=== PATIENT | female | born 1970 | race Caucasian/White ===

== ENCOUNTER 2016-03-01 13:55 | Inpatient (IN) | payer OTHER ==
--- NOTE | 2015-03-29 05:13 | NUR ---
CATALOGUE MAKER AT BEDSIDE FOR MORNING LABS Addendum: 03/29/16 at 0514 by Geno Roy RN WRONG YEAR
[~2016-03-01] VITALS: Ht 160 cm; Wt 59.4 kg
[~2016-03-01 13:55] MED LIST: ACID REDUCER10 M1 PO; ADALAT CC30 MG PO; ADALAT CC60 MG PO; ADALAT PO; AFEDITAB PO; APRESOLINE10 MG PO; ASPI-COR81 M1 PO; AUGMENTIN 875 M1 TAB PO; BENADRYL50 MG PO; BENAZEPRIL40 M1 PO; CEFDINIR300 MG PO; CIPRO500 MG PO; COLACE100 M1 PO; DILAUDID2 M1 PO; EFFEXOR-XR37.5 MG PO; EFFEXOR37.5 MG PO; FOLATE1 MG PO; INSULIN 70/30; LASIX40 MG PO; LEVAQUIN250 MG PO; LEVAQUIN500 MG PO; LEVOFLOXACIN IV; LIPITOR80 MG PO; LONITEN10 MG PO; LONITEN2.5 MG PO; LOPID600 MG PO; LOTENSIN40 M1 PO; LOVASTATIN40 M1 PO; METFORMIN500 MG PO; MEVACOR40 MG PO; NEURONTIN300 MG PO; NOVOLIN 70/301.5 ML SC; NOVOLIN 70100 UNITS/ SUBQ; NOVOLOG MIX 70/10 ML SUBQ; PREVACID15 MG PO; PRILOSEC40 MG PO; PROCARDIA XL60 MG PO; PROTONIX40 MG PO; REGLAN10 MG PO; RENA-VITE RX1 TAB PO; RENVELA800 MG PO; ROCALTROL0.5 MCG PO; ROCEPHIN1 G1 IV; SERTRALINE HCL100 M1 PO; TENORMIN25 MG PO; VICODIN 5/500 M1 TAB PO; VITAMIN D NATU400 IU PO; WELLBUTRIN150 MG PO; ZESTRIL20 MG PO; ZOFRAN ODT4 MG PO; ZOFRAN4 M1 PO; ZOFRAN8 MG PO; [UNRECOGNIZED DRUG - OTHER]
--- NOTE | 2016-03-01 13:56 | NUR ---
O2 SATS IN ER LOBBY 96% ON ROOM AIR.
[2016-03-01 14:21] VITALS: BP 96/49
--- NOTE | 2016-03-01 14:48 | NUR ---
Pt wheelchair assisted to bed 3 at this time,
--- NOTE | 2016-03-01 15:08 | NUR ---
X-Ray at bedside. Pt tolerated well
[2016-03-01] MEDS ORDERED: ASPIRIN 81 MG TAB.CHEW PO ONE (15:15)
[2016-03-01] MEDS ORDERED: NITROGLYCERIN 0.4 MG TAB SL ONE (15:15)
[2016-03-01 15:16] VITALS: BP 139/57
--- NOTE | 2016-03-01 15:16 | NUR ---
PT BROUGHT IN EMS PLACED ON BIPAP 12\6 RR [address] LAY FOR RESP DISTRESS PT IN HF ALERT PROTECTA-GEL UNDER MASK SIZE LG BS DIMINISHED ALARMS ARE ON AND FUNCTIONAL BIPAP PLUGGED INTO RED OUTLET ABG TO FOLLOW
--- NOTE | 2016-03-01 15:25 | NUR ---
Respiratory Therapist at bedside for respiratory intervention. PT TOLERATING WELL.
--- NOTE | 2016-03-01 15:45 | NUR ---
Blood for labwork drawn. Patient tolerated.
--- NOTE | 2016-03-01 16:00 | NUR ---
ABG RESULTS REPORTED TO DR LAY INCREASE FIO2 TO 100
--- NOTE | 2016-03-01 16:00 | NUR ---
sitting upright in guerney --bipap in place, pt admits breathing easier vs to arrival. awake alert c/o generalized back pain. will inform MD. will continue to monitor and observe pt for changes in vitals or respiration. x2 sr up guerney low and locked position.
[2016-03-01] MEDS ORDERED: SODIUM BICARBONATE 8.4% PFS 50 MEQ/50 ML SYR IVP ONE (17:10)
[2016-03-01] MEDS ORDERED: INSULIN HUMAN REGULAR 100 UNITS/ML 10 ML VIAL IVP ONE (17:10)
[2016-03-01] MEDS ORDERED: LEVOFLOXACIN 500 MG/D5W PREMIX 100 ML IV ONE (17:10)
[2016-03-01] MEDS ORDERED: DEXTROSE 50% 50 ML SYR IVP ONE (17:10)
[2016-03-01 17:13] VITALS: BP 119/73
--- NOTE | 2016-03-01 17:13 | NUR ---
BIPAP CHECK BS DIMINIAHED SCATTERED CRACKLES
[2016-03-01] MEDS ORDERED: DEXTROSE 50% 50 ML SYR IVP PRN (17:30)
[2016-03-01] MEDS ORDERED: ONDANSETRON 4 MG/2 ML VIAL IVP ONE (17:55)
[2016-03-01] MEDS ORDERED: MORPHINE SULFATE 2 MG/ML SYR IVP ONE (17:55)
--- NOTE | 2016-03-01 18:00 | NUR ---
PT ATTEMPTED TO EAT DINNER--REMOVED BIPAP PT SPO2 DROPPED TO 85% AND PT GREW SOB----AFTER 15-20MINS WE PUT HER BACK ON BIPAP---RESP IMPROVED SISTER AT BEDSIDE
--- NOTE | 2016-03-01 19:14 | NUR ---
PT WAS TO GO TO ICU BUT THEN DECIDED SHE WILL GO TO TELE----PT REFUSED KATHERINE, STATED SHE WANTED US TO WAIT TILL SHE WAS ABLE TO PEE.
--- NOTE | 2016-03-01 19:15 | NUR ---
Pt transferred to [facility] via [place] [id number]
--- NOTE | 2016-03-01 19:30 | NUR ---
ADMITTED 45 Y/O FEMALE FROM ICU AT 1925 PM TO TELE VIA [employer] WITH DX: SOB. INITIAL ASSESSMENT, BODY CHECK AND ADMISSION INTERVENTION DONE. PATIENT AAO X 4, HAS BLINDNESS ON BOTH EYES, BUT ABLE TO FOLLOW COMMAND AND MAKE NEEDS KNOWN AND AMBULATE WITH CANDLE MOLDER. PATIENT CURRENTLY ON BIPAP AT 50 % FIO2 WITH O2 SATURATION OF 99 %. SKIN WARM/DRY TO TOUCH WITH NORMAL COLOR AND INTACT. AV SHUNT ON LT UPPER ARM HAS GOOD BRUIT/THRILL. INSTRUCTED PATIENT/FAMILY TO UNIT. ALSO, DISCUSSED PLAN OF CARE, PAIN MANAGEMENT AND MEDICATION REGIMEN WITH PATIENT/FAMILY AND ALL VERBALIZED UNDERSTANDING. PLACED PATIENT ON SAFETY/FALL PRECAUTIONS AND WILL CONTINUE TO MONITOR. CALL LIGHT LEFT WITHIN REACH.
--- NOTE | 2016-03-01 19:42 | NUR ---
PT COME FROM ER ON 100% NRB , AND PLACED PT ON BIPAP, STARING WINING FROM 1005 to 50% , sat 100%. pt looks comfortable, sister at bed side., no resp. distress noted at this time
[2016-03-01] MEDS: ALBUTEROL SULFATE/IPRATROPIU 3 ML SOL IH SCH ×2 (19:44→23:31)
[2016-03-01 19:45] VITALS: BP 119/41
[2016-03-01 20:00] VITALS: BP 119/41
[2016-03-01] MEDS: FUROSEMIDE 40 MG TAB PO SCH (20:51)
[2016-03-01] MEDS: GABAPENTIN 300 MG CAP PO SCH (20:51)
[2016-03-01] MEDS: MINOXIDIL 2.5 MG TAB PO SCH (20:51)
[2016-03-01] MEDS: SIMVASTATIN 20 MG TAB PO SCH (20:52)
[2016-03-01] MEDS: BLOOD GLUCOSE MONITORING 1 DEV DEV FS SCH (20:54)
[2016-03-01] MEDS ORDERED: LOVASTATIN 40 MG PO SCH (21:00)
[2016-03-01] MEDS ORDERED: MINOXIDIL 10 MG TAB PO SCH (21:00)
--- NOTE | 2016-03-01 21:15 | NUR ---
DIALYSIS NURSE AT THE BEDSIDE AND PREPARING FOR HD. OBTAINED HD CONSENT FROM THE PATIENT. THEN, ADMINISTERED DUE MEDICATIONS MD'S ORDERED WITH EDUCATION GIVEN. HELD ALL MEDICATIONS THAT WILL EFFECT TO BLOOD PRESSURE LEVEL. PATIENT TOLERATED WELL. WILL CONTINUE TO MONITOR.
--- NOTE | 2016-03-01 22:30 | NUR ---
HD IS STILL ON GOING AND PATIENT TOLERATED WELL. KEPT PATIENT IN COMFORTABLE POSITION/WARM AND WILL CONTINUE TO MONITOR.
[2016-03-01] MEDS: MORPHINE SULFATE 2 MG/ML SYR IVP PRN (23:25)
[2016-03-02] VITALS (7 sets, daily range): BP systolic 94–155; BP diastolic 58–86
--- NOTE | 2016-03-02 00:25 | NUR ---
FINISHED HD AND 3 L OUTPUT. PATIENT TOLERATED WELL AND V/S REMAINED WNL. NO S/S OF DISTRESS NOTED. WILL CONTINUE TO MONITOR.
--- NOTE | 2016-03-02 00:30 | NUR ---
IV ON RIGHT HAND ACCIDENTALLY CAME OUT. INSERTED THE NEW IV LINE ON RT UPPER CHEST G # 22 BY ICU CHARGE NURSE AND PATIENT TOLERATED WELL.
[2016-03-02] MEDS: ALBUTEROL SULFATE/IPRATROPIU 3 ML SOL IH SCH ×6 (03:15→23:17)
--- NOTE | 2016-03-02 04:08 | NUR ---
PATIENT RESTED COMFORTABLY IN BED AND TOLERATED BIPAP WELL. V/S REMAINED WNL AND NO S/S OF DISTRESS NOTED. WILL CONTINUE TO MONITOR.
[2016-03-02] MEDS: MORPHINE SULFATE 2 MG/ML SYR IVP PRN ×2 (04:53→17:44)
--- NOTE | 2016-03-02 05:00 | NUR ---
PATIENT WAS CALLED AND C/O BACK PAIN. MEDICATED MORPHINE PRN AND REPOSITION FOR PRESSURE RELIEF. WILL CONTINUE TO MONITOR FOR EFFECTIVENESS.
[2016-03-02] MEDS: BLOOD GLUCOSE MONITORING 1 DEV DEV FS SCH ×4 (05:25→21:17)
--- NOTE | 2016-03-02 07:05 | NUR ---
RECEIVED PATIENT REPORT. PATIENT AWAKE, ALERT AND ORIENTED. NO S/S OF DISTRESS NOTED. PATIENT IS BLIND. PATIENT CURRENTLY ON BIPAP. NO SOB. PATIENT ON CONTINUOS O2 MONITORING. IV LINE NOTED TO THE RIGHT UPPER CHEST SALINE LOCKED. AV SHUNT NOTED TO THE LEFT UPPER ARM. PATIENT ON TELE MONITORING. BED LOWERED WITH CALL LIGHT WITHIN REACH
--- NOTE | 2016-03-02 07:25 | NUR ---
RECEIVED PT STABLE ON BIPAP SUPPORT FIO2 50%, PLACED ON CONT PULSE OX, PT AWAKE ALERT, NO RESP DISTRESS OR SOB NOTED, BREATH SOUNDS CLEAR BILATERALLY, WILL CONTINUE TO MONITOR.
--- NOTE | 2016-03-02 07:25 | NUR ---
ENDORSED PLAN OF CARE TO CHLOE HAN, AT BEDSIDE. PATIENT REMAINED IN STABLE CONDITION WITHOUT S/S OF DISTRESS NOTED.
--- NOTE | 2016-03-02 08:53 | NUR ---
PT TAKEN OFF BIPAP AND PLACED ON 12LPM OXIMIZER TO EAT BREAKFAST, EMELY CORONA AWARE, WILL CONTINUE TO MONITOR.
[2016-03-02] MEDS ORDERED: FAMOTIDINE 20 MG PO SCH (09:00)
[2016-03-02] MEDS ORDERED: SEVELAMER CARBONATE 1600 MG PO SCH (09:00)
[2016-03-02] MEDS: MINOXIDIL 2.5 MG TAB PO SCH ×2 (09:00→21:00)
[2016-03-02] MEDS: VIT-B COMP/VIT-C/FOLIC ACID 1 TAB PO SCH (09:21)
[2016-03-02] MEDS: FAMOTIDINE 20 MG TAB PO SCH (09:21)
[2016-03-02] MEDS: FUROSEMIDE 40 MG TAB PO SCH ×2 (09:21→21:00)
[2016-03-02] MEDS: FOLIC ACID 1 MG TAB PO SCH (09:21)
[2016-03-02] MEDS: SEVELAMER 800 MG TAB PO SCH ×3 (09:21→16:43)
[2016-03-02] MEDS: METOCLOPRAMIDE 10 MG TAB PO SCH ×3 (09:21→16:43)
--- NOTE | 2016-03-02 10:03 | NUR ---
PATIENT HAS BEEN SCREENED AND CATEGORIZED MODERATE NUTRITION RISK. PATIENT WILL BE SEEN WITHIN 3-5 DAYS OF ADMISSION. 03/04/16-03/06/[address]
--- NOTE | 2016-03-02 10:20 | NUR ---
PATIENT RECEIVING 12L O2 VIA OXYMIZER WITH O2 SAT OF 95% BUT C/O OF DIFFICULTY BREATHING AND STATES THAT SHE "CAN'T FEEL THE OXYGEN". PATIENT PUT BACK ON BIPAP. WILL CONTINUE TO MONITOR
--- NOTE | 2016-03-02 11:03 | NUR ---
RECEIVED A CALL FROM NUCLEAR MED. PATIENT WILL HAVE VQ SCAN DONE AT BEDSIDE AROUND 1600 TODAY
--- NOTE | 2016-03-02 11:58 | NUR ---
CM NOTE INITIAL REVIEW FAXED TO [facility] / FAX# [phone], ATTN: July [phone]
[2016-03-02] MEDS: INSULIN ASPART SLIDING SCALE 100 UNITS/ML VIAL SUBQ PRN ×2 (12:28→17:37)
--- NOTE | 2016-03-02 12:30 | NUR ---
INSULIN SLIDING SCALE COVERAGE NOT ADMINISTERED. PATIENT UNABLE TO EAT LUNCH AT THE MOMENT
--- NOTE | 2016-03-02 12:30 | NUR ---
PATIENT TAKEN OFF OF BIPAP TO HELP EAT LUNCH BUT PATIENT O2 SATURATION QUICKLY DROPPED FROM 95% TO 75%. PATIENT PLACED BACK TO BIPAP IMMEDIATELY. SCHEDULED PO MEDS NOT ADMINISTERED
--- NOTE | 2016-03-02 16:31 | NUR ---
SPOKE WITH [place] FROM DIALYSIS AND INFORMED HER ABOUT THE HEMODIALYSIS [place] ORDERED FOR THE PATIENT TOMORROW
--- NOTE | 2016-03-02 16:45 | NUR ---
SPOKE WITH DR QUINTERO. MADE HER AWARE THAT PATIENT HAS BEEN MOSTLY ON THE BIPAP TODAY AND THAT NO PRESIDENT IN ON THE PATIENT'S CASE. ALSO INFORMED THAT PATIENT DOES NOT HAVE O2 AT HOME. DR QUINTERO TO SEE THE PATIENT
--- NOTE | 2016-03-02 18:21 | NUR ---
PMI AT BEDSIDE PERFORMING VQ SCAN
--- NOTE | 2016-03-02 19:22 | NUR ---
ENDORSED CONTINUITY OF CARE TO THE NIGHT NURSE. PATIENT IN STABLE CONDITION
--- NOTE | 2016-03-02 19:35 | NUR ---
RECEIVED PT IN STABLE CONDITION FROM AM NURSE. AWAKE, ALERT AND ORIENTED X4. ON TELE MONITOR. NO ACUTE DISTRESS AT THIS TIME ON BIPAP . BEDREST. INSTRUCTED PT TO CALL IF NEED ASSISTANCE. FAMILY AT BEDSIDE. HAS HL ON THE RT UPPER CHEST. ON HD WITH LT UPPER ARM AV SHUNT ,HAS GOOD BRUIT AND THRILLS. PLAN OF CARE DISCUSSED AND VERBALIZED UNDERSTANDING. CALL LIGHT PLACED WITHIN EASY REACH. WILL CONTINUE TO MONITOR.
--- NOTE | 2016-03-02 19:45 | NUR ---
RT [employer] CAME AND ASSESSED PT. PT STILL ON BIPAP.
--- NOTE | 2016-03-02 19:50 | NUR ---
VQ SCAN WAS DONE AT BEDSIDE FEW MINUTES AGO. WILL FOLLOW UP RESULT.
[2016-03-02] MEDS: LISINOPRIL 20 MG TAB PO SCH (21:00)
--- NOTE | 2016-03-02 21:00 | NUR ---
BP MEDS AND LASIX NOT GIVEN FOR BP IS LOW 94/64. WILL CONTINUE TO MONITOR.
--- NOTE | 2016-03-02 21:17 | NUR ---
BLOOD SUGAR WAS CHECKED RESULT 142. PT HAD SOME MILK. WILL CONTINUE TO MONITOR.
[2016-03-02] MEDS: SIMVASTATIN 20 MG TAB PO SCH (21:25)
[2016-03-02] MEDS: GABAPENTIN 300 MG CAP PO SCH (21:25)
--- NOTE | 2016-03-02 21:30 | NUR ---
NO RESULT OF THE VQ SCAN . WILL CONTINUE TO FOLLOW UP.
--- NOTE | 2016-03-02 22:50 | NUR ---
PT GIVEN FOR SOME APPLE JUICE REQUESTED. TOLERATED WELL.
[2016-03-03] VITALS (11 sets, daily range): BP systolic 86–123; BP diastolic 47–96
--- NOTE | 2016-03-03 01:00 | NUR ---
SLEEPING AT THIS TIME. NO S/S OF ANY ACUTE RESPIRATORY DISTRESS NOTED. O2 SAT 96%.
[2016-03-03] MEDS: ALBUTEROL SULFATE/IPRATROPIU 3 ML SOL IH SCH ×6 (03:09→22:20)
--- NOTE | 2016-03-03 03:29 | NUR ---
TRIED TO GIVE PATIENT A BREAK OFF THE BIPAP BUT PT S SATS DROPPED TO 75%. HAD TO PLACE PT BACK ON BIPAP
--- NOTE | 2016-03-03 04:00 | NUR ---
REPOSITIONED FOR COMFORT. NO SOB NOTED. STILL ON BI-PAP .
[2016-03-03] MEDS: BLOOD GLUCOSE MONITORING 1 DEV DEV FS SCH ×4 (06:16→21:13)
--- NOTE | 2016-03-03 06:17 | NUR ---
BLOOD SUGAR CHECKED THIS AM RESULT 103. NO INSULIN NEEDED.
--- NOTE | 2016-03-03 07:05 | NUR ---
RECEIVED PATIENT REPORT. PATIENT AWAKE, ALERT AND ORIENTED. NO S/S OF DISTRESS NOTED. PATIENT ON BIPAP WITH 60% FIO2. PATIENT ABOUT TO HAVE HEMODIALYSIS. PATIENT ON TELE MONITORING. BED LOWERED WITH CALL LIGHT WITHIN REACH. WILL CONTINUE TO MONITOR
--- NOTE | 2016-03-03 07:15 | NUR ---
HD NURSE HERE FOR DIALYSIS SCHEDULE TODAY.
--- NOTE | 2016-03-03 07:21 | NUR ---
ENDORSED PT IN STABLE CONDITION TO AM NURSE.
[2016-03-03] MEDS: SEVELAMER 800 MG TAB PO SCH ×3 (08:00→17:14)
--- NOTE | 2016-03-03 08:30 | NUR ---
PATIENT PUT ON OXYMIZER AT 12L. O2 SAT 92%. PATIENT EATING BREAKFAST. NO S/S OF DISTRESS NOTED
--- NOTE | 2016-03-03 08:50 | NUR ---
HEMODIALYSIS TREATMENT STARTED
[2016-03-03] MEDS: METOCLOPRAMIDE 10 MG TAB PO SCH ×3 (09:00→17:14)
[2016-03-03] MEDS: VIT-B COMP/VIT-C/FOLIC ACID 1 TAB PO SCH (09:00)
[2016-03-03] MEDS: FAMOTIDINE 20 MG TAB PO SCH (09:00)
[2016-03-03] MEDS: FUROSEMIDE 40 MG TAB PO SCH ×2 (09:00→21:00)
[2016-03-03] MEDS: LISINOPRIL 20 MG TAB PO SCH ×2 (09:00→21:00)
[2016-03-03] MEDS: FOLIC ACID 1 MG TAB PO SCH (09:00)
[2016-03-03] MEDS: MINOXIDIL 2.5 MG TAB PO SCH ×2 (09:00→21:00)
--- NOTE | 2016-03-03 10:13 | NUR ---
PATIENT REPORTS OF DIFFICULTY BREATHING. PATIENT PUT BACK ON BIPAP. HEMODIALYSIS STILL IN PROGRESS. WILL CONTINUE TO MONITOR
--- NOTE | 2016-03-03 11:28 | NUR ---
CM NOTE INITIAL REVIEW FAXED TO [facility] / FAX# [phone], ATTN: July [phone]
--- NOTE | 2016-03-03 12:20 | NUR ---
HEMODIALYSIS DONE. 3L OUT. NO S/S OF DISTRESS NOTED
[2016-03-03] MEDS: INSULIN ASPART SLIDING SCALE 100 UNITS/ML VIAL SUBQ PRN ×2 (12:51→22:40)
--- NOTE | 2016-03-03 13:54 | NUR ---
PATIENT SEEN BY PHYSICAL THERAPIST. PATIENT WAS ABLE TO GET UP AND TAKE A FEW STEPS USING A WALKER WHILE ON 10L O2 VIA OXYMIZER. 02 SATURATION 91%
[2016-03-03] MEDS: MORPHINE SULFATE 2 MG/ML SYR IVP PRN (14:28)
--- NOTE | 2016-03-03 15:25 | NUR ---
PT PLACED BACK ON 10L OXYMIZER. NO SOB OR RESP DISTRESS NOTED. WILL CONTINUE TO MONITOR.
[2016-03-03] MEDS: LEVOFLOXACIN 500 MG TAB PO SCH (17:14)
--- NOTE | 2016-03-03 18:15 | NUR ---
CONSENT OBTAINED FOR CT CHEST AND ANGIO FROM PATIENT. CONSENT FILED IN THE CHART
--- NOTE | 2016-03-03 18:30 | NUR ---
SPOKE WITH DR CABELLO AND INFORMED HIM ABOUT THE PATIENT'S CREATININE LEVEL AND THAT THE PATIENT IS ORDERED TO HAVE A CT ANGIO WITH CONTRAST. SAYS IT'S OK FOR THE PATIENT TO HAVE THE PROCEDURE AND THERE IS NO NEED FOR DIALYSIS TOMORROW
--- NOTE | 2016-03-03 18:30 | NUR ---
MADE DR ASHER AWARE OF PATIENT'S TROP LEVEL OF 1.683. ORDERS TROPONIN Q6H X2
--- NOTE | 2016-03-03 18:39 | NUR ---
PATIENT PLACED NPO FOR CT CHEST AND ANGIO
--- NOTE | 2016-03-03 19:04 | NUR ---
PATIENT AWAKE AND ALERT, STATES THAT SHE IS FINE ON OXYMIZER AND DOES NOT WANT TO GO ON THE BIPAP MASK AT THIS TIME. NO DISTRESS NOTED AT THIS TIME. TREATMENT GIVEN. SPO2 93% ON 9L OXYMIZER
--- NOTE | 2016-03-03 19:32 | NUR ---
ENDORSED CONTINUITY OF CARE TO THE NIGHT NURSE.
--- NOTE | 2016-03-03 19:50 | NUR ---
RECEIVED PT FROM EMELY Quispe RN FOR CONTINUITY OF CARE. SHIFT ASSESSMENT DONE AT THIS TIME. PT IS RESPONSIVE, A/O X2, COOPERATIVE, NOTED STABLE, PT IS BLIND. VITAL SIGNS TAKEN ARE STABLE, PT ON 10L OXYMIZER SATURATION NOTED AT 91%. PT DENIES CHEST PAIN, SOB OR DISCOMFORT AT THIS TIME. IV ACCESS NOTED TO RT AC #20G, SALINE LOCKED, PATENT AND INTACT. RT WRIST #24G, OCCLUDED, WILL DISCONTINUE. RT CHEST IV ACCESS #24G, PATENT AND INTACT. NOTED SKIN INTACT. LT AV SHUNT INTACT, POSITIVE BRUIT AND THRILL. NO BP/VENIPUNCTURE TO LT ARM, SIGN POSTED. SAFETY PRECAUTIONS IMPLEMENTED. CALL LIGHT WITHIN EASY REACH. WILL CONTINUE TO MONITOR. DISCUSSED PLAN OF CARE W/ PT, VERBALIZED UNDERSTANDING.
--- NOTE | 2016-03-03 20:08 | NUR ---
PER TELE MONITOR, PT CHRISTEL. CHECKED ON PT AT THIS TIME, FOUND UNRESPONSIVE, NO PULSE. CODE BLUE INITIATED.
--- NOTE | 2016-03-03 20:20 | NUR ---
CODE BLUE SUCCESSFUL, PT IS INTUBATED, SEE CODE BLUE RECORD. WILL MAKE MD AWARE.
--- NOTE | 2016-03-03 20:25 | NUR ---
SPOKE TO COVERING DOCTOR, DR. ASHER MADE AWARE OF PT CONDITION. RECEIVED ORDER TO TRANSFER PT TO ICU.
--- NOTE | 2016-03-03 20:35 | NUR ---
PATIENT INTUBATED WITH 7.5 ETT @ 22CM, ETT SECURE WITH ANCHOR FAST. BS NOTED BILAT, DIMINISHED ETCO2 AND BS CONFIRMED BY MD NAJERA. ABG TO FOLLOW. PATIENT ON AC 12 VT 500 PEEP 5 FIO2 100% VENT PLUGGED INTO RED OUTLET. AMBU BAG AT BEDSIDE, ALARMS ON AND FUNCTIONING. Addendum: 03/03/16 at 2057 by Rosalie BOX ETT @ 23 CM
--- NOTE | 2016-03-03 20:40 | NUR ---
FAMILY MADE AWARE OF PT TRANSFER TO ICU, DAUGHTERS NOTIFIED.
--- NOTE | 2016-03-03 20:45 | NUR ---
PATIENT TRANSFERRED TO UNIT VIA BED FROM [facility] AFTER HAVING CODE BLUE. RECEIVED REPORT FROM [facility] NURSE CHLOE STRONG HERE AT BEDSIDE. PT IS LEGALLY BLIND, UNRESPONSIVE AT THIS TIME. ETT TO VENT WITH CURRENT PULSE OX SHOWING 99% AT THIS TIME. TOOLS PROGRAMMER CURRENTLY SHOWS SINUS TACH WITH HR AT 109, BP 103/64, RR14, TEMP 99.5. PT HAS RIGHT AC #20 RUNNING NS TKO 10ML AT THIS TIME. WELL AN IV IN CHEST AND RIGHT WRIST SALINE LOCKED. HAS LEFT UPPER ARM AV SHUNT FOR DIALYSIS. ABDOMEN SOFT, NON-TENDER. SKIN INTACT. BED IN LOW POSITION. HOB UP. WILL CONTINUE TO CLOSELY MONITOR.
--- NOTE | 2016-03-03 20:47 | NUR ---
TRANSFERRED TO ICU AT THIS TIME, RESPIRATORY THERAPIST AT BEDSIDE. REPORT GIVEN TO ANNETTERN FOR CONTINUITY OF CARE.
--- NOTE | 2016-03-03 20:54 | NUR ---
SPOKE TO DR. HINTON ABOUT PT CONDITION, AWARE OF PT STATUS. PT IS NOW IN ICU.
--- NOTE | 2016-03-03 20:58 | NUR ---
ETT POSITION IS 7.5 @ 23CM WITH ANCHOR FAST. VENT SETTINGS CHANGED TO AC 16 VT 500 PEEP 5 FIO2 100% PER MD MARY JANE MD TO FOLLOW IN ONE HOUR
--- NOTE | 2016-03-03 21:13 | NUR ---
PATIENT'S DAUGHTER AND FRIEND HERE AT BEDSIDE.
--- NOTE | 2016-03-03 21:24 | NUR ---
PATIENT HAVING CXR DONE AT BEDSIDE AT THIS TIME.
--- NOTE | 2016-03-03 21:35 | NUR ---
DR HINTON HERE ON THE UNIT TO SEE THE PATIENT AT BEDSIDE.
--- NOTE | 2016-03-03 21:51 | NUR ---
PATIENT'S SISTER CAIO HERE AT BEDSIDE
[2016-03-03] MEDS ORDERED: hePARIN / DEXT 5% PREMIX 250 ML IV PRN (21:55)
[2016-03-03] MEDS ORDERED: HEPARIN PER PHARMACY MC PRN (21:55)
--- NOTE | 2016-03-03 21:55 | NUR ---
PER DR HINTON HOLD ALL BP MEDS TONIGHT. OTHER ORDERS RECEIVED
[2016-03-03] MEDS ORDERED: NOREPINEPHRINE 4 MG in DEXTROSE 5% 250 ML IV PRN (22:10)
--- NOTE | 2016-03-03 22:20 | NUR ---
MURPHY CATHETER AND NG TUBE INSERTED IN PATIENT.
[2016-03-03] MEDS: SIMVASTATIN 20 MG TAB PO SCH (22:32)
[2016-03-03] MEDS: GABAPENTIN 300 MG CAP PO SCH (22:32)
--- NOTE | 2016-03-03 23:20 | NUR ---
STARTED PATIENT ON HEPARIN DRIP PER PROTOCOL.
[2016-03-04] VITALS (24 sets, daily range): BP systolic 85–178; BP diastolic 41–115
--- NOTE | 2016-03-04 00:56 | NUR ---
PATIENT'S SISTER CAIO MOISE BACK ON THE UNIT SITTING AT PATIENT'S BEDSIDE.
--- NOTE | 2016-03-04 01:47 | NUR ---
PT IN BED. NO S/S OF ACUTE RESPIRATORY DISTRESS AT THIS TIME. NO S/S OF DISCOMFORT AT THIS TIME. BED IN LOW POSITION. HOB UP. SISTER CAIO AT BEDSIDE. WILL CONTINUE TO CLOSELY MONITOR PATIENT.
[2016-03-04] MEDS: ALBUTEROL SULFATE/IPRATROPIU 3 ML SOL IH SCH ×6 (02:36→23:46)
--- NOTE | 2016-03-04 02:50 | NUR ---
FIO2 TO INCREASED TO 70% SPO2 87 ON 50%, RN TITO AWARE. SPO2 95%
[2016-03-04] MEDS: MORPHINE SULFATE 2 MG/ML SYR IVP PRN (02:54)
--- NOTE | 2016-03-04 02:55 | NUR ---
PT HR, RR INCREASING. PATIENT STARTING TO MOVE IN BED. FLACC OF 4 AT THIS TIME. MEDICATED WITH MORPHINE ORDERED PRN. NO SOB NOTED AT THIS TIME. WILL CONTINUE TO MONITOR.
--- NOTE | 2016-03-04 04:03 | NUR ---
PT TURNED, REPOSITIONED, VAP ORAL KIT DONE. NO SOB NOTED AT THIS TIME. WILL CONTINUE TO CLOSELY MONITOR.
--- NOTE | 2016-03-04 06:08 | NUR ---
MORNING CARE RENDERED. PT CLEANED, LINEN CHANGED, PATIENT TURNED, REPOSITIONED. NO S/S OF RESPIRATORY DISTRESS AT THIS TIME. NO S/S OF DISCOMFORT. SAFETY PRECAUTIONS MAINTAINED. WILL CONTINUE TO CLOSELY MONITOR.
--- NOTE | 2016-03-04 06:48 | NUR ---
RECEIVED PT ON VENT WITH SXN PT WITH MIN AMT OFF WHITE SECS VENT PLUGGED INTO RED OUTLET AMBU BAG AT BEDSIDE SETTINGS CHARTED BREATH SOUNDS PRESENT BILAT COARSE PT NOT AWAKE NOT RESPONDING TO VERBAL QUESTIONS
[2016-03-04] MEDS: BLOOD GLUCOSE MONITORING 1 DEV DEV FS SCH ×4 (07:05→21:07)
--- NOTE | 2016-03-04 07:15 | NUR ---
ENDORSED PLAN OF CARE TO DAY NURSE CHLOE JARAMILLO AT PATIENT BEDSIDE FOR CONTINUITY OF CARE.
--- NOTE | 2016-03-04 07:20 | NUR ---
RECEIVED REPORT FROM CHLOE FRANCIS. NO SIGNS OF ACUTE DISTRESS NOTED AT THIS TIME. FLACC 0. PT IS LEGALLY BLIND. PT IS ON ETT TO VENT. FIO2: 70%, TV: 500, AC: 16, PEEP: 5. NGT TO LEFT NARE IN PLACE. MURPHY CATHETER IN PLACE DRAINING TO GRAVITY DRAINAGE BAG. IV TO RIGHT CHEST #24 AND IV TO RIGHT AC #20 PATENT AND INTACT, INFUSING HEPARIN DRIP AT 1110 UNITS/HR. SKIN IS INTACT. LEFT UPPER ARM AV SHUNT NOTED WITH BRUIT AND THRILL PRESENT. SAFETY PRECAUTIONS IN PLACE WITH BED IN LOWEST POSITION AND SIDE RAILS UP X2. CALL LIGHT WITHIN REACH. PT IS CURRENTLY SINUR RHYTHM ON THE MONITOR. WILL CONTINUE TO MONITOR.
[2016-03-04] MEDS: SEVELAMER 800 MG TAB PO SCH ×2 (08:00→08:23)
--- NOTE | 2016-03-04 08:01 | NUR ---
PT'S DAUGHTER, RAKEL, PRESENT AT BEDSIDE.
[2016-03-04] MEDS: METOCLOPRAMIDE 10 MG TAB PO SCH ×3 (08:23→17:23)
[2016-03-04] MEDS: FOLIC ACID 1 MG TAB PO SCH (08:23)
[2016-03-04] MEDS: VIT-B COMP/VIT-C/FOLIC ACID 1 TAB PO SCH (08:23)
[2016-03-04] MEDS: MINOXIDIL 2.5 MG TAB PO SCH ×2 (08:24→21:15)
[2016-03-04] MEDS: LISINOPRIL 20 MG TAB PO SCH ×2 (08:24→21:14)
[2016-03-04] MEDS: FAMOTIDINE 20 MG TAB PO SCH (08:24)
[2016-03-04] MEDS: FUROSEMIDE 40 MG TAB PO SCH ×2 (08:24→21:14)
--- NOTE | 2016-03-04 08:25 | NUR ---
CHECKED BP: 103/69. POTASSIUM: 4.1. ADMINISTERED LASIX ORDERED. HELD OTHER BP MEDS. PT TOLERATED WELL.
--- NOTE | 2016-03-04 08:35 | NUR ---
UNABLE TO CRUSH RENAGEL TO ADMINISTER THROUGH NGT. PT IS UNABLE TO SWALLOW. NOTIFIED PHARMACY TO SEE IF ALTERNATIVE FORM OF MED IS AVAILABLE.
--- NOTE | 2016-03-04 08:51 | NUR ---
RECEIVED CALLBACK FROM LOY FROM PHARMACY, INFORMED THAT FOS RENAL IS A COMPARABLE MEDICATION TO RENEGEL THAT CAN BE CRUSHED AND ADMINISTERED THROUGH THE NGT. WILL CALL
--- NOTE | 2016-03-04 08:54 | NUR ---
PAGED DR. QUINTERO REGARDING MEDICATION ORDER, INFORMED DR. KAMINSKI WILL CALLBACK.
--- NOTE | 2016-03-04 09:00 | NUR ---
RECEIVED CALLBACK FROM DR. KAMINSKI. NEW ORDERS RECEIVED.
--- NOTE | 2016-03-04 09:11 | NUR ---
DR. AVALOS IN TO SEE PT. WILL FOLLOW UP ON ORDERS.
--- NOTE | 2016-03-04 09:23 | NUR ---
PT'S SISTER, CAIO, PRESENT AT BEDSIDE. CONSENT FOR ULTRASOUND GUIDED THORACENTESIS SIGNED AND PLACED IN PT'S CHART.
--- NOTE | 2016-03-04 09:36 | NUR ---
ACCOUNTING SOFTWARE SPECIALISTYI, PRESENT AT PT BEDSIDE FOR ECHOCARDIOGRAM.
--- NOTE | 2016-03-04 10:46 | NUR ---
PAGED DR. GROSSMAN'S OFFICE REGARDING HEMODIALYSIS ORDERS FOR PT IN REGARDS TO CT WITH CONTRAST USE. NO ANSWER, LEFT MESSAGE WITH CALLBACK #.
--- NOTE | 2016-03-04 11:05 | NUR ---
pt transported to ct via ambu bag returned to icu 1145 an placed back on vent with settings as charted no ill effects noted
--- NOTE | 2016-03-04 11:15 | NUR ---
PT TO CT. ACCOMPANIED BY MYSELF, RT AND ULTRASOUND SPECIALIST.
--- NOTE | 2016-03-04 11:40 | NUR ---
PT BACK FROM CT WITH NO ISSUES AND PLACED ON THE MONITOR.
[2016-03-04] MEDS ORDERED: LANTHANUM CARBONATE 500 MG TAB PO SCH (12:00)
--- NOTE | 2016-03-04 12:09 | NUR ---
PT TOLERATED MEDS WELL.
--- NOTE | 2016-03-04 12:09 | NUR ---
03/04/16 RD INITIAL ASSESSMENT COMPLETED PLEASE REFER TO NUTRITION ASSESSMENT UNDER CARE ACTIVITY FOR ESTIMATED NUTRITIONAL NEEDS. RD RECOMMENDATIONS: 1. CONTINUE NPO MEDICALLY APPROPRIATE PER MD 2. WHEN MEDICALLY APPROPRIATE CONSIDER INITIATING NUTRITION SUPPORT NOVASOURCE RENAL AT 10ML/HR AND ADVANCE TOLERATED 10 ML Q12H TO GOAL OF 35 ML/HR. --AT GOAL OF 35 ML/HR, THIS WILL PROVIDE 840 ML TOTAL VOLUME, 1680 KCAL, 76 GM PROTEIN, 602 ML FREE WATER. THIS WILL MEET 100% OF PT ESTIMATED KCAL AND PROTEIN NEEDS 3. IF PT SUCCESSFULLY WEANED FROM VENTILATOR CONSIDER ADVANCE DIET TOLERATED TO CCHO 60 GM, RENAL 4. RD WILL F/U 2-3 DAYS; HIGH RISK. [address]
--- NOTE | 2016-03-04 12:40 | NUR ---
IV TO RIGHT AC #20 INFILTRATED. DC'ED WITH CANNULA INTACT. APPLIED WARM COMPRESS. WILL ATTEMPT NEW IV INSERTION.
--- NOTE | 2016-03-04 12:44 | NUR ---
IV INSERTED TO RIGHT UPPER CHEST #22 PATENT AND INTACT.
--- NOTE | 2016-03-04 13:05 | NUR ---
DR KAMINSKI DECREASED FIO2 TO .40 RN AWARE
--- NOTE | 2016-03-04 13:05 | NUR ---
DR. KAMINSKI IN TO SEE PT. WILL FOLLOW UP ON ORDERS.
--- NOTE | 2016-03-04 14:02 | NUR ---
INCREASED FIO2 TO .60 RN AWARE Addendum: 03/04/16 at 1404 by Kyaw Goldberg RT SPO2 DROPPING BELOW .90
--- NOTE | 2016-03-04 14:11 | NUR ---
FAXED CONCURRENT REVIEW TO [facility] [phone] PHONE LAKESHA [phone]
--- NOTE | 2016-03-04 14:20 | NUR ---
DR. MIMS PRESENT AT BEDSIDE FOR THORACENTESIS. PER PT'S DAUGHTER, RAKEL, WAIT UNTIL STUDIES FROM EEG AND HEAD CT IN REGARDS TO BRAIN ACTIVITY BEFORE THORACENTESIS IS PERFORMED.
--- NOTE | 2016-03-04 14:43 | NUR ---
EEG BEING PERFORMED
--- NOTE | 2016-03-04 15:01 | NUR ---
PT'S DAUGHTER, RAKEL, SIGNED CODE STATUS FORM. PT IS NOW DNR. PLACED IN PT'S CHART.
--- NOTE | 2016-03-04 16:03 | NUR ---
RECEIVED REQUEST TO SEND INFORMATION TO ALLIED PHYSICIAN. I CALLED ALLIED PHYSICIAN AND SPOKE WITH MONTY, . SHE SAID TO FAX THE FACE SHEET AND H&P TO HIM AT [phone], WHICH I DID.
--- NOTE | 2016-03-04 16:05 | NUR ---
CODE STATUS FORM SIGNED BY CAIO PT'S SISTER. PLACED IN PT'S CHART. NEWEST COPY OF ADVANCED DIRECTIVES BROUGHT IN AND PLACED IN PT'S CHART.
--- NOTE | 2016-03-04 16:20 | NUR ---
DR. QUINTERO IN TO SEE PT. WILL FOLLOW UP ON ORDERS.
--- NOTE | 2016-03-04 16:30 | NUR ---
PT TO CT FOR HEAT CT WITHOUT CONTRAST. ACCOMPANIED BY MYSELF, HAT CHECKER, AND RT ARMIN.
--- NOTE | 2016-03-04 17:00 | NUR ---
PT BACK FROM CT WITH NO ISSUES. PLACED BACK ON THE MONITOR.
--- NOTE | 2016-03-04 17:02 | NUR ---
DR. GROSSMAN IN TO SEE PT. WILL FOLLOW UP ON ORDERS.
--- NOTE | 2016-03-04 17:23 | NUR ---
PT TOLERATED MEDS WELL.
--- NOTE | 2016-03-04 17:38 | NUR ---
CONTINUED TO MONITOR PT ON VENT WITH SETTINGS CHARTED SXN PT WITH MIN TO MODERATE SECS OFF WHITE BREATH SOUNDS PRESENT BILAT COARSE VENT PLUGGED INTO RED OUTLET AMBU BAG AT BEDSIDE
--- NOTE | 2016-03-04 17:44 | NUR ---
DR. LANG IN TO SEE PT. WILL FOLLOW UP ON ORDERS.
[2016-03-04] MEDS: levETIRAcetam 500 MG in NACL 0.9% 100 ML IV SCH (18:19)
--- NOTE | 2016-03-04 18:24 | NUR ---
PT TOLERATED MEDS WELL. FAMILY PRESENT AT BEDSIDE.
--- NOTE | 2016-03-04 19:18 | NUR ---
ENDORSED CARE TO CHLOE PARDO. PT IN STABLE CONDITION.
--- NOTE | 2016-03-04 19:20 | NUR ---
RECEIVED REPORT FROM CHLOE JARAMILLO. 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 ON ETT TO VENT. FIO2: 50%, TV: 500, AC: 16, PEEP: 5. NO SIGNS OF ACUTE DISTRESS NOTED AT THIS TIME. CLEAR LUNG SOUNDS. SR ON STAFF REPORTER. NGT TO LEFT NARE IN PLACE. CURRENTLY ON NPO EXCEPT MEDICATIONS, RESIDUAL 60ML. FLACC 0. ACTIVE BOWEL SOUNDS, MURPHY CATHETER IN PLACE DRAINING TO GRAVITY DRAINAGE BAG. IV TO RIGHT CHEST #24 AND IV TO RIGHT CHEST #22. PATENT AND INTACT, INFUSING HEPARIN DRIP AT 1110 UNITS/HR. AFEBRILE, SKIN IS INTACT, WARM AND DRY TO TOUCH. LEFT UPPER ARM AV SHUNT NOTED WITH BRUIT AND THRILL PRESENT. SAFETY PRECAUTIONS IN PLACE WITH BED IN LOWEST POSITION, CALL LIGHT WITHIN REACH, WILL CONTINUE TO MONITOR. V/S: BP 122/59, HR 69, RR 16, TEMP 97.7F, O2 SAT 100%
--- NOTE | 2016-03-04 20:00 | NUR ---
ORAL CARE PROVIDED, POSITION CHANGED FOR OFF LOAD PRESSURE, NO CHANGE OF CONDITION AT THIS TIME.
--- NOTE | 2016-03-04 20:30 | NUR ---
PT HAD BLOOD URINE ,ON HEPARIN DRIP 1110 UNITS/H, LAST [id number] AT 1255 PT IS DNR , FAMILY REQUEST NO MORE HEMODIALYSIS , DR RIOJAS. SEE ORDER. STOP HEPARIN DRIP AND D/C HD .
--- NOTE | 2016-03-04 21:07 | NUR ---
DR JAY NOTIFIED FAMILY DAUGHTER RAKEL MCRAE REQUEST NO MORE HEMODIALYSIS ORDER STOP HEMODIALYSIS.
--- NOTE | 2016-03-04 21:10 | NUR ---
PETEEDDYStefanie ALBERTSS DAUGHTER OF PT , CALLED SHE WANT TO CONTINUE HEMODIALYSIS FOR HER MOTHER , HEMODIALYSIS WILL DO IN AM ORDER.
[2016-03-04] MEDS: GABAPENTIN 300 MG CAP PO SCH (21:14)
[2016-03-04] MEDS: SIMVASTATIN 20 MG TAB PO SCH (21:15)
--- NOTE | 2016-03-04 21:15 | NUR ---
MEDICATION GIVEN VIA NGT, PATIENT TOLERATED WELL.
--- NOTE | 2016-03-04 22:00 | NUR ---
NO CHANGE OF CONDITION AT THIS TIME, POSITION CHANGED FOR OFF LOAD PRESSURE, WILL CONTINUE TO MONITOR.
[2016-03-05] VITALS (23 sets, daily range): BP systolic 85–117; BP diastolic 40–73
--- NOTE | 2016-03-05 | NUR ---
POSITION CHANGED FOR OFF LOAD PRESSURE, ORAL CARE PROVIDED, NO CHANGE OF CONDITION AT THIS TIME.
--- NOTE | 2016-03-05 02:00 | NUR ---
POSITION CHANGED FOR OFF LOAD PRESSURE, NO CHANGE OF CONDITION AT THIS TIME.
[2016-03-05] MEDS: ALBUTEROL SULFATE/IPRATROPIU 3 ML SOL IH SCH ×6 (03:39→23:29)
--- NOTE | 2016-03-05 04:00 | NUR ---
AM CARE PROVIDED, ORAL CARE PROVIDED, POSITION CHANGED FOR OFF LOAD PRESSURE, WILL CONTINUE TO MONITOR.
[2016-03-05] MEDS ORDERED: levETIRAcetam 100 MG/ML VIAL IV ONE (06:08)
[2016-03-05] MEDS: levETIRAcetam 500 MG in NACL 0.9% 100 ML IV SCH ×2 (06:08→17:14)
--- NOTE | 2016-03-05 06:52 | NUR ---
RECEIVED PT ON VENT WITH SETTINGS CHARTED BREATH SOUNDS PRESENT BILAT COARSE SXN PT WITH MIN AMT OFF WHITE SECS AMBU BAG AT BEDSIDE VWEN PLUGGED INTO RED OUTLET WILL CONTINUE TO MONITOR PT ON VENT
[2016-03-05] MEDS: BLOOD GLUCOSE MONITORING 1 DEV DEV FS SCH ×4 (06:54→21:00)
--- NOTE | 2016-03-05 07:10 | NUR ---
REPORT GIVEN TO CHLOE QUINONEZ AT BEDSIDE FOR CONTINUE OF CARE.
--- NOTE | 2016-03-05 07:15 | NUR ---
REPORT RECEIVED FROM CHLOE PARDO. PT SEEN AT BEDSIDE, DOES NOT FOLLOW COMMANDS AND ONLY RESPONDS TO DEEP PAIN. PATIENT IS LEGALLY BLIND IN BOTH EYES, PUPILS ARE OPAQUE, WHITE. PT IS ON ETT TO VENT WITH SETTINGS FIO2 50, AC 16, TV 500, AND PEEP 5. PT IS ON PROFESSOR OF LANGUAGES RUNNING SINUS RHYTHM, HR CURRENTLY 77. PT IS NPO EXCEPT MEDS AT THIS TIME. NG TUBE IS LOCATED ON LEFT NARE. RESIDUAL IS 5. ABLE TO AUSCULTATE, PATENT AND INTACT. BOWEL SOUNDS ARE HYPOACTIVE IN X4 QUADRANTS. PT HAS MURPHY CATHETER DRAINING BLOODY URINE. IV 24G LOCATED ON RIGHT CHEST. IVF RUNNING AT TKO AT THIS TIME. LEFT UPPER ARM AV SHUNT NOTED. BRUIT AND THRILL NOTED. NO EDEMA NOTED. RIGHT ARM WOUND NOTED COVERED WITH TEGADERM. ORAL CARE GIVEN, SAFETY MEASURES CHECKED, CALL LIGHT LEFT AT BEDSIDE. WILL CONTINUE TO MONITOR.
[2016-03-05] MEDS: FOLIC ACID 1 MG TAB PO SCH (08:28)
[2016-03-05] MEDS: FAMOTIDINE 20 MG TAB PO SCH (08:29)
[2016-03-05] MEDS: METOCLOPRAMIDE 10 MG TAB PO SCH ×3 (08:29→17:13)
[2016-03-05] MEDS: FUROSEMIDE 40 MG TAB PO SCH ×2 (08:29→21:33)
[2016-03-05] MEDS: VIT-B COMP/VIT-C/FOLIC ACID 1 TAB PO SCH (08:29)
[2016-03-05] MEDS: LISINOPRIL 20 MG TAB PO SCH (09:00)
[2016-03-05] MEDS: MINOXIDIL 2.5 MG TAB PO SCH (09:00)
--- NOTE | 2016-03-05 09:00 | NUR ---
PELT GRADER AT BEDSIDE PREPPING PT FOR HD.
--- NOTE | 2016-03-05 09:30 | NUR ---
DR. JAY PAGED REGARDING PT'S HD. PER DR. JAY, HE HAD BEEN NOTIFIED THAT FAMILY DOES NOT WANT TO CONTINUE HD ANYMORE. WILL CALL FAMILY REGARDING IF THEY WANT TO CONTINUE HD FOR PATIENT.
--- NOTE | 2016-03-05 10:00 | NUR ---
CALLED CAIO, PT'S SISTER TO CONFIRM IF THEY WANT TO CONTINUE TO HAVE HD FOR PATIENT. CAIO STATED THAT SHE WAS VERY ANGRY AT THE STAFF BECAUSE CERTAIN NEEDS WERE NOT TAKEN CARE OF AND NO ONE HAD CALLED FAMILY AFTER PATIENT HAD CODED. CAIO LET ME KNOW TO CALL HER DAUGHTER, RAKEL, FOR DECISIONS INVOLVING PATIENT'S TREATMENT. RAKEL CALLED TO CONFIRM PATIENT'S CODE STATUS AND TREATMENT. DAUGHTER WANTS PATIENT TO BE DNR WITH COMFORT CARE, BUT WANTS HD AND THORACENTESIS DONE AT THIS TIME. Addendum: 03/06/16 at 1017 by Lissette Lopez RN CAIO ALSO STATED THAT WHATEVER DECISION RAKEL MAKES, SHE WILL SUPPORT HER.
--- NOTE | 2016-03-05 10:15 | NUR ---
DR. PIERRE GUTIERREZ.
[2016-03-05] MEDS ORDERED: ALBUMIN HUMAN 25% 200 ML IV SCH (10:17)
--- NOTE | 2016-03-05 10:20 | NUR ---
INFORMED DR. JAY THAT FAMILY WANTS HD DONE AT THIS TIME WITH DNR CODE STATUS. ORDERS RECEIVED. WILL FOLLOW UP.
--- NOTE | 2016-03-05 11:00 | NUR ---
ROSE ELLINGTON'S DAUGHTER AT BEDSIDE. UPDATED HER ON PATIENT CONDITION.
--- NOTE | 2016-03-05 11:30 | NUR ---
PATIENT'S DAUGHTER, RAKEL, ASKING ABOUT EEG RESULTS. EEG RESULT NOT UP IN COMPUTER YET. NOTIFIED DAUGHTER, RAKEL, THAT I WOULD LET HER KNOW THE RESULTS WHEN DICTATION IS UP IN THE EMR. DAUGHTER AWARE.
--- NOTE | 2016-03-05 11:58 | NUR ---
ORAL CARE GIVEN.
--- NOTE | 2016-03-05 12:00 | NUR ---
PT'S DAUGHTER, RAKEL, UPSET BECAUSE ACCORDING TO HER, "THE NEUROLOGIST ALREADY TALKED TO MY AUNT, CAIO AND SHE ALREADY GOT THE BRAIN SCAN RESULTS FROM HIM; I DON'T KNOW WHY YOU GUYS ARE HIDING STUFF FROM ME. I WANT TO TALK TO THE NEUROLOGIST". INFORMED RAKEL THAT I WAS NOT ABLE TO SEE THE DICTATION THAT DR. LANG WROTE, SO I WAS NOT ABLE TO TELL HER THE EEG RESULTS. TOLD DAUGHTER THAT I WILL CALL DR. LANG AND TRY TO FIND OUT THE EEG RESULTS. PAGED DR. LANG.
--- NOTE | 2016-03-05 12:46 | NUR ---
DR. RIOJAS AT BEDSIDE ASSESSING PT. NOTIFIED MD THAT FAMILY WANTS HD AND THORACENTESIS DONE. FAMILY STILL WAITING ON EEG RESULTS TO PROCEED WITH PATIENT'S MANAGEMENT OF CARE. DR. RIOJAS WANTS DR. AVALOS'S INPUT ON CONTINUATION OF THE HEPARIN DRIP, AND EEG RESULTS BEFORE TALKING WITH FAMILY.
--- NOTE | 2016-03-05 13:00 | NUR ---
RECEIVED CALL FROM DR. LANG. UPDATED MD ON PATIENT CONDITION AND THAT FAMILY STILL WANTS TO PROCEED WITH HD AND THORACENTESIS. STATED THAT HE SPOKE WITH CAIO CURTIS, ABOUT PATIENT'S EEG RESULTS AND PROGNOSIS.
--- NOTE | 2016-03-05 13:23 | NUR ---
INCREASED FIO2 TO 60 RN AWARE
--- NOTE | 2016-03-05 13:30 | NUR ---
NOTIFIED PATIENT'S DAUGHTER, RAKEL, ABOUT EEG RESULTS DICTATED BY DR. ALNG. DAUGHTER AWARE OF PATIENT'S EEG AND BRAIN CONDITION. WANTS TO PROCEED WITH HD AND THORACENTESIS AT THIS TIME.
--- NOTE | 2016-03-05 14:35 | NUR ---
PT'S RING (YELLOW BAND) GIVEN TO DAUGHTER, RAKEL.
--- NOTE | 2016-03-05 16:00 | NUR ---
PT TURNED AND REPOSITIONED FOR COMFORT. ORAL CARE GIVEN. WILL CONTINUE TO MONITOR.
[2016-03-05] MEDS: ACETAMINOPHEN 325 MG TAB PO PRN (17:10)
[2016-03-05] MEDS: LEVOFLOXACIN 500 MG TAB PO SCH (17:13)
--- NOTE | 2016-03-05 17:25 | NUR ---
CONTINUED TO MOITOR PT ON VENT WITH SETTINGS CHARTED BREATH SOUNDS PRESENT BILAT COARSE SXN PT WITH SMALL AMT OFF WHITE SECS VENT PLUGGED INTO RED OUTLET
--- NOTE | 2016-03-05 18:45 | NUR ---
RECEIVED CALL FROM DR. AVALOS. UPDATED ON PATIENT CONDITION. NOTIFIED MD THAT PT NO LONGER ON HEPARIN DRIP, RECEIVED HD TODAY, AND FAMILY STILL WANTS THORACENTESIS DONE. MD AWARE. NO NEW ORDERS RECEIVED. WILL CONTINUE TO MONITOR.
--- NOTE | 2016-03-05 19:10 | NUR ---
PT INTUBATED, VENT CK DONE, FAMILY AT BED SIDE, PT ASLEEP, MED NEB IN LINE WITH THE VENT, SX SMALL YELLOW THICK SECRETION, VITALS STABLE, NO DISTRESS AT THIS TIME
--- NOTE | 2016-03-05 19:25 | NUR ---
REPORT GIVEN TO VIDA RN.
--- NOTE | 2016-03-05 20:00 | NUR ---
DR JAY WAS HERE ,NOTIFIED PT IS BP LOWER , BUT IT IS NOT BE STAY LOW, WILL UP /DOWN, SEE V/S RECORD, ALSO PT IS DM, NPO , IV KVO W/ NS 10 ML/H, SEE ORDER.RECEIVED PT IS NOT RESPONDING TO VERBAL OR DEEP PAIN, BUT HAD GAG REFLEXION W/ SUCTION, MONITOR SR W/BBB HR 68, OET TO VENT FIO2 60 % SAT 99 %RR 17, LT NGT IN PLACE, NO RESIDUAL PRESENT NPO EXCEPT MEDS ONLY, BS PRESENT, NO BM, F/C GRAVITY,NO URINE OUT PUT, PT IS HD. SKIN INTACT EXCEPT RT AC SPOT REDNESS.
[2016-03-05] MEDS: SIMVASTATIN 20 MG TAB PO SCH (21:33)
--- NOTE | 2016-03-05 22:00 | NUR ---
BP 87/51 WILL MONITOR BP , WILL START MEDS ORDER IF STILL LOWER, GEN, CONDITION NO CHANGE.
[2016-03-06] VITALS (25 sets, daily range): BP systolic 92–147; BP diastolic 36–75
--- NOTE | 2016-03-06 | NUR ---
NO S/S DISTRESS, CONDITION STABLE
--- NOTE | 2016-03-06 02:15 | NUR ---
CONDITION NO CHANGE, REPOSITION ,NO BM, CONTINUE SCD ORDER
[2016-03-06] MEDS: ALBUTEROL SULFATE/IPRATROPIU 3 ML SOL IH SCH ×6 (03:45→23:16)
--- NOTE | 2016-03-06 05:04 | NUR ---
VENT CK DONE, PT HAVE ALL TX HHN, SX SMALL YELLOW THICK SECRETION, CHANGED HME, VITALS STABLE , NO RESP DISTRESS NOTED
--- NOTE | 2016-03-06 05:27 | NUR ---
COMPLETE BATH TOTAL CARE GIVEN, STILL NO BM, SAT 100 % FIO2 60 %, NO RESP. DISTRESS , MONITOR SR W/ BBB, WILL START FEEDING ORDER.
[2016-03-06] MEDS: levETIRAcetam 500 MG in NACL 0.9% 100 ML IV SCH ×2 (05:29→17:29)
--- NOTE | 2016-03-06 06:00 | NUR ---
TUBE FEEDING OF NOVASOURCE RENAL STARTED VIA NGT OF NOVASOURCE RENAL AT 20ML/HR, WATER FLUSH OF 50ML Q6H ORDERED. NGT INTACT, NO RESIDUAL. PATIENT TOLERATED. WILL CONTINUE TO MONITOR. GLUCOSE 83MG/DL BEFORE FEEDING. Addendum: 03/06/16 at 0623 by Diila Katz RN INTAKE AND OUTPUT OF THE FEEDING TO START BY THE DAY SHIFT.
--- NOTE | 2016-03-06 07:11 | NUR ---
PATIENT REPORT WAS GIVEN TO DAY SHIFT RN CRISTIANO. VITALLY STABLE. FEEDING TOLERATED, ON SCD. NO SIGNS OF DISCOMFORT OR DISTRESS AT THIS TIME. RIGHT ARM AC SKIN TEAR DOCUMENTED AND INITIAL PHOTO DOCUMENTATION IN CHART.
--- NOTE | 2016-03-06 07:25 | NUR ---
RECEIVED REPORT FROM CHLOE NUNEZ. PT SEEN AT BEDSIDE. PT IS UNRESPONSIVE TO DEEP PAIN. PT IS LEGALLY BLIND IN BOTH EYES AND PUPILS ARE WHITE/OPAQUE. PT HAS AN ETT WITH SETTINGS FIO2 60, AC 16, TV 500 AND PEEP 5. PT ON BARREL REPAIRER RUNNING SR WITH BBB AT THIS TIME. RIGHT CHEST 24G IV RUNNING AT TKO. IV IS PATENT AND INTACT AT THIS TIME. EDEMA +1 NOTED ON LEFT HAND. PT HAS A NG TUBE WITH NOVASOURCE RENAL TUBE FEEDING RUNNING AT 20ML/HR. RESIDUAL IS 25CC. PT HAS A MURPHY CATHETER IN PLACE WITH BLOOD URINE DRAINING. SCDS IN PLACE. PT TURNED AND REPOSITIONED FOR COMFORT. VAP KIT USED FOR ORAL CARE. SAFETY MEASURES CHECKED, CALL LIGHT LEFT AT BEDSIDE. WILL CONTINUE TO MONITOR.
[2016-03-06] MEDS: BLOOD GLUCOSE MONITORING 1 DEV DEV FS SCH ×4 (08:16→20:51)
[2016-03-06] MEDS: METOCLOPRAMIDE 10 MG TAB PO SCH ×3 (08:19→17:29)
[2016-03-06] MEDS: FOLIC ACID 1 MG TAB PO SCH (08:19)
[2016-03-06] MEDS: VIT-B COMP/VIT-C/FOLIC ACID 1 TAB PO SCH (08:19)
[2016-03-06] MEDS: FUROSEMIDE 40 MG TAB PO SCH ×2 (08:19→17:29)
[2016-03-06] MEDS: FAMOTIDINE 20 MG TAB PO SCH (08:19)
--- NOTE | 2016-03-06 08:19 | NUR ---
ROUTINE MEDICATIONS GIVEN WITH EDUCTION. PT UNABLE TO VERBALIZE UNDERSTANDING AT THIS TIME. PT TOLERATED WELL. WILL CONTINUE TO MONITOR.
--- NOTE | 2016-03-06 08:40 | NUR ---
CALLED DAUGHTER, RAKEL. TOLD HER THAT THE THORACENTESIS IS SCHEDULE FOR TODAY AT 10AM. RAKEL VERBALIZED UNDERSTANDING AND TOLD ME THAT SHE WOULD BE AT THE HOSPITAL SOON.
--- NOTE | 2016-03-06 09:30 | NUR ---
RAKEL AT BEDSIDE. INFORMED ME THAT ETT WAS LEAKING. RT CALLED.
--- NOTE | 2016-03-06 09:45 | NUR ---
RT AT BEDSIDE.
--- NOTE | 2016-03-06 10:25 | NUR ---
DR. MIMS AT BEDSIDE PREPPING FOR US GUIDED THORACENTESIS. TIME OUT DONE. PROCEDURE STARTING.
--- NOTE | 2016-03-06 10:45 | NUR ---
THORACENTESIS DONE. PT TOLERATED WELL. OUTPUT 1150ML. WILL CONTINUE TO MONITOR.
--- NOTE | 2016-03-06 11:16 | NUR ---
PATIENT'S DAUGHTER, RAKEL AT BEDSIDE ALONG WITH OTHER FAMILY MEMBERS. NOTIFIED HER ABOUT PATIENT'S THORACENTESIS PROCEDURE. RAKEL VERBALIZED UNDERSTANDING. WILL CONTINUE TO MONITOR.
--- NOTE | 2016-03-06 11:50 | NUR ---
RECEIVED CALLBACK FROM DR. RIOJAS. NOTIFIED MD THAT PATIENT HAD THORACENTESIS DONE AND OUTPUT 1150ML. MD WILL PUT IN ORDERS FOR MICROBIOLOGY OF THORACENTESIS FLUID. STATES THAT PT DOES NOT NEED HEPARIN DRIP AT THIS TIME. WILL FOLLOW UP WITH ORDERS.
--- NOTE | 2016-03-06 12:00 | NUR ---
PT TURNED AND REPOSITIONED FOR COMFORT. WILL CONTINUE TO MONITOR.
--- NOTE | 2016-03-06 12:15 | NUR ---
NGT RESIDUAL 30ML AT THIS TIME.
--- NOTE | 2016-03-06 14:15 | NUR ---
BED BATH GIVEN. HAIR WASHED, LINEN AND GOWN CHANGED. PT TURNED AND REPOSITIONED FOR COMFORT. WILL CONTINUE TO MONITOR.
--- NOTE | 2016-03-06 14:59 | NUR ---
DR. JAY AT BEDSIDE ASSESSING PATIENT. UPDATED MD ON PATIENT CURRENT STATUS. WILL FOLLOW UP ON ANY NEW ORDERS.
--- NOTE | 2016-03-06 15:15 | NUR ---
PER DR. JAY, PT WILL HAVE HD TOMORROW.
--- NOTE | 2016-03-06 15:15 | NUR ---
FIO2 DECREASED TO 50%. NURSE CRISTIANO AWARE OF CHANGE. WILL CONTINUE TO MONITOR.
[2016-03-06] MEDS: ACETAMINOPHEN 325 MG TAB PO PRN (15:17)
--- NOTE | 2016-03-06 15:17 | NUR ---
PT TEMP 100.3. TYLENOL ADMINISTERED.
--- NOTE | 2016-03-06 15:30 | NUR ---
SPOKE TO [facility], TO SCHEDULE PT'S HD FOR TOMORROW. HD CONFIRMED.
--- NOTE | 2016-03-06 15:45 | NUR ---
INFORMED DAUGHTER, RAKEL, THAT PATIENT WILL BE HAVING HD TOMORROW. RAKEL VERBALIZED UNDERSTANDING.
--- NOTE | 2016-03-06 15:50 | NUR ---
RECEIVED CALL FROM DR. AVALOS. UPDATED MD ON PATIENT CONDITION. NO NEW ORDERS RECEIVED.
--- NOTE | 2016-03-06 15:51 | NUR ---
DR QUINTERO AT NURSING STATION. UPDATED MD ON PATIENT CONDITION AND THORACENTESIS RESULTS. WILL FOLLOW UP ON ANY NEW ORDERS.
--- NOTE | 2016-03-06 16:00 | NUR ---
PT TURNED AND REPOSITIONED FOR COMFORT. NGT RESIDUAL 50ML AT THIS TIME.
--- NOTE | 2016-03-06 16:00 | NUR ---
PT TEMP 100.1F VIA AXILLARY. ICE PACKS PLACED ON PATIENT.
--- NOTE | 2016-03-06 16:36 | NUR ---
XR TECH AT BEDSIDE.
--- NOTE | 2016-03-06 17:18 | NUR ---
FIO2 DECREASED TO 40%. WILL NOTIFY NURSE OF CHANGE. ETT SECURE. PT NOT SOB AND NOT IN RESPIRATORY DISTRESS. VENT ALARMS REMAIN ON AND FUNCTIONING. VENT PLUGGED INTO RED OUTLET, AMBU BAG IS BEDSIDE.
--- NOTE | 2016-03-06 18:00 | NUR ---
PT TURNED AND REPOSITIONED FOR COMFORT. INFORMED RAYLINA ABOUT PATIENT'S CXR RESULTS AND SHOWED HER THE PUNCTURE SITE. ALL QUESTIONS ANSWERED AT THIS TIME.
--- NOTE | 2016-03-06 19:05 | NUR ---
REPORT GIVEN TO CHLOE NUNEZ.
--- NOTE | 2016-03-06 19:05 | NUR ---
RECEIVED PATIENT REPORT FROM DAY SHIFT CHLOE QUINONEZ. NOT IN RESPIRATORY DISTRESS OR DISCOMFORT AT THIS TIME. VITALLY STABLE VIA NARCOTICS AND VICE DETECTIVE. ETT TO VENT WITH FIO2 40%, TV 500, RATE OF 16, PEEP OF 5. NGT ON RIGHT NARE CONNECTED TO FEEDING PUMP RUNNING NOVASOURCE RENAL AT 20ML/HR, WATER FLUSH 50ML Q6H. WITH PERIPHERAL IV G24 ON RIGHT CHEST INTACT RUNNING NS TKO VIA IV PUMP. WITH OPEN SKIN WOUND ON RIGHT ARM AC COVERED WITH GAUZE. WITH MURPHY CATHETER TO DRAINAGE BAG, NO URINE OUTPUT BUT WITH BLOODY STREAK ON THE TUBING, PREVIOUSLY ON HEPARIN DRIP. WITH GAG REFLEX. SCD ON BOTH LEGS. Addendum: 03/06/16 at 1946 by Dilia Katz RN (CORRECTION) NGT IN PLACE TO LEFT NARE.
--- NOTE | 2016-03-06 19:30 | NUR ---
PT ON AC , 40% AT THIS TIME, PT ASLEEP, STABLE, MED NEB IN LINE, SX SMALL CLOUDY THICK SECRETION, VENT PLUG IN RED OUTLET, CONT. TO MONITOR PT.
--- NOTE | 2016-03-06 20:00 | NUR ---
REPOSITION PATIENT. ORAL CARE GIVEN. Addendum: 03/06/16 at 2318 by Dilia Katz RN BEVERLY-CARE GIVEN TOLERATED. LOTION APPLIED OVER BACK AREA.
[2016-03-06] MEDS: SIMVASTATIN 20 MG TAB PO SCH (20:52)
[2016-03-06] MEDS: DOCUSATE SODIUM 100 MG GELCAP PO PRN (20:52)
--- NOTE | 2016-03-06 21:30 | NUR ---
URINE SPECIMEN COLLECTED VIA MURPHY CATHETER FOR URINALYSIS AND CULTURE ORDERED AND SENT TO LAB.
--- NOTE | 2016-03-06 22:00 | NUR ---
REPOSITION PATIENT. NO BM SINCE 03/02/16, COLACE WAS PREVIOUSLY GIVEN, STILL NO BM. CONTINUE TO MONITOR. VITALLY STABLE. NO SIGNS OF RESPIRATORY DISTRESS OR DISCOMFORT AT THIS TIME.
[2016-03-07] VITALS (24 sets, daily range): BP systolic 103–133; BP diastolic 46–67
--- NOTE | 2016-03-07 | NUR ---
VAP ORAL CARE GIVEN, ASSISTED WITH SUCTIONING. REPOSITION PATIENT AND OFFLOAD PRESSURE AREAS. FEEDING TOLERATED. NO SIGNS OF RESPIRATORY DISTRESS OR DISCOMFORT AT THIS TIME.
--- NOTE | 2016-03-07 02:15 | NUR ---
REPOSITION PATIENT. VITALLY STABLE. NO SIGNS OF DISCOMFORT OR RESPIRATORY DISTRESS AT THIS TIME.
[2016-03-07] MEDS: ALBUTEROL SULFATE/IPRATROPIU 3 ML SOL IH SCH ×6 (03:19→23:41)
--- NOTE | 2016-03-07 04:28 | NUR ---
SPONGE BATH GIVEN. TURNED SIDE TO SIDE. ALL LINENS AND GOWN GIVEN. ORAL CARE GIVEN. REPOSITIONED PATIENT. LOTION APPLIED ALL OVER THE BODY. STILL NO BM. BEVERLY AND CATHETER CARE GIVEN. SUCTION OF SECRETIONS DONE VIA ETT AND ORAL. RIGHT ARM AC DRY AND OPENED TO AIR. VITALLY STABLE. MORNING CARE TOLERATED.
[2016-03-07] MEDS: levETIRAcetam 500 MG in NACL 0.9% 100 ML IV SCH ×2 (05:31→17:42)
--- NOTE | 2016-03-07 06:13 | NUR ---
NGT FEEDING CHANGED, IVF NS BAG CHANGED, DUE MEDS GIVEN. NOT ON RESPIRATORY DISTRESS OR DISCOMFORT AT THIS TIME. STABLE AT THE MOMENT.
[2016-03-07] MEDS: BLOOD GLUCOSE MONITORING 1 DEV DEV FS SCH ×4 (06:40→20:27)
--- NOTE | 2016-03-07 07:05 | NUR ---
PATIENT REPORT GIVEN TO DAY SHIFT RN LOVELY. NO SIGNS OF RESPIRATORY DISTRESS AT THIS TIME. VITALLY STABLE.
--- NOTE | 2016-03-07 07:07 | NUR ---
RECEIVED INTUBATED PT ON VENT WITH SIZE 7.5 ETT SECURED @23 LIP. VENT SETTINGS AC 16, VT 500, PEEP 5 AND FIO2 40%. PT IS NOT SOB AND NOT IN RESPIRATORY DISTRESS AT THIS TIME. PT SUCTIONED OBTAINED SMALL AMOUNT OF THICK YELLOW SECRETIONS. AIRWAY IS PATENT. NO BITING OR KINKING OF ETT. VENT ALARMS ARE ON AND FUNCTIONING. VENT PLUGGED INTO RED OUTLET WITH AMBU BAG PRESENT AT BEDSIDE. WILL CONTINUE TO MONITOR.
--- NOTE | 2016-03-07 07:10 | NUR ---
RECEIVE REPORT FROM ENRIQUE CORONA PT; ORAL INTUBATED TO VENT AC 16 VT 500 FIO 40% O2 SAT 98%, SKIN DRY WARM TO TOUCH NG TUBE FEEDING WITH NUTREND PULMO AT, 20ML/HR WATER FLUSH 30ML/8HR. DIALYSIS CATH ON LT UPPER ARN ABD/ SOFT B/S HYPO ACTIVE F/C TO GRAVITY DRAINAGE HAS SCAN AMOUNT OF CLEAR DEBBIE URINE.HAS SCD ON BOTH LEGS.
--- NOTE | 2016-03-07 09:35 | NUR ---
HEMODIALYSIS STARTED , HER VITAL SIGN STABLE,
--- NOTE | 2016-03-07 11:16 | NUR ---
PT SUCTIONED OBTAINED MODERATE AMOUNT OF THICK YELLOW SECRETIONS, AIRWAY IS PATENT. NO SOB AND NO SIGNS OF DISTRESS AT THIS TIME. WILL CONTINUE TO MONITOR.
--- NOTE | 2016-03-07 12:00 | NUR ---
HEMODIALYSIS IN PROGRESS PT. REMAIN UN RESPONSEV/S WITH IN NORMAL LIIT./
[2016-03-07] MEDS: METOCLOPRAMIDE 10 MG TAB PO SCH ×3 (13:00→17:42)
--- NOTE | 2016-03-07 13:35 | NUR ---
NOTE: DR. KAMINSKI, RN LOVELY AND I MET WITH PT'S FAMILY INCLUDING PT'S MOTHER, PT'S SISTER - CAIO AND PT'S DTR - RAKEL REGARDING PT'S PROGNOSIS. DR. KAMINSKI EXPLAINED TO PT'S FAMILY ABOUT PT'S CURRENT CONDITION, STATUS, PROGNOSIS AND CARE OPTIONS. HE ALSO PROVIDED PTS FAMILY AN OPPORTUNITY TO ASK QUESTIONS. CAIO VOICED HER CONCERNS REGARDING PT'S CARE WHEN PT WAS ON [facility], I INFORMED HER THAT WE WILL INFORM ADMINISTRATION REGARDING HER CONCERNS. CAIO ALSO INDICATED THAT THEY DID WANT PT INTUBATED. I INFORMED HER THAT BASED ON THE 2013 COPY OF PTS ADVANCE DIRECTIVE ON FILE, PTS CODE STATUS WAS NOT ADDRESSED. DR KAMINSKI ALSO INFORMED THEM THAT HE SPOKE WITH DR. QUINTERO AND DR. QUINTERO REPORTED THAT SHE SPOKE WITH PT REGARDING PTS CODE STATUS AT THE TIME OF ADMISSION AND PT WANTED EVERYTHING DONE. DIRECTOR OF [facility], GARRET MADE AWARE. Addendum: 03/07/16 at 1643 by Mamta Morales CORRECTION: CAIO ALSO INDICATED THAT THEY DID NOT WANT PT INTUBATED.
--- NOTE | 2016-03-07 13:40 | NUR ---
HEMODIALYSIS COMPLETED TOTAL FLUID REMOVED 2500ML. V/S WNL.
--- NOTE | 2016-03-07 13:44 | NUR ---
CM NOTE INITIAL REVIEW FAXED TO [facility] / FAX# [phone], ATTN: July [phone]
--- NOTE | 2016-03-07 13:57 | NUR ---
03/07/16 RD FOLLOW UP COMPLETED PLEASE REFER TO NUTRITION PROGRESS NOTE UNDER CARE ACTIVITY FOR ESTIMATED NUTRITION NEEDS. RD RECOMMENDATIONS: 1. CONTINUE NUTRITION SUPPORT NOVASOURCE RENAL AT 20 ML/HR TOLERATED PER MD 2. IF PT HAS BETTER TOLERANCE TO NUTRITION SUPPORT CONSIDER ADVANCE SLOWLY TO 35 ML/HR --AT GOAL OF 35 ML/HR, THIS WILL PROVIDE 840 ML TOTAL VOLUME, 1680 KCAL, 76 GM PROTEIN, 602 ML FREE WATER. THIS WILL MEET 100% OF PT ESTIMATED KCAL AND PROTEIN NEEDS 3. RD WILL F/U 2-3 DAYS; HIGH RISK. REYES D[address] RD
--- NOTE | 2016-03-07 15:04 | NUR ---
VENT CHECK COMPLETED. PT SUCTIONED OBTAINED SMALL AMOUNT OF THICK YELLOW SECRETIONS, AIRWAY IS PATENT. WILL CONTINUE TO MONITOR.
[2016-03-07] MEDS: MEROPENEM 500 MG in NACL 0.9% 50 ML IV SCH (15:47)
[2016-03-07] MEDS: FAMOTIDINE 20 MG TAB PO SCH (15:49)
[2016-03-07] MEDS: VIT-B COMP/VIT-C/FOLIC ACID 1 TAB PO SCH (15:49)
[2016-03-07] MEDS: FUROSEMIDE 40 MG TAB PO SCH ×2 (15:50→17:42)
[2016-03-07] MEDS: FOLIC ACID 1 MG TAB PO SCH (15:51)
--- NOTE | 2016-03-07 17:00 | NUR ---
BLOOD GLUCOSE 170 REG, INSULIN COVER ODDERED/
--- NOTE | 2016-03-07 18:00 | NUR ---
RESIDUOL CHECK HAS 70 ML RETURN , FEEDING ON HOLD.
[2016-03-07] MEDS: ONDANSETRON 4 MG/2 ML VIAL IVP PRN (18:06)
--- NOTE | 2016-03-07 18:06 | NUR ---
PT. REGURGITATE THE FEEDING CONTENT , ZOFAN GIVEN ORDERED.
[2016-03-07] MEDS: INSULIN ASPART SLIDING SCALE 100 UNITS/ML VIAL SUBQ PRN (18:15)
--- NOTE | 2016-03-07 19:27 | NUR ---
PT REC''D FROM DAYSHIFT ON NOTED VENT SETTINGS. PT NOT AWAKE, HAS A #7.5 ETT SECURED AT 23 LIP LINE WITH AN ANCHOR FAST. BS DIMINISHED BILATERALLY, INLINE HHN TX GIVEN ORDERED. PT LAVAGED AND SUCTIONED SM AMT THICK PALE YELLOW SECRETIONS. NO ADVERSE EFFECTS NOTED. VENT ALARMS ON AND AUDIBLE. VENT PLUGGED INTO RED ELECTRICAL OUTLET. AMBU BAG AT [facility].
--- NOTE | 2016-03-07 20:00 | NUR ---
IN BED BR UP NGT IN, FEEDING HELD FOR RESIDUAL AND VOMIT, ZOFRAN GIVEN BY DAY SHIFT, WILL REASSESS ETT TO VENT, FIO2 40, RATE 14, PEEP 5 IV OK SCD ON HR 60'S, SR WITH BBB HAD HD TODAY
[2016-03-07] MEDS: SIMVASTATIN 20 MG TAB PO SCH (20:25)
--- NOTE | 2016-03-07 21:31 | NUR ---
VENT CHECKED. PT LAVAGED AND SUCTIONED SMALL AMT THICK PALE YELLOW SECRETIONS. NO ADVERSE EFFECTS NOTED.
--- NOTE | 2016-03-07 23:57 | NUR ---
VENT CHECKED. HHN TX GIVEN VIA INLINE. BREATH SOUNDS DIMINISHED. PT LAVAGED AND SUCTIONED SCANT AMT THICK PALE YELLOW SECRETIONS. NO ADVERSE EFFECTS NOTED.
[2016-03-08] VITALS (24 sets, daily range): BP systolic 94–164; BP diastolic 36–72
--- NOTE | 2016-03-08 01:26 | NUR ---
VENT CHECKED. NO DISTRESS NOTED. NO CHANGES MADE.
[2016-03-08] MEDS: ALBUTEROL SULFATE/IPRATROPIU 3 ML SOL IH SCH ×6 (03:35→23:36)
--- NOTE | 2016-03-08 03:36 | NUR ---
NO DISTRESS 30 CC RESIDUAL IN NGT
[2016-03-08] MEDS: levETIRAcetam 500 MG in NACL 0.9% 100 ML IV SCH ×2 (05:13→17:46)
--- NOTE | 2016-03-08 05:20 | NUR ---
VENT CHECKED. HME CHANGED, PT LAVAGED AND SUCTIONED FOR SCANT AMT PALE YELLOW SECRETIONS. NO ADVERSE EFFECTS NOTED.
--- NOTE | 2016-03-08 06:35 | NUR ---
REC'D PT ON [place] VENT SETTINGS AC16 VT 500 PEEP 5 FIO2 40% ALARMS ON AND FUNCTIONING PROPERLY, AMBU BAG AT SIDE OF VENTILATOR AND VENTILATOR IS PLUGGED INTO RED OUTLET, I\L TX GIVEN WITH DUONEB 3ML WITH NO ADVERSE REACTION POST TX, B\S ARE COARSE BILATERALLY, SXN PT SMALL AMT OF THICK YELLOW SECRETIONS, PT IS ORALLY INTUBATED WITH 7.5 ET TUBE SECURED WITH ANCHOR FAST AT 23 CM AT MIDLINE OF MOUTH AND SKIN INTEGRITY IS INTACT, PT IS RESTING WITH NO SIGNS OF DISTRESS NOTED AT THIS TIME
[2016-03-08] MEDS: BLOOD GLUCOSE MONITORING 1 DEV DEV FS SCH ×4 (06:37→20:42)
--- NOTE | 2016-03-08 07:45 | NUR ---
RECEIVED PT FROM PSYCHOTHERAPIST COUNSELOR RN . PT IS UNRESPONSIVE TO NAME OR PAIN STIMULI. PT IS LEGALLY BLIND IN BOTH EYES. MACHINE TAPER SHOWS SB AT THIS TIME. PT HAS ETT VENT SETTING FIO2 40%, VT 500, AC 16, PEEP 5. LUNGS SOUND RHONCHI AT THIS TIME, SUCTIONED PT WITH SMALL AMOUNT OF WHITE SECRETION. NG TUBE IN PLACE RUNNING NOVASOURCE AT 20ML/HR. RESIDUAL 50 ML AND RETURNED IT BACK. ABDOMEN SOFT, WITH HYPOACTIVE BOWEL SOUND. MURPHY CATH IN PLACE WITH 10 ML URINE. NON-BLANCHABLE REDNESS TO SACRAL AREA. REPOSITIONED PT. IV TO RIGHT CHEST 24G RUNNING AT TKO. SITE PATENT AND INTACT. EDEMA +1 TO LEFT HAND NOTED. SKIN INTACT, SCDS IN PLACE. ORAL CARE GIVEN, SAFETY MEASURE IN PLACE, WILL CONTINUE TO MONITOR.
[2016-03-08] MEDS: ONDANSETRON 4 MG/2 ML VIAL IVP PRN (07:57)
--- NOTE | 2016-03-08 08:35 | NUR ---
DR.KHORRAMI HODGE WAS NOTIFIED OF THE SPUTUM CULTURE REPORT (COLLECTED ON 03/06/16) WITH E.COLI ESBL AND MODERATE MDRO WHICH IT IS SENSITIVE TO ANTIBIOTIC MEROPENEM THAT PATIENT ALREADY ON. NO NEW ORDER AT THIS TIME.
--- NOTE | 2016-03-08 08:40 | NUR ---
PLACED THE PATIENT ON CONTACT ISOLATION PRECAUTION PER PROTOCOL. PATIENT 'S SISTER PRESENT AT BEDSIDE ,MADE HER AWARE OF PATIENT HAS E.COLI ESBL AND MDRO IN THE SPUTUM AND PATIENT NEEDS TO BE ON CONTACT ISOLATION PRECAUTION. EDUCATED PATIENT'S SISTER ,FAMILY REGARDING CONTACT PRECAUTION ISOLATION PRACTICES. GIVEN A COPY OF ISOLATION PRACTICES TO PT'S SISTER NAME CAIO COATESAN
[2016-03-08] MEDS: VIT-B COMP/VIT-C/FOLIC ACID 1 TAB PO SCH (08:51)
[2016-03-08] MEDS: METOCLOPRAMIDE 10 MG TAB PO SCH ×3 (08:51→16:49)
[2016-03-08] MEDS: FUROSEMIDE 40 MG TAB PO SCH ×2 (08:51→16:50)
[2016-03-08] MEDS: FAMOTIDINE 20 MG TAB PO SCH (08:51)
[2016-03-08] MEDS: FOLIC ACID 1 MG TAB PO SCH (08:51)
--- NOTE | 2016-03-08 08:56 | NUR ---
VENT CHECK, SXN PT SMALL AMT OF THICK YELLOW SECRETIONS, B\S ARE COARSE BILATERALLY, REPOSITIONED ET AT LEFT CORNER OF MOUTH AND SKIN INTEGRITY IS INTACT PT IS RESTING WITH NO SIGNS OF DISTRESS NOTED AT THIS TIME
--- NOTE | 2016-03-08 10:00 | NUR ---
REPOSITIONED PT AND CLEANED PT. HOB ELEVATED 30 DEGREES. PT'S FAMILY IN TO SEE PT, ANSWERED QUESTIONS. WILL CONTINUE TO MONITOR.
--- NOTE | 2016-03-08 10:05 | NUR ---
DR. CABELLO NEPHROLOGY IN TO SEE PT. SPOKE TO PT'S DAUGHTER, ANSWERED ALL THE QUESTIONS.
--- NOTE | 2016-03-08 11:05 | NUR ---
VENT CHECK, I\E TX GIVEN WITH DUONEB 3ML WITH NO ADVERSE REACTION POST TX, B\S ARE COARSE AND SXN PT SMALL AMT OF YELLOW SECRETIONS, REPOSITIONED ET TUBE TO MIDLINE AND SKIN INTEGRITY IS INTACT, FAMILY MEMBER AT BEDSIDE
--- NOTE | 2016-03-08 12:05 | NUR ---
REPOSITIONED PT, ORAL CARE GIVEN. PT IS STILL UNRESPONSIVE TO NAME OR TACTILE STIMULI. NO S/S OF RESPIRATORY DISTRESS NOTED. WILL CONTINUE TO MONITOR.
--- NOTE | 2016-03-08 12:15 | NUR ---
MURPHY DRAINAGE OUT PUT 20 ML CLOUDY URINE. REMOVE CATH PER ORDER. CATHETER INTACT.
--- NOTE | 2016-03-08 12:39 | NUR ---
FAXED CONCURRENT REVIEW TO [facility] [phone] PHONE LAKESHA [phone]
--- NOTE | 2016-03-08 13:28 | NUR ---
VENT CHECK, NO SXN REQUIRED AT THIS TIME, B\S ARE COARSE AND PT IS RESTING WITH NO SIGNS OF DISTRESS NOTED AT THIS TIME, FAMILY AT BEDSIDE
--- NOTE | 2016-03-08 13:50 | NUR ---
SUCTIONED PT. CLEANED PT.
--- NOTE | 2016-03-08 15:00 | NUR ---
TRANSFERRED PT FROM ICU BED 5 TO ICU BED 1 CLOSE ROOM FOR CONTACT ISOLATION
--- NOTE | 2016-03-08 15:00 | NUR ---
RECEIVED AN ORDER TO TRANSFER PATIENT TO HIGHER LEVEL OF CARE, [facility], PER FAMILY REQUEST. I CALLED [facility] AND SPOKE WITH LAKESHA. SHE ASKED ME TO FAX HER THE ORDER AND DR. LANG'S CONSULT AND SHE WILL CONSULT WITH HER COMPLETIONS MANAGER.
--- NOTE | 2016-03-08 15:31 | NUR ---
VENT CHECK, I\L TX GIVEN WITH DUONEB 3ML WITH NO ADVERSE REACTION POST TX B\S ARE COARSE AND SXN PT SMALL AMT OF YELLOW SECRETIONS, REPOSITIONED ET TUBE AT MIDLINE AND SKIN INTEGRITY IS INTACT.
--- NOTE | 2016-03-08 15:38 | NUR ---
I RECEIVED A CALL FROM LAKESHA FROM [facility]. SHE SAID PER HER CUTTER HAND, FAX ORDER TO [facility]. I FAXED INFORMATION TO [facility] [phone] PHONE [phone].
--- NOTE | 2016-03-08 16:00 | NUR ---
REPOSITIONED PT, ORAL CARE GIVEN . SUCTIONED PT WITH SMALL AMOUNT OF WHITE SECRETION. NO S/S OF RESPIRATORY DISTRESS NOTED. WILL CONTINUE TO MONITOR.
[2016-03-08] MEDS: MEROPENEM 500 MG in NACL 0.9% 50 ML IV SCH (16:33)
--- NOTE | 2016-03-08 17:11 | NUR ---
VENT CHECK, NO SXN REQUIRED AT THIS TIME, B\S ARE COARSE AND PT IS RESTING
--- NOTE | 2016-03-08 18:05 | NUR ---
REPOSITIONED PT, STILL UNRESPONSIVE TO NAME OR TACTILE STIMULI. SKIN WARM AND DRY. NO S/S OF RESPIRATORY DISTRESS NOTED. HOB ELEVATED AT 30 DEGREES.
--- NOTE | 2016-03-08 19:10 | NUR ---
RECEIVED PATIENT REPORT FROM DAY SHIFT CHLOE PANDYA. ON DNR STATUS. PATIENT SINUS BRADYCARDIA ON OPTICAL ENGINEERING TECHNICIAN, OTHERWISE STABLE. NO SIGNS OF RESPIRATORY DISTRESS OR DISCOMFORT AT THIS TIME. RESPONDS TO DEEP PAIN AND WITH GAG REFLEX. BOTH EYES BLIND. WITH ETT 7.5 TO VENT ON SETTINGS: FIO2 40%, RATE OF 16, TV 500, PEEP OF 5. WITH NGT TO FEEDING PUMP RUNNING NOVASOURCE RENAL AT 20ML/HR, WITH WATER FLUSH 50ML Q6H. WITH PERIPHERAL IV G24 ON RIGHT CHEST RUNNING NS AT 10ML/HR. WITH DIALYSIS ACCENT LEFT AV SHUNT. WITH SCD ON BOTH LEGS. WITH RIGHT ARM SKIN TEAR DRY AND OPEN TO AIR. WITH PURPLISH SKIN DISCOLORATION AT SACRAL AREA, PICTURES TAKEN. BILATERAL COARSE LUNG SOUNDS. WITH ACTIVE BOWEL SOUNDS. FLACC = 0. REPOSITIONED PATIENT. Addendum: 03/09/16 at 0658 by Dilia Katz RN FOAM DRESSING ON THE SACRAL AREA APPLIED WITH WITNESS TILE HELPER EDNA AND CHLOE JARAMILLO.
--- NOTE | 2016-03-08 19:10 | NUR ---
REPORT GIVEN TO ELLA CORONA AND ENRIQUE CORONA. NO S/S OF RESPIRATORY DISTRESS NOTED. SAFETY MAINTAINED.
--- NOTE | 2016-03-08 20:00 | NUR ---
REPOSITIONED PATIENT, ORAL CARE GIVEN WITH VAP ORAL KIT. SUCTIONED SECRETIONS VIA ET AND ORALLY DONE. NO RESPIRATORY DISTRESS OR DISCOMFORT.
[2016-03-08] MEDS: SIMVASTATIN 20 MG TAB PO SCH (20:44)
--- NOTE | 2016-03-08 22:00 | NUR ---
OFFLOAD PRESSURES AND REPOSITION PATIENT. PERINEAL CARE GIVEN. SINUS CHRISTEL ON MONITOR OTHERWISE STABLE. NO SIGNS OF RESPIRATORY DISTRESS AT THIS TIME.
[2016-03-09] VITALS (24 sets, daily range): BP systolic 114–170; BP diastolic 55–79
--- NOTE | 2016-03-09 00:01 | NUR ---
ORAL CARE GIVEN WITH VAP ORAL KIT. POSITION CHANGED. NO RESPIRATORY DISTRESS AT THIS TIME. FLACC = 0.
--- NOTE | 2016-03-09 02:00 | NUR ---
NOT ON RESPIRATORY DISTRESS AT THIS TIME. REPOSITIONED PATIENT. CONTINUE MONITOR. SUCTION OF SECRETIONS DONE.
[2016-03-09] MEDS: ALBUTEROL SULFATE/IPRATROPIU 3 ML SOL IH SCH ×6 (03:53→23:27)
--- NOTE | 2016-03-09 04:00 | NUR ---
ORAL CARE OF VAP ORAL KIT GIVEN ASSISTED WITH SUCTIONING. OFFLOAD PRESSURE AND REPOSITIONING DONE. VITALLY STABLE. NO SIGNS OF DISCOMFORT AT THIS TIME.
[2016-03-09] MEDS: levETIRAcetam 500 MG in NACL 0.9% 100 ML IV SCH ×2 (05:17→18:49)
--- NOTE | 2016-03-09 06:00 | NUR ---
REPOSITIONED PATIENT, AM CARE GIVEN. VISITED BY THE SISTER AT THE BEDSIDE. UPDATED ON PATIENT'S CONDITION, ANSWERED QUESTIONS. BLOOD SUGAR = 139 TAKEN, NO COVERAGE. WEIGHT TAKEN. SUCTIONING OF SECRETIONS DONE. NO BM = COLACE GIVEN.
[2016-03-09] MEDS: DOCUSATE SODIUM 100 MG GELCAP PO PRN (06:28)
[2016-03-09] MEDS: BLOOD GLUCOSE MONITORING 1 DEV DEV FS SCH ×4 (06:28→21:07)
--- NOTE | 2016-03-09 06:39 | NUR ---
RECEIVED PT ON CARESCAPE A/C 16 VT500 PEEP5 FIO2 40 ALARMS ARE ON AND FUNCTIONAL BMV HOB PTS ET TUBE SIZE 7.5 IS SECURE 23 [address] ANCHOR FAST IN PLACE BS RHONCI I\L LAVAGE AND SX LG YELLOW PT IN HF QUIET HHN GIVEN I\L WITH 3 MG DUONEB VENT PLUGGED INTO RED OUTLET
--- NOTE | 2016-03-09 07:30 | NUR ---
RECEIVED PT FROM HARVEST FIELD TICKETER, PT NON VERBAL, RESPONSIVE TO DEEP PAIN, UNABLE TO FOLLOW COMMANDS, SR ON THE MONITOR, ETT TO VENT, TV 500, FI02 40, RATE 16 AND PEEP OF 5. DIMINISHED LUNG SOUNDS TO ALL BL LOBES. BOWEL SOUNDS PRESENT, NOVASOURCE RUNNING AT 20ML/HR. NO RESIDUAL. ALL PULSES ARE PRESENT. IV SITE TO RIGHT UPPER CHEST 24 G, RUNNING NS AT 10ML/HR. WILL CONTINUE PT CLOSELY.
--- NOTE | 2016-03-09 07:35 | NUR ---
PATIENT REPORT GIVEN TO DAY SHIFT CHLOE ROJAS. VITALLY STABLE, NOT ON RESPIRATORY DISTRESS AT THIS TIME. NO SIGNS OF DISCOMFORT AT THIS TIME. FOR HD IN AM AND STOOL OB, BOB RN INFORMED.
[2016-03-09] MEDS: FUROSEMIDE 40 MG TAB PO SCH ×2 (08:10→16:45)
[2016-03-09] MEDS: METOCLOPRAMIDE 10 MG TAB PO SCH ×3 (08:10→16:46)
[2016-03-09] MEDS: FAMOTIDINE 20 MG TAB PO SCH (08:10)
[2016-03-09] MEDS: FOLIC ACID 1 MG TAB PO SCH (08:11)
[2016-03-09] MEDS: VIT-B COMP/VIT-C/FOLIC ACID 1 TAB PO SCH (08:11)
--- NOTE | 2016-03-09 08:14 | NUR ---
SPOKE WITH MONTY FROM [facility]. HE SAID THAT DR. KAMINSKI SPOKE WITH DR. MONTAGUE, NEUROLOGY CRITICAL CARE PHYSICIAN AND HE FELT THAT THEY WOULD HAVE TO SPEAK WITH THE MICU PHYSICIAN. AWAITING CALL BACK. I CALLED LAKESHA FROM [facility] AND INFORMED HER.
--- NOTE | 2016-03-09 08:16 | NUR ---
REPOSITIONED, ORAL CARE PROVIDE TO PT, MEDS ADMINISTERED.
--- NOTE | 2016-03-09 08:58 | NUR ---
VENT CHECK BS CLEAR
--- NOTE | 2016-03-09 09:00 | NUR ---
HD ONGOING, VSS.
--- NOTE | 2016-03-09 09:24 | NUR ---
FAXED CONCURRENT REVIEW TO [facility] [phone] PHONE LAKESHA [phone]
--- NOTE | 2016-03-09 11:11 | NUR ---
VENT CHECK DIALYSIS IN PLACE
--- NOTE | 2016-03-09 12:29 | NUR ---
DAUGHTER AT BEDSIDE, HD ONGOING, WILL CONTINUE TO MONITOR PT CLOSELY
--- NOTE | 2016-03-09 12:47 | NUR ---
VENT CHECK BS RHONCI I\L LAVAGE AND SX LG YELLOW DIALYSIS IN PLACE
--- NOTE | 2016-03-09 13:12 | NUR ---
CALLED MONTY AT [facility]. HE SAID THAT THE MICU DOCTOR SAID IT SHOULD GO TO THE NEUROLOGY CRITICAL CARE PHYSICIAN. HE WILL CALL ME BACK.
--- NOTE | 2016-03-09 13:28 | NUR ---
DR. KAMINSKI AT BEDSIDE, WILL F/U WITH ORDER
--- NOTE | 2016-03-09 13:42 | NUR ---
DIALYSIS COMPLETED, 0ML OUTPUT. WILL CONTINUE TO MONITOR PT CLOSELY
--- NOTE | 2016-03-09 14:00 | NUR ---
PT TURNED, ORAL CARE PROVIDED TO PT. PT STABLE. WILL CONTINUE TO MONITOR CLOSELY
--- NOTE | 2016-03-09 16:00 | NUR ---
NO S/S OF ANY DISTRESS, PT REPOSITIONED, ORAL CARE PROVIDED, PT COMFORTABLE
[2016-03-09] MEDS: INSULIN ASPART SLIDING SCALE 100 UNITS/ML VIAL SUBQ PRN ×2 (16:41→21:08)
[2016-03-09] MEDS: MEROPENEM 500 MG in NACL 0.9% 50 ML IV SCH (16:45)
[2016-03-09] MEDS ORDERED: BISACODYL 10 MG SUPP RC SCH (17:51)
--- NOTE | 2016-03-09 19:33 | NUR ---
REPORT GIVEN TO CHLOE PARDO. WILL CONTINUE TO MONITOR PT.
--- NOTE | 2016-03-09 19:35 | NUR ---
RECEIVED REPORT FROM CHLOE ROJAS. AT BEDSIDE, PATIENT IS LETHARGIC, WITHDRAWS TO DEEP PAIN ONLY, LEGALLY BLIND ON BOTH EYES. ON ETT TO VENT. FIO2: 40%, TV: 500, AC: 16, PEEP: 5. NO SIGNS OF ACUTE DISTRESS NOTED AT THIS TIME. CLEAR LUNG SOUNDS. SR ON CLINICAL PSYCHOLOGIST. NGT TO LEFT NARE IN PLACE. ON TUBE FEEDING WITH NOVASOURCE RENAL AT 20ML/HR, RESIDUE 60ML, FAIR TOLERATED. FLACC 0. ACTIVE BOWEL SOUNDS. IV TO RIGHT CHEST #24, WITH KVO. AFEBRILE, SKIN IS WARM AND DRY TO TOUCH. LEFT UPPER ARM AV SHUNT NOTED WITH BRUIT AND THRILL PRESENT. RIGHT AC SKIN TEAR NOTED. SCD'S ON BLE FOR DVT PREVENTION, ON CONTACT ISOLATION, SAFETY PRECAUTIONS IN PLACE WITH BED IN LOWEST POSITION, CALL LIGHT WITHIN REACH, WILL CONTINUE TO MONITOR. V/S: BP 163/79, HR 73, RR 16, TEMP 99.7F, O2 SAT 100%.
--- NOTE | 2016-03-09 20:00 | NUR ---
POSITION CHANGED FOR OFF LOAD PRESSURE, ORAL CARE PROVIDED, NO CHANGE OF CONDITION AT THIS TIME.
[2016-03-09] MEDS: SIMVASTATIN 20 MG TAB PO SCH (20:57)
--- NOTE | 2016-03-09 21:00 | NUR ---
ACCU CHECK WITH 153MG/DL, INSULIN GIVEN ORDERED. SCHEDULED MEDICATION GIVEN VIA NGT, PATIENT TOLERATED WELL.
--- NOTE | 2016-03-09 22:00 | NUR ---
NO CHANGE OF CONDITION AT THIS TIME, POSITION CHANGED FOR OFF LOAD PRESSURE.
[2016-03-10] VITALS (24 sets, daily range): BP systolic 90–183; BP diastolic 45–85
--- NOTE | 2016-03-10 | NUR ---
NO CHANGE OF CONDITION AT THIS TIME. POSITION CHANGED FOR OFF LOAD PRESSURE, ORAL CARE PROVIDED.
--- NOTE | 2016-03-10 02:00 | NUR ---
POSITION CHANGED FOR OFF LOAD PRESSURE, NO CHANGE OF CONDITION AT THIS TIME.
--- NOTE | 2016-03-10 02:06 | NUR ---
RECEIVED TELEPHONE ORDER FROM DR. CABELLO, HEMODIALYSIS FOR PATIENT IN AM. SHAKEEL IVAN OF [facility] CALLED LAST NIGHT AT [address] CABELLO PLANNED FOR PATIENT TO HAVE HEMODIALYSIS TODAY.
[2016-03-10] MEDS: ALBUTEROL SULFATE/IPRATROPIU 3 ML SOL IH SCH ×6 (03:40→23:14)
--- NOTE | 2016-03-10 04:00 | NUR ---
AM CARE PROVIDED, ORAL CARE PROVIDED, NO CHANGE OF CONDITION, POSITION CHANGED FOR OFF LOAD PRESSURE.
--- NOTE | 2016-03-10 06:00 | NUR ---
POSITION CHANGED FOR OFF LOAD PRESSURE, NO CHANGE OF CONDITION AT THIS TIME, PATIENT'S SISTER AT BEDSIDE.
[2016-03-10] MEDS: levETIRAcetam 500 MG in NACL 0.9% 100 ML IV SCH ×2 (06:22→17:50)
[2016-03-10] MEDS: BLOOD GLUCOSE MONITORING 1 DEV DEV FS SCH ×4 (07:02→20:16)
--- NOTE | 2016-03-10 07:10 | NUR ---
RECEIVED CALL FROM CRISTIANO FROM [facility] TRANSFER UNIT REGARDING PATIENT'S TRANSFER, CRISTIANO STATED "THERE'S NOTHING TO OFFER" . PATIENT NOT ELIGIBLE FOR HIGHER LEVEL OF CARE DUE TO ANOXIC ENCEPALOPATHY ANS S/P CARDIAC ARREST. REPORT GIVEN TO CRISTIANO STEVENSON, MATCH UP WORKER TO NOTIFY CASE MANAGEMENT.
--- NOTE | 2016-03-10 07:22 | NUR ---
REPORT GIVEN TO CHLOE QUINONEZ FOR CONTINUE OF CARE.
--- NOTE | 2016-03-10 07:25 | NUR ---
RECEIVED REPORT FROM CHLOE PARDO. PT SEEN AT BEDSIDE. PT ABLE TO RESPOND TO DEEP PAIN AND GAG REFLEXES INTACT. PT ON ETT TO VENT WITH SETTINGS FIO40, TV 500, AC 16, PEEP 5. PT HAS MODERATE AMOUNT OF THICK, YELLOW SPUTUM. PT HAS A RIGHT CHEST 24G IV RUNNING IVF AT TKO AT THIS TIME. DIALYSIS ACCESS ON LEFT UPPER ARM AV SHUNT NOTED. BRUIT AND THRILLS NOTED. PT ON DIRECTOR OF PSYCHIATRY RUNNING SINUS CHRISTEL AT THIS TIME, HR 56. PT RUNNING NG TUBE TO LEFT NARE WITH TUBE FEED RUNNING AT THIS TIME. RESIDUAL 0. ACTIVE BOWEL SOUNDS HEARD ON X4 QUADRANTS. PT HAS A NONBLANCHABLE DARK PURPLE DISCOLORATION NOTED ON THE SACRAL-COCCYX. SCAB ON RIGHT ARM NOTED. ORAL CARE GIVEN WITH VAP KIT, PT TURNED AND REPOSITIONED FOR COMFORT. SAFETY MEASURES CHECKED, CALL LIGHT LEFT AT BEDSIDE. WILL CONTINUE TO MONITOR.
--- NOTE | 2016-03-10 07:28 | NUR ---
RECIVED PT ON VENT WITH SETTINGS CHARTED BREATH SOUNDS PRESENT BILAT COARSE SXN PT WITH THICK OFF WHITE SECS VENT PLUGGED INTO RED OUTLET AMBU BAG AT BEDSIDE
[2016-03-10] MEDS: VIT-B COMP/VIT-C/FOLIC ACID 1 TAB PO SCH (08:23)
[2016-03-10] MEDS: FOLIC ACID 1 MG TAB PO SCH (08:23)
[2016-03-10] MEDS: FUROSEMIDE 40 MG TAB PO SCH ×2 (08:24→17:27)
[2016-03-10] MEDS: FAMOTIDINE 20 MG TAB PO SCH (08:24)
[2016-03-10] MEDS: METOCLOPRAMIDE 10 MG TAB PO SCH ×3 (08:24→17:27)
--- NOTE | 2016-03-10 08:24 | NUR ---
ROUTINE MEDICATIONS GIVEN WITH EDUCATION. PT UNABLE TO VERBALIZE UNDERSTANDING. PT TOLERATED WELL. WILL CONTINUE TO MONITOR.
--- NOTE | 2016-03-10 08:30 | NUR ---
PER LOVELY RN, NOTIFIED THOMAS, CASE MGMT THAT CRISTIANO, SUBCONTRACT MANAGER FROM [place], SAID THAT THERE IS NOTHING TO OFFER TO PATIENT AND THE TRANSFER WOULD NOT BE FOR HIGHER LEVEL OF CARE. THOMAS AWARE.
--- NOTE | 2016-03-10 08:50 | NUR ---
DRAMATIC CRITIC AT NURSING STATION. DR DESTINEY GUTIERREZ.
--- NOTE | 2016-03-10 09:08 | NUR ---
RECEIVED CALLBACK FROM DR CABELLO. ALLERGY SPECIALIST ORDERS RECEIVED.
--- NOTE | 2016-03-10 09:15 | NUR ---
BREAKFAST TRAY ARRIVED. ASSISTED PATIENT WITH BREAKFAST TRAY. Addendum: 03/10/16 at 1006 by Lissette Lopez RN WRONG PATIENT
[2016-03-10] MEDS ORDERED: PROBIOTIC SCREEN 1 EA MISC MC PRN (09:30)
--- NOTE | 2016-03-10 09:30 | NUR ---
ROUTINE MEDS GIVEN WITH EDUCATION. PT VERBALIZED UNDERSTANDING. PT TOLERATED WELL. WELL CONTINUE TO MONITOR. Addendum: 03/10/16 at 1006 by Lissette Lopez RN WRONG PATIENT
--- NOTE | 2016-03-10 10:03 | NUR ---
RECEIVED CRITICAL CARLITA FROM LAB, PT ESBL URINE E. COLI MDRO.
--- NOTE | 2016-03-10 10:05 | NUR ---
DR. INGRID GUTIERREZ.
--- NOTE | 2016-03-10 10:08 | NUR ---
RECEIVED CALL BACK FROM DR KEY. NOTIFIED OF CRITICAL CARLITA ESBL URINE MDRO. NO CHANGES IN ORDERS BECAUSE PT IS ON CULTURE SENSITIVE ABX AT THIS TIME.
--- NOTE | 2016-03-10 11:29 | NUR ---
03/10/16 RD FOLLOW UP COMPLETED PLEASE REFER TO NUTRITION PROGRESS NOTE UNDER CARE ACTIVITY FOR ESTIMATED NUTRITION NEEDS. RD RECOMMENDATIONS: 1. CONTINUE NUTRITION SUPPORT NOVASOURCE RENAL AT 20 ML/HR TOLERATED PER MD --THIS IS MEETING 66% OF PT ESTIMATED KCAL AND 62% OF PT ESTIMATED PROTEIN NEEDS. 2. IF PT HAS BETTER TOLERANCE TO NUTRITION SUPPORT CONSIDER ADVANCE SLOWLY TO 35 ML/HR --AT GOAL OF 35 ML/HR, THIS WILL PROVIDE 840 ML TOTAL VOLUME, 1680 KCAL, 76 GM PROTEIN, 602 ML FREE WATER. THIS WILL MEET 100% OF PT ESTIMATED KCAL AND PROTEIN NEEDS 3. RD WILL F/U 2-3 DAYS; HIGH RISK. REYES DÍAZ, ROBERT
[2016-03-10] MEDS: INSULIN ASPART SLIDING SCALE 100 UNITS/ML VIAL SUBQ PRN ×2 (11:31→17:25)
--- NOTE | 2016-03-10 12:24 | NUR ---
PT FINISHED WITH HD. HR 88 BP, 129/80. WILL CONTINUE TO MONITOR.
--- NOTE | 2016-03-10 12:30 | NUR ---
BED BATH GIVEN. LINEN AND GOWN CHANGED, HAIR WASHED, ORAL CARE GIVEN WITH VAP KIT. PT TURNED AND REPOSITIONED FOR COMFORT. WILL CONTINUE TO MONITOR.
--- NOTE | 2016-03-10 12:33 | NUR ---
CM NOTE INITIAL REVIEW FAXED TO [facility] / FAX# [phone], ATTN: July [phone]
--- NOTE | 2016-03-10 13:01 | NUR ---
FAMILY AT BEDSIDE VISITING PATIENT.
[2016-03-10] MEDS ORDERED: MAG SULF 2000 MG/WATER PREMIX 50 ML IV SCH (13:30)
--- NOTE | 2016-03-10 14:00 | NUR ---
PT SUCTIONED, TURNED AND REPOSITIONED FOR COMFORT. WILL CONTINUE TO MONITOR.
--- NOTE | 2016-03-10 14:31 | NUR ---
DR FIGUEROA AT BEDSIDE ASSESSING PATIENT. UPDATED MD ON PATIENT CONDITION. NUMBER FOR CASE MGMT THOMAS GIVEN TO . ON PHONE WITH THOMAS AT THIS TIME DISCUSSING PATIENT'S PLAN OF CARE. Addendum: 03/10/16 at 1504 by Lissette Lopez RN DR FIGUEROA DID NOT SPEAK WITH THOMAS, BUT SPOKE WITH SOMEONE FROM CASE MGMT.
[2016-03-10] MEDS ORDERED: EPOETIN ALFA 4,000 UNITS/ML VIAL SUBQ SCH (15:09)
[2016-03-10] MEDS: MEROPENEM 500 MG in NACL 0.9% 50 ML IV SCH (15:18)
--- NOTE | 2016-03-10 17:00 | NUR ---
PT'S SISTER, CAIO, STATED THAT, "THE KIDNEY DOCTOR CALLED ME YESTERDAY AT 8PM AND TOLD ME THAT THERE WAS A BED IN [place]". LET CAIO KNOW THAT KAYLYNN QUINONEZ FROM [place], HAD CALLED EARLIER TODAY AND STATED THAT "THEY HAVE NOTHING TO OFFER TO PATIENT AND WOULD NOT BE A TRANSFER TO HIGHER LEVEL OF CARE". CAIO WAS VERY FRUSTRATED BECAUSE SHE FELT LIKE WE WERE KEEPING INFORMATION FROM HER. CALLED GABRIELLE CALDERON, AND LET HER KNOW WHAT CAIO SAID. CAIO AND KVNG AGREED TO HAVE A MEETING TOMORROW AT 9AM. Addendum: 03/11/16 at 1324 by Lissette Lopez RN CHLOE MURRY CALLED GABRIELLE SMITH PER FAMILY REQUEST. GABRIELLE CALDERON, DID NOT SAY SHE WOULD AGREE TO HAVE A MEETING WITH FAMILY AT 9AM. GABRIELLE CALDERON AGREED THAT SHE WOULD AGREE TO MEET WITH THE FAMILY WITH NO SPECIFIC TIME, PER LOVELY CORONA. CAIO, PATIENT'S SISTER, STATED SHE DID NOT WANT TO HAVE A MEETING BECAUSE, "I ALREADY HEARD WHAT I SHOULD'VE HEARD RIGHT NOW". PER CHLOE MURRY, SHE SUGGESTED THAT THEY HAVE A FAMILY MEETING TOMORROW, 03/11/16T 9AM. GABRIELLE SMITH WAS NOT AWARE.
--- NOTE | 2016-03-10 17:54 | NUR ---
CONTINUED TO MONITOR PT ON VENT WITH SETTINGS CHARTED BREATH SOUNDS PRESENT BILAT DIMINISHED SXN PT WITH MIN TO MOD AMT OFF WHITE SECS VENT PLUGGED INTO RED OUTLET AMBU BAG AT BEDSIDE
--- NOTE | 2016-03-10 18:00 | NUR ---
ROUTINE MEDS GIVEN WITH EDUCATION. PT UNABLE TO VERBALIZE UNDERSTANDING. WILL CONTINUE TO MONITOR.
--- NOTE | 2016-03-10 19:10 | NUR ---
REPORT GIVEN TO CHLOE SULLIVAN FOR CONTINUITY OF CARE.
--- NOTE | 2016-03-10 20:00 | NUR ---
PATIENT RESPONDS TO PAIN, SR ON THE MONITOR, ETT TO VENT, NO SOB, ON NGT FEEDING OF NOVASOURCE AT 20 ML/HR, NGT TO LEFT NARE PATENT AND INTACT, IV ON RIGHT CHEST AREA PUFFY AND TENDER, REMOVED, CLARENCE AV SHUNT PATENT AND INTACT, TURNED AND REPOSITIONED, FLACC 0.
[2016-03-10] MEDS: SIMVASTATIN 20 MG TAB PO SCH (20:17)
[2016-03-10] MEDS: SACCHAROMYCES 250 MG CAP PO SCH (20:17)
--- NOTE | 2016-03-10 22:00 | NUR ---
SUCTIONED ORALLY, TURNED AND REPOSITIONED, FLACC 0.
[2016-03-11] VITALS (24 sets, daily range): BP systolic 110–188; BP diastolic 34–93
--- NOTE | 2016-03-11 | NUR ---
ORAL CARE WITH VAP KIT, SUCTIONED WITH SMALL AMOUNT OF WHITE SECRETIONS, TURNED AND REPOSITIONED, NO SOB, FLACC 0.
--- NOTE | 2016-03-11 03:16 | NUR ---
SLEEPING COMFORTABLY, NO DISTRESS.
[2016-03-11] MEDS: ALBUTEROL SULFATE/IPRATROPIU 3 ML SOL IH SCH ×6 (03:26→22:54)
--- NOTE | 2016-03-11 04:16 | NUR ---
ORAL CARE PROVIDED AFTER SUCTIONING ORALLY AND PER ETT, FLACC 0, NO RESPIRATORY DISTRESS, FLACC 0.
[2016-03-11] MEDS: levETIRAcetam 500 MG in NACL 0.9% 100 ML IV SCH ×2 (05:15→18:04)
--- NOTE | 2016-03-11 06:32 | NUR ---
AM CARE PROVIDED, NO RESPIRATORY DISTRESS, NGT FEEDING TOLERATED WELL, TURNED AND REPOSITIONED, HOB ELEVATED, FLACC 0.
[2016-03-11] MEDS: BLOOD GLUCOSE MONITORING 1 DEV DEV FS SCH ×4 (06:36→20:20)
[2016-03-11] MEDS: INSULIN ASPART SLIDING SCALE 100 UNITS/ML VIAL SUBQ PRN ×3 (06:38→20:38)
--- NOTE | 2016-03-11 07:30 | NUR ---
RECEIVED THE PATENT FROM THE MEMBERSHIP SALES MANAGER WITH STABLE CONDITION. PATIENT IS ORALLY INTUBATED, ON VENT FIO2=35%,TV 500 ML,AC 16, PEEP 5 CM. NO SIGN OF DISTRESS. O2 SAT 100%. ELECTRONIC MAINTENANCE SUPERVISOR SHOWS SINUS BRADYCARDIA-OTTONIEL RHYTHM WITH BBB. NO ECTOPY. PATIENT IS IN CONTACT ISOLATION PRECAUTIONS FOR ESBL AND MDRO IN SPUTUM/URINE.
--- NOTE | 2016-03-11 07:37 | NUR ---
RECIVED PT ON VENT WITH SETTINGS CHARTED BREATH SOUNDS PRESENT BILAT COARSE SXN PT ITH MIN AMT OFF WHITE SECS VENT PLUGGED INTO RED OUTLET AMBU BAG AT BEDSIDE\
--- NOTE | 2016-03-11 08:00 | NUR ---
SHIFT ASSESSMENT IS DONE. PATIENT IS RESPONSIVE TO PAINFUL STIMULI ONLY. DOES NOT FOLLOW SIMPLE COMMAND. BOTH EYES CLOSED AND BLIND. ETT TO VENT WITH SAME SETTING. O2 SAT 100%. SUCTIONED WITH SMALL THICK CREAMY MUCUS. COUGH REFLEX NOTED. ORAL CARE GIVEN WITH VAP KIT. MONITOR SHOWS SINUS BRADYCARDIA WITH BBB. ABDOMEN IS SOFT,NGT IN PLACE WITH 20 ML RESIDUAL. CONTINUE TUBE FEEDING @ 20 ML/HR ,WATER FLUSH 50 ML Q6H. HAS SMALL SOFT BROWN STOOL. BEVERLY CARE GIVEN. PATIENT HAS NONBLANCHABLE REDNESS TO SACROCOCCYGEAL AREA. WOUND CARE NURSE PRESENT AT BEDSIDE,EVALUATED PATIENT. WOUND CARE WAS DONE BY WOUND CARE NURSE. PLEASE SEE WOUND CARE NOTE. PATIENT HAS NOT VOIDED. DIALYSIS PATIENT. LT UPPER ARM AV SHUNT DIALYSIS ACCESS' DRESSING IS DRY WITH BRUIT PRESENT. LT ARM IS 2+ NONPITTING EDEMA. ELEVATED LT ARM ON THE PILLOW. SKIN IS WARM/DRY. ALL EXTREMITIES FLACCID. BILATERAL SCD ON. RT FOREARM IV WITH NS @ 10 ML/HR. PATIENT IS DNR STATUS. REPOSITIONED PATIENT AND OFF LOAD PRESSURE AREA.
--- NOTE | 2016-03-11 08:05 | NUR ---
WOUND CARE EVALUATION NOTES: REASON FOR EVALUATION: REDNESS SACRALCOCCYGEAL AREA COMPLETE SKIN ASSESSMENT DONE ON THIS 45 Y/O FEMALE PATIENT FROM HOME TO [facility], WITH INITIAL DIAGNOSIS OF SHORTNESS OF BREATH. PAST MEDICAL HISTORY INCLUDE HYPERTENSION, DIABETES, ESRD AND CVA. ALL ABOVE INFORMATION WAS OBTAINED FROM THE ADMISSION H&P. LABS ARE WBC 17.2, H/H 10.3/30.9, GLUCOSE 168, ALBUMIN 2.5, PT/INR 14.3/1.5 AND PTT 35.5. CURRENT MEDS INCLUDE PROCRIT, MEROPENEM, MULTIVITAMINS/MINERALS, FOLIC ACID AND INSULIN. PATIENT IS APHASIC AT THIS TIME, ON ETT TO VENT. URINE AND BOWEL INCONTINENT, NOTED TO HAVE SOFT BROWN STOOLS IN SMALL AMOUNT. SKIN WARM TO TOUCH WNL, TOENAILS WNL, +1 EDEMA, FINE HAIR GROWTH AND +1 BILATERAL PEDAL PULSES. LEFT NARES NGT NOTED TO NOVASOURCE AT 2O CC/H. LEFT UPPER ARM AV SHUNT NOTED. NEEDS MAX ASSISTANCE IN TURNING. INITIAL PLAN OF CARE AND PRESSURE PREVENTIVE MEASURES DISCUSSED. UNABLE TO VERBALIZE UNDERSTANDING DUE TO COGNITIVE STATUS. WILL FOLLOW UP WITH FAMILY. INTEGUMENTARY: SACRALCOCCYX - NON BLANCHABLE REDNESS RECOMMENDATIONS: SACRALCOCCYX: CLEANSE WITH MILD SOAP AND WATER, PAT DRY, PAINT WITH SKIN PREP WIPES AND COVER WITH FOAM DRESSING Q OTHER DAY AND PRN WITH SOILING/DISPLACEMENT -TURN AND REPOSITION PATIENT Q2H TO LEFT AND RIGHT SIDE ONLY TO OFFLOAD SACRALCOCCYX -ASSESS AND MONITOR SKIN CONDITION DURING POSITION CHANGE, PLEASE PAY PARTICULAR ATTENTION TO SACRALCOCCYX, ELBOWS AND HEELS -OFFLOAD BILATERAL HEELS BY PLACING PILLOWS UNDER CALVES (ONE PILLOW EACH LEG) AT ALL TIMES, UNLESS OTHERWISE CONTRAINDICATED -KEEP SKIN CLEAN AND DRY AT ALL TIMES. RECOMMENDATIONS DISCUSSED WITH PRIMARY RN WILL FOLLOW UP PATIENT Q 3 DAYS AND PRN. PLEASE CONTACT [facility] FOR ANY CONCERNS, QUESTIONS AND CHANGES IN SKIN CONDITION.
[2016-03-11] MEDS: METOCLOPRAMIDE 10 MG TAB PO SCH ×3 (09:00→17:09)
[2016-03-11] MEDS: FAMOTIDINE 20 MG TAB PO SCH (09:00)
[2016-03-11] MEDS: SACCHAROMYCES 250 MG CAP PO SCH ×2 (09:00→20:21)
[2016-03-11] MEDS: VIT-B COMP/VIT-C/FOLIC ACID 1 TAB PO SCH (09:00)
[2016-03-11] MEDS: FOLIC ACID 1 MG TAB PO SCH (09:00)
[2016-03-11] MEDS: FUROSEMIDE 40 MG TAB PO SCH ×2 (09:00→18:07)
--- NOTE | 2016-03-11 10:00 | NUR ---
NO CHANGE IN CONDITION. SUCTIONED AND REPOSITIONED. OFF LOAD PRESSURE AREA. KEEP LT ARM ELEVATION ON PILLOW.
--- NOTE | 2016-03-11 11:30 | NUR ---
PATIENT'S DAUGHTER AND SISTER PRESENT AT BEDSIDE. UPDATED IN PATIENT'S CONDITION AND MADE THEM AWARE OF PATIENT HAS REDNESS TO SACRAL AREA AND WOUND CARE NURSE ALREADY SEEN THE PATIENT.
--- NOTE | 2016-03-11 11:35 | NUR ---
WOUND CARE NOTES: INITIAL PLAN OF CARE AND PRESSURE PREVENTIVE MEASURES DISCUSSED WITH PATIENT'S SISTER CAIO AND DAUGHTER. BOTH ABLE TO VERBALIZE UNDERSTANDING.
--- NOTE | 2016-03-11 12:00 | NUR ---
NO CHANGE IN CARDIO OR RESPIRATORY STATUS. O2 SAT 100%. NGT IN PLACE WITH 10 ML RESIDUAL. CONTINUE SAME TUBE FEEDING. REPOSITIONED PATIENT,OFF LOAD PRESSURE AREA. SUCTIONED VIA ETT WITH SMALL THICK CREAMY MUCUS. COUGH REFLEX STILL NOTED. ORAL CARE GIVEN. REPORT GIVEN TO NURSE MURRY RN FOR CONTINUITY OF CARE.
--- NOTE | 2016-03-11 12:05 | NUR ---
RECEIVED REPORT FROM YENI CORONA. ORAL INTUBATED ON VENT SETTING AC 16 VT500 FIO2 35% PEEP 5. O2 SAT 98% . SKIN DRY WARM TO TOUCH COLOR NORMAL. NG TUBE FEEDING WITH NOVASOURCE RENAL AT 20ML/MIN RESIDUAL CHECK HAS 20 ML RETURN FEEDING CONTINUE ,PT HAS LEFT UPPER ARN AV SHUNT FOR HEMODIALYSIS. ABD. SOFT B/S ACTIVE .
--- NOTE | 2016-03-11 14:10 | NUR ---
1330 CALLED AND SPOKE WITH PT'S SISTER CAIO. CAIO STATED THAT SHE DID NOT HAVE ANY QUESTIONS AT THIS TIME NURSING HAD ANSWERED HER QUESTIONS. SHE DID STATE THAT THE GAS WELDING EQUIPMENT MECHANIC WAS THE ONE WHO TOLD HER THAT [facility] HAD ACCEPTED PT BUT IS CLEAR NOW THAT THE PHYSICIAN AT HAD AGREED TO REVIEW THE CASE AND IS AWARE THAT PT NOT ACCEPTED. CAIO STATED THAT SHE IS JUST WAITING FOR "A MIRACLE". STATED THAT PT DID SQUEEZE HER HAND TODAY AND THAT SHE WANTS TO CONTINUE WITH TREATMENT EVEN IF IT MEANS SHE NEEDS A TRACH AND FEEDING TUBE. SHE STATED THAT SHE DOES NOT WANT TO HEAR "ANY NEGATIVES" WHAT IS DONE IS DONE". I INFORMED CAIO THAT IF SHE HAS ANY FURTHER QUESTIONS SHE CAN CALL [facility] AND SHE THANKED ME FOR THE CALL.
--- NOTE | 2016-03-11 14:20 | NUR ---
DR CABELLO AT BEDSIDE TALK TO PT DAUGHTER SHE ASK TO CALL TALK TO HER AUNT CAIO. WHEN CONNECT THE PHONE TO CAIO SHE SAID SHE DOES NOT NEED TO TALK ANY MORE AND HANG UP.
--- NOTE | 2016-03-11 14:34 | NUR ---
DR. CABELLO ORDER KCL RIDER 20 MEQ IVP TO BE GIVEN.
[2016-03-11] MEDS ORDERED: KCL 20 MEQ/WATER INJ PREMIX 100 ML IV SCH (15:00)
--- NOTE | 2016-03-11 15:45 | NUR ---
DR. KAMINSKI AT BED SIDE , NO ORDER CHANGED.
[2016-03-11] MEDS: MEROPENEM 500 MG in NACL 0.9% 50 ML IV SCH (15:50)
--- NOTE | 2016-03-11 16:15 | NUR ---
REPOSITION ORAL CARE WITH VAP KIT.. SKIN CARE AND BACK CARE GIVEN.
--- NOTE | 2016-03-11 17:35 | NUR ---
continued to monitor pt on vent with settings as charted breath sounds present bilat scatterd rales sxn pt with in to mod amt secs vent plugged into red outlet ambu bag at bedside
--- NOTE | 2016-03-11 18:00 | NUR ---
REPOSITION BACK CARE GIVEN , FAMILY AT BEDSIDE [SISTER CAIO] HYPERTENSION.
--- NOTE | 2016-03-11 19:25 | NUR ---
RECEIVED REPORT FROM CHLOE MURRY, AM NURSE. PT IS NON-VERBAL, ETT TO VENT FIO2 30% TV 500 AC [address] IN [address], ON CONTINUOUS NGT FEEDING. ATTACHED TO DUMPER BAILER OPERATOR., PULSE OXIMETER. PT HAS DIALYSIS ACCESS AT LEFT UPPER ARM. LEFT UPPER EXTREMITY SWOLLEN. IVF ACCESS AT RIGHT FOREARM 22G, PATENT, INTACT AT THIS TIME. SCDS IN PLACE. SAFETY MEASURE ENSURE, BED IN LOW POSITION, CONTACT PRECAUTION MAINTAIN. WILL CONTINUE TO MONITOR.
[2016-03-11] MEDS: SIMVASTATIN 20 MG TAB PO SCH (20:21)
--- NOTE | 2016-03-11 22:44 | NUR ---
NO SIGNS OF SOB/ DISTRESS AT THIS TIME. WILL CONTINUE TO MONITOR.
[2016-03-12] VITALS (24 sets, daily range): BP systolic 109–177; BP diastolic 56–100
--- NOTE | 2016-03-12 00:48 | NUR ---
PT HAS NO FEVER, NORMAL SINUS RHYTHM ON THE MONITOR, VSS. WILL CONTINUE TO MONITOR.
[2016-03-12] MEDS: ALBUTEROL SULFATE/IPRATROPIU 3 ML SOL IH SCH ×6 (03:56→23:01)
--- NOTE | 2016-03-12 03:59 | NUR ---
RT AT BEDSIDE.
--- NOTE | 2016-03-12 04:32 | NUR ---
MORNING CARE DONE. PT TOLERATED WELL. WILL CONTINUE TO MONITOR.
--- NOTE | 2016-03-12 05:15 | NUR ---
KILN STOKER AT BEDSIDE.
[2016-03-12] MEDS: levETIRAcetam 500 MG in NACL 0.9% 100 ML IV SCH ×2 (05:32→17:29)
--- NOTE | 2016-03-12 06:32 | NUR ---
REC'D PT ON CARESCAPE VENT SETTINGS AC16 VT 500 PEEP 5 FIO2 30% ALARMS ON AND FUNCTIONING PROPERLY, AMBU BAG AT SIDE OF VENT AND VENTILATOR IS PLUGGED INTO RED OUTLET, I\L TX GIVEN WITH DUONEB 3ML WITH NO ADVERSE REACTION POST TX, B\S ARE RHONCHI BILATERALLY, SXN PT MODERATE AMT OF YELLOW SECRETIONS, PT IS ORALLY INTUBATED WITH 7.5 ET TUBE SECURED WITH ANCHOR FAST AT 23 CM AT MIDLINE OF MOUTH AND SKIN INTEGRITY IS INTACT, PT IS RESTING WITH ON SIGNS OF DISTRESS NOTED AT THIS TIME
[2016-03-12] MEDS: BLOOD GLUCOSE MONITORING 1 DEV DEV FS SCH ×4 (06:37→21:15)
[2016-03-12] MEDS: INSULIN ASPART SLIDING SCALE 100 UNITS/ML VIAL SUBQ PRN ×4 (06:38→21:15)
--- NOTE | 2016-03-12 06:43 | NUR ---
RECEIVED CRITICAL LAB RESULTS, CREA 4.7, BUN 70. SCHEDULED FOR HD TODAY.
--- NOTE | 2016-03-12 06:52 | NUR ---
PATIENT'S SISTER AT BEDSIDE.
--- NOTE | 2016-03-12 07:20 | NUR ---
REPORT GIVEN TO CHLOE PANDYA FOR CONTINUITY OF CARE. VSS, NO SIGNS OF DISTRESS/SOB NOTED AT THIS TIME.
--- NOTE | 2016-03-12 07:45 | NUR ---
RECEIVED BEDSIDE REPORT FROM TOUCHER UP RN. PT IS NO RESPONSE TO NAME OR TACTILE STIMULI. FUNERAL GREETER SHOWS SR AT THIS TIME. ETT TO VENT SETTING FIO2=30%, AC 16, TV 500, PEEP 5. NG TUBE IN PLACE WITH CONTINUOUS FEEDING, 15 ML RESIDUAL, RETURNED BACK. ABDOMEN SOFT, SKIN INTACT,PT UNABLE TO MOVE HER EXTREMITIES. SCDS IN PLACE. PT HAS DIALYSIS TO LEFT UPPER ARM. IVF ACCESS AT RIGHT FOREARM AT KTO RATE, SITE INTACT AND PATENT. HOB ELEVATED AT 30 DEGREES, WITH LOW BED POSITION. OFF LOAD PRESSURE AREA, WILL CONTINUE TO CLOSELY MONITOR.
--- NOTE | 2016-03-12 08:00 | NUR ---
SUCTIONED PT , ORAL CARE GIVEN. NO S/S OF RESPIRATORY DISTRESS NOTED.
[2016-03-12] MEDS: VIT-B COMP/VIT-C/FOLIC ACID 1 TAB PO SCH (08:17)
[2016-03-12] MEDS: SACCHAROMYCES 250 MG CAP PO SCH ×2 (08:17→21:09)
[2016-03-12] MEDS: METOCLOPRAMIDE 10 MG TAB PO SCH ×3 (08:17→17:23)
[2016-03-12] MEDS: FOLIC ACID 1 MG TAB PO SCH (08:17)
[2016-03-12] MEDS: FUROSEMIDE 40 MG TAB PO SCH ×2 (08:18→17:23)
[2016-03-12] MEDS: FAMOTIDINE 20 MG TAB PO SCH (08:19)
[2016-03-12] MEDS ORDERED: EPOETIN ALFA 4,000 UNITS/ML VIAL SUBQ SCH (09:00)
--- NOTE | 2016-03-12 09:00 | NUR ---
DUE MEDS GIVEN. PT IS STILL UNRESPONSIVE TO NAME OR TACTILE STIMULI. WILL CONTINUE TO MONITOR.
--- NOTE | 2016-03-12 09:14 | NUR ---
VENT CHECK, NO SXN NEEDED AIRWAY IS PATENT AND PT IS RESTING WITH NO SIGNS OF DISTRESS NOTED
--- NOTE | 2016-03-12 10:00 | NUR ---
DR. AVALOS IN TO SEE PT, UPDATED PT'S CONDITION, WILL FOLLOW UP ORDER.
--- NOTE | 2016-03-12 10:30 | NUR ---
03/12/16 RD FOLLOW UP COMPLETED PLEASE REFER TO NUTRITION PROGRESS NOTE UNDER CARE ACTIVITY FOR ESTIMATED NUTRITION NEEDS. RD RECOMMENDATIONS: 1. CONTINUE NUTRITION SUPPORT NOVASOURCE RENAL AT 35 ML/HR TOLERATED PER MD. GOAL RATE OF 35 ML/HR HAS BEEN MET. THIS MEETS 100% KCAL AND 100% PROTEIN NEEDS. 2. RD WILL F/U 2-3 DAYS; HIGH RISK. LILIANA GRAFF, , RDN
--- NOTE | 2016-03-12 10:58 | NUR ---
PT'S DAUGHTER PRESENT AT PT'S BEDSIDE. ANSWERED ALL QUESTIONS.
--- NOTE | 2016-03-12 11:07 | NUR ---
VENT CHECK, I\L TX GIVEN WITH DUONEB 3ML WITH NO ADVERSE REACTION POST TX, B\S ARE RHONCHI AND SXN PT MODERATE AMT OF YELLOW SECRETIONS, FAMILY AT BEDSIDE
--- NOTE | 2016-03-12 12:00 | NUR ---
REPOSITIONED PT.MADE PT CLEAN AND COMFORTABLE.
--- NOTE | 2016-03-12 13:17 | NUR ---
DIALYSIS NURSED PRESENTED AT PT'S BEDSIDE. PT BP 111/60. HR 74, O2 SAT 100%. DIALYSIS STARTED, WILL CONTINUE TO MONITOR.
--- NOTE | 2016-03-12 13:33 | NUR ---
VENT CHECK, NO SXN REQUIRED AT THIS TIME, AIRWAY IS PATENT AND PT IS HAVING DIALYSIS
--- NOTE | 2016-03-12 15:00 | NUR ---
VENT CHECK, I\L TX GIVEN WITH DUONEB 3ML WITH NO ADVERSE REACTION POST TX B\S AR RHONCHI AND SXN PT SMALL AMT OF YELLOW SECRETIONS, PT IS HAVING DIALYSIS
--- NOTE | 2016-03-12 15:35 | NUR ---
INFORMED DR. PONCE FOR HIS CONSULTATION. PER DR. PONCE, HE WILL COME TO SEE PT.
[2016-03-12] MEDS ORDERED: MEROPENEM 500 MG in NACL 0.9% 50 ML IV SCH (16:00)
--- NOTE | 2016-03-12 16:30 | NUR ---
DIALYSIS DONE. TOTAL OUTPUT 2600ML. NO S/S OF RESPIRATORY OR DISCOMFORT NOTED AT THIS TIME. WILL CONTINUE TO MONITOR.
--- NOTE | 2016-03-12 17:02 | NUR ---
vent check, no sxn required at this time, airway is patent and pt is done with dialysis and no signs of distress noted
--- NOTE | 2016-03-12 18:00 | NUR ---
DR. CABELLO INTO SEE PT, UPDATED PT'S CONDITION, WILL FOLLOW UP ORDER.
--- NOTE | 2016-03-12 18:06 | NUR ---
REPOSITIONED PT, MADE PT CLEAN AND COMFORTABLE. NO S/S OF RESPIRATORY DISTRESS NOTED.WILL CONTINUE TO MONITOR.
--- NOTE | 2016-03-12 19:09 | NUR ---
RECEIVED PATIENT ON AC 12 VT 500 +5 30% WITH 7.5 ETT AT 23CM. NO SOB NOTED. BS RHONCHI,. TREATMENT DONE. SPUTUM COLLECTED AND SENT. SXN MOD AMOUNT THICK YELLOW SECRETIONS VENT PLUGGED INTO RED OUTLET. AMBU BAG AT BEDSIDE. ALARMS ON AND FUNCTIONING.
--- NOTE | 2016-03-12 19:16 | NUR ---
REPORT GIVEN TO LORENA CORONA. PT IN STABLE CONDITION AT THIS TIME.
--- NOTE | 2016-03-12 20:02 | NUR ---
NO DISTRESS. UNRESPONSIVE. ETT IN. AC 12 VT 500 PEEP 5 FIO2 30 HOB UP, BR UP NGT OK, TOLERATING FEEDING IV OK HD PT, NO MURPHY, ANURIC PER REPORT, UNABLE TO GET URINE CX PER YA PT IS ANURIC SCD ON
[2016-03-12] MEDS: SIMVASTATIN 20 MG TAB PO SCH (21:09)
[2016-03-12] MEDS ORDERED: MEROPENEM 500 MG VIAL IV ONE (21:13)
[2016-03-12] MEDS: MEROPENEM 500 MG in NACL 0.9% 50 ML IV SCH (21:58)
[2016-03-13] VITALS (25 sets, daily range): BP systolic 114–172; BP diastolic 55–95
[2016-03-13] MEDS: ALBUTEROL SULFATE/IPRATROPIU 3 ML SOL IH SCH ×6 (02:41→23:18)
--- NOTE | 2016-03-13 06:16 | NUR ---
RECEIVED PT ON CARESCAPE ON A/C 12 VT 500 PEEP 5 FIO2 30 ALARMS ARE ON AND FUNCTIONAL BMV HOB PTS ET TUBE SIZE 7.5 IS SECURE 23 CM ANCHOR FAST IN PLACE BS RHONCI I\L SX AND LAVAGE HHN GIVEN I\L WITH 3 MG DUONEB PT IN HF NOT AWAKE VENT PLUGGED INTO RED OUTLET
[2016-03-13] MEDS: BLOOD GLUCOSE MONITORING 1 DEV DEV FS SCH ×4 (06:24→21:01)
[2016-03-13] MEDS: INSULIN ASPART SLIDING SCALE 100 UNITS/ML VIAL SUBQ PRN ×4 (06:24→21:01)
[2016-03-13] MEDS: levETIRAcetam 500 MG in NACL 0.9% 100 ML IV SCH ×2 (06:32→18:05)
--- NOTE | 2016-03-13 06:37 | NUR ---
NO DISTRESS SUCTIONED, ETT OK, O2 SAT OK MORNING BS 182, 2U OF INSULIN GIVEN NO NEW SKIN BREAKDOWN NO VOID HAD BM IV OK TOLERATING TUBE FEEDS PER BED SCALE 232 LBS, PT WAS MOVED RECENTLY TO ISO ROOM, INCORRECT WEIGHT PER ESTIMATE
--- NOTE | 2016-03-13 07:48 | NUR ---
RECEIVED BEDSIDE REPORT FROM ONCOLOGY PHARMACIST RN LORENA. PT IS NO RESPONSE TO NAME OR TACTILE STIMULI. SECURITY AND COMPLIANCE ANALYST SHOWS SR AT THIS TIME. ETT TO VENT SETTING FIO2=30%, AC 16, TV 500, PEEP 5. NG TUBE IN PLACE WITH CONTINUOUS NOVASOURCE RENAL FEEDING AT 35ML/HR, NO RESIDUAL. ABDOMEN SOFT, SKIN INTACT,PT UNABLE TO MOVE HER EXTREMITIES. SCDS IN PLACE. PT HAS DIALYSIS TO LEFT UPPER ARM, NON PITTING EDEMA TO LEFT FOREARM . IVF ACCESS AT RIGHT FOREARM AT KTO RATE, SITE INTACT AND PATENT. SUCTIONED PT WITH SMALL AMOUNT OF CLEAR SECRETION, PT HAS GAG REFLEX. ORAL CARE GIVEN. HOB ELEVATED AT 30 DEGREES, WITH LOW BED POSITION. OFF LOAD PRESSURE AREA, WILL CONTINUE TO CLOSELY MONITOR.
[2016-03-13] MEDS: FUROSEMIDE 40 MG TAB PO SCH ×2 (08:49→16:32)
[2016-03-13] MEDS: FAMOTIDINE 20 MG TAB PO SCH (08:49)
[2016-03-13] MEDS: VIT-B COMP/VIT-C/FOLIC ACID 1 TAB PO SCH (08:49)
[2016-03-13] MEDS: METOCLOPRAMIDE 10 MG TAB PO SCH ×3 (08:49→16:32)
[2016-03-13] MEDS: SACCHAROMYCES 250 MG CAP PO SCH ×2 (08:49→21:02)
[2016-03-13] MEDS: FOLIC ACID 1 MG TAB PO SCH (08:50)
--- NOTE | 2016-03-13 08:50 | NUR ---
VENT CHECK BS EULOGIOI SX SM YELLOW
[2016-03-13] MEDS: MEROPENEM 500 MG in NACL 0.9% 50 ML IV SCH ×2 (09:05→21:03)
--- NOTE | 2016-03-13 10:05 | NUR ---
REPOSITIONED PT, OFF LOAD PRESSURE AREA. NO S/S OF RESPIRATORY DISTRESS NOTED. WILL CONTINUE TO MONITOR.
--- NOTE | 2016-03-13 10:36 | NUR ---
VENT CHECK BS RHONCI I\L LAVAGE SM YELLOW HHN GIVEN I\L WITH 3 MG DUONEB
--- NOTE | 2016-03-13 11:01 | NUR ---
WOUND CARE NURSE PRESENT AT PT BEDSIDE .
--- NOTE | 2016-03-13 11:11 | NUR ---
WOUND CARE NOTES: SEEN PATIENT FOR FOLLOW UP RE: NON BLANCHABLE REDNESS SACRALCOCCYX. PLEASE REFER TO WOUND ASSESSMENT FLOWSHEET FOR UPDATED ENTRY. WILL CONTINUE CURRENT PLAN AND TREATMENT. WILL CONTINUE TO MONITOR.
[2016-03-13] MEDS: FOAM DRESSING TP SCH (13:00)
--- NOTE | 2016-03-13 13:18 | NUR ---
vent check, no sxn required at this time airway is patent and pt is resting with no signs of distress noted at this time
--- NOTE | 2016-03-13 14:10 | NUR ---
REPOSITIONED PT. CLEANED PT, MADE PT COMFORTABLE AND CLEAN.
--- NOTE | 2016-03-13 14:40 | NUR ---
PAGEHaley PONCE REGARDING PT'S CRITICAL BLOOD CULTURE REPORT. WILL FOLLOW UP. Addendum: 03/13/16 at 1516 by Rosalba Avalos RN WRONG PT NOTE.
--- NOTE | 2016-03-13 14:55 | NUR ---
DR. PONCE CALLED BACK. NO NEW ORDER RECEIVED. Addendum: 03/13/16 at 1516 by Rosalba Avalos RN KIMBERLY TREJO
--- NOTE | 2016-03-13 14:55 | NUR ---
VENT CHECK BS RHONCI I\L SX HHN GIVEN I\L WITH 3 MG DUONEB
--- NOTE | 2016-03-13 15:53 | NUR ---
PT'S SISTER PRESENT AT BEDSIDE. UPDATED PT CONDITION. QUESTIONS ANSWERED.
--- NOTE | 2016-03-13 16:41 | NUR ---
VENT CHECK BS EULOGIOI SX SM YELLOW
--- NOTE | 2016-03-13 18:05 | NUR ---
PT'S DAUGHTER PRESENT AT BEDSIDE.UPDATED PT'S CONDITION AND ANSWERED QUESTIONS.
--- NOTE | 2016-03-13 18:34 | NUR ---
RECEIVED PATIENT ON AC 12 VT 500 +5 FIO2 30% WITH 7.5 ETT @ 23 CM SECURE WITH ANCHOR FAST. BS RHONCHI SXN MOD AMOUNT THICK YELLOW SECRETIONS. NO SOB NOTED. VENT PLUGGED INTO RED OUTLET. AMBU BAG AT BEDSIDE. ALARMS ON AND FUNCTIONING
--- NOTE | 2016-03-13 19:15 | NUR ---
REPORT GIVEN TO LORENA CORONA. PT IN STABLE CONDITION AT THIS TIME
--- NOTE | 2016-03-13 19:53 | NUR ---
NO DISTRESS NO SOB ETT IN FIO2 30 TV 500 PEEP 5 AC 12 NGT IN, TOLERATING FEEDING UNRESPONSIVE , HOB UP BR UP SCD ON
--- NOTE | 2016-03-13 20:03 | NUR ---
MD PONCE SAID OK TO STRAIGHT CATH FOR URINE CX
[2016-03-13] MEDS: SIMVASTATIN 20 MG TAB PO SCH (21:02)
[2016-03-14] VITALS (23 sets, daily range): BP systolic 109–221; BP diastolic 54–111
[2016-03-14] MEDS: ALBUTEROL SULFATE/IPRATROPIU 3 ML SOL IH SCH ×6 (03:01→23:19)
[2016-03-14] MEDS: levETIRAcetam 500 MG in NACL 0.9% 100 ML IV SCH ×2 (05:22→18:21)
--- NOTE | 2016-03-14 06:24 | NUR ---
REC'D PT ON CARESCAPE VENT SETTINGS AC12 VT 500 PEEP 5 FIO2 30% ALARMS ON AND FUNCTIONING PROPERLY, AMBU BAG AT SIDE OF VENTILATOR AND VENTILATOR IS PLUGGED INTO RED OUTLET, I\E TX GIVEN WITH DUONEB 3ML WITH NO ADVERSE REACTION POST TX, B\S ARE RHONCHI BILATERALLY, PT IS ORALLY INTUBATED WITH 7.5 ET TUBE SECURED WITH ANCHOR FAST AT 23CM AT RIGHT SIDE OF MOUTH AND SKIN IS INTACT, MOVED PT FROM ONE BED TO OTHER WITH CHLOE CASTRO
[2016-03-14] MEDS: BLOOD GLUCOSE MONITORING 1 DEV DEV FS SCH ×4 (06:39→20:31)
[2016-03-14] MEDS: INSULIN ASPART SLIDING SCALE 100 UNITS/ML VIAL SUBQ PRN ×4 (06:40→20:31)
--- NOTE | 2016-03-14 07:50 | NUR ---
RECEIVED BEDSIDE REPORT FROM SOLE PAINTER RN LORENA. PT IS NO RESPONSE TO NAME OR TACTILE STIMULI. LABORATORY COURIER SHOWS SR . ETT TO VENT SETTING FIO2=30%, AC 12, TV 500, PEEP 5. NG TUBE IN PLACE WITH CONTINUOUS NOVASOURCE RENAL FEEDING AT 35ML/HR, NO RESIDUAL. ABDOMEN SOFT,WITH ACTIVE BOWEL SOUND. SKIN INTACT, WARM AND DRY. PT UNABLE TO MOVE HER EXTREMITIES. SCDS IN PLACE. PT HAS DIALYSIS TO LEFT UPPER ARM, NON PITTING EDEMA TO LEFT FOREARM . IVF ACCESS AT RIGHT FOREARM AT KTO RATE, SITE INTACT AND PATENT. SUCTIONED PT WITH SMALL AMOUNT OF CLEAR SECRETION, PT HAS GAG REFLEX. ORAL CARE GIVEN. HOB ELEVATED AT 30 DEGREES, WITH LOW BED POSITION. REPOSITIONED PT,OFF LOAD PRESSURE AREA, WILL CONTINUE TO CLOSELY .
[2016-03-14] MEDS: FAMOTIDINE 20 MG TAB PO SCH (08:33)
[2016-03-14] MEDS: METOCLOPRAMIDE 10 MG TAB PO SCH ×3 (08:33→18:28)
[2016-03-14] MEDS: FOLIC ACID 1 MG TAB PO SCH (08:34)
[2016-03-14] MEDS: VIT-B COMP/VIT-C/FOLIC ACID 1 TAB PO SCH (08:34)
[2016-03-14] MEDS: SACCHAROMYCES 250 MG CAP PO SCH ×2 (08:34→20:38)
[2016-03-14] MEDS: FUROSEMIDE 40 MG TAB PO SCH (08:34)
[2016-03-14] MEDS: MEROPENEM 500 MG in NACL 0.9% 50 ML IV SCH ×2 (08:35→20:39)
--- NOTE | 2016-03-14 09:05 | NUR ---
VENT CHECK, NO SXN REQUIRED AT THIS TIME AIRWAY IS PATENT AND REPOSITIONED THE ET TUBE TO LEFT CORNER OF MOUTH PT IS RESTING WITH NO SIGNS OF DISTRESS NOTED AT THIS TIME
--- NOTE | 2016-03-14 09:47 | NUR ---
DIALYSIS NURSE PRESENT AT PT BEDSIDE. NO S/S OF RESPIRATORY DISTRESS NOTED AT THIS TIME. WILL CONTINUE TO MONITOR.
--- NOTE | 2016-03-14 10:38 | NUR ---
VENT CHECK, I\L TX GIVEN WITH DUONEB 3ML WITH NO ADVERSE REACTION POST TX B\S ARE RHONCHI BILATERALLY AND PT IS RECIEVING DIALYSIS DONE REPOSITIONED ET TUBE TO MIDLINE
--- NOTE | 2016-03-14 11:20 | NUR ---
DIALYSIS NURSE LEFT DUE TO SHE CAN NOT GET DIALYSIS ACCESS PROPERLY. ANOTHER DIALYSIS NURSE WILL COME THIS AFTERNOON.
--- NOTE | 2016-03-14 11:58 | NUR ---
REPOSITIONED PT, PT URINATED ON THE PAD. CLEANED PT . NO S/S OF RESPIRATORY DISTRESS NOTED. WILL CONTINUE TO MONITOR.
--- NOTE | 2016-03-14 13:10 | NUR ---
IN TO SEE PT, SPOKE TO PT'S DAUGHTER. UPDATED PT'S CONDITION, WILL FOLLOW UP ORDER.
--- NOTE | 2016-03-14 13:14 | NUR ---
VENT CHECK, SXN PT SMALL AMT OF YELLOW SECRETIONS FAMILY AT BEDSIDE
--- NOTE | 2016-03-14 13:30 | NUR ---
DIALYSIS NURSE GEORGIANA IVAN CAME FOR DIALYSIS.
--- NOTE | 2016-03-14 14:55 | NUR ---
VENT CHECK, I\L TX GIVEN WITH DUONEB 3ML WITH NO ADVERSE REACTION POST TX B\S ARE RHONCHI BILATERALLY, SXN PT SMALL AMT OF YELLOW SECRETIONS, PT IS HAVING DIALYSIS AND DAUGHTER AT BEDSIDE
--- NOTE | 2016-03-14 15:50 | NUR ---
PT IS STILL ON DIALYSIS, NO S/S OF RESPIRATORY DISTRESS NOTED. WILL CONTINUE TO MONITOR.
--- NOTE | 2016-03-14 16:35 | NUR ---
vent check, no sxn required at this time b\s are rhonchi and pt is resting and having dialysis daughter is at bedside
--- NOTE | 2016-03-14 17:30 | NUR ---
DIALYSIS DONE. TOTAL OUTPUT 2600ML. NO S/S OF RESPIRATORY DISTRESS NOTED. WILL CONTINUE TO MONITOR.
--- NOTE | 2016-03-14 18:02 | NUR ---
REPOSITIONED PT, CLEANED PT. NO S/S OF RESPIRATORY DISTRESS NOTED AT THIS TIME.
--- NOTE | 2016-03-14 18:15 | NUR ---
PER CAIO, PT'S SISTER " NO G TUBE, NO TRACH ".
--- NOTE | 2016-03-14 18:50 | NUR ---
PT FREQUENT FROWNS, FACIAL GRIMACING AND WITH TEARS IN EYES. WILL GIVE PAIN MEDICATION.
[2016-03-14] MEDS: ACETAMINOPHEN 325 MG TAB PO PRN (18:59)
--- NOTE | 2016-03-14 19:20 | NUR ---
PT RECEIVED FROM [facility] ON NOTED VENT SETTINGS. PT NOT AWAKE, HAS A #7.5 ETT SECURED AT 23 LIP LINE WITH AN ANCHOR FAST. BREATH SOUNDS RHONCHI BILATERALLY, HHN INLINE TX GIVEN. PT LAVAGED AND SUCTIONED MOD AMT THICK PALE YELLOW SECRETIONS. NO ADVERSE EFFECTS NOTED. VENT ALARMS ON AND AUDIBLE. VENT PLUGGED INTO RED ELECTRICAL OUTLET. AMBU BAG IN FRONT OF VENT.
--- NOTE | 2016-03-14 19:30 | NUR ---
REPORT GIVEN TO NIGHT RN. PT IN STABLE CONDITION AT THIS TIME.
--- NOTE | 2016-03-14 19:30 | NUR ---
RECEIVED REPORT FROM AM NURSE, RN. PT IS NON VERBAL, RESPONDS TO PAINFUL STIMULI. PT IS ETT TO VENT WITH FIO2 30%, TV 500, AC 12 PEEP 5[address]GT [address], ON CONTINUOUS FEEDING, NO RESIDUAL AT THIS TIME. ATTACHED TO [employer] GOODS DRILL OPERATOR, PULSE OXIMETER. IVF AT RIGHT AC 20G, PATENT, INTACT AT THIS TIME. DIALYSIS ACCESS AT LEFT UPPER ARM, AV SHUNT. SCDS IN PLACE, BED IN LOW POSITION, SAFETY MEASURE ENSURE, CONTACT PRECAUTION MAINTAINED. WILL CONTINUE TO MONITOR.
[2016-03-14] MEDS: SIMVASTATIN 20 MG TAB PO SCH (20:38)
--- NOTE | 2016-03-14 21:54 | NUR ---
DR. PONCE IN TO SEE PATIENT. WILL FOLLOW UP WITH ORDERS.
[2016-03-15] VITALS (24 sets, daily range): BP systolic 91–161; BP diastolic 39–94
--- NOTE | 2016-03-15 01:15 | NUR ---
NO SOB/ NO DISTRESS NOTED.
[2016-03-15] MEDS: ALBUTEROL SULFATE/IPRATROPIU 3 ML SOL IH SCH ×6 (03:56→23:42)
--- NOTE | 2016-03-15 04:15 | NUR ---
MORNING CARE DONE. PT TOLERATED WELL. WILL CONTINUE TO MONITOR.
--- NOTE | 2016-03-15 05:25 | NUR ---
FEEDING TUBE AND BAG CHANGED TO A NEW ONE. WILL CONTINUE TO MONITOR.
[2016-03-15] MEDS: levETIRAcetam 500 MG in NACL 0.9% 100 ML IV SCH ×2 (05:58→17:44)
[2016-03-15] MEDS: BLOOD GLUCOSE MONITORING 1 DEV DEV FS SCH ×4 (06:40→21:39)
[2016-03-15] MEDS: INSULIN ASPART SLIDING SCALE 100 UNITS/ML VIAL SUBQ PRN ×4 (06:42→21:40)
--- NOTE | 2016-03-15 06:51 | NUR ---
RECEIVED PT ON CARESCAPE ON A\C 12 VT 500 PEEP5 FIO2 30 ALARMS ARE ON AND FUNCTIONAL BMV HOB PTS ET TUBE SIZE 7.5 IS SECURE 23 CM AN[address] FAST IN PLACE BS RHONCI I\L LAVAGE AND SX LG YELLOW PT IN HF NOT AWAKE VENT PLUGGED INTO RED OUTLET HHN GUIVEN I\L WITH 3 MG DUONEB
--- NOTE | 2016-03-15 07:30 | NUR ---
REPORT GIVEN TO AM NURSEELLA RN FOR CONTINUITY OF CARE. NO SIGNS OF SOB/DISTRESS NOTED.
--- NOTE | 2016-03-15 07:31 | NUR ---
RECEIVED REPORT FROM CHLOE VILLARREAL. NO SIGNS OF ACUTE DISTRESS AT THIS TIME, FLACC 0. PT IS ETT TO VENT. FIO2: 30%, AC: 12, TV: 500, PEEP: 5. IV TO RIGHT AC #20 PATENT AND INTACT. REDNESS TO SACRUM NOTED, DRESSING DRY AND INTACT. SKIN IS OTHERWISE INTACT. LEFT AV SHUNT, BRUIT AND THRILL PRESENT. NGT TO LEFT NARE SECURED TO TUBE FEEDING. PT IS CURRENTLY SINUS RHYTHM ON THE MONITOR. PT IS ON CONTACT ISOLATION WITH SIGNS POSTED. BED IN LOWEST POSITION AND SIDE RAILS UP X2. CALL LIGHT WITHIN REACH. WILL CONTINUE TO MONITOR. Addendum: 03/15/16 at 0924 by Sharon Melchor RN PT IS LEGALLY BLIND, APHASIC AND LETHARGIC.
[2016-03-15] MEDS: METOCLOPRAMIDE 10 MG TAB PO SCH ×3 (08:12→17:01)
[2016-03-15] MEDS: SACCHAROMYCES 250 MG CAP PO SCH ×2 (08:12→21:42)
[2016-03-15] MEDS: FAMOTIDINE 20 MG TAB PO SCH (08:12)
[2016-03-15] MEDS: MEROPENEM 500 MG in NACL 0.9% 50 ML IV SCH ×2 (08:12→21:43)
[2016-03-15] MEDS: FOLIC ACID 1 MG TAB PO SCH (08:12)
[2016-03-15] MEDS: VIT-B COMP/VIT-C/FOLIC ACID 1 TAB PO SCH (08:13)
[2016-03-15] MEDS: FOAM DRESSING TP SCH (08:14)
--- NOTE | 2016-03-15 08:25 | NUR ---
CHECKED TUBE FEEDING RESIDUAL: NONE NOTED. ADMINISTERED MEDICATION ORDERED. PT TOLERATED WELL. FOAM DRESSING TO SACRUM DRY AND INTACT AT THIS TIME.
--- NOTE | 2016-03-15 08:45 | NUR ---
VENT CHECK BS RHONCI I\L LAVAGE AND SX SM YELLOW
--- NOTE | 2016-03-15 08:59 | NUR ---
FAXED CONCURRENT REVIEW TO [facility] [phone] PHONE LAKESHA [phone]
--- NOTE | 2016-03-15 09:20 | NUR ---
DR. HINTON IN TO SEE PT. WILL FOLLOW UP ON ORDERS.
--- NOTE | 2016-03-15 10:35 | NUR ---
FAMILY PRESENT AT BEDSIDE. DR. LANG IN TO SEE PT. WILL FOLLOW UP ON ORDERS
--- NOTE | 2016-03-15 10:50 | NUR ---
VENT CHECK BS BLACK GARRETT GIVEN I\L WITH 3 MG DUONEB SX FAMILY AT BEDSIDE
--- NOTE | 2016-03-15 11:33 | NUR ---
03/15/16 RD FOLLOW UP COMPLETED PLEASE REFER TO NUTRITION PROGRESS NOTE UNDER CARE ACTIVITY FOR ESTIMATED NUTRITION NEEDS. RD RECOMMENDATIONS: 1. CONTINUE NOVASOURCE RENAL AT 35 ML/HR WITH 50 ML FREE WATER FLUSH Q6H VIA NGTUBE. --ADEQUATE TO MEET 100% OF PT ESTIMATED KCAL AND PROTEIN NEEDS --NOTE PT WITH NGTUBE TO Suleiman DOBSON SINCE 03/04/[address] WILL F/U 2-3 DAYS; HIGH RISK. REYES DÍAZ, ROBERT
--- NOTE | 2016-03-15 11:50 | NUR ---
PT'S SISTER, CAIO, PRESENT AT BEDSIDE.
--- NOTE | 2016-03-15 12:21 | NUR ---
CHECKED TUBE FEEDING RESIDUAL: NONE NOTED. ADMINISTERED MEDICATION ORDERED. PT TOLERATED WELL.
--- NOTE | 2016-03-15 14:05 | NUR ---
VENT CHECK BS RHOTOBI SX SM YELLOW VISITOR BEDSIDE
--- NOTE | 2016-03-15 15:08 | NUR ---
DR. GROSSMAN IN TO SEE PT. WILL FOLLOW UP ON ORDERS.
--- NOTE | 2016-03-15 17:07 | NUR ---
PT'S DAUGHTER, RAKEL, PRESENT AT BEDSIDE.
--- NOTE | 2016-03-15 17:27 | NUR ---
CHECKED TUBE FEEDING RESIDUAL: NONE NOTED. MEDS ADMINISTERED ORDERED. PT TOLERATED WELL.
--- NOTE | 2016-03-15 17:31 | NUR ---
VENT CHECK BS RHONCI SX MOD YELLOW VIISITOR BEDSIDE
--- NOTE | 2016-03-15 17:53 | NUR ---
PT TOLERATED MEDS WELL. FAMILY PRESENT AT BEDSIDE.
--- NOTE | 2016-03-15 19:14 | NUR ---
ENDORSED CARE TO CHLOE PARDO. PT IN STABLE CONDITION.
--- NOTE | 2016-03-15 19:15 | NUR ---
RECEIVED REPORT FROM CHLOE JARAMILLO. AT BEDSIDE, PATIENT IS LETHARGIC, WITHDRAWS TO DEEP PAIN ONLY, LEGALLY BLIND ON BOTH EYES. ON ETT TO VENT. FIO2: 30%, TV: 500, AC: 12, PEEP: 5. NO SIGNS OF ACUTE DISTRESS NOTED AT THIS TIME. BRONCHI LUNG SOUNDS. SR ON SOLIDWORKS DRAFTER. NGT TO LEFT NARE IN PLACE. ON TUBE FEEDING WITH NOVASOURCE RENAL AT 35ML/HR WITH WATER FLUSH 50ML Q6H, RESIDUE 0 ML, TOLERATED WELL. FLACC 0. ACTIVE BOWEL SOUNDS. IV TO RIGHT AC #20, WITH IV ATB. AFEBRILE, SKIN IS INTACT, WARM AND DRY TO TOUCH. LEFT UPPER ARM AV SHUNT NOTED WITH BRUIT AND THRILL PRESENT. SCD'S ON BLE FOR DVT PREVENTION, ON CONTACT ISOLATION, SAFETY PRECAUTIONS IN PLACE, CALL LIGHT WITHIN REACH, WILL CONTINUE TO MONITOR. V/S: BP 127/68, HR 77, RR 12, TEMP 98.4F, O2 SAT 100%.
--- NOTE | 2016-03-15 19:40 | NUR ---
PT INTUBATED ,VENT PLUG IN RED OUTLET, SX SMALL GREEN/YELLOW THIN SECRETION, HHN IN LINE, NO CHANGED IN PT STATUS
--- NOTE | 2016-03-15 20:10 | NUR ---
POSITION CHANGED FOR OFF LOAD PRESSURE, ORAL CARE PROVIDED, NO CHANGE OF CONDITION AT THIS TIME.
--- NOTE | 2016-03-15 21:00 | NUR ---
SCHEDULED MEDICATION GIVEN, PATIENT TOLERATED WELL, NO ADVERSE EFFECTS NOTED.
[2016-03-15] MEDS: SIMVASTATIN 20 MG TAB PO SCH (21:42)
--- NOTE | 2016-03-15 21:50 | NUR ---
DR. PONCE CAME TO SEE PATIENT, NO NEW ORDER GIVEN AT THIS TIME.
--- NOTE | 2016-03-15 22:00 | NUR ---
POSITION CHANGED FOR OFF LOAD PRESSURE, NO CHANGE OF CONDITION AT THIS TIME.
[2016-03-16] VITALS (21 sets, daily range): BP systolic 103–175; BP diastolic 55–85
--- NOTE | 2016-03-16 | NUR ---
NO CHANGE OF CONDITION AT THIS TIME, POSITION CHANGED FOR OFF LOAD PRESSURE.
--- NOTE | 2016-03-16 02:00 | NUR ---
POSITION CHANGED FOR OFF LOAD PRESSURE, NO CHANGE OF CONDITION AT THIS TIME.
[2016-03-16] MEDS: ALBUTEROL SULFATE/IPRATROPIU 3 ML SOL IH SCH ×6 (03:19→23:11)
--- NOTE | 2016-03-16 04:00 | NUR ---
AM CARE PROVIDED, ORAL CARE PROVIDED, POSITION CHANGED, NO CHANGED OF CONDITION AT THIS TIME.
[2016-03-16] MEDS: levETIRAcetam 500 MG in NACL 0.9% 100 ML IV SCH ×2 (05:06→17:49)
--- NOTE | 2016-03-16 05:38 | NUR ---
PT IS NON RESPONSES, PT IN VENT WITHOUT ANY RESP. DISTRESS ALL NIGHT, HHN TIME 3 FOR THE NIGHT, NO CHANGES IN PT STATUS
[2016-03-16] MEDS: BLOOD GLUCOSE MONITORING 1 DEV DEV FS SCH ×4 (06:54→21:05)
[2016-03-16] MEDS: INSULIN ASPART SLIDING SCALE 100 UNITS/ML VIAL SUBQ PRN ×4 (06:56→21:09)
--- NOTE | 2016-03-16 07:12 | NUR ---
REPORT GIVEN TO CHLOE CHAPPELL FOR CONTINUE OF CARE. NO CHANGE OF CONDITION AT THIS TIME. FAMILY MEMBER AT BEDSIDE.
--- NOTE | 2016-03-16 07:35 | NUR ---
REC'VD PT ON CHARTED SETTINGS. SXN A SMALL AMOUNT OF THICK, CREAMY SECRETIONS. TX GIVEN AT THIS TIME. ETT 7.5 23CM@ LIP. BREATH SOUNDS ARE CLEAR BILATERALLY. VENT IS PLUGGED INTO A RED OUTLET WITH ALL ALARMS ON AND FUNCTIONING. NO SOB OR RESP DISTRESS NOTED AT THIS TIME. WILL CONTINUE TO MONITOR.
--- NOTE | 2016-03-16 07:45 | NUR ---
RECEIVED ETT TO VENT PT FROM [facility] KATELYN RN. PT ASLEEP, AROUSABLE WITH INITIAL ASSESSMENT. PT LEGALLY BLIND, WITHDRAWN TO LIGHT PAIN. PT NON VERBAL ETT TO VENT, VENT SETTING: FIO2=30%, AC 12, TV 500, PEEP 5. NO SOB/WOB. RESP PATTERN EVEN/UNLABORED. PT LUNGS SOUND RHONCHI SCATTERING ON AUSCULTATION. SUCTIONED VIA ETT WITH SMALL AMOUNT OF CLEAR SECRETION. INTERMITTENTLY COUGH WHILE SUCTIONING, POSITIVE GAG REFLEX NOTED. ORAL CARE PROVIDED WITH VAP KIT. SINUS RHYTHM ON INDUSTRIAL GAS FITTER. PT HAS PULSES BUE AND BLE, NORMAL STRENGTH NOTED. CAP REFILL < 3 SECONDS. S1S2. +2 PITTING EDEMA BUE. PT HAS LEFT AV SHUNT DIALYSIS PORT, COVERED BY DRESSING. ALSO, PT HAS IV CATH #22 AT RIGHT FOREARM TO TKO, FREELY FLUSHED, NO IV SITE COMPLICATIONS. SCD'S ON PROPHYLAXIS. ABDOMEN SOFT, NON DISTENTION. PT HAS NGT TO TF NOVASOURCE RENAL AT RATE 35 ML/HR WITH FREE WATER FLUSH 50 ML Q6H. NO RESIDUAL ASSESSED. NO VOMITING. ACTIVE BOWEL SOUND. HEMODIALYSIS PT, ANURIC NOTED. NO BLADDER DISTENTION. SKIN WARM AND DRY, NON BLANCHABLE REDNESS AT SACRAL AREA NOTED. GENERALIZED WEAKNESS. REPOSITIONING AND OFFLOADING PRESSURE AREAS WARRANT. PT BEDBOUND. PASSIVE ROM PERFORMED. AFEBRILE. FLACC 0. FALL RISK AND ASPIRATION PRECAUTIONS. SAFETY MEASURE IMPLEMENTED. CONTINUE COLLABORATING WITH INTERDISCIPLINARY HEALTH ELECTRIC MOTOR REPAIRMAN, CARRYING OUT MD ORDER(S), UPDATING POC NEEDED, PERFORMING PT SAFETY ROUNDING. Addendum: 03/17/16 at 1624 by Shaye Moore RN EDIT NON PITTING EDEMA BUE
[2016-03-16] MEDS: VIT-B COMP/VIT-C/FOLIC ACID 1 TAB PO SCH (09:37)
[2016-03-16] MEDS: FOLIC ACID 1 MG TAB PO SCH (09:37)
[2016-03-16] MEDS: SACCHAROMYCES 250 MG CAP PO SCH ×2 (09:37→21:23)
[2016-03-16] MEDS: FAMOTIDINE 20 MG TAB PO SCH (09:37)
[2016-03-16] MEDS: METOCLOPRAMIDE 10 MG TAB PO SCH ×3 (09:37→17:49)
[2016-03-16] MEDS: MEROPENEM 500 MG in NACL 0.9% 50 ML IV SCH ×2 (09:38→21:23)
--- NOTE | 2016-03-16 12:34 | NUR ---
Kyraa ACUTE DIALYSIS STAFF CAME IN TO PERFORM DIALYSIS PROCEDURE AT BEDSIDE.
--- NOTE | 2016-03-16 13:00 | NUR ---
DR. GU, ENGRAVING SUPERVISOR PRESENTED IN ICU TO ASSESS PT. WILL FOLLOW UP THE ORDER(S).
--- NOTE | 2016-03-16 13:14 | NUR ---
CM NOTE INITIAL REVIEW FAXED TO [facility] / FAX# [phone], ATTN: July [phone]
--- NOTE | 2016-03-16 18:30 | NUR ---
DR. HINTON PRESENTED IN ICU TO ASSESS PT AND HAD CONVERSATION WITH FAMILY MEMBER. UPDATED PT CONDITION NEEDED. WILL FOLLOW UP THE ORDER.
--- NOTE | 2016-03-16 19:21 | NUR ---
RECEIVED REPORT FROM CHLOE CHAPPELL AT BEDSIDE. PATIENT MAINTAINED ON ETT TO VENT WITH SETTINGS ORDERED. RESPIRATIONS EVEN AND UNLABORED, NO APPARENT PHYSICAL DISTRESS. NGT TO LEFT NARES TAPED IN PLACE, PLACEMENT CHECKED, NO RESIDUAL VOLUME ASPIRATED. PATIENT WITHDRAWS TO PAIN STIMULUS. BILATERAL UPPER EXTREMITY EDEMA NOTED. PERIPHERAL PULSES PALPABLE. IV SITE TO RIGHT FOREARM INTACT AND PATENT, NO SIGNS OF INFILTRATION NOTED. LEFT UPPER ARM AV SHUNT +/+ BRUITS AND THRILLS. LUNG SOUNDS EQUAL BILATERALLY. ABDOMEN SOFT, NON-TENDER, NON-DISTENDED, BOWEL SOUNDS PRESENT ALL QUADRANTS. SAFETY PRECAUTIONS MAINTAINED. HEAD OF BED ELEVATED 30 DEGREES. BED AT LOWEST POSITION. WILL CONTINUE TO MONITOR.
--- NOTE | 2016-03-16 19:21 | NUR ---
HANDED OFF CONTINUITY OF CARE TO KATELYN HAN CONFIGURATION TECHNICIAN. PT STILL ON ETT TO VENT WITH THE SAME SETTING, NO RESP DISTRESS. AFEBRILE. FLACC 0.
--- NOTE | 2016-03-16 19:50 | NUR ---
LEVAQUIN 500 MG IVPB ADMINISTERED AT THIS TIME ORDERED. WILL CONTINUE TO MONITOR FOR ADVERSE REACTIONS.
[2016-03-16] MEDS: LEVOFLOXACIN 500 MG/D5W PREMIX 100 ML IV SCH (19:51)
--- NOTE | 2016-03-16 20:00 | NUR ---
VAP ORAL KIT RENDERED AND TOLERATED WELL, SUCTIONED MINIMAL AMOUNT OF ORAL AND TRACHEAL SECRETIONS. TURNED AND REPOSITIONED PATIENT TO OFFLOAD PRESSURE AREAS. SAFETY PRECAUTIONS MAINTAINED. WILL CONTINUE TO MONITOR.
--- NOTE | 2016-03-16 21:05 | NUR ---
DUE MEDS ADMINISTERED AT THIS TIME AND TOLERATED WELL.
[2016-03-16] MEDS: SIMVASTATIN 20 MG TAB PO SCH (21:23)
--- NOTE | 2016-03-16 22:00 | NUR ---
TURNED AND REPOSITIONED TO OFFLOAD PRESSURE AREAS.
[2016-03-17] VITALS (24 sets, daily range): BP systolic 104–164; BP diastolic 58–86
--- NOTE | 2016-03-17 00:10 | NUR ---
VAP ORAL KIT RENDERED AND TOLERATED WELL. SUCTIONED MINIMAL AMOUNT ORAL AND TRACHEAL SECRETIONS.TURNED AND REPOSITIONED PATIENT TO OFFLOAD PRESSURE AREAS. CLEAN AND DRY. KEPT COMFORTABLE.
--- NOTE | 2016-03-17 02:00 | NUR ---
TURNED AND REPOSITIONED TO OFFLOAD PRESSURE AREAS.
[2016-03-17] MEDS: ALBUTEROL SULFATE/IPRATROPIU 3 ML SOL IH SCH ×6 (03:21→23:27)
--- NOTE | 2016-03-17 04:30 | NUR ---
MORNING CARE COMPLETED. GIVEN SPONGE BATH/BED BATH AND TOLERATED WELL. VAP ORAL KIT DONE. PATIENT ABLE TO TURN TO SIDES WITH MODERATE ASSIST. TURNED AND REPOSITIONED TO OFFLOAD PRESSURE AREAS. ENSURED CLEAN AND DRY. SAFETY PRECAUTIONS MAINTAINED. CALL LIGHT WITHIN REACH. WILL CONTINUE TO MONITOR.
[2016-03-17] MEDS: levETIRAcetam 500 MG in NACL 0.9% 100 ML IV SCH ×3 (05:52→18:04)
--- NOTE | 2016-03-17 07:06 | NUR ---
RECEIVED PT STABLE ON VENT SUPPORT AT DOCUMENTED SETTINGS, SXN'D SMALL CREAMY WHITE SECRETIONS, TX GIVEN, TOLERATED WELL, NO RESP DISTRESS OR SOB NOTED, 7.5 ETT SECURED AT 22 CM AT THE LIP, VENT PLUGGED INTO RED OUTLET, AMBUBAG BEDSIDE, WILL CONTINUE TO MONITOR.
--- NOTE | 2016-03-17 07:49 | NUR ---
RECEIVED ETT TO VENT PT FROM [facility] KATELYN RN. PT ASLEEP, SIMPLY AWAKEN WITH ASSESSMENT. PT LEGALLY BLIND. PT NON VERBAL ETT TO VENT, VENT SETTING: FIO2=30%, AC 12, TV 500, PEEP 5. NO RESP DISTRESS/WOB. RESP PATTERN EVEN/UNLABORED. PT LUNGS SOUND RHONCHI SCATTERING ON AUSCULTATION. SUCTIONED VIA ETT WITH SMALL AMOUNT OF CLEAR SECRETION. INTERMITTENTLY COUGH WHILE SUCTIONING, POSITIVE GAG REFLEX NOTED. ORAL CARE GIVEN WITH VAP KIT. SINUS RHYTHM ON PARAMEDICAL AIDE. PT HAS PULSES BUE AND BLE, NORMAL STRENGTH NOTED. CAP REFILL < 3 SECONDS. S1S2. NO HEART MURMUR. +2 PITTING EDEMA BUE. PT HAS LEFT PERM CATH DIALYSIS PORT, COVERED BY DRESSING, THE DRESSING DRY AND INTACT. ALSO, PT HAS IV CATH #22 AT RIGHT FOREARM TO TKO, FREELY FLUSHED, NO IV SITE COMPLICATIONS. SCD'S ON PROPHYLAXIS. ABDOMEN SOFT, NON DISTENTION. PT HAS NGT TO TF NOVASOURCE RENAL AT RATE 35 ML/HR WITH FREE WATER FLUSH 50 ML Q6H PER ORDERED. NO RESIDUAL ASSESSED. IRRIGATED NGT. NO VOMITING. ACTIVE BOWEL SOUND. HEMODIALYSIS PT, ANURIC NOTED. NO BLADDER DISTENTION. SKIN LOOSE, DRY AND WARM TO TOUCH, NON BLANCHABLE REDNESS AT SACRAL AREA NOTED. GENERALIZED WEAKNESS. REPOSITIONING AND OFFLOADING PRESSURE AREAS WARRANT. PT BEDBOUND. PASSIVE ROM PERFORMED. AFEBRILE. FLACC 0. FALL RISK AND ASPIRATION PRECAUTIONS. SAFETY MEASURE IMPLEMENTED. CONTINUE COLLABORATING WITH [employer]Y SORTER, CARRYING OUT MD ORDER(S), UPDATING POC NEEDED, PERFORMING PT SAFETY ROUNDING. Addendum: 03/17/16 at 0957 by Shaye Moore RN EDIT LEFT AV SHUNT FOR DIALYSIS PORT Addendum: 03/17/16 at 1624 by Shaye Moore RN EDIT NON PITTING EDEMA BUE
[2016-03-17] MEDS: FOAM DRESSING TP SCH (08:33)
[2016-03-17] MEDS: INSULIN ASPART SLIDING SCALE 100 UNITS/ML VIAL SUBQ PRN ×4 (08:41→20:20)
[2016-03-17] MEDS: BLOOD GLUCOSE MONITORING 1 DEV DEV FS SCH ×5 (08:43→20:25)
[2016-03-17] MEDS: MEROPENEM 500 MG in NACL 0.9% 50 ML IV SCH ×2 (08:43→20:26)
[2016-03-17] MEDS: METOCLOPRAMIDE 10 MG TAB PO SCH ×3 (08:47→16:43)
[2016-03-17] MEDS: SACCHAROMYCES 250 MG CAP PO SCH ×2 (08:47→20:25)
[2016-03-17] MEDS: FOLIC ACID 1 MG TAB PO SCH (08:47)
[2016-03-17] MEDS: VIT-B COMP/VIT-C/FOLIC ACID 1 TAB PO SCH (08:47)
[2016-03-17] MEDS: FAMOTIDINE 20 MG TAB PO SCH (08:47)
--- NOTE | 2016-03-17 12:58 | NUR ---
CM NOTE INITIAL REVIEW FAXED TO [facility] / FAX# [phone], ATTN: July [phone]
--- NOTE | 2016-03-17 18:52 | NUR ---
DR. AVALOS, METEOROLOGIST LIAISON PRESENTED IN ICU TO REVIEW PT CHART. UPDATED PT CONDITION NEEDED. WILL FOLLOW UP THE ORDER.
--- NOTE | 2016-03-17 19:10 | NUR ---
HANDED OFF CONTINUITY OF CARE TO KATELYN HAN [employer]ALTH PROMOTION MANAGER. PT REST COMFORTABLY. PT STILL ON THE VENT WITH SAME SETTING. AFEBRILE. FLACC 0.
--- NOTE | 2016-03-17 19:25 | NUR ---
RECEIVED REPORT FROM NURSE, CHLOE CHAPPELL. INITIAL ASSESSMENT COMPLETED. PT RESPONDS TO PAINFUL STIMULI. NGT IN PLACE AT LEFT NARE, ON CONTINUOUS FEEDING. ETT TO VENT FIO2 30%, TV 500, AC 12, PEEP 5. DIALYSIS ACCESS LEFT UPPER ARM AV FISTULA, IV ACCESS RIGHT FOREARM 22G, PATENT, INTACT AT THIS TIME. WITH SCDS IN PLACE. BED IN LOW POSITION, SAFETY MEASURE ENSURE, CONTACT PRECAUTION MAINTAIN. WILL CONTINUE TO MONITOR.
[2016-03-17] MEDS: SIMVASTATIN 20 MG TAB PO SCH (20:26)
--- NOTE | 2016-03-17 22:10 | NUR ---
DR. PONCE IN TO SEE PATIENT, WILL FOLLOW UP ORDERS.
[2016-03-18] VITALS (24 sets, daily range): BP systolic 114–185; BP diastolic 17–89
--- NOTE | 2016-03-18 00:05 | NUR ---
SISTER AT BEDSIDE, UPDATED OF PATIENT'S CURRENT CONDITION.
--- NOTE | 2016-03-18 02:00 | NUR ---
SISTER LEFT THE UNIT.
[2016-03-18] MEDS: ALBUTEROL SULFATE/IPRATROPIU 3 ML SOL IH SCH ×6 (03:40→23:09)
--- NOTE | 2016-03-18 05:15 | NUR ---
GAG WRITER AT BEDSIDE FOR BLOOD DRAW.
[2016-03-18] MEDS: levETIRAcetam 500 MG in NACL 0.9% 100 ML IV SCH ×2 (06:23→17:44)
[2016-03-18] MEDS: BLOOD GLUCOSE MONITORING 1 DEV DEV FS SCH ×4 (06:43→21:10)
[2016-03-18] MEDS: INSULIN ASPART SLIDING SCALE 100 UNITS/ML VIAL SUBQ PRN ×4 (06:56→21:13)
--- NOTE | 2016-03-18 07:04 | NUR ---
recived pt on vent with settings as charted breath sounds present bilat clear sxn pt with min amt secs vent plugged into red outlet ambu bag at bedside
--- NOTE | 2016-03-18 07:05 | NUR ---
RECEIVED ETT TO VENT PT FROM [facility], ICU NIGHTS RN. PT ASLEEP, SIMPLY AWAKEN WITH INITIAL ASSESSMENT. PT LEGALLY BLIND. PT NON VERBAL ETT TO VENT, VENT SETTING: FIO2=30%, AC 12, TV 500, PEEP 5. NO SOB/WOB. RESP PATTERN EVEN/UNLABORED. PT LUNGS SOUND RHONCHI ON AUSCULTATION. SUCTIONED VIA ETT WITH SMALL AMOUNT OF CREAMY THIN SECRETION. INTERMITTENTLY COUGH WHILE SUCTIONING, POSITIVE GAG REFLEX NOTED. ORAL CARE PROVIDED WITH ORAL VAP KIT. SINUS RHYTHM ON DEALER SUPPORT TECHNICIAN. PT HAS PULSES BUE AND BLE, NORMAL STRENGTH NOTED. CAP REFILL < 3 SECONDS. S1S2. NO HEART MURMUR. NON PITTING EDEMA BUE. PT HAS CLARENCE AV SHUNT FOR DIALYSIS PORT, COVERED BY DRESSING, THE DRESSING DRY AND INTACT. ALSO, PT HAS IV CATH #22 AT RIGHT FOREARM TO TKO, FREELY FLUSHED, NO IV SITE COMPLICATIONS. SCD'S ON PROPHYLAXIS. ABDOMEN SOFT, NON DISTENTION. PT HAS NGT TO TF NOVASOURCE RENAL AT RATE 35 ML/HR WITH FREE WATER FLUSH 50 ML Q6H PER ORDERED. NO RESIDUAL ASSESSED. NO VOMITING. BOWEL SOUNDS PRESENT. HEMODIALYSIS PT, ANURIC NOTED. K.M. ACUTE DIALYSIS STAFF AT BEDSIDE. NO BLADDER DISTENTION. SKIN LOOSE, DRY AND WARM TO TOUCH, NON BLANCHABLE REDNESS AT SACRAL AREA. FLACCID WITH EXTENSION POSTURING (DECEREBRATE RIGIDITY). REPOSITIONING AND OFFLOADING PRESSURE AREAS WARRANT. PT BEDBOUND. PASSIVE ROM PERFORMED. AFEBRILE. FLACC 0. FALL RISK, ASPIRATION, CONTACT PRECAUTIONS. SAFETY MEASURE IMPLEMENTED. CONTINUE COLLABORATING WITH INTERDISCIPLINARY HEALTH FLAT BED OPERATOR, CARRYING OUT MD ORDER(S), UPDATING POC NEEDED, PERFORMING PT SAFETY ROUNDING.
--- NOTE | 2016-03-18 07:05 | NUR ---
[facility] ACUTE DIALYSIS STAFF WAS PERFORMING HEMODIALYSIS PROCEDURE PER DR. JAY ORDERED.
--- NOTE | 2016-03-18 07:18 | NUR ---
REPORT GIVEN TO CHLOE CHAPPELL FOR CONTINUITY OF CARE.
[2016-03-18] MEDS: SACCHAROMYCES 250 MG CAP PO SCH ×2 (09:54→21:17)
[2016-03-18] MEDS: VIT-B COMP/VIT-C/FOLIC ACID 1 TAB PO SCH (09:54)
[2016-03-18] MEDS: FAMOTIDINE 20 MG TAB PO SCH (09:54)
[2016-03-18] MEDS: FOLIC ACID 1 MG TAB PO SCH (09:54)
[2016-03-18] MEDS: METOCLOPRAMIDE 10 MG TAB PO SCH ×3 (09:54→17:32)
[2016-03-18] MEDS: MEROPENEM 500 MG in NACL 0.9% 50 ML IV SCH ×2 (09:55→21:17)
[2016-03-18] MEDS ORDERED: ALBUMIN HUMAN 25% 100 ML IV PRN ×2 (10:10→10:15)
--- NOTE | 2016-03-18 10:52 | NUR ---
DR. JAY, PRINTED FORMS PROOFREADER PRESENTED IN ICU TO ASSESS PT AND DISCUSS MEDICAL PLAN WITH PT FAMILY MEMBER. UPDATED PT CONDITION NEEDED. WILL FOLLOW UP THE ORDER.
--- NOTE | 2016-03-18 10:55 | NUR ---
DR. PONCE, ID RETURNED CALL IN REGARDS TO [facility] OF PASTING INSPECTOR - [facility]. FOLLOW [facility] PROT[facility].
[2016-03-18] MEDS ORDERED: POTASSIUM CHLORIDE 20% 40 MEQ/15 ML UDC GT SCH (12:00)
--- NOTE | 2016-03-18 12:57 | NUR ---
DR. AVALOS, PATCH DRILLER PRESENTED IN ICU TO REVIEW PT CHART. UPDATED PT CONDITION NEEDED. WILL FOLLOW UP THE ORDER.
--- NOTE | 2016-03-18 16:00 | NUR ---
DR. HINTON PRESENTED IN ICU TO ASSESS PT, REVIEW PT CHART, AND DISCUSS MEDICAL PLAN WITH PT DAUGHTER. WILL FOLLOW UP THE ORDER.
--- NOTE | 2016-03-18 16:20 | NUR ---
FAXED CONCURRENT REVIEW TO [facility] [phone] PHONE LAKESHA [phone]
--- NOTE | 2016-03-18 17:12 | NUR ---
continued to monitor pt on vent with settings as charted breath sounds present bilat clear sxn pt with min alireza clear secs vent plugged into red outlet anbu bag at bedside
--- NOTE | 2016-03-18 19:18 | NUR ---
RECEIVED PATIENT REPORT FROM DAY SHIFT CHLOE CHAPPELL, DNR. ON LASER OPERATOR, VITALLY STABLE, SINUS RHYTHM. RESPONDS TO PAIN. ETT TO VENT FIO2 30%, TV 500, AC RATE OF 12, PEEP OF 5. WITH NGT ON LEFT NARE CONNECTED TO FEEDING PUMP, RUNNING FEEDING OF NOVASOURCE RENAL AT 35ML/HR, WATER FLUSH 50ML Q6H. WITH PERIPHERAL IV G22 ON RIGHT FOREARM RUNNING SALINE AT TKO. WITH LEFT AV FISTULA HD ACCESS. WITH SCD ON BOTH LEGS.
--- NOTE | 2016-03-18 19:18 | NUR ---
HANDED OFF CONTINUITY OF CARE TO KATELYN NUNEZ CASTING SORTER. PT STILL ON ETT TO VENT WITH THE SAME SETTING, NO RESP DISTRESS/SOB. AFEBRILE. FLACC 0.
--- NOTE | 2016-03-18 19:31 | NUR ---
PT RECEIVED FROM [facility] ON NOTED VENT SETTINGS. PT NOT ALERT, HAS A #7.5 ETT SECURED AT 22 LIP LINE WITH AN ANCHOR FAST. BREATH SOUNDS CLEAR DIMINISHED BILATERALLY, HHN INLINE TX GIVEN. PT LAVAGED AND SUCTIONED OF SM AMT THIN PALE YELLOW SECRETIONS. NO ADVERSE EFFECTS NOTED. VENT ALARMS ON AND AUDIBLE. VENT PLUGGED INTO RED ELECTRICAL OUTLET. AMBU BAG ON FRONT OF VENT.
[2016-03-18] MEDS: LEVOFLOXACIN 500 MG/D5W PREMIX 100 ML IV SCH (19:56)
[2016-03-18] MEDS: SIMVASTATIN 20 MG TAB PO SCH (21:17)
--- NOTE | 2016-03-18 21:30 | NUR ---
DR. PONCE CAME IN TO SEE THE PATIENT. INFORMED OF TEMP 99.6 F. NO NEW ORDERS.
--- NOTE | 2016-03-18 23:32 | NUR ---
REPOSITION PATIENT, VAP KIT ORAL CARE GIVEN. PERINEAL CARE GIVEN. SUCTIONING OF SECRETIONS DONE. VITALLY STABLE AT THIS TIME. NO SIGNS OF RESPIRATORY DISTRESS AT THIS TIME.
[2016-03-19] VITALS (25 sets, daily range): BP systolic 95–160; BP diastolic 55–84
--- NOTE | 2016-03-19 02:00 | NUR ---
REPOSITION PATIENT, NOT IN RESPIRATORY DISTRESS AT THIS TIME.
[2016-03-19] MEDS: ALBUTEROL SULFATE/IPRATROPIU 3 ML SOL IH SCH ×6 (03:16→23:00)
--- NOTE | 2016-03-19 04:00 | NUR ---
VAP KIT ORAL CARE GIVEN, AM CARE GIVEN. SPONGE BATH GIVEN. ALL LINENS AND GOWN CHANGED. TURNED SIDE TO SIDE. PATIENT TOLERATED. NOT IN RESPIRATORY DISTRESS AT THIS TIME.
[2016-03-19] MEDS: levETIRAcetam 500 MG in NACL 0.9% 100 ML IV SCH ×2 (05:17→17:59)
--- NOTE | 2016-03-19 06:11 | NUR ---
REPOSITION PATIENT, NO SIGNS OF DISTRESS OR DISCOMFORT AT THIS TIME.
[2016-03-19] MEDS: BLOOD GLUCOSE MONITORING 1 DEV DEV FS SCH ×4 (06:49→20:36)
[2016-03-19] MEDS: INSULIN ASPART SLIDING SCALE 100 UNITS/ML VIAL SUBQ PRN ×4 (06:50→21:10)
--- NOTE | 2016-03-19 06:58 | NUR ---
recived pt on vent with settings as charted breath sounds present bilat with scatterd rales sxxn pt with min amt off white secs vent plugged into red outlet ambu bag at bedside
--- NOTE | 2016-03-19 07:10 | NUR ---
PATIENT REPORT ENDORSED TO DAY SHIFT CHLOE MURRY. VITALLY STABLE, NO SIGNS OF RESPIRATORY DISTRESS OR DISCOMFORT AT THIS TIME. Addendum: 03/19/16 at 725 by Dilia Katz RN WITH EYEGLASSES ON THE BEDSIDE WITH PATIENT LABEL. Addendum: 03/19/16 at 726 by Dilia Katz RN EYEGLASSES MISTAKENLY DOCUMENTED ON THE WRONG PATIENT.
--- NOTE | 2016-03-19 07:20 | NUR ---
RECEIVED PATIEN REPORT FROM ENRIQUE RN,PT, SEEN IN BED ON RT SIDE , ET TUBE CONNECTED TO VENT SETTING AC12 TV 500 FIO2 30% PEEP 5 O2 SAT 96% , SKIN DRY WARM TO TOUCH . PETROLEUM TERMINAL PLANT OPERATOR SHOW SINUS RHYTHM.NGT ON LT NARES FEEDING WITH NOVASOURCE RENAL AT 35ML/HR . ABD SOFT B/S ACTIVE . SHE IS NON PITTING GENERALIZE EDEMA AND HAS SCD ON BOTH LOWER EXTREMITIES ..
[2016-03-19] MEDS: FOLIC ACID 1 MG TAB PO SCH (08:51)
[2016-03-19] MEDS: MEROPENEM 500 MG in NACL 0.9% 50 ML IV SCH ×2 (08:51→20:36)
[2016-03-19] MEDS: VIT-B COMP/VIT-C/FOLIC ACID 1 TAB PO SCH ×2 (08:52→08:55)
[2016-03-19] MEDS: METOCLOPRAMIDE 10 MG TAB PO SCH ×3 (08:52→17:52)
[2016-03-19] MEDS: SACCHAROMYCES 250 MG CAP PO SCH ×2 (08:52→20:37)
[2016-03-19] MEDS: FAMOTIDINE 20 MG TAB PO SCH (08:52)
[2016-03-19] MEDS: FOAM DRESSING TP SCH (08:53)
--- NOTE | 2016-03-19 09:40 | NUR ---
SISTER CAIO AND BOYFRIEND AT BED SIDE ,ANSWER QUESTION UPDATE PT, CONDITION INFORMATION WITH THEM.
--- NOTE | 2016-03-19 11:30 | NUR ---
BL. GLUCOSE ACCUE CHECK 155 INSULIN COVER GIVEN ORDERED, PT, CONDITION REMAIN UNCHANGE.
--- NOTE | 2016-03-19 15:46 | NUR ---
WOUND CARE FOLLOW UP NOTES: SEEN PATIENT FOR FOLLOW UP RE: SACRALCOCCYX NON BLANCHABLE REDNESS. PLEASE REFER TO WOUND ASSESSMENT FLOWSHEET FOR UPDATED ENTRY. WILL CONTINUE CURRENT PLAN OF CARE.
--- NOTE | 2016-03-19 16:40 | NUR ---
BLOOD GLUCOSE 215, INSULIN COVER GIVEN ORDERED
--- NOTE | 2016-03-19 17:30 | NUR ---
PT REMAINS ON DOCUMENTED SETTINGS. ETT SECURE, NO BITING OR KINKING OF ETT. VENT ALARMS REMAIN ON AND FUNCTIONING.
--- NOTE | 2016-03-19 17:50 | NUR ---
[address] ROSAS AND PLACED ON 4LPM NC SPO2 .98 PT AWAKE ALERT PT FAMILY AT BEDSIDE WILL CONTINUE TO MONITOR PT ON POST EXTUBATION Addendum: 03/19/16 at 1804 by Kyaw Goldberg RT IMFORMATION ERROR CHARTING ABOVE ON WRONG PT DISREGUARD
--- NOTE | 2016-03-19 18:18 | NUR ---
EEN BY DR. STEVENSON AT BEDSIDE , ORDER RECEIVED,
--- NOTE | 2016-03-19 19:18 | NUR ---
RESTING QUIETLY V/S WITH IN NORMAL LIMIT. REPORT TO ENRIQUE CORONA,
--- NOTE | 2016-03-19 19:18 | NUR ---
RECEIVED PATIENT REPORT FROM DAY SHIFT RN LOVELY. DNR. ON FUNERAL LIMOUSINE DRIVER, VITALLY STABLE, SINUS RHYTHM. WITHDRAWS TO PAIN, BOTH EYES BLIND. WITH ETT TO VENT SETTINGS: FIO2 30%, TV500, AC RATE OF 12, PEEP OF 5. WITH NGT CONNECTED TO FEEDING PUMP RUNNING NOVASOURCE RENAL AT 35ML/HR, WATER FLUSH 50ML Q6H. WITH PERIPHERAL IV G22 ON RIGHT ARM RUNNING NS AT TKO. WITH HD ACCESS ON LEFT ARM AV SHUNT. WITH SCD ON BOTH LEGS. SACRAL REDNESS WITH DRESSING CHANGED TODAY. WITH REDNESS ALL OVER GROIND AND BUTTOCKS AREA.
[2016-03-19] MEDS: SIMVASTATIN 20 MG TAB PO SCH (20:37)
--- NOTE | 2016-03-19 20:40 | NUR ---
SEEN BY DR. PONCE. INFORMED TO RENEW MERREM AND TEMP OF 99.5 F. MERREM RENEWED.
[2016-03-19] MEDS ORDERED: ACETYLCYSTEINE 20% (200 MG/ML) 200 MG/ML VIAL INH SCH (21:00)
--- NOTE | 2016-03-19 22:30 | NUR ---
SEEN AND EXAMINED BY DR. GROSSMAN. LABS REVIEWED. NO NEW ORDERS.
[2016-03-20] VITALS (23 sets, daily range): BP systolic 96–160; BP diastolic 53–88
--- NOTE | 2016-03-20 | NUR ---
VAP KIT ORAL CARE GIVEN, REPOSITION PATIENT. NO SIGNS OF RESPIRATORY DISTRESS OR DISCOMFORT AT THIS TIME.
--- NOTE | 2016-03-20 02:00 | NUR ---
REPOSITION PATIENT, NO SIGNS OF RESPIRATORY DISTRESS OR DISCOMFORT AT THIS TIME.
[2016-03-20] MEDS: ALBUTEROL SULFATE/IPRATROPIU 3 ML SOL IH SCH ×6 (02:14→23:00)
--- NOTE | 2016-03-20 04:00 | NUR ---
REPOSITION PATIENT, AM CARE GIVEN, ALL LINENS AND GOWN CHANGED. BEVERLY-CARE AND SPONGE BATH GIVEN. LOTION APPLIED OVER THE BODY. DEODORANT APPLIED UNDERARMS. PATIENT TOLERATED. VAP KIT ORAL GIVEN.
[2016-03-20] MEDS: levETIRAcetam 500 MG in NACL 0.9% 100 ML IV SCH ×2 (05:54→17:55)
--- NOTE | 2016-03-20 06:35 | NUR ---
OFFLOAD PRESSURES. SUCTIONING OF SECRETIONS DONE. REPOSITION PATIENT.
[2016-03-20] MEDS: BLOOD GLUCOSE MONITORING 1 DEV DEV FS SCH ×4 (06:47→21:18)
[2016-03-20] MEDS: INSULIN ASPART SLIDING SCALE 100 UNITS/ML VIAL SUBQ PRN ×3 (06:48→21:20)
--- NOTE | 2016-03-20 07:10 | NUR ---
PATIENT ON SIDE-LYING POSITION. REPORT GIVEN TO DAY SHIFT RN LOVELY. NO SIGNS OF RESPIRATORY DISTRESS OR DISCOMFORT AT THIS TIME.
--- NOTE | 2016-03-20 07:15 | NUR ---
REPORT RECEIVED FROM ENRIQUE CORONA.AT PATIENT BEDSIDE PT. IN BED ON RT SIDE. ETT TO VENT AC12 VT 500 FIO2 30% O2 SAT 98% .INSURANCE SPECIALIST SHOW SINUS RHYTHM, IVF SITE ON RT, ARM#22 TKO WITH NS. THE SITE IS DRY AND INTACT JHAS GOOD BL. RETURN. HAS CLARENCE AV FISTULA FOR HEMODIALYSIS ACCESS. SHE HAS NON PITTING EDEMA 2+ ON BOTH ARM. NGT FEEDING WITH NOVASOURCE RENAL AT 35 ML/HR AE TIME, ABDOMEN SOFT B/B IS ACTIVE. NO BM AT THE TIME.,
--- NOTE | 2016-03-20 08:00 | NUR ---
REPOSITION ORAL SUCTION HAS LARGE AMOUNT OF CLEAR THICK WHITE SECRETION RETURN.LOTION TO REDNESS AREA ON PERINEAL
--- NOTE | 2016-03-20 08:03 | NUR ---
RECEIVED ON A [employer] R860 VENTILATOR PLUGGED INTO RED OUTLET TOLERATING WELL WITHOUT INCIDENT TO AN ENDOTRACHEAL TUBE 7.5 SECURED WITH AN ANCHOR FAST AT 22CM REPOSITIONED TO MIDLINE CHECKED CUFF PRESSURE FOR MOV BAG MASK VALVE AT HOB LOC ASLEEP AWAKENS WITH SUCTION STIMULATION BREATH SOUNDS COARSE RONCHI BILATERAL WITH GOOD CHEST RISE ENDOTRACHEAL SUCTION FOR LARGE THICK YELLOW SECRETIONS AIRWAY PATENT HHN THERAPY GIVEN ORDERED TOLERATED WELL WITHOUT INCIDENT
[2016-03-20] MEDS: MEROPENEM 500 MG in NACL 0.9% 50 ML IV SCH ×2 (09:50→21:22)
[2016-03-20] MEDS: SACCHAROMYCES 250 MG CAP PO SCH ×2 (09:50→21:22)
[2016-03-20] MEDS: FAMOTIDINE 20 MG TAB PO SCH (09:51)
[2016-03-20] MEDS: METOCLOPRAMIDE 10 MG TAB PO SCH ×3 (09:51→17:14)
[2016-03-20] MEDS: VIT-B COMP/VIT-C/FOLIC ACID 1 TAB PO SCH (09:51)
[2016-03-20] MEDS: FOLIC ACID 1 MG TAB PO SCH (09:53)
--- NOTE | 2016-03-20 10:09 | NUR ---
RESTING COMFORTABLY NO DISTRESS NOTED BREATH SOUNDS BILATERAL GOOD CHEST RISE AIRWAY PATENT PREVIOUS ENDOTRACHEAL SUCTION BY LOVELY/CHLOE Addendum: 03/20/16 at 1346 by Alexandre Kenny RT CHANGED: PORTEX SUCTION CATHETER FAMILY AT BEDSIDE
--- NOTE | 2016-03-20 10:15 | NUR ---
REPOSITION HAS MODERATE AMOUNT OF SOFT BROWN BM . SKIN CARE GIVEN.
--- NOTE | 2016-03-20 11:30 | NUR ---
BLOOD GLUCOSE 176 INSULIN COVERY GIVEN ORDERED.
--- NOTE | 2016-03-20 13:19 | NUR ---
NO PULMONARY DISTRESS NOTED TOLERATING VENTILATOR SUPPORT WELL WITHOUT INCIDENT BREATH SOUNDS CLEAR BILATERAL WITH GOOD CHEST RISE AIRWAY PATENT ORAL PHARYNGEAL SUCTION FOR LARGE THICK CLEAR TO WHITE SECRETIONS
--- NOTE | 2016-03-20 16:01 | NUR ---
NO DISTRESS NOTED BREATH SOUNDS DIFFUSED RHONCHI BILATERAL GOOD CHEST RISE DEEP TRACHEAL SUCTION FOR SMALL THICK YELLOW SECRETIONS AIRWAY PATENT
--- NOTE | 2016-03-20 17:00 | NUR ---
BLOOD GLUCOSE 196 INSULIN COVERAGE GIVE ORDER.
--- NOTE | 2016-03-20 17:52 | NUR ---
RESTING COMFORTABLY NO RESPIRATORY DISTRESS NOTED BREATH SOUNDS CLEAR [id number] GOOD CHEST RISE AIRWAY PATENT
--- NOTE | 2016-03-20 18:00 | NUR ---
REPOSITION, HAS SMALL SOFT BROWN BM, AND SMALL AMOUNT YELLOW URINE WET ON THE PAD.
--- NOTE | 2016-03-20 19:21 | NUR ---
CONDITION STABLETUBE FEEDING AND VENT SETTING NO CHANGED REPORT GIVE TO CHAR CORONA.
--- NOTE | 2016-03-20 19:30 | NUR ---
RECEIVED REPORT FROM CHLOE MURRY. AT BEDSIDE, PATIENT IS LETHARGIC, WITHDRAWS TO DEEP PAIN ONLY, LEGALLY BLIND ON BOTH EYES. ON ETT TO VENT. FIO2: 30%, TV: 500, AC: 12, PEEP: 5. NO SIGNS OF ACUTE DISTRESS NOTED AT THIS TIME. BRONCHI LUNG SOUNDS. SR ON RECRUITING SCHEDULER. NGT TO LEFT NARE IN PLACE. ON TUBE FEEDING WITH NOVASOURCE RENAL AT 35ML/HR WITH WATER FLUSH 50ML Q6H, RESIDUE 10 ML, TOLERATED WELL. FLACC 0. ACTIVE BOWEL SOUNDS. IV TO RIGHT AC #20, WITH IV ATB. AFEBRILE, SKIN IS WARM AND DRY TO TOUCH. BUE NON-PITTING EDEMA NOTED, NON BLANCHABLE REDNESS ON SACRAL AREA NOTED, LEFT UPPER ARM AV SHUNT NOTED WITH BRUIT AND THRILL PRESENT. INCONTINENT WITH B&B'S, NOT ABLE TO MOVE ALL EXTREMITIES. SCD'S ON BLE FOR DVT PREVENTION. POSITION CHANGED FOR OFF LOAD PRESSURE, ORAL CARE PROVIDED, ON CONTACT ISOLATION, SAFETY PRECAUTIONS IN PLACE, CALL LIGHT WITHIN REACH, WILL CONTINUE TO MONITOR.
[2016-03-20] MEDS: LEVOFLOXACIN 500 MG/D5W PREMIX 100 ML IV SCH (20:01)
--- NOTE | 2016-03-20 20:45 | NUR ---
DR. PONCE CAME TO SEE PATIENT, NO NEW ORDER AT THIS TIME.
--- NOTE | 2016-03-20 21:00 | NUR ---
SCHEDULED MEDICATION GIVEN, PATIENT TOLERATED WELL. ACCU CHECK DONE WITH 181MG/DL, GIVE NOVOLOG 2 UNITS ORDERED.
[2016-03-20] MEDS: SIMVASTATIN 20 MG TAB PO SCH (21:22)
--- NOTE | 2016-03-20 22:00 | NUR ---
NO CHANGE OF CONDITION AT THIS TIME, POSITION CHANGED FOR OFF LOAD PRESSURE.
--- NOTE | 2016-03-20 23:00 | NUR ---
DR. GROSSMAN CAME TO SEE PATIENT AND ORDERED HD TOMORROW.
--- NOTE | 2016-03-20 23:22 | NUR ---
CALLED [facility] FOR HD IN AM WITH MS STONER
[2016-03-21] VITALS (24 sets, daily range): BP systolic 75–169; BP diastolic 35–88
--- NOTE | 2016-03-21 | NUR ---
NO CHANGE OF CONDITION AT THIS TIME, POSITION CHANGED FOR OFF LOAD PRESSURE.
--- NOTE | 2016-03-21 02:00 | NUR ---
NO CHANGE OF CONDITION AT THIS TIME, POSITION CHANGED FOR OFF LOAD PRESSURE.
[2016-03-21] MEDS: ALBUTEROL SULFATE/IPRATROPIU 3 ML SOL IH SCH ×6 (03:34→23:06)
--- NOTE | 2016-03-21 04:00 | NUR ---
AM CARE PROVIDED, ORAL CARE PROVIDED, NO CHANGE OF CONDITION AT THIS TIME, POSITION CHANGED FOR OFF LOAD PRESSURE, WILL CONTINUE TO MONITOR.
--- NOTE | 2016-03-21 05:11 | NUR ---
CHANGED ANCHOR FAST. NO SKIN BREAK DOWN ON CHEEKS.
[2016-03-21] MEDS: levETIRAcetam 500 MG in NACL 0.9% 100 ML IV SCH ×2 (05:48→17:29)
--- NOTE | 2016-03-21 06:00 | NUR ---
NO CHANGE OF CONDITION AT THIS TIME, POSITION CHANGED FOR OFF LOAD PRESSURE.
[2016-03-21] MEDS: BLOOD GLUCOSE MONITORING 1 DEV DEV FS SCH ×4 (06:53→21:49)
--- NOTE | 2016-03-21 07:05 | NUR ---
RECEIVED ETT TO VENT PT FROM CHAR, ICU NIGHTS RN. PT LETHARGIC, AROUSABLE WITH INITIAL ASSESSMENT. PT LEGALLY BLIND, WITHDRAWN TO LIGHT PAIN. PT NON VERBAL ETT TO VENT, VENT SETTING: FIO2=30%, AC 12, TV 500, PEEP 5. NO WORK OF BREATHING. RESP PATTERN SYMMETRIC. PT LUNGS SOUND RHONCHI ON AUSCULTATION. SUCTIONED VIA ETT WITH SMALL AMOUNT OF CLEAR SECRETION. INTERMITTENTLY COUGH WHILE SUCTIONING, POSITIVE GAG REFLEX NOTED. ORAL CARE GIVEN WITH ORAL VAP KIT. SINUS RHYTHM ON IRRIGATION SYSTEM INSTALLER, NO ECTOPY. PT HAS PULSES BUE AND BLE, NORMAL STRENGTH NOTED. CAP REFILL < 3 SECONDS. S1S2. NON PITTING EDEMA BUE. PT HAS LEFT AV SHUNT DIALYSIS PORT, COVERED BY DRESSING. ALSO, PT HAS IV CATH #22 AT RIGHT FOREARM TO TKO, FREELY FLUSHED, NO IV SITE COMPLICATIONS. SCD'S ON PROPHYLAXIS. ABDOMEN SOFT, NON DISTENTION. PT HAS NGT TO TF NOVASOURCE RENAL AT RATE 35 ML/HR WITH FREE WATER FLUSH 50 ML Q6H. NO RESIDUAL ASSESSED. NO VOMITING. ACTIVE BOWEL SOUND WITH ALL QUADRANTS. HEMODIALYSIS PT, ANURIC NOTED. NO BLADDER DISTENTION. SKIN DRY AND WARM TO TOUCH, NON BLANCHABLE REDNESS AT SACRAL AREA NOTED. FLACCID. REPOSITIONING AND OFFLOADING PRESSURE AREAS WARRANT. PT BEDBOUND. PASSIVE ROM PERFORMED. AFEBRILE. FLACC 0. FALL RISK, PRESSURE ULCER, SEIZURE, ASPIRATION PRECAUTIONS. SAFETY MEASURE IMPLEMENTED. CONTINUE COLLABORATING WITH INTERDISCIPLINARY HEALTH COOK DINNER, CARRYING OUT MD ORDER(S), UPDATING POC NEEDED, PERFORMING PT SAFETY ROUNDING.
--- NOTE | 2016-03-21 07:09 | NUR ---
REPORT GIVEN TO CHLOE CHAPPELL FOR CONTINUE OF CARE.
[2016-03-21] MEDS: MEROPENEM 500 MG in NACL 0.9% 50 ML IV SCH ×2 (08:53→22:25)
[2016-03-21] MEDS: FOLIC ACID 1 MG TAB PO SCH (08:53)
[2016-03-21] MEDS: VIT-B COMP/VIT-C/FOLIC ACID 1 TAB PO SCH (08:53)
[2016-03-21] MEDS: FAMOTIDINE 20 MG TAB PO SCH (08:53)
[2016-03-21] MEDS: FOAM DRESSING TP SCH (08:53)
[2016-03-21] MEDS: SACCHAROMYCES 250 MG CAP PO SCH ×2 (08:53→22:25)
[2016-03-21] MEDS: METOCLOPRAMIDE 10 MG TAB PO SCH ×3 (08:54→17:06)
[2016-03-21] MEDS: INSULIN ASPART SLIDING SCALE 100 UNITS/ML VIAL SUBQ PRN ×3 (12:22→22:26)
--- NOTE | 2016-03-21 18:50 | NUR ---
Kyara ACUTE DIALYSIS STAFF PRESENTED IN ICU, PERFORMING DIALYSIS PROCEDURE PER ORDERED.
--- NOTE | 2016-03-21 19:10 | NUR ---
HANDED OF CONTINUITY OF CARE TO TITO, KATELYN ER REGISTRAR. PT STILL ON ETT TO VENT, NO RESP DISTRESS/SOB. AFEBRILE. NO SIGN OF DISCOMFORT.
--- NOTE | 2016-03-21 19:20 | NUR ---
RECEIVED REPORT FROM DAY NURSE NAOMI RN AT PATIENT BEDSIDE. PT RESPONDS TO LIGHT PAIN POSITIVE GAG REFLEX AND COUGH IS NOTED WHEN SUCTIONED THROUGH ETT. PT IS LEGALLY BLIND AND NON VERBAL WELL ETT TO VENT WITH CURRENT SETTINGS AT FI02 30%, TV 500, RESP 12, PEEP 5 WITH NO S/S OF ACUTE RESP DISTRESS AT THIS TIME. WORK CHECKER SHOWS SINUS RHYTHM AT THIS TIME. PT HAS IV SITE IN RIGHT FA #22 RUNNING NS TKO AT 5ML/HR. PT HAS LEFT AV SHUNT FOR HD AND IS CURRENTLY RECEIVING HD AT BEDSIDE WITH DIALYSIS NURSE [place] AT BEDSIDE. PT SKIN IS INTACT WITH REDNESS NOTED.
--- NOTE | 2016-03-21 19:21 | NUR ---
PT HAS NGT IN LEFT NARE RUNNING NOVASOURCE AT 35ML/HR. PT HAS SCDS IN PLACE. BED IN LOW POSITION. HOB UP. WILL CONTINUE TO CLOSELY MONITOR.
--- NOTE | 2016-03-21 19:54 | NUR ---
RECEIVED ON A [employer] R860 VENTILATOR PLUGGED INTO RED OUTLET TOLERATING WELL WITH NO ADVERSE REACTIONS NOTED TO AN ENDOTRACHEAL TUBE #7.5 SECURED WITH AN ANCHOR FAST AT 22CM LIP LINE CUFF PRESSURE CHECKED FOR MOV BAG MASK VALVE NOTED HOB LOC QUIET IN SFW POSITION BREATH SOUNDS RHONCHI BILATERAL GOOD CHEST RISE ENDOTRACHEAL SUCTION FOR LARGE THIN YELLOW SECRETIONS AIRWAY PATENT HEMODIALYSIS PROCEDURE IN PROGRESS
--- NOTE | 2016-03-21 22:06 | NUR ---
NO DISTRESS NOTED BREATH SOUNDS RHONCHI BILATERAL GOOD CHEST RISE ENDOTRACHEAL SUCTION FOR MODERATE THIN YELLOW SECRETIONS ORAL PHARYNGEAL SUCTION FOR MODERATE THICK YELLOW SECRETIONS AIRWAY PATENT HEMODIALYSIS COMPLETED AT THIS TIME
--- NOTE | 2016-03-21 22:09 | NUR ---
PT JUST COMPLETED DIALYSIS. WILL ADMINISTER PM MEDS AT THIS TIME. NO SOB NOTED. NO FEVER NOTED.
[2016-03-21] MEDS: SIMVASTATIN 20 MG TAB PO SCH (22:25)
--- NOTE | 2016-03-21 23:06 | NUR ---
NO DISTRESS NOTED BREATH SOUNDS EXP RHONCHI BILATERAL GOOD CHEST RISE ENDOTRACHEAL SUCTION FOR SMALL THIN YELLOW SECRETIONS AIRWAY PATENT
[2016-03-22] VITALS (24 sets, daily range): BP systolic 104–161; BP diastolic 50–91
--- NOTE | 2016-03-22 00:08 | NUR ---
PT TURNED , REPOSITIONED. VAP ORAL KIT PROVIDED, NO S/S OF ACUTE DISTRESS AT THIS TIME. CONTACT PRECAUTIONS MAINTAINED, SAFETY PRECAUTIONS MAINTAINED. WILL CONTINUE TO MONITOR.
--- NOTE | 2016-03-22 01:03 | NUR ---
CHANGED TUBE FEEDING BAG AND TUBING. SAME SETTINGS BEFORE. NO GASTRIC RESIDUAL ASPIRATED AT THIS TIME.
--- NOTE | 2016-03-22 01:49 | NUR ---
RESTING COMFORTABLY NO DISTRESS NOTED BREATH SOUNDS CLEAR BILATERAL GOOD CHEST RISE
[2016-03-22] MEDS: ALBUTEROL SULFATE/IPRATROPIU 3 ML SOL IH SCH ×6 (03:12→23:34)
--- NOTE | 2016-03-22 03:12 | NUR ---
NO EVIDENCE OF PULMONARY DISTRESS NOTED BREATH SOUNDS RHONCHI BILATERAL GOOD CHEST RISE ENDOTRACHEAL SUCTION FOR SMALL THIN YELLOW SECRETIONS AIRWAY PATENT
--- NOTE | 2016-03-22 04:21 | NUR ---
PT HAS SMALL AMOUNT OF BM. PATIENT CLEANED MORNING CARE RENDERED, LINEN CHANGED. PATIENT REPOSITIONED. VAP ORAL KIT DONE. NO SIGNS OF DISCOMFORT. WILL CONTINUE TO CLOSELY MONITOR.
--- NOTE | 2016-03-22 05:26 | NUR ---
NO SOB NOTED BREATH SOUNDS CLEAR BILATERAL WITH GOOD CHEST RISE AIRWAY PATENT Addendum: 03/22/16 at 0606 by Alexandre Kenny RT ERICA CHANGED
--- NOTE | 2016-03-22 06:42 | NUR ---
REC'D PT ON CARESCAPE VENT SETTINGS AC12 VT 500 PEEP 5 FIO2 30% ALARMS ON AND FUNCTIONING PROPERLY, AMBU BAG AT SIDE OF VENT AND VENT IS PLUGGED INTO RED OUTLET, I\L TX GIVEN WITH DUONEB 3ML WITH NO ADVERSE REACTION POST TX B\S ARE RHONCHI BILATERALLY, SXN PT MODERATE AMT OF THIN YELLOW SECRETIONS, PT IS ORALLY INTUBATED WITH 7.5 ET TUBE SECURED WITH ANCHOR AT 22CM AT MIDLINE AND SKIN INTEGRITY IS INTACT.
[2016-03-22] MEDS: levETIRAcetam 500 MG in NACL 0.9% 100 ML IV SCH ×2 (06:53→18:00)
[2016-03-22] MEDS: BLOOD GLUCOSE MONITORING 1 DEV DEV FS SCH ×4 (06:53→20:44)
[2016-03-22] MEDS: INSULIN ASPART SLIDING SCALE 100 UNITS/ML VIAL SUBQ PRN ×4 (06:54→20:44)
--- NOTE | 2016-03-22 07:13 | NUR ---
ENDORSED PLAN OF CARE TO DAY NURSE CHLOE JARAMILLO FOR CONTINUITY OF CARE.
--- NOTE | 2016-03-22 07:15 | NUR ---
RECEIVED REPORT FROM CHLOE FRANCIS. PT IS APHASIC, LEGALLY BLIND. NO SIGNS OF ACUTE DISTRESS NOTED AT THIS TIME, FLACC 0. PT IS ETT TO VENT. FIO2: 30%, AC: 12, TV: 500, PEEP: 5. IV TO RIGHT FOREARM #22 PATENT AND INTACT. LEFT UPPER ARM AV SHUNT NOTED, THRILL AND BRUIT PRESENT. WOUND NOTED TO SACRUM. PT IS CURRENTLY SINUS RHYTHM ON THE MONITOR. NGT TO LEFT NARE IN PLACE TO TUBE FEEDING. SAFETY PRECAUTIONS IN PLACE WITH BED IN LOWEST POSITION AND SIDE RAILS UP X2. CALL LIGHT WITHIN REACH. PT IS ON CONTACT ISOLATION WITH SIGNS POSTED. WILL CONTINUE TO MONITOR.
[2016-03-22] MEDS: MEROPENEM 500 MG in NACL 0.9% 50 ML IV SCH ×2 (08:27→21:28)
[2016-03-22] MEDS: FAMOTIDINE 20 MG TAB PO SCH (08:27)
[2016-03-22] MEDS: FOLIC ACID 1 MG TAB PO SCH (08:28)
[2016-03-22] MEDS: VIT-B COMP/VIT-C/FOLIC ACID 1 TAB PO SCH (08:28)
[2016-03-22] MEDS: METOCLOPRAMIDE 10 MG TAB PO SCH ×3 (08:28→17:00)
[2016-03-22] MEDS: SACCHAROMYCES 250 MG CAP PO SCH ×2 (08:28→21:28)
--- NOTE | 2016-03-22 08:37 | NUR ---
CHECKED TUBE FEEDING RESIDUAL: NONE NOTED. ADMINISTERED MEDICATION ORDERED. PT TOLERATED WELL.
--- NOTE | 2016-03-22 08:59 | NUR ---
VENT CHECK, NO SXN REQUIRED AT THIS TIME, PT IS RESTING WITH NO SIGNS OF DISTRESS NOTED AT THIS TIME
--- NOTE | 2016-03-22 10:24 | NUR ---
PT'S SIGNIFICANT PRESENT AT BEDSIDE.
--- NOTE | 2016-03-22 10:46 | NUR ---
VENT CHECK, I\L TX GIVEN WITH DUONEB 3ML WITH NO ADVERSE REACTION POST TX B\S ARE RHONCHI BILATERALLY, SXN PT SMALL AMT OF YELLOW SECRETIONS, ET TUBE IS MIDLINE, FAMILY AT BEDSIDE
--- NOTE | 2016-03-22 12:14 | NUR ---
DR. GROSSMAN IN TO SEE PT. WILL FOLLOW UP ON ORDERS
--- NOTE | 2016-03-22 12:32 | NUR ---
CHECKED TUBE FEEDING RESIDUAL: NONE NOTED. ADMINISTERED MEDICATION ORDERED. PT TOLERATED WELL.
--- NOTE | 2016-03-22 12:47 | NUR ---
DR. STEVENSON IN TO SEE PT. WILL FOLLOW UP ON ORDERS
--- NOTE | 2016-03-22 12:51 | NUR ---
VENT CHECK, NO SXN REQUIRED AT THIS TIME, PT IS RESTING WITH NO SIGNS OF DISTRESS NOTED
--- NOTE | 2016-03-22 13:00 | NUR ---
STATES THAT HE CAN TALK TO PATIENT'S SISTER CAIO TOMORROW REGARDING TRACHEOSTOMY AND PEG TUBE IF SHE WANTS TO TALK TO HIM. DOES NOT WANT TO TALK TO CAIO AT THIS TIME.
--- NOTE | 2016-03-22 13:54 | NUR ---
FAXED CONCURRENT REVIEW TO [facility] FAX# [phone] PH# LAKESHA [phone]
[2016-03-22] MEDS: FOAM DRESSING TP SCH (14:10)
--- NOTE | 2016-03-22 14:45 | NUR ---
SENIOR DATA INTEGRATION DEVELOPEREUGENE IN TO SEE PT. WILL FOLLOW UP ON ORDERS.
--- NOTE | 2016-03-22 14:57 | NUR ---
WOUND CARE FOLLOW UP NOTES: SEEN PATIENT FOR FOLLOW UP. PLEASE SEE WOUND ASSESSMENT FLOWSHEET FOR UPDATED ENTRY. CARE PLAN AND TREATMENT UPDATED. WILL CONTINUE TO FOLLOW UP PATIENT. CALLED PATIENT'S SISTER CAIO AT [phone], UPDATED HER OF PATIENT'S SKIN CONDITION. CONCERNS AND QUESTIONS ANSWERED. DISCUSSED WITH PATIENT'S SISTER CAIO PLAN OF CARE AND PRESSURE PREVENTIVE MEASURES, ABLE TO VERBALIZE UNDERSTANDING.
--- NOTE | 2016-03-22 15:27 | NUR ---
VENT CHECK, I\L TX GIVEN WITH DUONEB 3ML WITH NO ADVERSE REACTION POST TX B\S ARE RHONCHI BILATERALLY, SXN PT SMALL AMT OF YELLOW SECRETIONS, PT IS RESTING WITH NO SIGNS OF DISTRESS NOTED AT THIS TIME
--- NOTE | 2016-03-22 16:45 | NUR ---
SPOKE WITH PATIENT'S SISTER CAIO BY PHONED ABOUT THE FAMILY CONFERENCE WITH TOMORROW REGARDING TRACHEOSTOMY, PEG TUBE AND PLAN OF CARE. PER CAIO; SHE IS COMING TO SEE HER SISTER AMOL AND WILL LET US KNOW. WILL INFORM THE NIGHT NURSE.
--- NOTE | 2016-03-22 17:00 | NUR ---
CHECKED TUBE FEEDING RESIDUAL: NONE NOTED. ADMINISTERED MEDICATION ORDERED. PT TOLERATED WELL.
--- NOTE | 2016-03-22 17:17 | NUR ---
VENT CHECK, NO SXN REQUIRED AT THIS TIME, AIRWAY IS PATENT AND PT IS RESTING WITH NO SIGNS OF DISTRESS NOTED AT THIS TIME
--- NOTE | 2016-03-22 19:18 | NUR ---
ENDORSED CARE TO CHLOE SULLIVAN. PT IN STABLE CONDITION.
--- NOTE | 2016-03-22 20:00 | NUR ---
PATIENT RESPONDS TO PAIN, ETT TO VENT, SR ON THE MONITOR, CLARENCE AV SHUNT WITH BRUITT AND THRILL, SPECIAL BED DELIVERED AND PLACED PATIENT ON JORGE BED, DRESSING TO SACRAL AREA PRESSURE SORE INTACT, NGT FEEDING TOLERATING WELL, NO RESIDUAL OBTAINED, IV SITE ON RFA G#22 PATENT AND INTACT, TURNED AND REPOSITIONED, FLACC 0.
[2016-03-22] MEDS: LEVOFLOXACIN 500 MG/D5W PREMIX 100 ML IV SCH (20:44)
[2016-03-22] MEDS: SIMVASTATIN 20 MG TAB PO SCH (21:28)
--- NOTE | 2016-03-22 22:10 | NUR ---
TURNED AND REPOSITIONED, SISTER CAIO AT BEDSIDE.
--- NOTE | 2016-03-22 22:10 | NUR ---
TURNED AND REPOSITIONED PATIENT, SISTER CAIO HERE TO SEE THE PATIENT.
[2016-03-23] VITALS (24 sets, daily range): BP systolic 101–167; BP diastolic 62–94
--- NOTE | 2016-03-23 | NUR ---
ORAL CARE WITH VAP KIT, NO GT RESIDUAL OBTAINED, TURNED AND REPOSITIONED, FLACC 0.
[2016-03-23] MEDS: Z-GUARD PASTE TP SCH ×2 (01:19→13:13)
[2016-03-23] MEDS: ALBUTEROL SULFATE/IPRATROPIU 3 ML SOL IH SCH ×6 (03:11→23:28)
--- NOTE | 2016-03-23 04:00 | NUR ---
NGT FEEDING TOLERATING WELL, NO RESIDUAL OBTAINED, TURNED AND REPOSITIONED, ORAL CARE WITH VAP KIT, NO RESPIRATORY DISTRESS.
[2016-03-23] MEDS: levETIRAcetam 500 MG in NACL 0.9% 100 ML IV SCH ×2 (05:45→17:16)
--- NOTE | 2016-03-23 06:16 | NUR ---
AM CARE PROVIDED, NGT FEEDING TOLERATED WELL, TURNED AND REPOSITIONED, NO RESPIRATORY DISTRESS, FLACC 0.
--- NOTE | 2016-03-23 06:51 | NUR ---
RECEIVED PT ON [place] ON A\C 12 VT500 PEEP5 FIO2 30 ALARMS ARE ON AND FUNCTIONAL BMV HOB PTS ET TUBE IS SECURE ANCHOR FAST IN PLACE ET TUBE SIZE 7.5 IS SECURE 22 CM BS CLEAR HHN GIVEN I\L WITH 3 MG DUONEB VENT PLUGGED INTO RED OUTLET PT IN HF NOT AWAKE
[2016-03-23] MEDS: BLOOD GLUCOSE MONITORING 1 DEV DEV FS SCH ×4 (06:53→21:00)
[2016-03-23] MEDS: INSULIN ASPART SLIDING SCALE 100 UNITS/ML VIAL SUBQ PRN ×4 (06:54→22:22)
--- NOTE | 2016-03-23 08:00 | NUR ---
FACIAL GRIMACING NOTED WHEN ORAL CARE IS BEING DONE. DOES NOT FOLLOW COMMANDS. PT. IS BLIND. ETT TO VENT TV 500, FI02 30%, AC 12/MIN PEEP 5. SUCTIONED SMALL AMT. THICK WHITISH SECRETIONS. NO RESP DISTRESS NOTED. GOOD BRUIT HEARD OVER LEFT ARM AV GRAFT. NGT IN PLACE DIABETISOURCE AT 35 ML/HR WITH 50 ML H20 FLUSHES Q 6 HRS. RESIDUAL 0. PT ON Joules Clothing ELITE MATTRESS.
--- NOTE | 2016-03-23 08:29 | NUR ---
VENT CHECK BS CLEAR AIRWAY IS PATENT
[2016-03-23] MEDS: SACCHAROMYCES 250 MG CAP PO SCH ×2 (09:01→22:07)
[2016-03-23] MEDS: VIT-B COMP/VIT-C/FOLIC ACID 1 TAB PO SCH (09:01)
[2016-03-23] MEDS: FAMOTIDINE 20 MG TAB PO SCH (09:01)
[2016-03-23] MEDS: MEROPENEM 500 MG in NACL 0.9% 50 ML IV SCH (09:01)
[2016-03-23] MEDS: METOCLOPRAMIDE 10 MG TAB PO SCH ×3 (09:02→17:15)
[2016-03-23] MEDS: FOLIC ACID 1 MG TAB PO SCH (09:02)
[2016-03-23] MEDS: FOAM DRESSING TP SCH (09:02)
--- NOTE | 2016-03-23 10:00 | NUR ---
GAG REFLEX PRESENT. MOUTH AND LIPS DRY. VAP ORAL CARE DONE Q 4HRS.
--- NOTE | 2016-03-23 11:10 | NUR ---
DAUGHTER RAKEL VISITING AT BEDSIDE.
--- NOTE | 2016-03-23 13:12 | NUR ---
VENT CHECK BS CLEAR AIRWAY IS PATENT
[2016-03-23] MEDS: BISACODYL 10 MG SUPP RC PRN (13:14)
--- NOTE | 2016-03-23 13:25 | NUR ---
NO BM SINCE 03/20/16. BISACODYL SUPP. GIVEN RECTALLY ORDERED.
--- NOTE | 2016-03-23 14:00 | NUR ---
INCONTINENT OF SMALL AMT YELLOW URINE. PERINEAL CARE DONE.
--- NOTE | 2016-03-23 15:08 | NUR ---
VENT CHECK BS RHONCI I\L LAVAE AND SX MOD YELLOW HHN GIVEN I\L WITH 3 MG DUONEB
--- NOTE | 2016-03-23 15:19 | NUR ---
FAXED REVIEW TO [facility] FAX#[phone] PH# LAKESHA [phone]
--- NOTE | 2016-03-23 16:30 | NUR ---
DR. STEVENSON HERE TO SEE AND EXAMINE PT. WOULD LIKE TO MEET WITH PT'S SISTER CAIO TOMORROW AT 1600. REQUESTING ALSO THAT SOCIAL MEDIA DEVELOPER KVNG TO BE PRESENT DURING THE MEETING.
--- NOTE | 2016-03-23 17:06 | NUR ---
VENT CHECK BS CLEAR AIRWAY IS PATENT
--- NOTE | 2016-03-23 17:25 | NUR ---
CALLED CAIO PT'S SISTER RE:MEETING WITH DR. STEVENSON AT 1600 [place]. STATES THAT SHE WILL BE HERE FOR THE MEETING. ADVISED ALSO TO HAVE PT'S DAUGHTER RAKEL PRESENT AT THE MEETING.
--- NOTE | 2016-03-23 17:30 | NUR ---
MESSAGE LEFT WITH KVNG RE: 1600 MEETING [place].
--- NOTE | 2016-03-23 17:35 | NUR ---
DR. STEVENSON NOTIFIED THAT PT'S SISTER AGREED FOR THE MEETING.
--- NOTE | 2016-03-23 18:21 | NUR ---
ETT TO VENT SAME SETTINGS. NO RESP. DIFFICULTY NOTED. HOB ELEVATED. LISE. NGT FEEDINGS WELL. NO BM YET SINCE BISACODYL SUPP. GIVEN EARLIER. IV SITE PATENT,CLEAR. NEURO STATUS UNCHANGED.
--- NOTE | 2016-03-23 19:07 | NUR ---
RECEIVED PATIENT ON AC 12 VT 500 +5 FIO2 30% WITH ETT 7.5 @ 22CM, SECURE WITH ANCHOR FAST. NO SOB NOTED. SXN SMALL AMOUNT THIN YELLOW SECRETIONS, BS CLEAR. VENT PLUGGED INTO RED OUTLET. AMBU BAG AT BEDSIDE. ALARMS ON AND FUNCTIONING
--- NOTE | 2016-03-23 19:15 | NUR ---
REPORT GIVEN TO CHLOE SADLER.
[2016-03-23] MEDS: NACL 0.9% 250 ML IV SCH (19:20)
--- NOTE | 2016-03-23 19:20 | NUR ---
RECEIVED REPORT FROM BRYON CORONA. PATIENT IS SLEEPING IN BED WITH HEMODIALYSIS NURSE AT BEDSIDE. PATIENT HAS A GRAFT ON LEFT UPPER ARM FOR HD. PATIENT IS ETT TO VENT WITH SETTINGS OF FIO2 30%, TIDAL VOLUME 500, A/C 12, AND PEEP OF 5. THERE IS A #22 RIGHT FOREARM TKO FOR ANTIBIOTIC ADMINISTRATION. THERE IS A NGT PRESENT IN THE LEFT NARES RECEIVING NOVOSOURCE RENAL AT 35 ML/HR. BREATH SOUNDS ARE CLEAR UPON AUSCULTATION AND BOWEL SOUNDS ARE PRESENT. PATIENT IS ON WOUND CARE BED R/T A SACRAL WOUND COVERED WITH A FOAM DRESSING. SCDS IN PLACE FOR VTE PROPHYLAXIS. HOB AT 30 DEGREES WITH BED IN LOW POSITION. SIDE RAILS UP X2. WILL CONTINUE TO MONITOR PATIENT. Addendum: 03/26/16 at 0153 by Rachael Gaston RN PATIENT IS LEGALLY BLIND IN BOTH EYES.
--- NOTE | 2016-03-23 20:31 | NUR ---
PATIENT SLEEPING IN BED. VITALS ARE STABLE. NO S/S OF RESPIRATORY DISTRESS OR SOB NOTED. PATIENT CURRENTLY RECEIVING HEMODIALYSIS. CONTINUE TO MONITOR PATIENT.
--- NOTE | 2016-03-23 20:39 | NUR ---
DR. PONCE PRESENT ON UNIT TO SEE PATIENT. DR. PONCE PUT IN NEW ORDERS TO CANCEL ANTIBIOTICS. WILL FOLLOW UP WITH NEW MD ORDERS. Addendum: 03/23/16 at 2352 by Rachael Gaston RN DR[facility].
[2016-03-23] MEDS: SIMVASTATIN 20 MG TAB PO SCH (22:07)
--- NOTE | 2016-03-23 22:17 | NUR ---
PATIENT TOLERATED SCHEDULED MEDICATION ADMINISTRATION. NO SIGNS OF SOB NOTED. HOB AT 30 DEGREES WITH BED IN LOW POSITION FOR SAFETY AND ASPIRATION PRECAUTIONS. CONTINUE TO MONITOR PATIENT.
--- NOTE | 2016-03-23 22:20 | NUR ---
VAP ORAL CARE RENDERED. SUCTIONED SMALL AMOUNT OF CREAMY SPUTUM. HEMODIALYSIS COMPLETED. [place] CRAFT SUPERINTENDENT REPORTED OUTPUT OF 2500ML. VITALS ARE WNL. HOB AT 30 DEGREES WITH BED IN LOW POSITION. WILL CONTINUE TO MONITOR PATIENT.
--- NOTE | 2016-03-23 23:40 | NUR ---
BED BATH PROVIDED. CHANGED GOWN AND LINENS. PATIENT REPOSITIONED FOR COMFORT. HOB AT 30 DEGREES WITH BED IN LOW POSITION. WILL CONTINUE TO MONITOR PATIENT.
[2016-03-24] VITALS (24 sets, daily range): BP systolic 112–149; BP diastolic 70–95
[2016-03-24] MEDS: Z-GUARD PASTE TP SCH ×2 (00:50→12:55)
--- NOTE | 2016-03-24 02:00 | NUR ---
PATIENT SLEEPING IN BED. NO SIGNS OF RESPIRATORY DISTRESS OR SHORTNESS OF BREATH NOTED. HOB AT 30 DEGREES WITH BED IN LOW POSITION. SIDE RAILS UP X2. CONTINUE TO MONITOR PATIENT.
[2016-03-24] MEDS: ALBUTEROL SULFATE/IPRATROPIU 3 ML SOL IH SCH ×6 (03:48→22:59)
--- NOTE | 2016-03-24 03:50 | NUR ---
VAP ORAL CARE RENDERED.
--- NOTE | 2016-03-24 05:00 | NUR ---
PATIENT REPOSITIONED FOR COMFORT.
[2016-03-24] MEDS: levETIRAcetam 500 MG in NACL 0.9% 100 ML IV SCH ×2 (05:26→17:38)
[2016-03-24] MEDS: BLOOD GLUCOSE MONITORING 1 DEV DEV FS SCH ×4 (06:36→20:42)
[2016-03-24] MEDS: INSULIN ASPART SLIDING SCALE 100 UNITS/ML VIAL SUBQ PRN ×4 (06:38→21:01)
--- NOTE | 2016-03-24 07:00 | NUR ---
ENDORSED CONTINUITY OF CARE TO MISTI CORONA.
--- NOTE | 2016-03-24 07:10 | NUR ---
RECEIVED CHRONIC ETT TO VENT PT FROM VIKTORIYA, ICU NIGHTS RN. PT LETHARGIC, AROUSABLE WITH INITIAL ASSESSMENT. PT LEGALLY BLIND, WITHDRAWN TO LIGHT PAIN. PT NON VERBAL ETT TO VENT, VENT SETTING: FIO2=30%, AC 12, TV 500, PEEP 5. NO RESP DISTRESS/SHORTNESS OF BREATH (SOB)/WORK OF BREATH (WOB). RESP PATTERN EVEN/UNLABORED. PT LUNGS SOUND RHONCHI SCATTERING ON AUSCULTATION. SUCTIONED VIA ETT WITH SMALL AMOUNT OF THICK CREAMY SECRETION. INTERMITTENTLY COUGH WHILE SUCTIONING, POSITIVE GAG REFLEX NOTED. ORAL CARE PROVIDED WITH VAP KIT PER PROTOCOL. SINUS TACHYCARDIA ON DISHTANK OPERATOR. PT HAS PULSES BUE AND BLE, NORMAL STRENGTH NOTED. CAP REFILL < 3 SECONDS. S1S2. NON PITTING EDEMA BUE. PT HAS LEFT AV SHUNT DIALYSIS PORT, COVERED BY DRESSING WHICH DRY AND INTACT. ALSO, PT HAS IV CATH #22 AT RIGHT FOREARM TO TKO, FREELY FLUSHED, NO IV SITE COMPLICATIONS. THE DRESSING DRY AND INTACT. SCD'S ON PROPHYLAXIS. ABDOMEN SOFT, NON DISTENTION. PT HAS NGT TO TF NOVASOURCE RENAL AT RATE 35 ML/HR WITH FREE WATER FLUSH 50 ML Q6H. NO RESIDUAL ASSESSED. NO VOMITING. ACTIVE BOWEL SOUND WITH ALL QUADRANTS. PT HAVE HAD EPISODE OF CONSTIPATION. HEMODIALYSIS PT, OLIGURIC NOTED. NO BLADDER DISTENTION. SKIN DRY AND WARM TO TOUCH, NON BLANCHABLE REDNESS AT SACRAL AREA NOTED. FLACCID. REPOSITIONING AND OFFLOADING PRESSURE AREAS WARRANT. PT BEDBOUND. PASSIVE ROM PERFORMED. AFEBRILE. NO SIGN OF DISCOMFORT/FLACC 0. FALL RISK, PRESSURE ULCER, SEIZURE, ASPIRATION PRECAUTIONS. SAFETY MEASURE IMPLEMENTED. CONTINUE COLLABORATING WITH INTERDISCIPLINARY HEALTH HVAC ENGINEERING TECHNICIAN, CARRYING OUT MD ORDER(S), UPDATING POC NEEDED, PERFORMING PT SAFETY ROUNDING.
--- NOTE | 2016-03-24 07:22 | NUR ---
RECEIVED ON A [employer] - [employer] R860 VENTILATOR PLUGGED INTO RED OUTLET TOLERATING WELL WITHOUT INCIDENT TO AN ENDOTRACHEAL TUBE #7.5 SECURED WITH AN ANCHOR FAST AT 22CM CUFF PRESSURE CHECKED FOR MOV AMBU BAG NOTED AT HOB LOC QUIET NO RESPONSIVE TO [employer]SIAN STUDIES PROGRAM CHAIR VERBAL COMMANDS BREATH SOUNDS RHONCHI BILATERAL ENDOTRACHEAL SUCTION FOR LARGE THICK YELLOW SECRETIONS AIRWAY PATENT
[2016-03-24] MEDS: SACCHAROMYCES 250 MG CAP PO SCH ×2 (08:11→20:42)
[2016-03-24] MEDS: VIT-B COMP/VIT-C/FOLIC ACID 1 TAB PO SCH (08:11)
[2016-03-24] MEDS: FOLIC ACID 1 MG TAB PO SCH (08:12)
[2016-03-24] MEDS: FAMOTIDINE 20 MG TAB PO SCH (08:12)
[2016-03-24] MEDS: METOCLOPRAMIDE 10 MG TAB PO SCH ×3 (08:12→16:37)
--- NOTE | 2016-03-24 10:03 | NUR ---
RESTING COMFORTABLY NO APPARENT DISTRESS NOTED BREATH SOUNDS CLEAR BILATERAL WITH GOOD CHEST RISE AIRWAY PATENT
--- NOTE | 2016-03-24 11:31 | NUR ---
NO SOB NOTED GOOD CHEST RISE BREATH SOUNDS INSP RHONCHI BILATERAL ENDOTRACHEAL SUCTION FOR SMALL THIN YELLOW SECRETIONS AIRWAY PATENT FAMILY IN ROOM
--- NOTE | 2016-03-24 13:18 | NUR ---
NO EVIDENCE OF RESPIRATORY DISTRESS NOTED BREATH SOUNDS CLEAR BILATERAL WITH GOOD CHEST RISE AIRWAY PATENT Addendum: 03/24/16 at 1326 by Alexandre eKnny RT SATURATION 100% ON FIO2 OF 30% TITRATED FIO2 TO 28% MANUEL NOTIFIED
--- NOTE | 2016-03-24 13:38 | NUR ---
DR. GROSSMAN, HEALTH INFORMATION TECHNOLOGIST PRESENTED IN ICU TO REVIEW PT CHART. UPDATED PT CONDITION NEEDED. WILL FOLLOW UP THE ORDER.
--- NOTE | 2016-03-24 13:53 | NUR ---
03/24/16 RD FOLLOW UP COMPLETED PLEASE REFER TO NUTRITION PROGRESS NOTE UNDER CARE ACTIVITY FOR ESTIMATED NUTRITION NEEDS. RD RECOMMENDATIONS: 1. CONTINUE CURRENT TUBE FEEDING REGIME OF NOVASOURCE RENAL AT 35 ML/HR WITH 50 ML FREE WATER FLUSH Q6H VIA NG TUBE. --ADEQUATE TO MEET 100% OF PT ESTIMATED KCAL AND 100% OF PT ESTIMATED PROTEIN NEEDS. --NOTE PT WITH NG TUBE L NARE SINCE 03/04/16. --NOTE PT TOLERATING TUBE FEEDING WELL WITH 0 ML OF RESIDUALS PER RN. 2. RD WILL F/U 2-3 DAYS; HIGH RISK. KAREN CHIANG, RD
--- NOTE | 2016-03-24 13:56 | NUR ---
CM NOTE CONCURRENT REVIEW SENT TO [facility] FAX# [phone] ATTN: LAKESHA # [phone]
--- NOTE | 2016-03-24 14:12 | NUR ---
CALLED [facility] TO MAKE HEMODIALYSIS SCHEDULE TOMORROW (03/25/16) PER DR. NGOC NAIR.
--- NOTE | 2016-03-24 14:30 | NUR ---
WOUND CARE FOLLOW UP NOTES: SEEN PATIENT FOR FOLLOW UP. PLEASE SEE WOUND ASSESSMENT FLOWSHEET FOR UPDATED ENTRY. WILL CONTINUE TO FOLLOW UP PATIENT.
[2016-03-24] MEDS: FOAM DRESSING TP PRN (15:15)
--- NOTE | 2016-03-24 15:20 | NUR ---
PATIENT SISTER CAIO CHAUDHARI SAID SHE IS NOT ABLE TO ATTEN THE MEETING AT 1600PM BECAUSE HAVE TO GO TO [place] TO PAY THE RENT FOR MISTY .ND WILL LET US KNOW WHEN SHE CAN . WILL RESCHEDULE.
--- NOTE | 2016-03-24 15:25 | NUR ---
KVNG THE APPLIANCE MECHANIC DIRECTOR INFORMED.
--- NOTE | 2016-03-24 15:31 | NUR ---
NO DISTRESS NOTED GOOD CHEST RISE INSP RHONCHI RIGHT SIDE TO CLEAR LEFT SIDE ENDOTRACHEAL SUCTION FOR SMALL THIN YELLOW SECRETIONS AIRWAY PATENT
--- NOTE | 2016-03-24 15:33 | NUR ---
GRAHAM FERNANDEZ WAS CALLED TO NOTIFIED REGARDING THE MEETING HAS CANCELL.
--- NOTE | 2016-03-24 17:43 | NUR ---
RESTING WELL NO SOB NOTED BREATH SOUNDS INSP RHONCHI RIGHT SIDE TO CLEAR LEFT SIDE GOOD CHEST RISE ENDOTRACHEAL SUCTION FOR SMALL THIN YELLOW SECRETION AIRWAY PATENT
--- NOTE | 2016-03-24 19:12 | NUR ---
HANDED OF CONTINUITY OF CARE TO KATELYN NUNEZ CORRECTIONAL CASE MANAGER. PT STILL ON ETT TO VENT, NO SOB/WOB. AFEBRILE. FLACC 0. ADDRESSED ON PT HEMODIALYSIS SCHEDULED TOMORROW.
--- NOTE | 2016-03-24 19:12 | NUR ---
PATIENT REPORT RECEIVED FROM DAY SHIFT CHLOE CHAPPELL. DNR. ON THREAT MONITORING ANALYST. WITHDRAWS TO DEEP PAIN. ETT TO VENT: FIO2 28%, AC RATE OF 12, TV 500, PEEP OF 5. WITH NGT TO FEEDING PUMP RUNNING NOVASOURCE RENAL AT 35ML/HR, WATER FLUSH 50ML Q6H. WITH HD ACCESS ON LEFT ARM AV SHUNT. WITH PERIPHERAL IV G22 ON RIGHT ARM RUNNING NS AT TKO. WITH SCD ON BOTH LEGS. WITH SACRAL WOUND COVERED WITH DRESSING.
[2016-03-24] MEDS ORDERED: LEVOFLOXACIN 500 MG/D5W PREMIX 100 ML IV SCH (20:00)
--- NOTE | 2016-03-24 20:30 | NUR ---
DR. PONCE CAME IN TO SEE PATIENT, INFORMED OF NO FEVER. NO ORDERS.
[2016-03-24] MEDS: SIMVASTATIN 20 MG TAB PO SCH (20:42)
--- NOTE | 2016-03-24 22:00 | NUR ---
REPOSITIONED PATIENT. HD NURSE GEORGIANA IVAN CALLED AND INFORMED PATIENT FOR HD TOMORROW.
[2016-03-25] VITALS (23 sets, daily range): BP systolic 102–152; BP diastolic 52–86
--- NOTE | 2016-03-25 00:10 | NUR ---
SISTER CAIO JUST LEFT THE PATIENT'S BEDSIDE. ANSWERED QUESTIONS. VAP KIT ORAL CARE GIVEN. OFFLOAD PRESSURES. BEVERLY-CARE DONE.
[2016-03-25] MEDS: Z-GUARD PASTE TP SCH ×2 (02:00→12:13)
--- NOTE | 2016-03-25 02:27 | NUR ---
REPOSITIONED PATIENT. SUCTIONED SECRETIONS. VITALLY STABLE. NO SIGNS OF RESPIRATORY DISTRESS AT THIS TIME.
[2016-03-25] MEDS: ALBUTEROL SULFATE/IPRATROPIU 3 ML SOL IH SCH ×6 (03:07→23:47)
--- NOTE | 2016-03-25 04:11 | NUR ---
VAP KIT ORAL CARE GIVEN. REPOSITIONED PATIENT. STILL ON AIR MATTRESS BED. SUCTIONED SECRETIONS. BED IN LOW POSITION, ALL ALARMS ARE ON. NO SIGNS OF RESPIRATORY DISTRESS AT THIS TIME.
[2016-03-25] MEDS: NACL 0.9% 250 ML IV SCH ×2 (05:24→18:25)
[2016-03-25] MEDS: levETIRAcetam 500 MG in NACL 0.9% 100 ML IV SCH ×2 (05:25→18:10)
--- NOTE | 2016-03-25 06:48 | NUR ---
RECEIVED INTUBATED PT ON VENT. ETT SIZE 7.5 SECURED @22 LIP. VENT SETTINGS AC 12, VT 500, PEEP 5 AND FIO2 28%. PT SUCTIONED OBTAINED SMALL AMOUNT OF THICK YELLOW SECRETIONS, AIRWAY IS PATENT AND ETT SECURE. NO BITING OR KINKING OF ETT. VENT ALARMS ARE ON AND FUNCTIONING. VENT PLUGGED INTO RED OUTLET WITH AMBU BAG PRESENT AT BEDSIDE. PT NOT SOB AND NOT IN RESPIRATORY DISTRESS AT THIS TIME. WILL CONTINUE TO MONITOR.
[2016-03-25] MEDS: BLOOD GLUCOSE MONITORING 1 DEV DEV FS SCH ×4 (06:54→21:10)
[2016-03-25] MEDS: INSULIN ASPART SLIDING SCALE 100 UNITS/ML VIAL SUBQ PRN ×2 (06:54→21:13)
--- NOTE | 2016-03-25 07:10 | NUR ---
PATIENT REPORT GIVEN TO DAY SHIFT CHLOE JARAMILLO. VITALLY STABLE. NO SIGNS OF RESPIRATORY DISTRESS OR DISCOMFORT AT THIS TIME. PERIPHERAL IV G22 ON RIGHT ARM ARE STILL WITH GOOD BLOOD BACK FLOW RETURN.
--- NOTE | 2016-03-25 07:16 | NUR ---
RECEIVED REPORT FROM CHLOE NUNEZ. PT IS APHASIC, RESPONDS TO LIGHT PAIN. NO SIGNS OF ACUTE DISTRESS NOTED AT THIS TIME, FLACC 0. PT IS ETT TO VENT. FIO2: 28%, AC: 12, PEEP: 5, TV: 500. IV TO RIGHT FOREARM #22 PATENT AND INTACT. HEMODIALYSIS ACCESS TO LEFT UPPER ARM AV SHUNT. THRILL AND BRUIT PRESENT. WOUND NOTED TO SACRUM WITH REDNESS TO PERINEUM. DRESSING DRY AND INTACT. NGT SECURED TO LEFT NARE TO TUBE FEEDING. SAFETY PRECAUTIONS IN PLACE WITH BED IN LOWEST POSITION AND SIDE RAILS UP X2. CALL LIGHT WITHIN REACH. PT IS ON CONTACT ISOLATION WITH SIGNS POSTED OUTSIDE OF PT'S ROOM. PT IS CURRENT SINUS RHYTHM ON THE MONITOR. WILL CONTINUE TO MONITOR.
[2016-03-25] MEDS: VIT-B COMP/VIT-C/FOLIC ACID 1 TAB PO SCH (08:18)
[2016-03-25] MEDS: SACCHAROMYCES 250 MG CAP PO SCH ×2 (08:18→21:02)
[2016-03-25] MEDS: FOLIC ACID 1 MG TAB PO SCH (08:18)
[2016-03-25] MEDS: METOCLOPRAMIDE 10 MG TAB PO SCH ×3 (08:18→17:27)
[2016-03-25] MEDS: FAMOTIDINE 20 MG TAB PO SCH (08:18)
--- NOTE | 2016-03-25 08:33 | NUR ---
CHECKED TUBE FEEDING RESIDUAL: NONE NOTED. ADMINISTERED MEDICATION ORDERED. PT TOLERATED WELL.
--- NOTE | 2016-03-25 09:15 | NUR ---
PT'S SISTER, CAIO, IN TO SEE PT.
--- NOTE | 2016-03-25 10:59 | NUR ---
VENT CHECK COMPLETED, PT REMAINS ON DOCUMENTED SETTINGS NO CHANGES MADE. PT NOT SOB AND NOT IN RESPIRATORY DISTRESS AT THIS TIME. WILL CONTINUE TO MONITOR.
--- NOTE | 2016-03-25 11:54 | NUR ---
HD RN, GEORGIANA IVAN, PRESENT AT BEDSIDE FOR SCHEDULED HEMODIALYSIS TREATMENT.
[2016-03-25] MEDS: FOAM DRESSING TP SCH (12:12)
--- NOTE | 2016-03-25 12:13 | NUR ---
CHECKED TUBE FEEDING RESIDUAL: NONE NOTED. ADMINISTERED MEDICATION ORDERED. PT TOLERATED WELL.
--- NOTE | 2016-03-25 14:01 | NUR ---
DR. STEVENSON IN TO SEE PT. WILL FOLLOW UP ON ORDERS.
--- NOTE | 2016-03-25 14:03 | NUR ---
PER DR. STEVENSON, PT TO HAVE PALLIATIVE/HOSPICE CARE EVAL. PAGED KVNG IN CASE MANAGEMENT. NO ANSWER, LEFT MESSAGE.
--- NOTE | 2016-03-25 14:58 | NUR ---
DR. GROSSMAN IN TO SEE PT. WILL FOLLOW UP ON ORDERS
--- NOTE | 2016-03-25 15:50 | NUR ---
HD COMPLETE. 1400ML OUTPUT.
--- NOTE | 2016-03-25 16:46 | NUR ---
PT SUCTIONED OBTAINED SMALL AMOUNT OF THICK YELLOW SECRETIONS, AIRWAY IS PATENT. NO BITING OR KINKING OF ETT. PT REMAINS ON DOCUMENTED SETTINGS. VENT ALARMS REMAIN ON AND FUNCTIONING. Addendum: 03/25/16 at 1647 by Nicholas Bingham RT PT IS NOT IN ANY DISTRESS OR SOB AT THIS TIME.
--- NOTE | 2016-03-25 17:45 | NUR ---
PT'S SISTER, AAKASH, AND DAUGHTER, RAKEL, PRESENT AT BEDSIDE.
--- NOTE | 2016-03-25 19:05 | NUR ---
ENDORSED CARE TO CHLOE SADLER. PT IN STABLE CONDITION.
--- NOTE | 2016-03-25 19:15 | NUR ---
RECEIVED REPORT FROM ELLA CORONA. PATIENT IS SLEEPING IN BED. PATIENT IS ETT TO VENT WITH SETTINGS OF FIO2 28%, TIDAL VOLUME 500, A/C 12, PEEP 5. NO SIGNS OF RESPIRATORY DISTRESS OR SOB NOTED. RHONCHI NOTED UPON AUSCULTATION AND BOWEL SOUNDS ARE PRESENT. THERE IS AN NGT PRESENT IN THE LEFT NARES RECEIVING NOVOSOURCE RENAL AT 35 ML/HR. PATIENT TOLERATING FEEDING WELL WITH NO RESIDUAL NOTED. THERE IS A #22 IN THE RIGHT FOREARM TKO. THERE IS AN AV SHUNT ON THE LEFT UPPER ARM NOTED. VITALS ARE WNL. SCDS ARE IN PLACE FOR VTE PROPHYLAXIS. HOB AT 30 DEGREES WITH BED IN LOW POSITION. WILL CONTINUE TO MONITOR PATIENT. Addendum: 03/26/16 at 0153 by Rachael Gaston RN PATIENT IS LEGALLY BLIND IN BOTH EYES.
--- NOTE | 2016-03-25 19:34 | NUR ---
VAP ORAL CARE RENDERED. PATIENT REPOSITIONED FOR COMFORT. HOB AT 30 DEGREES WITH BED IN LOW POSITION. WILL CONTINUE TO MONITOR PATIENT.
[2016-03-25] MEDS: SIMVASTATIN 20 MG TAB PO SCH (21:02)
--- NOTE | 2016-03-25 21:10 | NUR ---
PATIENT TOLERATED SCHEDULED 2100 MEDICATION ADMINISTRATION. BLOOD SUGAR IS 160. PROVIDED NOVOLOG INSULIN COVERAGE BASED PER SLIDING SCALE. WILL CONTINUE TO MONITOR PATIENT.
--- NOTE | 2016-03-25 21:17 | NUR ---
DR. PONCE PRESENT ON UNIT. PROVIDED MD WITH PATIENT'S STATUS. NO NEW ORDERS GIVEN AT THIS TIME. WILL CONTINUE TO MONITOR PATIENT.
--- NOTE | 2016-03-25 22:00 | NUR ---
PATIENT REPOSITIONED FOR COMFORT. RESPIRATORY THERAPIST AT BEDSIDE TO SUCTION PATIENT. SMALL AMOUNT OF CREAMY COLORED SPUTUM NOTED. HOB AT 30 DEGREES WITH BED IN LOW POSITION. SIDE RAILS UP X2. CONTINUE TO MONITOR PATIENT.
--- NOTE | 2016-03-25 23:50 | NUR ---
RESPIRATORY THERAPIST AT BESIDE ADMINISTERING SCHEDULED BREATHING TX.
[2016-03-26] VITALS (24 sets, daily range): BP systolic 102–158; BP diastolic 63–94
--- NOTE | 2016-03-26 00:30 | NUR ---
PATIENT VOIDED MODERATE SMALL AMOUNT OF CLEAR YELLOW URINE. PERINEAL CARE RENDERED. PROVIDED BED BATH. CHANGED PATIENT'S LINENS AND GOWN. REPOSITIONED PATIENT FOR COMFORT. VAP ORAL CARE RENDERED. NO SIGNS OF SOB NOTED. HOB AT 30 DEGREES WITH BED IN LOW POSITION. WILL CONTINUE TO MONITOR PATIENT.
[2016-03-26] MEDS: Z-GUARD PASTE TP SCH ×2 (01:33→12:34)
--- NOTE | 2016-03-26 02:10 | NUR ---
ROUNDED ON PATIENT. PATIENT SLEEPING IN BED. NO S/S OF SOB OR RESPIRATORY DISTRESS NOTED. NO CHANGES IN PATIENT'S CONDITION. HOB AT 30 DEGREES WITH BED IN LOW POSITION. CONTINUE TO MONITOR PATIENT.
--- NOTE | 2016-03-26 03:50 | NUR ---
RESPIRATORY THERAPIST AT BEDSIDE.
[2016-03-26] MEDS: ALBUTEROL SULFATE/IPRATROPIU 3 ML SOL IH SCH ×6 (03:51→23:34)
--- NOTE | 2016-03-26 04:15 | NUR ---
PATIENT HAD SMALL VOID OF YELLOW URINE. PERINEAL CARE PROVIDED. CHANGED FOAM DRESSING ON SACRAL AREA. REPOSITIONED FOR COMFORT. VAP ORAL CARE RENDERED. NO SIGNS OF SOB OR RESPIRATORY DISTRESS NOTED. HOB AT 30 DEGREES WITH BED IN LOW POSITION. WILL CONTINUE TO MONITOR PATIENT.
--- NOTE | 2016-03-26 05:03 | NUR ---
CRM ARCHITECT AT BEDSIDE FOR SCHEDULED LAB DRAWS.
[2016-03-26] MEDS: levETIRAcetam 500 MG in NACL 0.9% 100 ML IV SCH ×2 (05:11→17:33)
--- NOTE | 2016-03-26 05:22 | NUR ---
PATIENT'S SISTER CAIO AT BEDSIDE TO VISIT PATIENT. CONTINUE TO MONITOR.
--- NOTE | 2016-03-26 06:00 | NUR ---
PATIENT'S SISTER CAIO LEFT UNIT. NO CHANGES IN PATIENT'S CONDITION. CONTINUE TO MONITOR PATIENT.
--- NOTE | 2016-03-26 06:20 | NUR ---
BLOOD SUGAR IS 109. NO INSULIN COVERAGE NEEDED AT THIS TIME. CONTINUE TO MONITOR PATIENT.
[2016-03-26] MEDS: BLOOD GLUCOSE MONITORING 1 DEV DEV FS SCH ×4 (06:25→21:18)
--- NOTE | 2016-03-26 06:34 | NUR ---
REC'D PT ON [employer] VENT SETTINGS AC12 VT 500 PEEP 5 FIO2 28%, ALARMS ON AND FUNCTIONING PROPERLY, AMBU BAG AT SIDE OF VENTILATOR AND VENTILATOR IS PLUGGED INTO RED OUTLET, I\L TX GIVEN WITH DUONEB 3ML WITH NO ADVERSE REACTION POST TX, B\S ARE DIMINISHED BILATERALLY, SXN PT MODERATE AMT OF THICK YELLOW SECRETIONS, PT IS ORALLY INTUBATED WITH 7.5 ET TUBE AND SECURED WITH ANCHOR FAST AT 22CM AT MIDLINE OF MOUTH AND SKIN INTEGRITY IS INTACT AND PT IS RESTING WITH NO SIGNS OF DISTRESS NOTED AT THIS TIME
--- NOTE | 2016-03-26 07:14 | NUR ---
NO CHANGES IN PATIENT'S CONDITION. ALL PATIENT'S NEEDS ATTENDED TO DURING SHIFT. ENDORSED CONTINUITY OF CARE TO MISTI CORONA.
--- NOTE | 2016-03-26 07:15 | NUR ---
RECEIVED CHRONIC ETT TO VENT PT FROM KATELYN SADLER MELTER HELPER. PT LETHARGIC, AROUSABLE WITH INITIAL ASSESSMENT. PT LEGALLY BLIND, WITHDRAWN TO LIGHT PAIN. PT NON VERBAL ETT TO VENT, VENT SETTING: FIO2=28%, AC 12, TV 500, PEEP 5. NO RESP DISTRESS/SHORTNESS OF BREATH (SOB)/WORK OF BREATH (WOB). RESP PATTERN EVEN/UNLABORED. PT LUNGS SOUND RHONCHI SCATTERING ON AUSCULTATION. SUCTIONED VIA ETT WITH SMALL AMOUNT OF THICK CREAMY SECRETION. INTERMITTENTLY COUGH WHILE SUCTIONING, POSITIVE GAG REFLEX NOTED. ORAL CARE GIVEN WITH ORAL VAP KIT PER PROTOCOL. SINUS RHYTHM ON OBSERVER GRAVITY PROSPECTING. PT HAS PULSES BUE AND BLE, NORMAL STRENGTH NOTED. CAP REFILL < 3 SECONDS. S1S2. NON PITTING EDEMA BUE. PT HAS LEFT AV SHUNT DIALYSIS PORT, COVERED BY DRESSING WHICH DRY AND INTACT. ALSO, PT HAS IV CATH #22 AT RIGHT FOREARM TO TKO, FREELY FLUSHED, NO IV SITE COMPLICATIONS. THE DRESSING DRY AND INTACT. SCD'S ON PROPHYLAXIS. ABDOMEN SOFT, NON DISTENTION. PT HAS NGT TO TF NOVASOURCE RENAL AT RATE 35 ML/HR WITH FREE WATER FLUSH 50 ML Q6H. 10 ML RESIDUAL ASSESSED. NO VOMITING. ACTIVE BOWEL SOUND WITH ALL QUADRANTS. PT HAVE HAD EPISODE OF CONSTIPATION. HEMODIALYSIS PT, OLIGURIC AND INCONTINENT NOTED. NO BLADDER DISTENTION. SKIN DRY AND WARM TO TOUCH, NON INTACT (SEE WOUND ASSESSMENT). FLACCID. REPOSITIONING AND OFFLOADING PRESSURE AREAS WARRANT. PT BEDBOUND. PASSIVE ROM PERFORMED. AFEBRILE. FLACC 0. FALL RISK, PRESSURE ULCER, SEIZURE, ASPIRATION PRECAUTIONS. SAFETY MEASURE IMPLEMENTED. CONTINUE COLLABORATING WITH INTERDISCIPLINARY HEALTH BODYWORK THERAPIST, CARRYING OUT MD ORDER(S), UPDATING POC NEEDED, PERFORMING PT SAFETY ROUNDING.
[2016-03-26] MEDS ORDERED: FAMOTIDINE 20 MG TAB PO SCH (08:49)
[2016-03-26] MEDS ORDERED: FOLIC ACID 1 MG TAB PO SCH (08:49)
[2016-03-26] MEDS ORDERED: SACCHAROMYCES 250 MG CAP PO SCH (08:50)
[2016-03-26] MEDS ORDERED: METOCLOPRAMIDE 10 MG TAB PO SCH (08:51)
--- NOTE | 2016-03-26 08:54 | NUR ---
VENT CHECK, NO SXN REQUIRED AT THIS TIME, AIRWAY IS PATENT AND FAMILY MEMBER AT BEDSIDE AND CHLOE CHAPPELL AT BEDSIDE
[2016-03-26] MEDS: VIT-B COMP/VIT-C/FOLIC ACID 1 TAB PO SCH (09:02)
[2016-03-26] MEDS: METOCLOPRAMIDE 10 MG TAB PO SCH ×3 (09:02→17:33)
[2016-03-26] MEDS: SACCHAROMYCES 250 MG CAP PO SCH ×2 (09:03→21:18)
[2016-03-26] MEDS: FAMOTIDINE 20 MG TAB PO SCH (09:03)
[2016-03-26] MEDS: FOLIC ACID 1 MG TAB PO SCH (09:03)
--- NOTE | 2016-03-26 09:22 | NUR ---
DR. LOUIS, COMPONENT PREP OPERATOR PRESENTED IN ICU TO ASSESS PT AND REVIEW PT CHART. UPDATED PT CONDITION NEEDED. WILL FOLLOW UP THE ORDER.
--- NOTE | 2016-03-26 10:55 | NUR ---
VENT CHECK, I\L TX GIVEN WITH DUONEB 3ML WITH NO ADVERSE REACTION POST TX, B\S ARE DIMINISHED PT WAS SXN FOR C&S MODERATE AMT OF THIN YELLOW SECRETIONS.
--- NOTE | 2016-03-26 10:57 | NUR ---
DR. RIOJAS, SUPERVISOR ALUM PLANT PRESENTED IN ICU TO ASSESS PT AND REVIEW PT CHART. UPDATED PT CONDITION NEEDED. WILL FOLLOW UP THE ORDER.
--- NOTE | 2016-03-26 12:40 | NUR ---
03/26/16 RD FOLLOW UP COMPLETED PLEASE REFER TO NUTRITION PROGRESS NOTE UNDER CARE ACTIVITY FOR ESTIMATED NUTRITION NEEDS. RD RECOMMENDATIONS: 1. CONTINUE CURRENT TUBE FEEDING REGIME OF NOVASOURCE RENAL AT 35 ML/HR WITH 50 ML FREE WATER FLUSH Q6H VIA NG TUBE. --ADEQUATE TO MEET 100% OF PT ESTIMATED KCAL AND 100% OF PT ESTIMATED PROTEIN NEEDS. --NOTE PT WITH NG TUBE L NARE SINCE 03/04/16. --NOTE PT TOLERATING TUBE FEEDING WELL WITH 10 ML OF RESIDUALS PER RN. 2. RD WILL F/U 2-3 DAYS; HIGH RISK. KAREN CHIANG, RD
--- NOTE | 2016-03-26 12:58 | NUR ---
DR. AVALOS, SHEET ROCK INSTALLATION HELPER PRESENTED IN ICU TO REVIEW PT CHART. UPDATED PT CONDITION NEEDED. WILL FOLLOW UP THE ORDER.
--- NOTE | 2016-03-26 13:14 | NUR ---
vent check, sxn pt large amt of yellow secretions family at bedside
--- NOTE | 2016-03-26 15:07 | NUR ---
VENT CHECK, I\L TX GIVEN WITH DUONEB 3ML WITH NO ADVERSE REACTION POST TX, B\S ARE DIMINISHED AND CHANGED HME Addendum: 03/26/16 at 1513 by Lulu Hall RT SNX PT SMALL AMT OF YELLOW SECRETIONS
--- NOTE | 2016-03-26 16:20 | NUR ---
DR. PONCE, ID PRESENTED IN ICU TO REVIEW PT CHART. UPDATED PT CONDITION NEEDED. WILL FOLLOW UP THE ORDER.
[2016-03-26] MEDS: INSULIN ASPART SLIDING SCALE 100 UNITS/ML VIAL SUBQ PRN ×2 (16:36→21:19)
--- NOTE | 2016-03-26 16:56 | NUR ---
vent check, no sxn required at this time, airway is patent and pt is resting
--- NOTE | 2016-03-26 19:11 | NUR ---
HANDED OF CONTINUITY OF CARE TO VIKTORIYA, KATELYN SCIENTIFIC LABORATORY SUPERVISOR. PT STILL ON ETT TO VENT, NO RESP DISTRESS. STILL ON NGT TO TF WITH SAME RATE. AFEBRILE. FLACC 0. ADDRESSED ON REPOSITIONING AND OFF LOADING PRESSURE AREAS.
--- NOTE | 2016-03-26 19:15 | NUR ---
RECEIVED BEDSIDE REPORT FROM MISTI CORONA. PATIENT IS SLEEPING IN BED WITH RESPIRATORY THERAPIST AT BEDSIDE ADMINISTERING SCHEDULED BREATHING TREATMENT. PATIENT IS LEGALLY BLIND. PATIENT IS ETT TO VENT WITH SETTINGS OF FIO2 28%, TV 500, A/C 12, AND PEEP OF 5. NO SIGNS OF RESPIRATORY DISTRESS OR SOB NOTED. VITALS ARE WNL. DIMINISHED BREATH SOUNDS NOTED UPON AUSCULTATION. BOWEL SOUNDS ARE PRESENT. THERE IS A NGT IN THE PATIENT'S LEFT NARES RECEIVING NOVOSOURCE RENAL AT 35 ML/HR. PATIENT TOLERATING NGT FEEDING WELL WITH NO RESIDUAL NOTED. THERE IS A #22 IN THE PATIENT'S RIGHT FOREARM RECEIVING NORMAL SALINE AT 5ML/HR TKO. SITE IS DRY, INTACT, AND ASYMPTOMATIC. SCDS ARE IN PLACE FOR VTE PROTOCOL. VAP ORAL CARE RENDERED. HOB AT 30 DEGREES WITH BED IN LOW POSITION. SIDE RAILS UP X2. WILL CONTINUE TO MONITOR PATIENT.
[2016-03-26] MEDS: NACL 0.9% 250 ML IV SCH (19:20)
--- NOTE | 2016-03-26 20:40 | NUR ---
PATIENT VOIDED IN BED OF CLEAR YELLOW URINE. PERINEAL CARE PROVIDED. PATIENT REPOSITIONED FOR COMFORT TO OFFLOAD PRESSURE AREAS. HOB AT 30 DEGREES WITH BED IN LOW POSITION. WILL CONTINUE TO MONITOR.
[2016-03-26] MEDS: SIMVASTATIN 20 MG TAB PO SCH (21:18)
--- NOTE | 2016-03-26 21:24 | NUR ---
PATIENT TOLERATED SCHEDULED MEDICATION ADMINISTRATION. NO SIGNS OF SOB OR DISCOMFORT NOTED. BLOOD SUGAR IS 198. PROVIDED NOVOLOG INSULIN COVERAGE BASED ON SLIDING SCALE. HOB AT 30 DEGREES WITH BED IN LOW POSITION. CONTINUE TO MONITOR PATIENT.
--- NOTE | 2016-03-26 22:35 | NUR ---
PATIENT REPOSITIONED FOR COMFORT.
[2016-03-27] VITALS (24 sets, daily range): BP systolic 106–163; BP diastolic 62–89
--- NOTE | 2016-03-27 00:20 | NUR ---
VAP ORAL CARE RENDERED. PATIENT REPOSITIONED FOR COMFORT. CONTINUE TO MONITOR PATIENT.
[2016-03-27] MEDS: Z-GUARD PASTE TP SCH ×2 (00:35→14:04)
--- NOTE | 2016-03-27 02:02 | NUR ---
PATIENT REPOSITIONED TO OFFLOAD PRESSURE AREAS.
[2016-03-27] MEDS: ALBUTEROL SULFATE/IPRATROPIU 3 ML SOL IH SCH ×6 (03:45→23:19)
--- NOTE | 2016-03-27 03:50 | NUR ---
MORNING CARE RENDERED. BED BATH PROVIDED. CHANGED PATIENT'S GOWN AND BED LINENS. PATIENT REPOSITIONED TO OFFLOAD PRESSURE AREAS. VAP ORAL CARE RENDERED. NO SIGNS OF SOB NOTED. HOB AT 30 DEGREES WITH BED IN LOW POSITION. CONTINUE TO MONITOR PATIENT.
--- NOTE | 2016-03-27 05:05 | NUR ---
TRAVELERS' AID WORKER AT BEDSIDE FOR SCHEDULED MORNING LAB DRAWS.
[2016-03-27] MEDS: levETIRAcetam 500 MG in NACL 0.9% 100 ML IV SCH ×2 (05:35→17:07)
[2016-03-27] MEDS: BLOOD GLUCOSE MONITORING 1 DEV DEV FS SCH ×4 (06:27→20:48)
--- NOTE | 2016-03-27 06:27 | NUR ---
CRITICAL LAB RECEIVED BUN 91 AND CREATININE IS 4.2. WILL CALL FOR ORDERS. Addendum: 03/27/16 at 0709 by Rachael Gaston RN REPORTED LAB VALUES TO CHARGE NURSE KI CORONA. PATIENT IS HEMODIALYSIS PATIENT. ENDORSED CONTINUITY OF CARE TO MISTI CORONA.
[2016-03-27] MEDS: INSULIN ASPART SLIDING SCALE 100 UNITS/ML VIAL SUBQ PRN ×3 (06:30→16:35)
--- NOTE | 2016-03-27 07:04 | NUR ---
RECEIVED PT ON [place] ON A/C 12 VT 500 PEEP5 FIO2 28 ALARMS ARE ON AND FUNCTIONAL BMV HOB PTS ET TUBE IS SECURE 7.5 [address] CM ANCHOR FAST IN PLACE PT IN HF NOT AWAKE BS CL\DIM VENT PLUGGED INTO RED OUTLET IL HHN GIVEN WITH 3 MG DUONEB
--- NOTE | 2016-03-27 07:09 | NUR ---
NO CHANGE IN PATIENT'S STATUS. ALL PATIENT'S NEEDS ATTENDED TO DURING SHIFT. ENDORSED CONTINUITY OF CARE TO MISTI CORONA.
--- NOTE | 2016-03-27 07:30 | NUR ---
RECEIVED CHRONIC ETT TO VENT PT FROM KATELYN SADLER MOLD CAPPER HELPER. PT LETHARGIC, AROUSABLE WITH INITIAL ASSESSMENT. PT LEGALLY BLIND, WITHDRAWN TO LIGHT PAIN. PT NON VERBAL ETT TO VENT, VENT SETTING: FIO2=28%, AC 12, TV 500, PEEP 5. NO RESP DISTRESS. RESP PATTERN SYMMETRICAL. PT LUNGS SOUND RHONCHI SCATTERING ON AUSCULTATION. SUCTIONED VIA ETT WITH SMALL AMOUNT OF THICK CREAMY SECRETION. INTERMITTENTLY COUGH WHILE SUCTIONING, POSITIVE GAG REFLEX NOTED. ORAL CARE PROVIDED WITH VAP KIT PER PROTOCOL. SINUS RHYTHM - SINUS TACHYCARDIA ON POWERHOUSE TENDER, NO ECTOPY. PT HAS PULSES BUE AND BLE, NORMAL STRENGTH NOTED. CAP REFILL < 3 SECONDS. S1S2. NO HEART MURMUR. NO JVD. NON PITTING EDEMA BUE. PT HAS CLARENCE AV SHUNT DIALYSIS PORT, COVERED BY DRY AND INTACT DRESSING. ALSO, PT HAS IV CATH #22 AT RIGHT FOREARM TO TKO, FREELY FLUSHED, NO IV SITE COMPLICATIONS. THE DRESSING DRY AND INTACT. SCD'S ON PROPHYLAXIS. ABDOMEN SOFT, NON DISTENTION. PT HAS NGT TO TF NOVASOURCE RENAL AT RATE 35 ML/HR WITH FREE WATER FLUSH 50 ML Q6H. 5 ML RESIDUAL ASSESSED. NO VOMITING. ACTIVE BOWEL SOUND WITH ALL QUADRANTS. PT HAVE HAD EPISODE OF CONSTIPATION. HEMODIALYSIS PT, OLIGURIC AND INCONTINENT NOTED. NO BLADDER DISTENTION. SKIN DRY AND WARM TO TOUCH, NON INTACT (SEE WOUND ASSESSMENT). LOOSE SKIN. FLACCID. REPOSITIONING AND OFFLOADING PRESSURE AREAS WARRANT. PT BEDBOUND. PASSIVE ROM PERFORMED. AFEBRILE. FLACC 0. SAFETY MEASURE IMPLEMENTED. FALL RISK, PRESSURE ULCER, SEIZURE, AND ASPIRATION PRECAUTIONS. CONTINUE COLLABORATING WITH INTERDISCIPLINARY HEALTH TEAM DURING PT HOSPITALIZATION, FOLLOWING UP AND CARRYING OUT MD ORDER(S), UPDATING POC NEEDED, AND PERFORMING PT SAFETY ROUNDING.
--- NOTE | 2016-03-27 08:45 | NUR ---
VENT CHECK BS CLEAR AIRWAY IS PATENT
[2016-03-27] MEDS: SACCHAROMYCES 250 MG CAP PO SCH ×2 (09:23→20:46)
[2016-03-27] MEDS: METOCLOPRAMIDE 10 MG TAB PO SCH ×3 (09:23→17:07)
[2016-03-27] MEDS: FOLIC ACID 1 MG TAB PO SCH (09:23)
[2016-03-27] MEDS: FAMOTIDINE 20 MG TAB PO SCH (09:24)
[2016-03-27] MEDS: VIT-B COMP/VIT-C/FOLIC ACID 1 TAB PO SCH (09:24)
--- NOTE | 2016-03-27 09:41 | NUR ---
DR. LOUIS, EKG MONITOR TECH PRESENTED IN ICU TO ASSESS PT AND REVIEW PT CHART. UPDATED PT CONDITION NEEDED. WILL FOLLOW UP THE ORDER. Addendum: 03/27/16 at 0942 by Shaye Moore RN EDIT DR. NIEVES
--- NOTE | 2016-03-27 10:19 | NUR ---
CALLED [facility] TO MAKE HEMODIALYSIS SCHEDULE TOMORROW (03/25/16) PER DR. NIEVES, GUEST RELATIONS ASSOCIATE ORDERED.
--- NOTE | 2016-03-27 10:57 | NUR ---
VENT CHECK BS RHONCI I\L LAVAGE AND SX SM YELLOW I\L HHN GIVEN WITH 3MG DUONEB
--- NOTE | 2016-03-27 11:50 | NUR ---
DR. RIOJAS, CONTACT LENS BLOCKER PRESENTED IN ICU TO REVIEW PT CHART. UPDATED PT CONDITION NEEDED. WILL FOLLOW UP THE ORDER.
--- NOTE | 2016-03-27 13:02 | NUR ---
VENT CHECK BS CL\DIM I\L SX SM YELLOW
[2016-03-27] MEDS: FOAM DRESSING TP SCH (14:05)
--- NOTE | 2016-03-27 14:57 | NUR ---
VENT CHECK BS CL\DIM HHN GIVEN I\L WITH 3 MG DUONEB
--- NOTE | 2016-03-27 17:04 | NUR ---
VENT CHECK BS CLEAR AIRWAY IS PATENT
--- NOTE | 2016-03-27 18:43 | NUR ---
DR. PONCE, ID PRESENTED IN ICU TO REVIEW PT CHART. UPDATED PT CONDITION NEEDED. WILL FOLLOW UP THE ORDER.
--- NOTE | 2016-03-27 19:07 | NUR ---
HANDED OF CONTINUITY OF CARE TO KATELYN FRANCIS SAP ARIBA CONSULTANT. PT STILL ON ETT TO VENT, NO SOB/WOB. STILL ON NGT TO TF WITH SAME RATE. AFEBRILE. FLACC 0. ADDRESSED ON HEMODIALYSIS SCHEDULED FOR TOMORROW PER DR. NIEVES ORDERED.
--- NOTE | 2016-03-27 19:14 | NUR ---
RECEIVED REPORT FROM DAY NURSE NAOMI, RN PT IS LETHARGIC, WITHDRAWS TO LIGHT PAIN. PT IS LEGALLY BLIND PT IS NON VERBAL AND IS ETT TO VENT WITH SETTINGS AT FIO2 28%, AC 12, TV 500, PEEP 5. NO S/S OF RESP DISTRESS NOTED AT THIS TIME. CREDIT FRONT OFFICE DEVELOPER SHOWS SR- ST AT THIS TIME. PT HAS CLARENCE AV SHUNT DIALYSIS PORT AND PT RIGHT FA IV #22 TKO, THE DRESSING DRY AND INTACT.PT HAS NGT TO TF NOVASOURCE RENAL AT RATE 35 ML/HR. ABDOMEN IS SOFT AND NON DISTENDED. SKIN DRY AND WARM TO TOUCH BUT NON INTACT SEE WOUND ASSESSMENT. BED IN LOW POSITION. SCDS IN PLACE. HOB UP. CONTACT PRECAUTIONS MAINTAINED, SAFETY MEASURES MAINTAINED. WILL CONTINUE TO CLOSELY MONITOR.
[2016-03-27] MEDS: NACL 0.9% 250 ML IV SCH (19:35)
[2016-03-27] MEDS: SIMVASTATIN 20 MG TAB PO SCH (20:46)
--- NOTE | 2016-03-27 20:50 | NUR ---
CURRENT BLOOD GLUCOSE IS 149. NO INSULIN COVERAGE NEEDED AT THIS TIME.
--- NOTE | 2016-03-27 21:47 | NUR ---
PT TURNED, REPOSITIONED. SUCTIONED THROUGH ETT. NO SOB NOTED AT THIS TIME. NO SIGNS OF DISCOMFORT AT THIS TIME. WILL CONTINUE TO MONITOR.
[2016-03-28] VITALS (24 sets, daily range): BP systolic 105–164; BP diastolic 62–93
--- NOTE | 2016-03-28 00:09 | NUR ---
VAP ORAL CARE GIVEN, PT TURNED AND REPOSITIONED. NO SOB NOTED AT THIS TIME. WILL CONTINUE TO MONITOR.
[2016-03-28] MEDS: Z-GUARD PASTE TP SCH ×2 (01:18→13:03)
[2016-03-28] MEDS: ALBUTEROL SULFATE/IPRATROPIU 3 ML SOL IH SCH ×6 (03:40→23:28)
--- NOTE | 2016-03-28 04:35 | NUR ---
PT URINATED ON PAD. PT CLEANED MORNING CARE RENDERED. LINEN CHANGED. VAP ORAL CARE PROVIDED. NO SOB NOTED AT THIS TIME. WILL CONTINUE TO CLOSELY MONITOR.
[2016-03-28] MEDS: levETIRAcetam 500 MG in NACL 0.9% 100 ML IV SCH (05:22)
--- NOTE | 2016-03-28 06:07 | NUR ---
ENDORSED PLAN OF CARE TO COSTUME DIRECTOR CHARGE NURSE CHLOE EMERSON.
--- NOTE | 2016-03-28 06:37 | NUR ---
REC'D PT ON CARESCAPE VENT SETTINGS AC12 VT 500 PEEP 5 FIO2 28% ALARMS ON AND FUNCTIONING PROPERLY AMBU BAG AT SIDE OF VENT AND VENT IS PLUGGED INTO RED OUTLET, I\L TX GIVEN WITH DUONEB 3ML WITH NO ADVERSE REACTION POST TX B\S ARE CLEAR BILATERALLY, SXN PT MODERATE AMT OF THIN YELLOW SECRETIONS, PT IS ORALLY INTUBATED WITH 7.5 ET TUBE SECURED WITH ANCHOR FAST AT 22CM AT LEFT CORNER OF MOUTH AND SKIN INTEGRITY IS INTACT AND PT IS RESTING WITH NO SIGNS OF DISTRESS NOTED AT THIS TIME
--- NOTE | 2016-03-28 07:10 | NUR ---
RECEIVED REPORT FROM KI.INITIAL ASSESSMENT DONE TO PATIENT . PT IS ORALLY INTUBATED WITH 7.5 ET TUBE SECURED WITH ANCHOR FAST AT 22CM AT LEFT CORNER OF MOUTH AND SKIN INTEGRITY IS INTACT.VENT SETTING FOLLOWS.FIO2=28 PERCENT,SS=866,AC=12,PEEP=5.NO SIGNS OF CARDIORESPIRATORY DISTRESS.ST ON THE MONITOR.LEFT NARES NGT WITH NOVASOURCE AT 35 ML/H.NO RESIDUAL NOTED.RIGHT FOREARM 22 GAUGE .NO SIGNS OF INFILTRATION.LEFT UPPER ARM AV SHUNT POSITIVE FOR BRUIT AND THRILL.WILL MONITOR.
[2016-03-28] MEDS: BLOOD GLUCOSE MONITORING 1 DEV DEV FS SCH ×4 (08:28→21:37)
[2016-03-28] MEDS: INSULIN ASPART SLIDING SCALE 100 UNITS/ML VIAL SUBQ PRN ×4 (08:29→21:47)
[2016-03-28] MEDS: FAMOTIDINE 20 MG TAB PO SCH (08:32)
[2016-03-28] MEDS: VIT-B COMP/VIT-C/FOLIC ACID 1 TAB PO SCH (08:32)
[2016-03-28] MEDS: SACCHAROMYCES 250 MG CAP PO SCH ×2 (08:32→21:38)
[2016-03-28] MEDS: FOLIC ACID 1 MG TAB PO SCH (08:33)
--- NOTE | 2016-03-28 08:38 | NUR ---
vent check, no sxn required at this time, viral dunbar at bedside, moved et tube to midline of mouth
[2016-03-28] MEDS: METOCLOPRAMIDE 10 MG TAB PO SCH ×3 (09:58→18:03)
--- NOTE | 2016-03-28 10:30 | NUR ---
vent check, i\l tx given with duoneb 3ml with no adverse reaction post tx b\s are clear sxn pt small amt of yellow secretions, et tube moved to rt corner and pt is resting with no signs of distress noted at this time
--- NOTE | 2016-03-28 13:00 | NUR ---
DR GROSSMAN MADE AWare OF BUN nd creatinine result
--- NOTE | 2016-03-28 13:02 | NUR ---
vent check, no sxn required at this time airway is patent and pt is resting with no signs of distress noted at this time
--- NOTE | 2016-03-28 14:50 | NUR ---
FAXED CONCURRENT REVIEW TO [facility] [phone] PHONE JULY [phone]
--- NOTE | 2016-03-28 15:05 | NUR ---
vent check, i\l tx given with duoneb 3ml with no adverse reaction post tx ,b\s are clear and pt is having dialysis no sxn needed at this time
--- NOTE | 2016-03-28 16:50 | NUR ---
VENT CHECK, NO SXN REQUIRED, PT IS HAVING DIALYSIS AND DAUGHTER AT BEDSIDE
--- NOTE | 2016-03-28 18:10 | NUR ---
PT'S SISTER CAIO AT BEDSIDE. REQUESTING TO SPEAK TO THE DIETITIAN. INFORMED HER THAT DIETITIAN WILL BE HERE COLETTE. WILL GIVE HER THE MESSAGE IN AM.
--- NOTE | 2016-03-28 19:15 | NUR ---
REPORT GIVEN TO CLARIZE FOR CONTINUITY OF CARE .ENDORSED TO RN THAT SISTER WANTED TO TALK TO A DIGITAL TECHNICIAN TOMORROW.
--- NOTE | 2016-03-28 19:16 | NUR ---
RECEIVED REPORT FROM CHLOE MARTINEZ. PT IS NON-VERBAL, EET TO VENT FIO2 35%, TV 500, AC 12, PEEP 5. PT HAS NGT IN PLACE AT LEFT NARE, ON CONTINUOUS FEEDING. ATTACHED TO HISTORICAL GUIDE AND PULSE OXIMETER. DIALYSIS ACCESS AT LEFT UPPER ARM AV SHUNT. IV ACCESS AT RIGHT FOREARM 22G, PATENT, INTACT AT THIS TIME. SACROCOCCYX DRESSING DRY AND INTACT AT THIS TIME. WITH SCDS IN PLACE. ON AIR MATTRESS. BED IN LOW POSITION, SAFETY MEASURE ENSURE, CONTACT PRECAUTION MAINTAINED. WILL CONTINUE TO MONITOR.
[2016-03-28] MEDS: NACL 0.9% 250 ML IV SCH (19:20)
--- NOTE | 2016-03-28 19:55 | NUR ---
PT RECEIVED FROM [facility] ON NOTED VENT SETTINGS. PT NOT AWAKE, HAS A #7.5 ETT SECURED AT 22 LIP LINE WITH AN ANCHOR FAST. BREATH SOUNDS APPEAR CLEAR BILATERALLY, HHN INLINE TX GIVEN. PT LAVAGED AND SUCTIONED SM AMT THIN PALE YELLOW SECRETIONS. NO ADVERSE EFFECTS NOTED. VENT ALARMS ON AND AUDIBLE. VENT PLUGGED INTO RED ELECTRICAL OUTLET. AMBU BAG ON FRONT ON VENT.
--- NOTE | 2016-03-28 21:00 | NUR ---
DR. PONCE IN TO SEE PATIENT. WILL FOLLOW UP ANY NEW ORDERS.
--- NOTE | 2016-03-28 21:17 | NUR ---
VENT CHECKED. BREATH SOUNDS APPEAR CLEAR BILATERALLY, NO SUCTION NEEDED AT THIS TIME. NO DISTRESS NOTED.
[2016-03-28] MEDS: SIMVASTATIN 20 MG TAB PO SCH (21:38)
[2016-03-28] MEDS: levETIRAcetam 100 MG/ML ORASYR GT SCH (21:53)
--- NOTE | 2016-03-28 23:39 | NUR ---
VENT CHECKED, HHN TX GIVEN INLINE, BREATH SOUNDS APPEAR CLEAR. PT LAVAGED AND SUCTIONED SM AMT THIN WHITE SECRETIONS. NO ADVERSE EFFECTS NOTED.
[2016-03-29] VITALS (21 sets, daily range): BP systolic 105–175; BP diastolic 56–98
--- NOTE | 2016-03-29 00:19 | NUR ---
GASTRIC CONTENT CHECKED. NO RESIDUAL AT THIS TIME. WILL GIVE COLACE PRN ORDERED FOR CONSTIPATION. WILL CONTINUE TO MONITOR.
[2016-03-29] MEDS: Z-GUARD PASTE TP SCH ×2 (00:27→13:15)
[2016-03-29] MEDS: DOCUSATE SODIUM 100 MG GELCAP PO PRN (00:31)
[2016-03-29] MEDS: NACL 0.9% 250 ML IV SCH (00:31)
--- NOTE | 2016-03-29 01:18 | NUR ---
VENT CHECKED. ETT RE-POSITIONED TO LEFT SIDE OF MOUTH. NO ADVERSE EFFECTS NOTED.
[2016-03-29] MEDS: ALBUTEROL SULFATE/IPRATROPIU 3 ML SOL IH SCH ×5 (03:23→20:22)
--- NOTE | 2016-03-29 03:24 | NUR ---
VENT CHECKED. BREATH SOUNDS CLEAR, HHN TX GIVEN INLINE. PT LAVAGED AND SUCTIONED SCANT AMT THIN PALE YELLOW SECRETIONS. HME AND SUCTION MARIEE CHANGED. NO ADVERSE EFFECTS NOTED.
[2016-03-29] MEDS: FOAM DRESSING TP PRN (03:29)
--- NOTE | 2016-03-29 03:45 | NUR ---
MORNING CARE DONE. NO SIGNS OF DISTRESS NOTED. WILL CONTINUE TO MONITOR.
--- NOTE | 2016-03-29 05:14 | NUR ---
SOFTWARE QA MANAGER AT BEDSIDE FOR MORNING LABS
--- NOTE | 2016-03-29 05:17 | NUR ---
VENT CHECKED. NO DISTRESS NOTED. NO CHANGES MADE.
--- NOTE | 2016-03-29 06:29 | NUR ---
RECEIVED PT ON CARESCAPE ON A/C 12 VT 500 PEEP 5 FIO2 28 ALARMS ARE ON AND FUNCTIONAL PTS ET TUBE SIZE 7.5 IS SECURE [address] FAST IN PLACE BS CL\DIM I\L LAVAGE AND SX MOD YELLOW I\L HHN GIVEN WITH 3 MG DUONEB PT IN HF NOT AWAKE VENT PLUGGED INTO RED OUTLET Addendum: 03/29/16 at 0639 by Ericka Cuello RT BMV HOB
[2016-03-29] MEDS: BLOOD GLUCOSE MONITORING 1 DEV DEV FS SCH ×5 (06:35→20:50)
[2016-03-29] MEDS: INSULIN ASPART SLIDING SCALE 100 UNITS/ML VIAL SUBQ PRN ×4 (06:36→20:57)
--- NOTE | 2016-03-29 07:45 | NUR ---
REPORT GIVEN TO CHLOE MURRY FOR CONTINUITY OF CARE.
--- NOTE | 2016-03-29 07:45 | NUR ---
RECEIVED REPORT FROM CHERELLE ROSE INBEDON RT SIDE ORAL ET TO VENTAC 12 VT500 FIO2 28% O2 SAT 99% SKIN DRY AND WARM TO TOUCH , COLOR NORMAL.NGT FEEDING WITH NOVASOURCE RENAL AT 35 ML/HR, TOLERATED WELL .IV FLUID SITE ON RT ARM KVO WITH NS AT 5ML/HR. HAS AV FISTULA ON CLARENCE. ABDOMEN SOFT B/S ACTIVE THE DRESSING ON SACCRAL DRY AND INTACT.
--- NOTE | 2016-03-29 08:20 | NUR ---
SPOKE TO THE DIETITIAN RE: PT'S SISTER'S CAIO'S REQUEST TO TALK TO HER ABOUT PT'S NGT FEEDING AND WEIGHT LOSS. PHONE NUMBER OF CAIO GIVEN TO DIETITIAN.
--- NOTE | 2016-03-29 09:03 | NUR ---
VENT CHECK BS RHONCI I\L LAVAGE AND SX MOD YELLOW ORALLY SX ALSO
[2016-03-29] MEDS: levETIRAcetam 100 MG/ML ORASYR GT SCH ×2 (09:14→20:49)
[2016-03-29] MEDS: VIT-B COMP/VIT-C/FOLIC ACID 1 TAB PO SCH (09:15)
[2016-03-29] MEDS: FOLIC ACID 1 MG TAB PO SCH (09:15)
[2016-03-29] MEDS: METOCLOPRAMIDE 10 MG TAB PO SCH ×3 (09:16→17:11)
[2016-03-29] MEDS: FAMOTIDINE 20 MG TAB PO SCH (09:16)
[2016-03-29] MEDS: SACCHAROMYCES 250 MG CAP PO SCH ×2 (09:17→20:49)
--- NOTE | 2016-03-29 09:20 | NUR ---
PER [employer], FAMILY IS NOT HAPPY WITH WHAT HAD HAPPEN EARLIER AND CAIO, THE SISTER OF THE PATIENT WANTED TO TALK TO THE DOCTOR. PAGED DR. HINTON, CERTIFIED RETINAL ANGIOGRAPHER DOCTOR OF DR. QUINTERO. Addendum: 03/29/16 at 2348 by Geno Roy RN WRONG TIME
--- NOTE | 2016-03-29 10:00 | NUR ---
REPOSITION, SKIN CARE AND BACK CARE GIVEN SEEN BY THE FNS .SHE SUGGEST TO INCREASE THE FEEDING UP TO 40ML/HR.
--- NOTE | 2016-03-29 10:37 | NUR ---
VENT CHECK BS CL\DIM I\L HHN GIVEN WITH 3 MG DUONEB ORALLY SX PT AIRWAY IS PATENT
--- NOTE | 2016-03-29 11:30 | NUR ---
BLOOD GLUCOSE 174 , REGULAR INSULIN COVERAGE GIVEN ORDERED.
[2016-03-29] MEDS: FOAM DRESSING TP SCH (12:12)
--- NOTE | 2016-03-29 12:17 | NUR ---
03/29/16 RD FOLLOW UP COMPLETED PLEASE REFER TO NUTRITION PROGRESS NOTE UNDER CARE ACTIVITY FOR ESTIMATED NUTRITION NEEDS. ROBERT RECOMMENDATIONS: 1. RECOMMEND INCREASE TUBE FEEDING NOVASOURCE RENAL TO 40 ML/HR D/T PT WEIGHT LOSS --WILL PROVIDE 960 ML TOTAL VOLUME, 1920 KCAL, 87 GM PROTEIN TO MEET 100% OF PT ESTIMATED KCAL AND PROTEIN NEEDS --NOTE PT WITH NG TUBE L NARE SINCE 03/04/16. 2. ROBERT SPOKE WITH DAUGHTER, CAIO, REGARDING PT NUTRITION AND WEIGHT LOSS. RD REINFORCED PT RECEIVING CORRECT NUTRITION FOR RENAL FAILURE, AND WILL INCREASE NUTRITION SUPPORT GRADUALLY FOR WEIGHT GAIN/ MAINTENANCE. RD EDUCATED PT ON WEIGHT LOSS WHILE PT IS BED BOUND. RD ALSO SPOKE TO SISTER ON THE NEED TO BE CONSERVATIVE WITH PROTEIN NEEDS D/T PT WITH RENAL FAILURE. 3. RD WILL F/U 2-3 DAYS; HIGH RISK. MAURA HE RD Addendum: 04/04/16 at [address] EDIT: ROBERT EDUCATED PT SISTER ON WEIGHT LOSS WHILE PT IS BED BOUND. MAURA HE RD
--- NOTE | 2016-03-29 12:56 | NUR ---
VENT CHECK BS CL\DIM AIRWAY IS PATENT
--- NOTE | 2016-03-29 13:30 | NUR ---
SEEN BY YAMILEX FERNANDEZ
--- NOTE | 2016-03-29 14:15 | NUR ---
NGT FEEDING UPTO 40ML ORDERED
--- NOTE | 2016-03-29 14:53 | NUR ---
FAXED CONCURRENT REVIEW TO [facility] [phone] PHONE LAKESHA [phone]
--- NOTE | 2016-03-29 15:00 | NUR ---
BLOOD GLUCOSE 174 INSULIN COVER ORDER.ED.
--- NOTE | 2016-03-29 16:51 | NUR ---
VENT CHECK BS RHONCI I\L AVAGE AND SX COPIOUS RD\YELLOW SECRETIONS CXR ORDERED FOR TUBE PLACEMENT
--- NOTE | 2016-03-29 17:10 | NUR ---
CALLED TO ICU ONE BEDSIDE BY RT FRITZ, PT WAS GAGGING FORCEFULLY AND VOMITING, PT WAS GETTING HER VT OF 396 AND O2 SAT WAS 97%, UPON CHECKING PLACEMENT OF ET TUBE AND SAW THAT BALLOON WAS AT BACK OF THROAT AND DR. TAVERAS WAS CALLED TO PTS BEDSIDE AND STAT CHEST XRAY WAS DONE SHOWING THE ET TUBE WAS OUT AT BACK OF THROAT, AND ET TUBE WAS OUT AND PT WAS PLACED ON 3LNC AND DR. TAVERAS SPOKE TO DR. HINTON
[2016-03-29] MEDS: BISACODYL 10 MG SUPP RC PRN (17:11)
--- NOTE | 2016-03-29 17:11 | NUR ---
DR YA ARRIVED INSTRUCTED RT BOB FRITZ AND MIREILLE BENTLEY TO DEFLATE ET CUFF AND TRY TO ADVANCE TUBE IN ET TUBE COMPLETELY DISLODGED REMOVED ET TUBE BMV USED PER DR TAVERAS SPO2 100 PT BREATHES ON HER OWN BRYON RN CALLED DR HINTON WHO SPOKE TO DR TAVERAS PT PLACED ON 3L N/C SPO2 ON 3L N/C SPO2 97-100 BIPAP PRN PLACED AT BEDSIDE
[2016-03-29] MEDS: ACETAMINOPHEN 325 MG TAB PO PRN ×2 (17:14→22:35)
[2016-03-29] MEDS ORDERED: POTASSIUM CHLORIDE 20% 40 MEQ/15 ML UDC GT SCH (17:18)
[2016-03-29] MEDS: ONDANSETRON 4 MG/2 ML VIAL IVP PRN (17:26)
--- NOTE | 2016-03-29 17:42 | NUR ---
CALLED PT'S SISTER CAIO. INFORMED THAT ETT IS OUT. DR. CLIFTON (ER DOCTOR) AT BEDSIDE TO ASSESS PT. PT WAS GAGGING AND COUGHING A LOT PRIOR TO ETT DISPLACEMENT. INFORMED ALSO THAT PT IS NOW ON 3 L 02 PER NASAL CANNULA AND THAT SHE IS DOING WELL. 02 SAT BETWEEN 97% TO 98%. CAIO ASKED IF IT IS THE SAME MASK THAT HER SISTER HAD WHEN SHE WAS IN [facility]. I TOLD HER THAT IT IS NASAL CANNULA NOT BIPAP. I ASKED CAIO IF SHE WANTS US TO PUT THE TUBE BACK OR USE BIPAP IN CASE THE PT. GETS INTO ANY RESP. PROBLEMS. STATES SHE WILL BE HERE SOON THEN HUNG UP.
--- NOTE | 2016-03-29 18:00 | NUR ---
MAYRA, PT'S NEPHEW VISITING AT BEDSIDE.
--- NOTE | 2016-03-29 18:10 | NUR ---
SPOKE WITH CHLOE SLATER PER DR KAMINSKI DO NOT PLACE PT ON BIPAP
--- NOTE | 2016-03-29 18:50 | NUR ---
PT'S SISTER CAIO AND PT'S DAUGHTER RAKEL AT BEDSIDE. PER CAIO SHE WANTS BIPAP FOR HER SISTER IF NEEDED BUT NO IN TUBATION STATED IN THE ADVANCE DIRECTIVES.
--- NOTE | 2016-03-29 18:53 | NUR ---
DR. HINTON (OPERATIONS RESEARCH ENGINEER FOR DR. KAMINSKI) CALLED AND NOTIFIED OF SISTER'S WISHES.
--- NOTE | 2016-03-29 19:15 | NUR ---
PT. RESTING QUIETLY . NO DISTRESS NOTE. REPORT GIVE TO CHAR CORONA,
--- NOTE | 2016-03-29 19:30 | NUR ---
RECEIVED REPORT FROM CHLOE MURRY. AT BEDSIDE, PATIENT IS LETHARGIC, APHASIC, LEGALLY BLIND ON BOTH EYES. NO SIGNS OF ACUTE DISTRESS NOTED AT THIS TIME. BRONCHI LUNG SOUNDS. ETT TUBE REMOVED EARLY TODAY, PATIENT IS COUGHING A LOT, RT WORKING WITH HER AT BEDSIDE, ON O2 AT 3L VIA NC AT THIS TIME. ST ON SURGICAL SERVICES ASST. NGT TO LEFT NARE IN PLACE. ON TUBE FEEDING WITH NOVASOURCE RENAL AT 40ML/HR WITH WATER FLUSH 50ML Q6H, RESIDUE 0 ML, TOLERATED WELL. FLACC 0. ACTIVE BOWEL SOUNDS. IV TO RIGHT HAND #22, SL. AFEBRILE, SKIN IS WARM AND DRY TO TOUCH. PRESSURE ULCER ON SACRAL AREA NOTED, (SEE WOUND ASSESSMENT), LEFT UPPER ARM AV SHUNT NOTED WITH BRUIT AND THRILL PRESENT. INCONTINENT WITH B&B'S, NOT ABLE TO MOVE ALL EXTREMITIES. SCD'S ON BLE FOR DVT PREVENTION. ON CONTACT ISOLATION, SAFETY PRECAUTIONS IN PLACE, CALL LIGHT WITHIN REACH, FAMILY MEMBERS AT BEDSIDE, WILL CONTINUE TO MONITOR.
--- NOTE | 2016-03-29 20:15 | NUR ---
PATIENT IS COUGHING WITH WHITE MUCUS, SUCTION PROVIDED, POSITION CHANGED FOR OFF LOAD PRESSURE, ORAL CARE PROVIDED, WILL CONTINUE TO MONITOR.
[2016-03-29] MEDS: SIMVASTATIN 20 MG TAB PO SCH (20:49)
--- NOTE | 2016-03-29 21:00 | NUR ---
SCHEDULED MEDICATION GIVEN VIA NGT, PATIENT TOLERATED WELL.
--- NOTE | 2016-03-29 21:10 | NUR ---
SPOKE WITH THE FAMILY REGARDING THE BIPAP. PT IS ON 3LPM NC AT THIS TIME, TOLERATING WELL. SP02 99%, NO SIGN OF DISTRESS NOTED AT THIS TIME. ABG WAS DONE, RESULTS ARE WITHIN NORMAL LIMITS. BIPAP ON STANDBY, FAMILY IS AWARE. PT ABLE TO COUGH SML AMT OF THICK/THIN CREAM SECRETIONS. ADMINISTERED HHNTX TOLERATED WELL. WILL CONT TO MONITOR.
--- NOTE | 2016-03-29 21:20 | NUR ---
PER EMAIL PRODUCER, FAMILY IS NOT HAPPY WITH WHAT HAD HAPPEN EARLIER AND CAIO, THE SISTER OF THE PATIENT WANTED TO TALK TO THE DOCTOR. PAGED DR. HINTON, REPORTING DEVELOPER DOCTOR OF DR. QUINTERO.
--- NOTE | 2016-03-29 21:35 | NUR ---
RECEIVED A CALL BACK FROM DR. HINTON, MADE HIM AWARE OF THE SISTER'S CONCERN, DR. HINTON SPOKE TO CAIO, THE SISTER.
--- NOTE | 2016-03-29 21:45 | NUR ---
DR. HINTON TALKING TO VESSEL SCRAPPER HELPER ON THE PHONE.
--- NOTE | 2016-03-29 22:00 | NUR ---
NO CHANGE OF CONDITION AT THIS TIME, PATIENT STILL COUGHING OCCASIONALLY, SUCTION PROVIDED NEEDED, NO FEVER, NO DISTRESS NOTED. FAMILY MEMBERS AT BEDSIDE, WILL CONTINUE TO MONITOR.
--- NOTE | 2016-03-29 23:10 | NUR ---
SPOKE TO CAIO THE SISTER TO CLARIFY THE RECENT CODE STATUS FORM SIGNED BY RAKEL AND HER DATED 03/04/16 STATED ON THE FORM VERSUS THE ADVANCED DIRECTIVE DATED 06/17/15. MARIN RN IN CHARGE OF THE PATIENT IS PRESENT AT THIS TIME.. BUT CAIO, THE SISTER WAS NOT HAPPY ABOUT ASKING HER ABOUT IT. CAIO LOOKED AT THE PAPER BUT DID NOT CONFIRM ANYTHING THEN LEFT THE UNIT. CARPENTER APPRENTICE IS AWARE OF THE SAID INCIDENT.
[2016-03-30] VITALS (12 sets, daily range): BP systolic 95–168; BP diastolic 52–115
--- NOTE | 2016-03-30 | NUR ---
NO CHANGE OF CONDITION AT THIS TIME, POSITION CHANGED FOR OFF LOAD PRESSURE.
[2016-03-30] MEDS: ALBUTEROL SULFATE/IPRATROPIU 3 ML SOL IH SCH ×7 (00:01→22:44)
--- NOTE | 2016-03-30 00:14 | NUR ---
ADMINISTERED HHNTX, NTS MOD AMT OF THICK YEL CREAM SECRETIONS ON THE RIGHT NARES, TOLERATED WELL. PLACED BACK ON 3LPM NC, ADDED BUBBLE HUMIDIFIER. TOLERATED WELL.
[2016-03-30] MEDS: Z-GUARD PASTE TP SCH ×2 (01:00→12:04)
--- NOTE | 2016-03-30 02:00 | NUR ---
NO CHANGE OF CONDITION AT THIS TIME, PATIENT STILL COUGHING WITH MUCOUS, SUCTION PROVIDED. POSITION CHANGED FOR OFF LOAD PRESSURE, WILL CONTINUE TO MONITOR.
--- NOTE | 2016-03-30 04:00 | NUR ---
AM CARE PROVIDED, ORAL CARE PROVIDED, NO CHANGE OF CONDITION AT THIS TIME, HAD A SMALL YELLOWISH STOOL, BEVERLY CARE PROVIDED, WOUND CARE PROVIDED, DRESSING CHANGED, POSITION CHANGED FOR OFF LOAD PRESSURE, WILL CONTINUE TO MONITOR.
--- NOTE | 2016-03-30 04:53 | NUR ---
PT REMAINS ON 3LPM NC WITH BUBBLE HUMIDIFIER, SP02 100%, TOLERATING WELL. NO RESP DISTRESS NOTED. BIPAP ON STANDBY. SISTER AT BEDSIDE.
--- NOTE | 2016-03-30 06:00 | NUR ---
NO CHANGED OF CONDITION AT THIS TIME, SUCTION PROVIDED NEEDED, SISTER AT BEDSIDE, POSITION CHANGED FOR OFF LOAD PRESSURE, WILL CONTINUE TO MONITOR.
[2016-03-30] MEDS: FOAM DRESSING TP PRN (06:43)
[2016-03-30] MEDS: BLOOD GLUCOSE MONITORING 1 DEV DEV FS SCH ×4 (06:58→21:05)
[2016-03-30] MEDS: INSULIN ASPART SLIDING SCALE 100 UNITS/ML VIAL SUBQ PRN ×4 (06:59→21:14)
--- NOTE | 2016-03-30 07:13 | NUR ---
REPORT GIVEN TO ELLA FOR CONTINUE OF CARE. PATIENT IS RESTING IN BED, NO CHANGE OF CONDITION AT THIS TIME.
--- NOTE | 2016-03-30 07:15 | NUR ---
RECEIVED REPORT FROM CHLOE PARDO. NO SIGNS OF ACUTE DISTRESS NOTED, FLACC 0. PT IS ON O2 3L/MIN NC. IV TO RIGHT HAND #22 PATENT AND INTACT. LEFT UPPER ARM AV SHUNT WITH THRILL AND BRUIT PRESENT. WOUND NOTED TO SACRUM, DRESSING DRY AND INTACT. NGT TO LEFT NARE IN PLACE TO TUBE FEEDING. SAFETY PRECAUTIONS IN PLACE WITH BED IN LOWEST POSITION AND SIDE RAILS UP X2. CALL LIGHT WITHIN REACH. PT IS ON CONTACT ISOLATION WITH SIGNS POSTED OUTSIDE OF PT'S ROOM. PT IS CURRENTLY SINUS RHYTHM ON THE MONITOR. WILL CONTINUE TO MONITOR.
--- NOTE | 2016-03-30 07:34 | NUR ---
RECEIVED ON HUMIDIFIED SUPPLEMENTAL OXYGEN FUNCTIONING WELL AT 3 LPM VIA NASAL CANNULA LOC QUIET EYES CLOSED RESPONSIVE TO STIMULUS HOB GREATER THAN 30 DEGREES BREATH SOUNDS INSP/EXP ORAL PHARYNGEAL SUCTION FOR SMALL THICK YELLOW SECRETIONS HHN THERAPY GIVEN ORDERED TOLERATED WELL WITHOUT INCIDENT BIPAP VISION AT BEDSIDE FOR PRN RESPIRATORY DISTRESS
--- NOTE | 2016-03-30 07:45 | NUR ---
CHECKED TUBE FEEDING RESIDUAL: NONE NOTED. ADMINISTERED MEDICATION ORDERED. PT TOLERATED WELL.
--- NOTE | 2016-03-30 07:57 | NUR ---
PAGED DR. GROSSMAN REGARDING HD ORDERS. AWAITING CALLBACK.
--- NOTE | 2016-03-30 07:59 | NUR ---
RECEIVED CALLBACK FROM DR. GROSSMAN. HD RN PRESENT AT BEDSIDE FOR SCHEDULED DIALYSIS TREATMENT
[2016-03-30] MEDS: METOCLOPRAMIDE 10 MG TAB PO SCH ×3 (08:13→17:01)
[2016-03-30] MEDS: FOLIC ACID 1 MG TAB PO SCH (08:13)
[2016-03-30] MEDS: SACCHAROMYCES 250 MG CAP PO SCH ×2 (08:13→21:03)
[2016-03-30] MEDS: levETIRAcetam 100 MG/ML ORASYR GT SCH ×2 (08:13→21:03)
[2016-03-30] MEDS: FAMOTIDINE 20 MG TAB PO SCH (08:13)
[2016-03-30] MEDS: VIT-B COMP/VIT-C/FOLIC ACID 1 TAB PO SCH (08:14)
--- NOTE | 2016-03-30 08:48 | NUR ---
CALL [employer]PER[employer], REGARDING FOLLOW UP EVAL. NO ANSWER, LEFT MESSAGE.
[2016-03-30] MEDS: ACETAMINOPHEN 325 MG TAB PO PRN (09:29)
--- NOTE | 2016-03-30 09:40 | NUR ---
PT'S SISTER, CAIO, PRESENT AT BEDSIDE. Addendum: 03/30/16 at 0942 by Sharon Melchor RN CHARTED PT'S SISTER CAIO IN ERROR. PT'S SISTER, AAKASH, PRESENT AT BEDSIDE.
--- NOTE | 2016-03-30 09:40 | NUR ---
PT HAS FACIAL GRIMACING, FLACC 1. CHECKED TUBE FEEDING RESIDUAL: NONE NOTED. ADMINISTERED TYLENOL ORDERED PRN. PT TOLERATED WELL. WILL REASSESS.
--- NOTE | 2016-03-30 09:45 | NUR ---
PT'S SIGNIFICANT OTHER PRESENT AT BEDSIDE.
--- NOTE | 2016-03-30 09:46 | NUR ---
PT HAD CLEAR YELLOW URINE ELIMINATION. PROVIDED HYGIENE CARE, TURNED AND REPOSITIONED FOR COMFORT.
--- NOTE | 2016-03-30 10:34 | NUR ---
PT'S DAUGHTER, RAKEL, PRESENT AT BEDSIDE. PT'S SISTER, CAIO, ALSO IN TO SEE THE PT.
--- NOTE | 2016-03-30 11:31 | NUR ---
PT COUGHING, SUCTIONED SMALL AMOUNT OF WHITE SPUTUM, PT TOLERATED WELL. O2 SAT: 100%. PT'S SIGNIFICANT OTHER PRESENT AT BEDSIDE. CONTINUES TO RECEIVE HEMODIALYSIS TREATMENT AT THIS TIME. WILL CONTINUE TO MONITOR.
--- NOTE | 2016-03-30 11:48 | NUR ---
DR. KAMINSKI IN TO SEE PT. WILL FOLLOW UP ON ORDERS.
--- NOTE | 2016-03-30 11:49 | NUR ---
PAGED DR. PONCE REGARDING ELEVATED WBC: 22.4 AND IF PT TO BE REPLACED ON IV ABX. AWAITING CALLBACK.
--- NOTE | 2016-03-30 12:10 | NUR ---
CHECKED TUBE FEEDING RESIDUAL: NONE NOTED. ADMINISTERED MEDICATION ORDERED. PT TOLERATED WELL.
--- NOTE | 2016-03-30 12:30 | NUR ---
HEMODIALYSIS IN PROGRESS TECH REQUEST HHN THERAPY BE GIVEN AT 0100 PATIENT PRESENTING WITH NO DISTRESS NOTED
--- NOTE | 2016-03-30 13:07 | NUR ---
HEMODIALYSIS TREATMENT COMPLETE, PT TOLERATED WELL. 2.3L OUTPUT.
--- NOTE | 2016-03-30 13:08 | NUR ---
PT'S SISTER, AAKASH, IN TO SEE PT.
--- NOTE | 2016-03-30 13:10 | NUR ---
WOUND CARE NOTES: SEEN PATIENT FOR FOLLOW UP. PLEASE REFER TO WOUND ASSESSMENT FLOWSHEET FOR UPDATED ENTRY. WILL CONTINUE CURRENT PLAN OF CARE. WILL CONTINUE TO MONITOR PATIENT.
--- NOTE | 2016-03-30 13:22 | NUR ---
HEMODIALYSIS DONE RN'S AT BEDSIDE FOR PHYSICAL HYGIENE AND REPOSITION
--- NOTE | 2016-03-30 13:30 | NUR ---
IRONWORKER WIRE FENCE ERECTOREUGENE, IN TO SEE PT FOR WOUND CARE RE-EVALUATION. PHOTOS TAKEN AND PLACED IN PT'S CHART. WILL FOLLOW UP ON ORDERS.
--- NOTE | 2016-03-30 13:34 | NUR ---
PT HAD BOWEL MOVEMENT, SMEAR, BROWN IN COLOR. PROVIDED HYGIENE CARE AND TURNED AND REPOSITIONED FOR COMFORT.
--- NOTE | 2016-03-30 13:35 | NUR ---
RECEIVED CALLBACK FROM DR. PONCE. PER DR. PONCE, WILL BE IN LATER TODAY TO SEE PT.
--- NOTE | 2016-03-30 13:47 | NUR ---
PT'S SIGNIFICANT OTHER PRESENT AT BEDSIDE.
--- NOTE | 2016-03-30 14:03 | NUR ---
RESTING COMFORTABLY NO APPARENT RESPIRATORY DISTRESS NOTED BREATH SOUNDS RHONCHI BILATERAL GOOD CHEST RISE ORAL PHARYNGEAL SUCTION FOR MODERATE THICK YELLOW SECRETIONS AIRWAY PATENT VISION BIPAP AT BEDSIDE HUMIDIFIED SUPPLEMENTAL OXYGEN ON AND FUNCTIONING WELL 3 LPM NC SATURATION 100% FAMILY MEMBER IN ROOM Addendum: 03/30/16 at 1419 by Alexandre Kenny RT EQUIPMENT CHANGED: HHN, MASK AND NASAL CANNULA
--- NOTE | 2016-03-30 14:41 | NUR ---
DR. GROSSMAN IN TO SEE PT. WILL FOLLOW UP ON ORDERS. PT'S NEPHEW, DIVYA, PRESENT AT BEDSIDE.
--- NOTE | 2016-03-30 16:08 | NUR ---
NO DISTRESS NOTED BREATH SOUNDS DIMINISHED BILATERAL GOOD CHEST RISE HHN THERAPY GIVEN ORDERED TOLERATED WELL WITHOUT INCIDENT STRONG MOIST PRODUCTIVE COUGH ORAL PHARYNGEAL SUCTION FOR LARGE THICK YELLOW SECRETIONS AIRWAY HUMIDIFIED SUPPLEMENTAL OXYGEN AT 3 LPM VIA NASAL CANNULA ON AND FUNCTIONING WELL BIPAP VISION AT BEDSIDE
--- NOTE | 2016-03-30 16:29 | NUR ---
PT HAD CLEAR YELLOW URINE ELIMINATION. PROVIDED HYGIENE CARE, TURNED AND REPOSITIONED FOR COMFORT.
--- NOTE | 2016-03-30 17:10 | NUR ---
CHECKED TUBE FEEDING RESIDUAL: NONE NOTED. ADMINISTERED MEDICATION ORDERED. PT TOLERATED WELL.
--- NOTE | 2016-03-30 18:15 | NUR ---
IV TO RIGHT HAND #22 IS NO LONGER ACCESSIBLE, DC'ED WITH CANNULA INTACT. NEW IV STARTED TO RIGHT HAND #24, PATENT AND INTACT.
[2016-03-30] MEDS: LEVOFLOXACIN 500 MG/D5W PREMIX 100 ML IV SCH (18:26)
--- NOTE | 2016-03-30 18:33 | NUR ---
PT TOLERATED MEDS WELL. PT'S NEPHEWMAYRA, PRESENT AT BEDSIDE.
[2016-03-30] MEDS: NACL 0.9% 250 ML IV SCH (18:34)
--- NOTE | 2016-03-30 19:11 | NUR ---
ENDORSED CARE TO CHLOE SADLER. PT IN STABLE CONDITION
--- NOTE | 2016-03-30 19:48 | NUR ---
RECEIVED REPORT FROM ELLA CORONA. PATIENT IS SLEEPING IN BED. PATIENT IS LEGALLY BLIND. PATIENT DOES NOT RESPOND TO NAME AND WITHDRAWS TO LIGHT PAIN. THERE IS NO S/S OF RESPIRATORY DISTRESS OR SOB NOTED. PATIENT IS RECEIVING HUMIDIFIED OXYGEN VIA NASAL CANNULA AT 3LPM. RHONCHI HEARD UPON AUSCULTATION AND BOWEL SOUNDS ARE HYPOACTIVE. THERE IS A NGT IN PLACE. PATIENT IS RECEIVING NGT FEEDING OF NOVOSOURCE RENAL AT 40ML/HR. PATIENT TOLERATING FEEDING WELL WITH NO RESIDUAL NOTED. SCDS IN PLACE FOR VTE PROPHYLAXIS. THERE IS A #24 IN THE RIGHT THUMB RECEIVING NORMAL SALINE AT 5ML/HR TKO AND THERE IS AN AV SHUNT IN THE PATIENT'S LEFT UPPER ARM FOR HEMODIALYSIS. HOB AT 30 DEGREES WITH BED IN LOW POSITION. SIDE RAILS UP X2. CONTINUE TO MONITOR PATIENT.
--- NOTE | 2016-03-30 19:59 | NUR ---
PATIENT'S SISTER CAIO AT BEDSIDE.
--- NOTE | 2016-03-30 20:26 | NUR ---
PATIENT'S SISTER CAIO LEFT UNIT.
[2016-03-30] MEDS: SIMVASTATIN 20 MG TAB PO SCH (21:03)
--- NOTE | 2016-03-30 21:16 | NUR ---
PATIENT TOLERATED SCHEDULED MEDICATION ADMINISTRATION. PATIENT REPOSITIONED FOR COMFORT. SUCTIONED ORAL SECRETIONS. SMALL AMOUNT OF CREAMY SPUTUM NOTED. NO S/S OF SOB OR RESPIRATORY DISTRESS NOTED. HOB AT 30 DEGREES WITH BED IN LOW POSITION. CONTINUE TO MONITOR PATIENT.
--- NOTE | 2016-03-30 21:34 | NUR ---
DR. PONCE PRESENT IN UNIT. PROVIDED STATUS UPDATE TO MD. NO NEW ORDERS GIVEN AT THIS TIME. CONTINUE TO MONITOR.
--- NOTE | 2016-03-30 22:45 | NUR ---
RESPIRATORY THERAPIST AT BEDSIDE.
[2016-03-31] VITALS (12 sets, daily range): BP systolic 120–160; BP diastolic 71–87
--- NOTE | 2016-03-31 00:05 | NUR ---
PATIENT REPOSITIONED FOR COMFORT. SUCTIONED ORAL CAVITY. SMALL AMOUNT OF CREAMY SPUTUM NOTED. ORAL CARE RENDERED. HOB AT 30 DEGREES WITH BED IN LOW POSITION. CONTINUE TO MONITOR PATIENT.
[2016-03-31] MEDS: Z-GUARD PASTE TP SCH ×2 (01:00→12:59)
--- NOTE | 2016-03-31 02:52 | NUR ---
PATIENT REPOSITIONED FOR COMFORT. NO S/S OF SOB NOTED. HOB AT 30 DEGREES WITH BED IN LOW POSITION. CONTINUE TO MONITOR.
[2016-03-31] MEDS: ALBUTEROL SULFATE/IPRATROPIU 3 ML SOL IH SCH ×6 (03:23→23:02)
--- NOTE | 2016-03-31 03:27 | NUR ---
RESPIRATORY THERAPIST AT BEDSIDE ADMINISTERING SCHEDULED BREATHING TX.
--- NOTE | 2016-03-31 04:56 | NUR ---
MORNING CARE GIVEN. BED BATH PROVIDED. PATIENT'S GOWN AND BED LINENS CHANGED. REPOSITIONED PATIENT FOR COMFORT. ORAL CARE RENDERED. HOB AT 30 DEGREES WITH BED IN LOW POSITION. CONTINUE TO MONITOR PATIENT.
--- NOTE | 2016-03-31 05:10 | NUR ---
DOT COMPLIANCE COORDINATOR AT BEDSIDE FOR SCHEDULED LAB DRAWS.
--- NOTE | 2016-03-31 06:22 | NUR ---
PATIENT SLEEPING IN BED. NO CHANGES IN PATIENT'S CONDITION. CONTINUE TO MONITOR PATIENT.
[2016-03-31] MEDS: BLOOD GLUCOSE MONITORING 1 DEV DEV FS SCH ×4 (06:30→20:42)
--- NOTE | 2016-03-31 06:39 | NUR ---
SUCTIONED SMALL AMOUNT OF YELLOW CREAMY SPUTUM.
[2016-03-31] MEDS: INSULIN ASPART SLIDING SCALE 100 UNITS/ML VIAL SUBQ PRN ×4 (06:41→21:07)
--- NOTE | 2016-03-31 07:16 | NUR ---
ENDORSED CONTINUITY OF CARE TO YA CORONA.
--- NOTE | 2016-03-31 07:30 | NUR ---
RECEIVED ON HUMIDIFIED SUPPLEMENTAL OXYGEN ON AND FUNCTIONING WELL AT 3 LPM VIA NASAL CANNULA TOLERATING WELL WITHOUT INCIDENT LOC QUIET EYES CLOSED RESPONSIVE TO STIMULUS BREATH SOUNDS COARSE RHONCHI BILATERAL USING STERILE TECHNIQUE NASO TRACHEAL X 2 AT RIGHT NARES FOR COPIOUS THICK YELLOW SECRETIONS TOLERATED PROCEDURE WELL WITHOUT ADVERSE REACTIONS NOTED HHN THERAPY GIVEN ORDERED TOLERATED WELL WITHOUT INCIDENT BIPAP VISION IN ROOM FOR PRN RESPIRATORY DISTRESS
--- NOTE | 2016-03-31 07:40 | NUR ---
RECEIVED PT FROM INVOICE CHECKER CHLOE SADLER. PT IS UNRESPONSIVE TO NAME OR LIGHT PAIN STIMULI. MONITOR SHOWS ST. NO S/S OF RESPIRATORY DISTRESS NOTED. PATIENT IS RECEIVING HUMIDIFIED OXYGEN VIA NASAL CANNULA AT 3L/MIN. RHONCHI HEARD UPON AUSCULTATION . NGT IN PLACE. ABDOMEN SOFT BOWEL SOUNDS ARE HYPOACTIVE. PATIENT IS RECEIVING NGT FEEDING OF NOVOSOURCE RENAL AT 40ML/HR. NO RESIDUAL. SCDS IN PLACE FOR VTE PROPHYLAXIS. IV TO RIGHT THUMB #24 RECEIVING NORMAL SALINE AT 5ML/HR TKO AND THERE IS AN AV SHUNT IN THE PATIENT'S LEFT UPPER ARM FOR HEMODIALYSIS. HOB AT 30 DEGREES WITH BED IN LOW POSITION. SIDE RAILS UP X2. ORAL CARE GIVEN .CONTINUE TO MONITOR PATIENT. Addendum: 03/31/16 at 1756 by Rosalba Avalos RN NG TUBE FEEDING FREE H2O FLUSH 50 ML Q6H. PT ON THERAPEUTIC MATTRESS.
[2016-03-31] MEDS: ACETAMINOPHEN 325 MG TAB PO PRN (08:16)
[2016-03-31] MEDS: levETIRAcetam 100 MG/ML ORASYR GT SCH ×2 (08:24→20:43)
[2016-03-31] MEDS: FOLIC ACID 1 MG TAB PO SCH (08:25)
[2016-03-31] MEDS: METOCLOPRAMIDE 10 MG TAB PO SCH ×3 (08:25→16:32)
[2016-03-31] MEDS: VIT-B COMP/VIT-C/FOLIC ACID 1 TAB PO SCH (08:25)
[2016-03-31] MEDS: FAMOTIDINE 20 MG TAB PO SCH (08:25)
[2016-03-31] MEDS: SACCHAROMYCES 250 MG CAP PO SCH ×2 (08:25→20:43)
--- NOTE | 2016-03-31 10:00 | NUR ---
REPOSITIONED PT. NO S/S OF RESPIRATORY DISTRESS NOTED. PT IS UNRESPONSIVE TO NAME OR LIGHT PAIN STIMULI.
--- NOTE | 2016-03-31 11:37 | NUR ---
CM NOTE INITIAL REVIEW FAXED TO [facility] / FAX# [phone], ATTN: July [phone]
--- NOTE | 2016-03-31 12:10 | NUR ---
REPOSITIONED PT, ORAL CARE GIVEN. PT IS UNRESPONSIVE TO NAME. RESPONSIVE TO PAIN STIMULI. NO S/S OF RESPIRATORY DISTRESS NOTED.
--- NOTE | 2016-03-31 12:13 | NUR ---
LOC QUIET BREATH SOUNDS RHONCHI BILATERAL GOOD CHEST RISE USING STERILE TECHNIQUE NASO TRACHEAL RIGHT NARES X2 FOR LARGE THICK YELLOW SECRETIONS HHN THERAPY GIVEN ORDERED TOLERATED WELL WITHOUT INCIDENT BIPAP VISION IN ROOM FOR PRN RESPIRATORY DISTRESS
--- NOTE | 2016-03-31 13:35 | NUR ---
DR. KAMINSKI IN TO SEE PT, UPDATED PT'S CONDITION. WILL FOLLOW UP.
--- NOTE | 2016-03-31 14:47 | NUR ---
NOTIFIED DR. KAMINSKI REGARDING PT IS ALLERGIC TO CODEINE ,PHARMACY RECOMMENDED NOT TO GIVE NORCO. PER DR. KAMINSKI LEAVE THE NORCO IT IS.
--- NOTE | 2016-03-31 14:50 | NUR ---
NOTIFIED KATHE PHARMACIST REGARDING LEAVING THE LONGTON ORDER IT IS.
--- NOTE | 2016-03-31 15:25 | NUR ---
SPOKE TO DR. GROSSMAN, NEW ORDER OF HEMODIALYSIS RECEIVED, WILL CARRY OUT NEW ORDER.
--- NOTE | 2016-03-31 15:48 | NUR ---
SPOKE TO STONER REGARDING HEMODIALYSIS SCHEDULE FOR TOMORROW 04/01/16, PER STONER NO SPECIFIC TIME SCHEDULED, THEY WILL DO HEMODIALYSIS ANYTIME TOMORROW.
[2016-03-31] MEDS: FOAM DRESSING TP SCH (16:28)
--- NOTE | 2016-03-31 16:59 | NUR ---
ORAL CARE GIVEN. DRESSING CHANGED. REPOSITIONED PT. NO S/S OF RESPIRATORY DISTRESS NOTED.
--- NOTE | 2016-03-31 17:55 | NUR ---
PT HAD SMALL AMOUNT OF SOFT BROWN STOOL. BEVERLY CARE GIVEN, APPLIED Z-GUARD TO BEVERLY ANAL. REPOSITIONED PATIENT, OFF LOAD PRESSURE AREA. NO CHANGE IN NEURO STATUS OR CARDIAC STATUS. CONTINUE ON O2 NC AT 3L/MIN. O2 SAT 99%.NO S/S OF RESPIRATORY DISTRESS.NG TUBE IN PLACE, CONTINUE WITH THE SAME TUBE FEEDING, WILL CONTINUE TO MONITOR PT.
--- NOTE | 2016-03-31 18:25 | NUR ---
PT'S DAUGHTER AT BEDSIDE. UPDATED PT CONDITION, QUESTIONS ANSWERED. REPOSITIONED PT. NO S/S OF RESPIRATORY DISTRESS NOTED.
--- NOTE | 2016-03-31 18:54 | NUR ---
SPOKE TO DR. BROWN AND INFORMED REGARDING MEDICATIONS THAT WILL FALL OFF THE SYSTEM. NO NEW ORDERS RECEIVED.
[2016-03-31] MEDS: Z-GUARD PASTE TP PRN (19:27)
--- NOTE | 2016-03-31 19:27 | NUR ---
PT HAD SMALL AMOUNT OF URINE OUTPUT. PAD CHANGED,CLEANED PT. REPORT GIVEN TO LORENA CORONA.
--- NOTE | 2016-03-31 19:56 | NUR ---
NO DISTRESS O2 3L NC RR RATE 20-30 NO SOB IN BED BR UP TOLERATING FEEDING NGT IN IV OK TURNED, CLEANED WITH 2 RN'S
--- NOTE | 2016-03-31 20:12 | NUR ---
PER DR STEPHANIE PANDYA AWARE OF MEDS EXPIRING
[2016-03-31] MEDS: NACL 0.9% 250 ML IV SCH (20:23)
[2016-03-31] MEDS: SIMVASTATIN 20 MG TAB PO SCH (20:43)
[2016-04-01] VITALS (13 sets, daily range): BP systolic 107–187; BP diastolic 68–95
[2016-04-01] MEDS ORDERED: DEXTROSE 50% 50 ML SYR IVP PRN (00:20)
[2016-04-01] MEDS: Z-GUARD PASTE TP SCH ×2 (00:24→12:13)
[2016-04-01] MEDS: ALBUTEROL SULFATE/IPRATROPIU 3 ML SOL IH SCH ×6 (03:06→23:23)
[2016-04-01] MEDS: BLOOD GLUCOSE MONITORING 1 DEV DEV FS SCH ×4 (05:57→20:37)
[2016-04-01] MEDS: HYDROcodone/APAP 5/325 MG 1 TAB TAB PO PRN ×2 (05:58→12:22)
[2016-04-01] MEDS: INSULIN ASPART SLIDING SCALE 100 UNITS/ML VIAL SUBQ PRN ×4 (06:00→21:48)
--- NOTE | 2016-04-01 07:00 | NUR ---
RECEIVED PT ON 3L NASAL CANNULA. SPO2 100%. B/S RHONCHI HEARD ON AUSCULTATION. BIPAP IS BEDSIDE NOT INDICATED AT THIS TIME. PT NOT SOB AND NOT IN RESPIRATORY DISTRESS. PT RECEIVED SCHEDULED BREATHING TX WITH NO ADVERSE REACTIONS NOTED. WILL CONTINUE TO MONITOR.
--- NOTE | 2016-04-01 07:20 | NUR ---
RECEIVED REPORT FROM CHLOE CARRILLO. NO SIGNS OF ACUTE DISTRESS AT THIS TIME, FLACC 0. PT RESPONDS TO LIGHT PAIN, IS LEGALLY BLIND. PT IS ON O2 3L/MIN NC. IV TO RIGHT HAND #24 PATENT AND INTACT. WOUND NOTED TO SACRUM. NGT TO LEFT NARE SECURE TO TUBE FEEDING. LEFT UPPER ARM AV SHUNT, THRILL AND BRUIT PRESENT. PT IS CURRENTLY SINUS TACH ON THE MONITOR. SAFETY PRECAUTIONS IN PLACE WITH BED IN LOWEST POSITION AND SIDE RAILS UP X2. CALL LIGHT WITHIN REACH. PT IS ON CONTACT ISOLATION WITH SIGNS POSTED.
--- NOTE | 2016-04-01 07:34 | NUR ---
DR. KAMINSKI IN TO SEE PT. WILL FOLLOW UP ON ORDERS.
--- NOTE | 2016-04-01 07:40 | NUR ---
HD RNPEDRO, AT BEDSIDE FOR PT'S DIALYSIS TREATMENT ORDERED.
[2016-04-01] MEDS ORDERED: ALBUTEROL 0.083% 2.5 MG/3 ML NEBU INH PRN (07:55)
[2016-04-01] MEDS ORDERED: ONDANSETRON 4 MG/2 ML VIAL IVP PRN (07:55)
[2016-04-01] MEDS: SACCHAROMYCES 250 MG CAP PO SCH ×2 (08:16→20:36)
[2016-04-01] MEDS: VIT-B COMP/VIT-C/FOLIC ACID 1 TAB PO SCH (08:16)
[2016-04-01] MEDS: levETIRAcetam 100 MG/ML ORASYR GT SCH ×2 (08:16→20:35)
[2016-04-01] MEDS: FOLIC ACID 1 MG TAB PO SCH (08:16)
[2016-04-01] MEDS: METOCLOPRAMIDE 10 MG TAB PO SCH ×3 (08:17→17:09)
[2016-04-01] MEDS: FAMOTIDINE 20 MG TAB PO SCH (08:17)
--- NOTE | 2016-04-01 08:26 | NUR ---
CHECKED TUBE FEEDING RESIDUAL: NONE NOTED, ADMINISTERED MEDICATION ORDERED. PT TOLERATED WELL.
--- NOTE | 2016-04-01 09:15 | NUR ---
SS NOTE: NICK Baker and I spoke with RONEL Aguilera from [facility] to obtain advice on whether they are able to provide intervention once a pt has been hospitalized. I provided him with general information regarding pts case without any identifying factors. He stated that once a pt is hospitalized, pt is considered to be in a safe place and they do not normally intervene unless pt is considered to be in an unsafe environment. He also stated that as far as medical treatment disputes, that would be considered more of a legal issue so they would not provide intervention for those.
--- NOTE | 2016-04-01 09:59 | NUR ---
PT CONTINUES TO RECEIVE HD TREATMENT. NO ISSUES OR SIGNS OF ACUTE DISTRESS, FLACC 0. WILL CONTINUE TO MONITOR.
--- NOTE | 2016-04-01 10:24 | NUR ---
PT'S SISTER, CAIO, IN TO SEE PT.
--- NOTE | 2016-04-01 11:56 | NUR ---
HEMODIALYSIS TREATMENT COMPLETE. 2.5 L OUTPUT. PT TOLERATED WELL.
--- NOTE | 2016-04-01 12:00 | NUR ---
BUSINESS SYSTEMS TECHNICIAN, ICU DIRECTOR AND I MET WITH MS. CAIO MOISE, PATIENT'S SISTER TO ACKNOWLEDGE AND LISTEN TO HER GRIEVANCES. WHEN MS. MOISE WAS ASKED WHAT DID SHE WANT FROM THE HOSPITAL TO DO TO RESOLVE HER CONCERNS AND GRIEVANCES, SHE STATED SHE WANTS TO TRANSFER THE PATIENT TO [facility] AND WOULD LIKE TO SPEAK TO LAKESHA FROM [facility] TO FIND OUT WHY WAS THE INITIAL REQUEST FOR TRANSFER WAS DENIED. WE ACKNOWLEDGED HER WISHES AND SHE LEFT IN A [place] TO GO TO HER OTHER APPOINTMENT.
--- NOTE | 2016-04-01 12:03 | NUR ---
04/01/16 RD FOLLOW UP COMPLETED PLEASE REFER TO NUTRITION PROGRESS NOTE UNDER CARE ACTIVITY FOR ESTIMATED NUTRITION NEEDS. RD RECOMMENDATIONS: 1. CONTINUE TUBE FEEDING NOVASOURCE RENAL AT 40 ML/HR VIA NGTUBE --MEETING 100% OF PT ESTIMATED KCAL AND PROTEIN NEEDS --NOTE PT WITH NG TUBE L NARE SINCE 03/04/16 2. CONSIDER GTUBE FOR CARE HOME NUTRITION SUPPORT NEEDS 3. RD WILL F/U 2-3 DAYS; HIGH RISK. REYES D[address]AZ RD
--- NOTE | 2016-04-01 12:16 | NUR ---
SPOKE TO [facility] TO FACILITATE MS. JORDAN'S REQUEST TO SPEAK TO [facility] REP CROWDER.
--- NOTE | 2016-04-01 12:24 | NUR ---
PT HAS FACIAL GRIMACING, FLACC 1. CHECKED TUBE FEEDING RESIDUAL: NONE NOTED, ADMINISTERED NORCO ORDERED PRN. PT TOLERATED WELL. WILL REASSESS.
--- NOTE | 2016-04-01 13:40 | NUR ---
DR. AVALOS IN TO SEE PT. WILL FOLLOW UP ON ORDERS.
--- NOTE | 2016-04-01 14:05 | NUR ---
SS NOTE: PER LAKESHA FROM [facility], TRANSPORT AUTH FOR [facility] IS [id number] IF PT IS ACCEPTED IN [facility] PROGRAM. SHE ALSO STATED THAT SHE IS WORKING ON GENERATING AN AUTH FOR [facility]. SHE REPORTED THAT SHE WILL CALL BACK ONCE IT HAS BEEN CONFIRMED THAT DR. MARILEE CRAVEN HAS ACCEPTED PT IN THEIR PROGRAM. Addendum: 04/01/16 at 1449 by Mamta Morales SS PER [facility] AUTH IS [id number]
--- NOTE | 2016-04-01 14:19 | NUR ---
FAXED CONCURRENT REVIEW TO [facility] [phone] PHONE LAKESHA [phone]
--- NOTE | 2016-04-01 14:42 | NUR ---
RECEIVED CALL FROM [facility] IN CASE [facility]GM[facility]. PER [facility], PAGED DR. QUINTERO REGARDING ORDER FOR TRANSFER TO [facility] PALLIATIVE CARE UNDER DR. CRAVEN, INFORMED DR. KAMINSKI TO CALLBACK.
--- NOTE | 2016-04-01 14:44 | NUR ---
RECEIVED CALLBACK FROM DR. KAMINSKI. NEW ORDERS RECEIVED.
--- NOTE | 2016-04-01 14:54 | NUR ---
FAXED INFORMATION TO [facility] [phone] PHONE [phone]
--- NOTE | 2016-04-01 15:14 | NUR ---
PT REMAINS ON 3L NASAL CANNULA. NO SOB NO RESPIRATORY DISTRESS NOTED AT THIS TIME.
--- NOTE | 2016-04-01 16:07 | NUR ---
SS NOTE: PER [facility] CHARLY CROWDER [facility] IS UNABLE TO ACCEPT A DIRECT ADMIT INTO THEIR PALLIATIVE CARE PROGRAM. SHE ALSO STATED THAT PT HAS TO BE PREVIOUSLY ACCEPTED BY THEIR MEDICAL TEAM. SHE REPORTED THAT SHE WILL TRY TO SEE IF THERE IS ANOTHER HOSPITAL WITH A PALLIATIVE PROGRAM.
--- NOTE | 2016-04-01 16:33 | NUR ---
DR. GROSSMAN IN TO SEE PT. WILL FOLLOW UP ON ORDERS.
[2016-04-01] MEDS: LEVOFLOXACIN 500 MG/D5W PREMIX 100 ML IV SCH (17:09)
--- NOTE | 2016-04-01 17:22 | NUR ---
CHECKED TUBE FEEDING RESIDUAL: NONE NOTED. ADMINISTERED MEDICATION ORDERED. PT TOLERATED WELL.
--- NOTE | 2016-04-01 19:05 | NUR ---
ENDORSED CARE TO CHLOE NUNEZ. PT IN STABLE CONDITION
--- NOTE | 2016-04-01 19:05 | NUR ---
RECEIVED PATIENT REPORT FROM DAY SHIFT CHLOE JARAMILLO. DNR, ON BAGGAGEMAN, SINUS TACHY. BOTH EYES BLIND, WITHDRAWS TO PAIN, WITH GAG REFLEX. RT ON THE BEDSIDE AT THE MOMENT. POST HD TODAY. OXYGEN AT 3LPM/NASAL CANNULA. NGT ON LEFT NARE RUNNING NOVASOURCE RENAL AT 40ML/HR, WATER FLUSH 50ML Q6H. WITH PERIPHERAL IV G24 ON RT. THUMB RUNNING NS AT TKO. WITH HD ACCESS LEFT UPPER ARM AV SHUNT. SCD ON BOTH LEGS. WITH SACRAL WOUND COVERED WITH DRESSING.
--- NOTE | 2016-04-01 20:00 | NUR ---
ORAL CARE GIVEN, BED IN LOW POSITION. ALARMS CHECKED. REPOSITION PATIENT. BEVERLY-CARE GIVEN.
[2016-04-01] MEDS: SIMVASTATIN 20 MG TAB PO SCH (20:36)
--- NOTE | 2016-04-01 21:00 | NUR ---
DR. PONCE CAME IN TO SEE PATIENT. INFORMED THAT PATIENT HAS NO FEVER NOTED. CONTINUE TO MONITOR.
--- NOTE | 2016-04-01 22:00 | NUR ---
OFF LOAD PRESSURES. NO RESIDUAL FROM NGT OR VOMITING. REPOSITION PATIENT.
[2016-04-02] VITALS (12 sets, daily range): BP systolic 132–160; BP diastolic 72–89
--- NOTE | 2016-04-02 | NUR ---
ORAL CARE GIVEN. REPOSITION DONE. SUCTIONING OF SECRETIONS DONE.
[2016-04-02] MEDS: Z-GUARD PASTE TP SCH ×2 (01:00→13:02)
--- NOTE | 2016-04-02 01:10 | NUR ---
RECEIVED CALL FROM [facility] TO FAXED PROGRESS NOTES THIS WEEK. FAXED PROGRESS NOTES TO [phone].
--- NOTE | 2016-04-02 02:00 | NUR ---
REPOSITION PATIENT. SUCTIONING OF SECRETIONS DONE. PERIPHERAL IV STILL INTACT.
--- NOTE | 2016-04-02 03:10 | NUR ---
SISTER CAIO AT THE BEDSIDE. QUESTIONS ANSWERED. SUCTIONING OF SECRETIONS DONE. ORAL CARE GIVEN ASSISTED BY SUCTIONING. LIPS MOISTENED.
[2016-04-02] MEDS: ALBUTEROL SULFATE/IPRATROPIU 3 ML SOL IH SCH ×6 (03:28→22:22)
--- NOTE | 2016-04-02 06:57 | NUR ---
RECEIVED PT ON 3L NASAL CANNULA, SPO2 99%. PT NOT SOB AND NOT IN RESPIRATORY DISTRESS AT THIS TIME. B.S COARSE BILATERALLY. PT ORALLY SUCTIONED OBTAINED SMALL AMOUNT OF THICK YELLOW SECRETIONS. BIPAP IS BEDSIDE NOT INDICATED AT THIS TIME. WILL CONTINUE TO MONITOR.
[2016-04-02] MEDS: BLOOD GLUCOSE MONITORING 1 DEV DEV FS SCH ×4 (07:02→21:42)
--- NOTE | 2016-04-02 07:10 | NUR ---
PATIENT REPORT GIVEN TO DAY SHIFT RN CRISTIANO. AM CARE GIVEN, ORAL CARE GIVEN. SUCTIONING OF SECRETIONS DONE. REPOSITION PATIENT.
--- NOTE | 2016-04-02 07:11 | NUR ---
RECEIVED REPORT FROM CHLOE NUNEZ. PT SEEN AT BEDSIDE. PT UNABLE TO FOLLOW COMMANDS, RESPONDS TO DEEP PAIN AND SUCTIONING. PT HAS NONPRODUCTIVE COUGH INTERMITTENTLY. ON 3L O2 VIA NC. ON ENGLISH TEACHER RUNNING SINUS TACHY AT THIS TIME. PT HAS RIGHT THUMB IV 24G RUNNING IVF ON TKO. IV IS PATENT AND INTACT WITH VISIBLE BLOOD RETURN. LEFT AV SHUNT NOTED. NO S/S COMPLICATIONS AT THIS TIME. PT HAS NGT ON LEFT NARE WITH FEEDING RUNNING. RESIDUAL 0. ACTIVE BOWEL SOUNDS HEARD IN X4 QUADRANTS. SACRAL WOUND COVERED WITH DRESSING AT THIS TIME. SCD'S IN PLACE. PT TURNED AND REPOSITIONED FOR COMFORT. CALL LIGHT LEFT AT BEDSIDE, SAFETY MEASURES CHECKED. WILL CONTINUE TO MONITOR.
[2016-04-02] MEDS: INSULIN ASPART SLIDING SCALE 100 UNITS/ML VIAL SUBQ PRN ×4 (07:34→21:00)
--- NOTE | 2016-04-02 08:00 | NUR ---
PT COUGHING AT THIS TIME. PT ORALLY SUCTIONED. ORAL CARE GIVEN.
[2016-04-02] MEDS: FOLIC ACID 1 MG TAB PO SCH (08:53)
[2016-04-02] MEDS: SACCHAROMYCES 250 MG CAP PO SCH ×2 (08:53→21:43)
[2016-04-02] MEDS: VIT-B COMP/VIT-C/FOLIC ACID 1 TAB PO SCH (08:54)
[2016-04-02] MEDS: METOCLOPRAMIDE 10 MG TAB PO SCH ×3 (08:54→16:39)
[2016-04-02] MEDS: FAMOTIDINE 20 MG TAB PO SCH (08:54)
--- NOTE | 2016-04-02 08:54 | NUR ---
ROUTINE MEDICATIONS GIVEN WITH EDUCATION. PT UNABLE TO VERBALIZE UNDERSTANDING. WILL CONTINUE TO MONITOR.
[2016-04-02] MEDS: levETIRAcetam 100 MG/ML ORASYR GT SCH ×2 (08:55→21:43)
--- NOTE | 2016-04-02 09:45 | NUR ---
PT HAVING FREQUENT NONPRODUCTIVE COUGH. PT DEEP SUCTIONED. MODERATE AMOUNT OF CLEAR SPUTUM SUCTIONED. PT TOLERATED WELL. WILL CONTINUE TO MONITOR.
--- NOTE | 2016-04-02 09:50 | NUR ---
ORAL CARE GIVEN. PT NOT COUGHING AT THIS TIME. NO S/S DISTRESS OR SOB. WILL CONTINUE TO MONITOR.
--- NOTE | 2016-04-02 10:00 | NUR ---
PT TURNED AND REPOSITIONED FOR COMFORT. NO BM NOTED AT THIS TIME. WILL CONTINUE TO MONITOR.
--- NOTE | 2016-04-02 11:34 | NUR ---
PT ORALLY SUCTIONED OBTAINED SMALL AMOUNT OF THICK YELLOW SECRETIONS. PT HAS STRONG COUGH.
--- NOTE | 2016-04-02 12:00 | NUR ---
RESIDUAL 0.
--- NOTE | 2016-04-02 12:18 | NUR ---
INSULIN ADMINISTERED FOR BG 260. PT TOLERATED WELL. WILL CONTINUE TO MONITOR.
--- NOTE | 2016-04-02 12:30 | NUR ---
DRESSING CHANGED ORDERED ON PATIENT. TOLERATED WELL. TURNED AND REPOSITIONED FOR COMFORT. WILL CONTINUE TO MONITOR.
[2016-04-02] MEDS: FOAM DRESSING TP SCH (13:02)
--- NOTE | 2016-04-02 13:03 | NUR ---
ROUTINE MEDICATION GIVEN WITH EDUCATION. PT UNABLE TO VERBALIZE UNDERSTANDING. PT TOLERATED WELL. WILL CONTINUE TO MONITOR.
--- NOTE | 2016-04-02 14:00 | NUR ---
PT TURNED AND REPOSITIONED FOR COMFORT.
--- NOTE | 2016-04-02 17:07 | NUR ---
BEDBATH GIVEN. PT'S HAIR WASHED. TURNED AND REPOSITIONED FOR COMFORT. PT TOLERATED WELL. WILL CONTINUE TO MONITOR. Addendum: 04/02/16 at 1820 by Lissette Lopez RN TIME IS AT 1600.
[2016-04-02] MEDS: NACL 0.9% 250 ML IV SCH ×2 (17:16→19:03)
--- NOTE | 2016-04-02 18:19 | NUR ---
PT TURNED AND REPOSITIONED FOR COMFORT. PT HAVING FREQUENT, NONPRODUCTIVE COUGHS. PT DEEP SUCTIONED. MODERATE AMOUNTS OF CLEAR, YELLOW SPUTUM NOTED. PT TOLERATED WELL. WILL CONTINUE TO MONITOR.
--- NOTE | 2016-04-02 19:10 | NUR ---
PATIENT REPORT RECEIVED FROM DAY SHIFT CHLOE QUINONEZ. DNR, ON HEALTH EDUCATOR SINUS RHYTHM. RESPONDS TO PAIN. LEGALLY BLIND BOTH EYES. ON AIR MATTRESS. OXYGEN AT 3LPM/NASAL CANNULA. NGT LEFT NARE RUNNING VIA FEEDING PUMP NOVASOURCE RENAL 40ML/HR, WATER FLUSH 50ML Q6H. WITH HD ACCESS ON LEFT ARM AV SHUNT. PERIPHERAL IV G24 ON RIGHT THUMB RUNNING NS AT 5ML/HR ORDERED. SCD ON BOTH LEGS. BED IN LOW POSITION, SEMI-FOWLERS. ALL ALARMS CHECKED FOR SAFETY. WITH ID BAND AND ALLERGY BAND ON. WITH SACRAL WOUND AND EXCORIATION ON GROIND AND BUTTOCKS AREA WITH Z-GUARD APPLIED ALL OVER THE AREA.
--- NOTE | 2016-04-02 20:30 | NUR ---
DR. DESTINEY RUSSELL CAME IN TO SEE PATIENT. UPDATED OF PATIENT'S STATUS AND RECENT HD AND OUTPUT OF 2.5L YESTERDAY.
--- NOTE | 2016-04-02 21:00 | NUR ---
DR. PONCE CAME IN TO SEE PATIENT. UPDATED OF PATIENT'S STATUS. NO FEVER.
[2016-04-02] MEDS: SIMVASTATIN 20 MG TAB PO SCH (21:43)
--- NOTE | 2016-04-02 22:00 | NUR ---
REPOSITIONED PATIENT. SUCTIONED SECRETIONS. NO RESIDUAL OR VOMITING NOTED. BED IN LOW POSITION. ASPIRATION PRECAUTION.
[2016-04-03] VITALS (12 sets, daily range): BP systolic 101–172; BP diastolic 65–97
--- NOTE | 2016-04-03 | NUR ---
ORAL CARE GIVEN ASSISTED WITH SUCTIONING. LIPS MOISTENED. REPOSITIONED PATIENT. BEVERLY-CARE DONE. SUCTIONING OF SECRETIONS DONE.
[2016-04-03] MEDS: Z-GUARD PASTE TP SCH ×2 (01:18→12:59)
--- NOTE | 2016-04-03 02:00 | NUR ---
REPOSITIONED PATIENT. OFF LOAD PRESSURES. SUCTIONING OF SECRETIONS DONE. SACRAL WOUND DRESSING IS DRY AND INTACT. Z-GUARD PASTE APPLIED OVER GROIND AND BUTTOCKS AREA.
[2016-04-03] MEDS: ALBUTEROL SULFATE/IPRATROPIU 3 ML SOL IH SCH ×6 (03:50→23:31)
--- NOTE | 2016-04-03 04:30 | NUR ---
SISTER CAIO CAME IN TO SEE PATIENT. SHE ASKED WHY THE APNEA IS SHOWING ON THE MONITOR. EXPLAINED THAT FOR RESPIRATORY RATE OF THE PATIENT, NURSES DONT RELY ON SCENE SHIFTER AND ASSESS THE PATIENT INSTEAD AND COUNT THE RR MANUALLY. WE ASKED HER TO STEPPED OUT OF THE ROOM FOR THE MOMENT TO GIVE MORNING BATH TO THE PATIENT. FEEDING HELD PRIOR TO MORNING BATH. MIXING ENGINEER JT WITNESS AND HELP TO GIVE MORNING BATH WHILE SISTER CAIO IS OUTSIDE OF THE PATIENT'S ROOM. NGT CHECKED FOR PLACEMENT THEN FEEDING STARTED AGAIN. ASPIRATION PRECAUTION. BED IN SEMI-FAN'S. MIXING ENGINEER AWARE OF SISTER'S QUERY ABOUT APNEA ON MONITOR. SISTER ACIO'S QUESTIONS ANSWERED.
--- NOTE | 2016-04-03 06:30 | NUR ---
PATIENT REPOSITIONED WHILE SISTER CAIO IS AT THE BEDSIDE. ALL LEADS CONNECTED TO THE MONITOR CHANGED AND THE RESPIRATORY RATE SHOWING ON THE MONITOR NOW, SISTER CAIO IS AWARE. SUCTIONING OF SECRETIONS DONE.
[2016-04-03] MEDS: NACL 0.9% 250 ML IV SCH (07:00)
[2016-04-03] MEDS: BLOOD GLUCOSE MONITORING 1 DEV DEV FS SCH ×4 (07:03→21:00)
--- NOTE | 2016-04-03 07:20 | NUR ---
PATIENT REPORT GIVEN TO DAY SHIFT RN CRISTIANO. NOT ON RESPIRATORY DISTRESS AT THIS TIME.
--- NOTE | 2016-04-03 07:25 | NUR ---
RECEIVED REPORT FROM CHLOE NUNEZ. PT SEEN AT BEDSIDE. PT UNABLE TO FOLLOW COMMANDS, RESPONDS TO DEEP PAIN AND SUCTIONING. PT HAS NONPRODUCTIVE COUGH; ON 3L O2 VIA NC. ON TRAVELIFT OPERATOR RUNNING SINUS TACHY AT THIS TIME. PT HAS RIGHT THUMB IV 24G RUNNING IVF ON TKO. IV IS PATENT AND INTACT WITH VISIBLE BLOOD RETURN. LEFT AV SHUNT NOTED. NO S/S COMPLICATIONS AT THIS TIME. PT HAS NGT ON LEFT NARE WITH FEEDING RUNNING. RESIDUAL 0. ACTIVE BOWEL SOUNDS HEARD IN X4 QUADRANTS. SACRAL WOUND COVERED WITH DRESSING AT THIS TIME. SCD'S IN PLACE. PT TURNED AND REPOSITIONED FOR COMFORT. CALL LIGHT LEFT AT BEDSIDE, SAFETY MEASURES CHECKED. WILL CONTINUE TO MONITOR. RTALONA, AT BEDSIDE GIVING BREATHING TREATMENT.
[2016-04-03] MEDS: INSULIN ASPART SLIDING SCALE 100 UNITS/ML VIAL SUBQ PRN ×3 (07:31→22:32)
--- NOTE | 2016-04-03 07:39 | NUR ---
RECEIVED PT ON 3L NASAL CANNULA. SPO2 98%. B.S COARSE BILATERALLY. PT NOT SOB AND NOT IN RESPIRATORY DISTRESS AT THIS TIME. BIPAP IS BEDSIDE NOT INDICATED AT THIS TIME. WILL CONTINUE TO MONITOR.
--- NOTE | 2016-04-03 08:30 | NUR ---
PT HAVING NONPRODUCTIVE COUGH. PT DEEP SUCTIONED; MODERATED AMOUNTS OF CLEAR, YELLOWISH SPUTUM SUCTIONED. PT TOLERATED WELL. WILL CONTINUE TO MONITOR.
--- NOTE | 2016-04-03 09:00 | NUR ---
DR. KAMINSKI AT NURSING STATION. UPDATED MD ON PATIENT CONDITION. WILL CONTINUE TO MONITOR.
[2016-04-03] MEDS: levETIRAcetam 100 MG/ML ORASYR GT SCH ×2 (09:56→21:36)
[2016-04-03] MEDS: SACCHAROMYCES 250 MG CAP PO SCH ×2 (09:57→21:37)
[2016-04-03] MEDS: VIT-B COMP/VIT-C/FOLIC ACID 1 TAB PO SCH (09:57)
[2016-04-03] MEDS: FOLIC ACID 1 MG TAB PO SCH (09:57)
[2016-04-03] MEDS: FAMOTIDINE 20 MG TAB PO SCH (09:57)
[2016-04-03] MEDS: METOCLOPRAMIDE 10 MG TAB PO SCH ×3 (09:58→17:16)
--- NOTE | 2016-04-03 09:58 | NUR ---
ROUTINE MEDICATIONS GIVEN WITH EDUCATION. PT UNABLE TO VERBALIZE UNDERSTANDING. WILL CONTINUE TO MONITOR. PT TURNED AND REPOSITIONED FOR COMFORT.
--- NOTE | 2016-04-03 12:00 | NUR ---
PT TURNED AND REPOSITIONED FOR COMFORT. WILL CONTINUE TO MONITOR.
--- NOTE | 2016-04-03 12:08 | NUR ---
PT ORALLY SUCTIONED OBTAINED MODERATE AMOUNT OF THICK PALE YELLOW SECRETIONS. AIRWAY IS PATENT. PT NOT SOB AND NOT IN RESPIRATORY DISTRESS AT THIS TIME. WILL CONTINUE TO MONITOR.
--- NOTE | 2016-04-03 13:00 | NUR ---
WOUND CARE DONE ON PATIENT. PT TOLERATED WELL. WILL CONTINUE TO MONITOR. Addendum: 04/03/16 at 1747 by Lissette Lopez RN PT HAD X1 SMALL BM.
--- NOTE | 2016-04-03 14:15 | NUR ---
PT NEPHEW AT BEDSIDE VISITING PATIENT.
--- NOTE | 2016-04-03 14:30 | NUR ---
PT HAVING FREQUENT NONPRODUCTIVE COUGH. PT DEEP SUCTIONED. MODERATE AMOUNT OF CLEAR SPUTUM SUCTIONED. PT TOLERATED WELL. PT LINEN CHANGED, BED BATH GIVEN, HAIR SHAMPOOED WITH CAP. TURNED AND REPOSITIONED FOR COMFORT. WILL CONTINUE TO MONITOR.
--- NOTE | 2016-04-03 15:51 | NUR ---
BLOOD GLUCOSE 132. NO INSULIN COVERAGE NEEDED AT THIS TIME.
--- NOTE | 2016-04-03 15:55 | NUR ---
PT TURNED AND REPOSITIONED FOR COMFORT. WILL CONTINUE TO MONITOR.
--- NOTE | 2016-04-03 16:34 | NUR ---
RAKEL (PT'S DAUGHTER), PT'S NEPHEW AT BEDSIDE. RAKEL ASKING WHAT THE HUMIDIFIER FOR THE NASAL CANNULA IS USED FOR. EXPLAINED TO RAKEL THAT IT IS USED TO HUMIDIFY THE OXYGEN THAT PT IS RECEIVING IN ORDER TO PREVENT DRYING OUT THE MUCOUS MEMBRANES. RAKEL VERBALIZED UNDERSTANDING.
[2016-04-03] MEDS: LEVOFLOXACIN 500 MG/D5W PREMIX 100 ML IV SCH (17:16)
--- NOTE | 2016-04-03 17:46 | NUR ---
PT TURNED AND REPOSITIONED FOR COMFORT. PT ORALLY SUCTIONED. SMALL OF AMOUNT OF CLEAR SPUTUM NOTED. WILL CONTINUE TO MONITOR.
--- NOTE | 2016-04-03 18:31 | NUR ---
PT'S DAUGHTER, RAKEL, AT BEDSIDE ASKING IF PATIENT'S RASH ON HER GROIN WAS STILL BLEEDING. INFORMED RAKEL THAT I DID NOT SEE ANY BLEEDING ON HER RASH WHEN I CHECKED AND Z-GUARD WAS APPLIED TODAY.
--- NOTE | 2016-04-03 18:35 | NUR ---
DR. CABELLO AT BEDSIDE ASSESSING PATIENT AND TALKING TO FAMILY. MD UPDATED ON PATIENT CONDITION. WILL CONTINUE TO MONITOR.
--- NOTE | 2016-04-03 18:42 | NUR ---
CALLED [facility], [place] IV[place], TO SCHEDULE DIALYSIS FOR TOMORROW. [place].
--- NOTE | 2016-04-03 19:14 | NUR ---
RECEIVED PATIENT REPORT FROM DAY SHIFT RN CRISTIANO STEVENSON. DNR ON CANDLE MAKER, SINUS RHYTHM. RESPONDS TO PAIN. ON NASAL CANNULA 3LPM OXYGEN. WITH NGT ON LT NARE INTACT RUNNING TUBE FEEDING NOVASOURCE RENAL AT 40ML/HR, WATER FLUSH 50ML Q6H VIA FEEDING PUMP. WITH HD ACCESS ON LEFT AV SHUNT, ON LEFT ARM PRECAUTION. WITH PERIPHERAL IV ON RT THUMB G24 RUNNING IVF OF NS AT TKO VIA IV PUMP. WITH SCD ON BOTH LEGS. ON AIR MATTRESS. BED IN LOW POSITION. IN SEMI-FAN'S. ASPIRATION PRECAUTION. WITH SACRAL WOUND COVERED WITH DRESSING DRY AND INTACT. WITH EXCORIATION ON GROIND AND BUTTOCKS AREA WITH Z-GUARD APPLIED ALL OVER.
--- NOTE | 2016-04-03 19:14 | NUR ---
REPORT GIVEN TO CHLOE NUNEZ.
--- NOTE | 2016-04-03 21:00 | NUR ---
DR. PONCE CAME IN TO SEE PATIENT, NO FEVER INFORMED. NO ORDERS MADE. CONTINUE TO MONITOR.
[2016-04-03] MEDS: SIMVASTATIN 20 MG TAB PO SCH (21:37)
--- NOTE | 2016-04-03 22:00 | NUR ---
OFFLOAD PRESSURES, SUCTIONING OF ORAL SECRETIONS DONE. NO VOMITING OR RESIDUAL NOTED. BED IN LOW POSITION. ALL ALARMS CHECKED. BEVERLY-CARE AND ORAL CARE GIVEN. LIPS MOISTENED.
[2016-04-04] VITALS (12 sets, daily range): BP systolic 134–164; BP diastolic 66–87
--- NOTE | 2016-04-04 | NUR ---
SUCTIONING OF SECRETIONS DONE. REPOSITIONED PATIENT. ASPIRATION PRECAUTION. BED IN LOW POSITION. SAFETY CHECKS.
[2016-04-04] MEDS: Z-GUARD PASTE TP SCH ×2 (01:08→12:25)
--- NOTE | 2016-04-04 02:10 | NUR ---
BEDSIDE CHECK DONE. ASPIRATION PRECAUTION. SEMI-FAN'S. ALL ALARMS CHECKED. NO SIGNS OF RESPIRATORY DISTRESS AT THIS TIME. SUCTIONING OF SECRETIONS DONE. NO VOMITING NOTED. PERIPHERAL IV AND NGT STILL INTACT. BED IN LOW POSITION.
--- NOTE | 2016-04-04 03:35 | NUR ---
SISTER CAIO AT THE BEDSIDE. PATIENT HAD URINE ON THE PAD. SISTER CAIO OFFERED TO HELP FOR TURNING AND HOLDING THE PATIENT WHILE CLEANING. CAIO ASSISTED WITH CLEANING. SHOE IRONER JT WITNESS. RT TIFFANIE CAME IN TO GIVE BREATHING TREATMENT. BUTTOCKS CLEANED. BEVERLY-CARE GIVEN AND Z-GUARD APPLIED ALL OVER GROIND AND BUTTOCKS. UNDERPAD CHANGED. POSITION CHANGED SUPPORTED WITH PILLOWS. ALL EXTREMITIES ELEVATED. PATIENT TOLERATED. CAIO ASKED ABOUT SCD ON BOTH LEGS AND EXPLAINED THAT THE MACHINE IS DOING IT INTERMITTENTLY AND IT'S NOT ALWAYS CONSTANTLY TIGHT ON THE PATIENT'S LEGS. CAIO VERBALIZED THAT PATIENT HAS BACK PAIN AND ASKED FOR PAIN MEDS. EXPLAINED THAT PAIN IS SOMETIMES DUE TO POSITIONING. MEDS CHECKED. WILL GIVE NORCO PRN ORDERED AND RE-ASSESS PAIN AFTER INTERVENTION. SUCTIONED SECRETIONS DONE.
[2016-04-04] MEDS: ALBUTEROL SULFATE/IPRATROPIU 3 ML SOL IH SCH ×6 (03:42→23:13)
[2016-04-04] MEDS: HYDROcodone/APAP 5/325 MG 1 TAB TAB PO PRN (04:00)
[2016-04-04] MEDS: NACL 0.9% 250 ML IV SCH ×2 (06:00→19:02)
--- NOTE | 2016-04-04 06:00 | NUR ---
FEEDING TUBE AND WATER FLUSH BAG CHANGED. NGT CHECKED AND PATENT. AM CARE GIVEN. ALL LINENS AND GOWN WERE CHANGED. ORAL CARE GIVEN. SUCTIONING OF SECRETIONS DONE. REPOSITIONED PATIENT. FOR HD TODAY.
[2016-04-04] MEDS: BLOOD GLUCOSE MONITORING 1 DEV DEV FS SCH ×4 (06:44→21:11)
[2016-04-04] MEDS: INSULIN ASPART SLIDING SCALE 100 UNITS/ML VIAL SUBQ PRN ×4 (06:47→21:18)
--- NOTE | 2016-04-04 06:54 | NUR ---
RECEIVED PT ON 3L NASAL CANNULA SPO2 99%. BILATERAL COARSE B.S. PT IS NOT SOB AND NOT IN RESPIRATORY DISTRESS AT THIS TIME. PT ORALLY SUCTIONED OBTAINED THICK YELLOW SECRETIONS. WILL CONTINUE TO MONITOR.
--- NOTE | 2016-04-04 07:10 | NUR ---
PATIENT REPORT GIVEN TO DAY SHIFT CHLOE JARAMILLO. ENDORSED FOR HD TODAY AND INCREASED TRENDING OF WBC AND MORE ORAL SECRETIONS BUT NO FEVER. RT AT THE BEDSIDE.
--- NOTE | 2016-04-04 07:14 | NUR ---
RECEIVED REPORT FROM CHLOE NUNEZ. NO SIGNS OF ACUTE DISTRESS AT THIS TIME, FLACC 0. PT IS APHASIC, LETHARGIC, AND LEGALLY BLIND. PT IS ON O2 3L/MIN NC. NGT TO LEFT NARE IN PLACE TO TUBE FEEDING. IV TO RIGHT HAND #24 PATENT AND INTACT. LEFT UPPER ARM AV SHUNT NOTED, THRILL AND BRUIT PRESENT. WOUND NOTED TO SACRUM, DRESSING DRY AND INTACT. SAFETY PRECAUTIONS IN PLACE WITH BED IN LOWEST POSITION AND SIDE RAILS UP X2. CALL LIGHT WITHIN REACH. PT IS CURRENTLY SINUS RHYTHM ON THE MONITOR. PT IS ON CONTACT ISOLATION WITH SIGNS POSTED. WILL CONTINUE TO MONITOR.
--- NOTE | 2016-04-04 08:18 | NUR ---
RECEIVED CALLBACK FROM DR. CABELLO, WAS INFORMED TO CONTACT DR. GROSSMAN REGARDING HEMODIALYSIS.
--- NOTE | 2016-04-04 08:23 | NUR ---
PAGED DR. GROSSMAN, AWAITING CALLBACK.
--- NOTE | 2016-04-04 08:29 | NUR ---
RECEIVED CALLBACK FROM DR. GROSSMAN
--- NOTE | 2016-04-04 08:29 | NUR ---
RECEIVED CALL FROM [facility] AND SPOKE WITH CRISTIANO REGARDING POSSIBLE TRANSFER TO FACILITY. TRANSFERRED HER TO CASE MANAGEMENT FOR FURTHER QUESTIONS.
--- NOTE | 2016-04-04 08:32 | NUR ---
LATE ENTRY FOR 04/01/16 1226. SPOKE WITH LAKESHA PARKS FOR IE AND INFORMED HER THAT PTS SISTER CAIO HAS REQUESTED THAT SHE CALL HER.
[2016-04-04] MEDS: SACCHAROMYCES 250 MG CAP PO SCH ×2 (08:39→21:11)
[2016-04-04] MEDS: FAMOTIDINE 20 MG TAB PO SCH (08:39)
[2016-04-04] MEDS: levETIRAcetam 100 MG/ML ORASYR GT SCH ×2 (08:39→21:11)
[2016-04-04] MEDS: FOLIC ACID 1 MG TAB PO SCH (08:39)
[2016-04-04] MEDS: VIT-B COMP/VIT-C/FOLIC ACID 1 TAB PO SCH (08:39)
[2016-04-04] MEDS: METOCLOPRAMIDE 10 MG TAB PO SCH ×3 (08:40→17:25)
--- NOTE | 2016-04-04 08:51 | NUR ---
0830 RECEIVED VM MESSAGE TRANSFERRED FROM ICU ASSIGNED NURSE ELLA FROM CRISTIANO AT [facility] TRANSFER UN[facility]. 0837 CALLED CRISTIANO BACK AT [phone] AND LEFT ACKNOWLEDGING HER CALL AND LEFT MESSAGE WITH PHONE NUMBER FOR HER TO RETURN MY CALL.
--- NOTE | 2016-04-04 08:52 | NUR ---
CHECKED TUBE FEEDING RESIDUAL: 20 ML. RETURNED TO PT. ADMINISTERED MEDICATION ORDERED. PT TOLERATED WELL.
--- NOTE | 2016-04-04 09:50 | NUR ---
PT'S SIGNIFICANT OTHER PRESENT AT BEDSIDE.
--- NOTE | 2016-04-04 10:04 | NUR ---
CALLED DANCING TEACHER, GEORGIANA IVAN, REGARDING SCHEDULED DIALYSIS TREATMENT FOR ME. INFORMED SHE WILL BE IN LATER TODAY.
--- NOTE | 2016-04-04 10:30 | NUR ---
CM NOTE PER CRISTIANO, TRANSFER CENTER CONTACT FOR JOVANNA CHARLENE, PALLIATIVE CARE IS CONSIDERED A CONSULT; PATIENT WOULD NEED A SPECIFIC MEDICAL REASON OR CARE/PROCEDURE NOT PROVIDED BY [facility] FOR TRANSFER TO HIGHER LEVEL OF CARE.
--- NOTE | 2016-04-04 10:44 | NUR ---
PT'S SISTER, CAIO, IN TO SEE PT.
--- NOTE | 2016-04-04 10:52 | NUR ---
PT'S DAUGHTER, RAKEL, IN TO SEE PT.
--- NOTE | 2016-04-04 11:19 | NUR ---
PT ORALLY SUCTIONED OBTAINED SMALL AMOUNT OF THICK WHITE SECRETIONS. PT IS NOT SOB AND NOT IN RESPIRATORY DISTRESS AT THIS TIME. WILL CONTINUE TO MONITOR. Addendum: 04/04/16 at 1120 by Nicholas Bingham RT VITALS REMAINED STABLE DURING SUCTIONING.
--- NOTE | 2016-04-04 12:00 | NUR ---
COMMISSARY MANAGEREUGENE, IN TO SEE PT FOR WOUND CARE KALE. WILL FOLLOW UP ON ORDERS
--- NOTE | 2016-04-04 12:15 | NUR ---
WOUND CARE FOLLOW UP NOTES: SEEN PATIENT FOR FOLLOW UP. PLEASE REFER TO WOUND ASSESSMENT FLOWSHEET FOR UPDATED ENTRY. WILL CONTINUE CURRENT PLAN OF CARE. WILL CONTINUE TO MONITOR PATIENT.
[2016-04-04] MEDS: FOAM DRESSING TP SCH (12:25)
--- NOTE | 2016-04-04 12:33 | NUR ---
CHECKED TUBE FEEDING RESIDUAL: NONE NOTED. ADMINISTERED MEDICATION ORDERED. PT TOLERATED WELL.
--- NOTE | 2016-04-04 12:50 | NUR ---
PHOTOS OF WOUND PRINTED AND PLACED IN PT'S CHART.
--- NOTE | 2016-04-04 12:54 | NUR ---
DR. AVALOS IN TO SEE PT. WILL FOLLOW UP ON ORDERS
--- NOTE | 2016-04-04 13:10 | NUR ---
DR. GROSSMAN IN TO SEE PT. WILL FOLLOW UP ON ORDERS
--- NOTE | 2016-04-04 13:36 | NUR ---
DR. KAMINSKI IN TO SEE PT. WILL FOLLOW UP ON ORDERS
--- NOTE | 2016-04-04 14:36 | NUR ---
04/01/16 RD FOLLOW UP COMPLETED PLEASE REFER TO NUTRITION PROGRESS NOTE UNDER CARE ACTIVITY FOR ESTIMATED NUTRITION NEEDS. RD RECOMMENDATIONS: 1. CONTINUE TUBE FEEDING NOVASOURCE RENAL AT 40 ML/HR VIA NGTUBE --MEETING 100% OF PT ESTIMATED KCAL AND PROTEIN NEEDS --NOTE PT WITH NG TUBE L NARE SINCE 03/04/16 2. CONSIDER GTUBE FOR HALFWAY NUTRITION SUPPORT NEEDS 3. RD WILL F/U 2-3 DAYS; HIGH RISK. REYES D[address] RD
--- NOTE | 2016-04-04 16:03 | NUR ---
CALLED GEORGIANA IVAN, GUNSMITH APPRENTICE, TO FOLLOW UP ON ORDERED DIALYSIS TREATMENT FOR TODAY. WAS INFORMED HD RN SHOULD BE HERE WITHIN THE HOUR.
--- NOTE | 2016-04-04 16:04 | NUR ---
CM NOTE CONCURRENT REVIEW FAXED TO [facility] / FAX# [phone]
--- NOTE | 2016-04-04 17:38 | NUR ---
CHECKED TUBE FEEDING RESIDUAL: NONE NOTED. ADMINISTERED MEDICATION ORDERED. PT TOLERATED WELL.
--- NOTE | 2016-04-04 19:03 | NUR ---
HD RN PRESENT AT BEDSIDE
--- NOTE | 2016-04-04 19:15 | NUR ---
ENDORSED CARE TO CHLOE SADLER. PT IN STABLE CONDITION.
--- NOTE | 2016-04-04 19:35 | NUR ---
RECEIVED REPORT FROM ELLA CORONA. PATIENT IS SLEEPING IN BED, RECEIVING HEMODIALYSIS. DIALYSIS NURSE AT BEDSIDE. VITAL SIGNS ARE WNL. VAP ORAL CARE RENDERED. PATIENT HAS POSITIVE GAG REFLEX. PATIENT IS LEGALLY BLIND. RHONCHI HEARD UPON AUSCULTATION. BOWEL SOUNDS ARE PRESENT. THERE IS #24 ON THE RIGHT THUMB. PATIENT IS RECEIVING NORMAL SALINE AT 5ML/HR TKO. SITE IS DRY, INTACT, AND PATENT. THERE IS A NGT IN THE LEFT NARES RECEIVING NOVOSOURCE RENAL AT 40 ML/HR. PATIENT TOLERATING FEEDING WELL WITH NO RESIDUAL NOTED. SCDS IN PLACE FOR VTE PROPHYLAXIS. HOB AT 30 DEGREES WITH BED IN LOW POSITION. CONTINUE TO MONITOR PATIENT. Addendum: 04/04/16 at 1951 by Rachael Gaston RN PATIENT HAS A NASAL CANNULA RECEIVING 3LPM OF HUMIDIFIED OXYGEN. NO S/S OF SOB OR RESPIRATORY DISTRESS NOTED. Addendum: 04/04/16 at 2205 by Rachael Gaston RN ORAL CARE RENDERED, NOT VAP ORAL CARE. PATIENT IS ON NASAL CANNULA AT 3LPM HUMIDIFIED OXYGEN.
[2016-04-04] MEDS: PIPER/TAZO 2.25GM/D5W PREMIX 50 ML IV SCH (21:00)
[2016-04-04] MEDS: SIMVASTATIN 20 MG TAB PO SCH (21:11)
--- NOTE | 2016-04-04 21:11 | NUR ---
TOLERATED SCHEDULED MEDICATION ADMNISTRATION. NO SIGNS OF SOB OR RESPIRATORY DISTRESS NOTED. BLOOD SUGAR IS 195. WILL PROVIDE NOVOLOG INSULIN COVERAGE BASED PER SLIDING SCALE. HOB AT 30 DEGREES WITH BED IN LOW POSITION. CONTINUE TO MONITOR PATIENT.
--- NOTE | 2016-04-04 21:16 | NUR ---
DR. PONCE PRESENT ON UNIT. PROVIDED MD WITH PATIENT'S STATUS. NO NEW ORDERS GIVEN AT THIS TIME. CONTINUE TO MONITOR PATIENT.
--- NOTE | 2016-04-04 22:30 | NUR ---
IV CANNULA WAS OUT; TRIED TO RE INSERT A NEW ONE ON RIGHT ARM, BUT TO NO AVAIL; PAGED DR. STEVENSON MADE HIM INFORMED AND AWARE; HE ORDERED TO TRY TO INSERT IT ON PATIENT'S FOOT THEN ORDERED FOR PICC LINE TOMORROW IF THE FAMILY AGREES.
--- NOTE | 2016-04-04 22:55 | NUR ---
HEMODIALYSIS COMPLETED. 1.5 LITER OUTPUT REPORTED BY PUBLIC HEALTH PROFESSOR. VITALS ARE STABLE BP 132/76, HR 110, TEMPERATURE IS 97 DEGREES. CONTINUE TO MONITOR PATIENT.
--- NOTE | 2016-04-04 23:10 | NUR ---
PATIENT REPOSITIONED FOR COMFORT. ORAL CARE RENDERED. MODERATE AMOUNT OF CREAMY SPUTUM ORALLY SUCTIONED. NO S/S OF SOB NOTED. HOB AT 30 DEGREES WITH BED IN LOW POSITION. CONTINUE TO MONITOR PATIENT.
--- NOTE | 2016-04-04 23:15 | NUR ---
RESPIRATORY THERAPIST AT BEDSIDE ADMINISTERING SCHEDULED BREATHING TX.
[2016-04-05] VITALS (12 sets, daily range): BP systolic 119–156; BP diastolic 52–82
[2016-04-05] MEDS: Z-GUARD PASTE TP SCH ×2 (01:10→13:09)
--- NOTE | 2016-04-05 01:24 | NUR ---
PATIENT REPOSITIONED FOR COMFORT. NO SIGNS OF SOB OR RESPIRATORY DISTRESS NOTED. HOB AT 30 DEGREES WITH BED IN LOW POSITION. CONTINUE TO MONITOR PATIENT.
--- NOTE | 2016-04-05 03:38 | NUR ---
MORNING CARE RENDERED. PATIENT VOID SMALL AMOUNT OF CLEAR PALE URINE AND HAD SCANTY SOFT BROWN BOWEL MOVEMENT. PERINEAL CARE AND BED BATH PROVIDED. CHANGED WOUND DRESSING. CHANGED LINENS AND PATIENT'S GOWN. REPOSITIONED PATIENT FOR COMFORT. HOB AT 30 DEGREES WITH BED IN LOW POSITION. NO SIGNS OF RESPIRATORY DISTRESS OR SOB NOTED. CONTINUE TO MONITOR PATIENT.
[2016-04-05] MEDS: ALBUTEROL SULFATE/IPRATROPIU 3 ML SOL IH SCH ×6 (03:46→23:29)
--- NOTE | 2016-04-05 03:50 | NUR ---
RESPIRATORY THERAPIST AT BEDSIDE ADMINISTERING SCHEDULED BREATHING TREATMENT.
--- NOTE | 2016-04-05 04:44 | NUR ---
AFFILIATE MARKETING MANAGER AT BEDSIDE FOR SCHEDULED MORNING LAB DRAW.
[2016-04-05] MEDS: PIPER/TAZO 2.25GM/D5W PREMIX 50 ML IV SCH ×3 (04:55→20:36)
--- NOTE | 2016-04-05 06:13 | NUR ---
PATIENT REPOSITIONED FOR COMFORT. NO SIGNS OF SOB NOTED. HOB AT 30 DEGREES WITH BED IN LOW POSITION. CONTINUE TO MONITOR PATIENT.
[2016-04-05] MEDS: BLOOD GLUCOSE MONITORING 1 DEV DEV FS SCH ×4 (06:34→20:37)
[2016-04-05] MEDS: INSULIN ASPART SLIDING SCALE 100 UNITS/ML VIAL SUBQ PRN ×4 (06:36→20:45)
--- NOTE | 2016-04-05 07:05 | NUR ---
PATIENT IN STABLE CONDITION. ALL PATIENT'S NEEDS ATTENDED TO DURING SHIFT. ENDORSED CONTINUITY OF CARE TO YA CORONA.
--- NOTE | 2016-04-05 07:30 | NUR ---
RECEIVED PT FROM [place] HELPER CHLOE SADLER. PT IS UNRESPONSIVE TO NAME OR LIGHT PAIN STIMULI. MONITOR SHOWS ST. PATIENT IS RECEIVING HUMIDIFIED OXYGEN VIA NASAL CANNULA AT 3L/MIN. NO S/S OF RESPIRATORY DISTRESS NOTED. RHONCHI HEARD UPON AUSCULTATION . NGT IN PLACE WITH NOVASOURCE RENAL AT 40ML/HR FREE H2O FLUSH 50 ML Q6H. 10 ML RESIDUAL RETURNED BACK. ABDOMEN SOFT BOWEL SOUNDS ARE HYPOACTIVE.SKIN NON INTACT( SEE WOUND ASSESSMENT). SCDS IN PLACE FOR VTE PROPHYLAXIS. IV TO RIGHT FOOT #24 RECEIVING NORMAL SALINE AT 5ML/HR TKO AND THERE IS AN AV SHUNT IN THE PATIENT'S LEFT UPPER ARM FOR HEMODIALYSIS. ORAL CARE GIVEN.PT UNABLE TO MOVE ALL HER EXTREMITIES.HOB AT 30 DEGREES WITH BED IN LOW POSITION. SIDE RAILS UP X2.PT ON THERAPEUTIC MATTRESS. WILL CONTINUE TO MONITOR PATIENT.
--- NOTE | 2016-04-05 08:25 | NUR ---
PT'S SISTER PRESENT AT BEDSIDE, UPDATED PT'S CONDITION, QUESTIONS ANSWERED.
--- NOTE | 2016-04-05 08:35 | NUR ---
MADE CAIO AWARE PT HAS IV ON RIGHT FOOT.ALSO MADE HER AWARE PT DOES NOT HAVE A GOOD VEIN ON RIGHT ARM. MENTIONED ABOUT DR. STEVENSON WANTED PT TO HAVE PICC LINE IF WE CAN NOT GET GOOD IV ON THE RIGHT ARM. PER CAIO SHE DOES NOT WANT HER SISTER HAVE PICC LINE AT THIS TIME.
[2016-04-05] MEDS: FOLIC ACID 1 MG TAB PO SCH (08:55)
[2016-04-05] MEDS: FAMOTIDINE 20 MG TAB PO SCH (08:55)
[2016-04-05] MEDS: levETIRAcetam 100 MG/ML ORASYR GT SCH ×2 (08:55→20:36)
[2016-04-05] MEDS: SACCHAROMYCES 250 MG CAP PO SCH ×2 (08:56→20:36)
[2016-04-05] MEDS: METOCLOPRAMIDE 10 MG TAB PO SCH ×3 (08:56→16:49)
[2016-04-05] MEDS: VIT-B COMP/VIT-C/FOLIC ACID 1 TAB PO SCH (08:56)
[2016-04-05] MEDS: amLODIPine 5 MG TAB PO SCH (08:56)
--- NOTE | 2016-04-05 10:06 | NUR ---
REPOSITIONED PT. SUCTIONED PT WITH SMALL AMOUNT OF WHITE SECRETION. NO URINE OUTPUT AT THIS TIME. NO S/S OF RESPIRATORY DISTRESS NOTED. WILL CONTINUE TO MONITOR.
--- NOTE | 2016-04-05 10:37 | NUR ---
1007 CALL PLACED TO SISTER CAIO TO PROVIDE HER WITH AN UPDATE ON HER REQUEST FOR [facility] CHARLENE TRANSFER. LEFT HER VM MESSAGE WITH MY CALL BACK NUMBER.
--- NOTE | 2016-04-05 11:19 | NUR ---
SUCTIONED PT WITH SMALL AMOUNT OF WHITE SECRETION. NO S/S OF RESPIRATORY DISTRESS NOTED AT THIS TIME.
--- NOTE | 2016-04-05 11:25 | NUR ---
RT AT BEDSIDE FOR BREATHING TREATMENT.
--- NOTE | 2016-04-05 11:45 | NUR ---
STARTED IV ON PT RIGHT FOREARM. REMOVED IV ON RIGHT FOOT.
--- NOTE | 2016-04-05 12:10 | NUR ---
PT'S SISTER CAIO PRESENT AT BEDSIDE. MADE HER AWARE OF PATIENT HAS A NEW IV ON RIGHT FOREARM NOW AND RIGHT FOOT IV WAS REMOVED ALREADY.
--- NOTE | 2016-04-05 12:14 | NUR ---
REPOSITIONED PT , ORAL CARE GIVEN. NO S/S OF RESPIRATORY DISTRESS NOTED. NO URINE OR STOOL OUTPUT AT THIS TIME.
--- NOTE | 2016-04-05 14:03 | NUR ---
DR. CABELLO IN TO SEE PT. UPDATED PT'S CONDITION. PER DR. CABELLO, PT WILL HAVE HEMODIALYSIS TOMORROW. CALLED GEORGIANA IVAN DIALYSIS NURSE [phone], PER GEORGIANA IVAN, SHE WILL COME TOMORROW ANYTIME.
--- NOTE | 2016-04-05 14:15 | NUR ---
REPOSITIONED PT. SUCTIONED PT WITH SMALL AMOUNT OF WHITE SECRETION. MONITOR SHOWS ST. NO S/S OF RESPIRATORY DISTRESS NOTED. NO URINE OR STOOL OUT PUT AT THIS TIME. WILL CONTINUE TO MONITOR.
--- NOTE | 2016-04-05 15:05 | NUR ---
RT AT BEDSIDE FOR BREATHING TREATMENT.
--- NOTE | 2016-04-05 15:21 | NUR ---
1040 CALLED SISTER AGAIN BUT VM IS STILL ON.
--- NOTE | 2016-04-05 15:30 | NUR ---
CASE MANAGEMENT ELLIE OROPEZA FROM [facility] CAME HERE TO EVALUATE PT, PER ELLIE OROPEZA, SHE WILL GET IN TOUCH WITH US LATER ON.
--- NOTE | 2016-04-05 16:20 | NUR ---
REPOSITIONED PT, SUCTIONED PT WITH SMALL AMOUNT OF WHITE SECRETION.NO S/S OF RESPIRATORY DISTRESS NOTED. WILL CONTINUE TO MONITOR.
--- NOTE | 2016-04-05 17:35 | NUR ---
SMALL AMOUNT OF URINE STAIN NOTED ON THE PAD, PT ALSO HAD SMALL AMOUNT OF SOFT BROWN STOOL. CLEANED PT, BED BATH GIVEN. GOWN CHANGED. WILL CONTINUE TO MONITOR.
--- NOTE | 2016-04-05 18:15 | NUR ---
PT'S DAUGHTER PRESENT AT BEDSIDE. UPDATED PT'S CONDITION. REPOSITIONED PT.SUCTIONED PT WITH SMALL AMOUNT OF WHITE SECRETION . WILL CONTINUE TO MONITOR.
--- NOTE | 2016-04-05 18:20 | NUR ---
MADE PT 'S DAUGHTER AWARE OF PT DOES NOT HAVE IV IN THE RIGHT FOOT ANYMORE. LET HER KNOW PT HAS IV ON RIGHT FOREARM NOW.
[2016-04-05] MEDS ORDERED: LEVOFLOXACIN 500 MG/D5W PREMIX 100 ML IV SCH (19:00)
--- NOTE | 2016-04-05 19:00 | NUR ---
REPORT GIVEN TO HEALTH AND SAFETY INSTRUCTOR RN ENRIQUE. PT IN STABLE CONDITION AT THIS TIME.
--- NOTE | 2016-04-05 19:05 | NUR ---
RECEIVED PATIENT REPORT FROM DAY SHIFT CHLOE PANDYA. DNR. ON ONLINE CONTENT EDITOR, SINUS TACHY. RESPONDS TO DEEP PAIN AND SUCTIONING. WITH OXYGEN AT 3LPM/NC. WITH NGT CONNECTED TO FEEDING PUMP RUNNING NOVASOURCE RENAL AT 40ML/HR, WATER FLUSH 5OML Q6H. PERIPHERAL IV ON RIGHT ARM G22 RUNNING IVF OF NS AT 5ML/HR VIA IV PUMP. SCD ON BOTH LEGS. ON AIR MATTRESS. SACRAL WOUND COVERED WITH DRESSING DRY AND INTACT. ALL ALARMS CHECKED. INITIAL ASSESSMENT DONE. BED IN LOW POSITION. ASPIRATION PRECAUTION.
[2016-04-05] MEDS: NACL 0.9% 250 ML IV SCH (19:30)
[2016-04-05] MEDS: SIMVASTATIN 20 MG TAB PO SCH (20:36)
--- NOTE | 2016-04-05 20:55 | NUR ---
SEEN AND EXAMINED BY DR. PONCE AND SHOWED HIM PATIENTS' BOTH GROIN WHICH HAS SOME SLIGHT REDNESS AND LOOKS LIKE VERY DRY SKIN; RECOMMENDED TO APPLY NYSTATIN POWDER INSTEAD OF Z GUARD.
--- NOTE | 2016-04-05 21:10 | NUR ---
PAGED DR. PONCE TO VERIFY DOSE AND FREQUENCY OF NYSTATIN FOR PATIENT'S GROIN; BUT HE DIDN'T RETURN MY PAGE; WILL PAGED HIM AGAIN IN THE MORNING.
[2016-04-06] VITALS (12 sets, daily range): BP systolic 99–143; BP diastolic 43–71
--- NOTE | 2016-04-06 | NUR ---
ORAL CARE GIVEN ASSISTED WITH SUCTIONING. LIPS MOISTENED. REPOSITIONED PATIENT. ASPIRATION PRECAUTION. NO SIGNS OF DISTRESS AT THIS TIME.
[2016-04-06] MEDS: Z-GUARD PASTE TP SCH ×2 (00:03→12:00)
--- NOTE | 2016-04-06 02:16 | NUR ---
REPOSITIONED DONE. SUCTIONED SECRETIONS TOLERATED. ASPIRATION PRECAUTION. ALL ALARMS CHECKED.
[2016-04-06] MEDS: ALBUTEROL SULFATE/IPRATROPIU 3 ML SOL IH SCH ×6 (03:33→23:06)
--- NOTE | 2016-04-06 04:00 | NUR ---
ORAL CARE GIVEN. SUCTIONING OF SECRETIONS DONE. BED IN LOW POSITION. ALL ALARMS CHECKED. REPOSITIONED PATIENT. NO SIGNS OF DISTRESS AT THIS TIME.
[2016-04-06] MEDS: PIPER/TAZO 2.25GM/D5W PREMIX 50 ML IV SCH ×3 (05:39→21:00)
--- NOTE | 2016-04-06 05:51 | NUR ---
AM CARE GIVEN, LIPS MOISTENED. BEVERLY-CARE GIVEN. ALL LINENS AND GOWN CHANGED. TURNED SIDE TO SIDE. REPOSITIONED PATIENT. OFFLOAD PRESSURES. PERIPHERAL IV STILL INTACT. Z-GUARD APPLIED ALL OVER BUTTOCKS AND GROIND AREA. SACRAL AREA STILL DRY AND INTACT.
[2016-04-06] MEDS: BLOOD GLUCOSE MONITORING 1 DEV DEV FS SCH ×4 (06:47→20:57)
[2016-04-06] MEDS: INSULIN ASPART SLIDING SCALE 100 UNITS/ML VIAL SUBQ PRN ×4 (06:48→20:59)
--- NOTE | 2016-04-06 06:50 | NUR ---
PAGED AGAIN DR. PONCE TO CLARIFY HIS RECOMMENDATION OR ORDER OF NYSTATIN FOR PATIENT'S GROIN; STILL NO RETURN CALL AT THIS TIME, 0720H; ENDORSED TO CHLOE JAIME TO FOLLOW IT UP TO MD LATER IN THE DAY.
--- NOTE | 2016-04-06 07:12 | NUR ---
PATIENT REPORT GIVEN TO DAY SHIFT CHLOE PANDYA. NO SIGNS OF RESPIRATORY DISTRESS OR DISCOMFORT AT THIS TIME. ENDORSED THAT DR. PONCE WANTED AN ANTI-FUNGAL FOR [facility]. DR. PONCE WAS PAGED BY LIBRARY MANAGER [place] BUT STILL NO RESPONSE.
--- NOTE | 2016-04-06 07:25 | NUR ---
RECEIVED PT FROM CLAIMS REPRESENTATIVE CHLOE NUNEZ. PT IS UNRESPONSIVE TO NAME OR LIGHT PAIN STIMULI. MONITOR SHOWS SR. PATIENT IS RECEIVING HUMIDIFIED OXYGEN VIA NASAL CANNULA AT 3L/MIN. NO S/S OF RESPIRATORY DISTRESS NOTED,SUCTIONED PT WITH SMALL AMOUNT OF WHITE SECRETION. RHONCHI HEARD UPON AUSCULTATION . NGT IN PLACE WITH NOVASOURCE RENAL AT 40ML/HR FREE H2O FLUSH 50 ML Q6H. NO RESIDUAL . ABDOMEN SOFT BOWEL SOUNDS ACTIVE.SKIN NON INTACT( SEE WOUND ASSESSMENT). SCDS IN PLACE FOR VTE PROPHYLAXIS. IV TO RIGHT FOREARM #24 RECEIVING NORMAL SALINE AT 5ML/HR TKO . AV SHUNT IN THE PATIENT'S LEFT UPPER ARM FOR HEMODIALYSIS. ORAL CARE GIVEN.PT UNABLE TO MOVE ALL HER EXTREMITIES.HOB AT 30 DEGREES WITH BED IN LOW POSITION. SIDE RAILS UP X2.PT ON THERAPEUTIC MATTRESS. WILL CONTINUE TO MONITOR PATIENT.
--- NOTE | 2016-04-06 07:30 | NUR ---
HEMODIALYSIS NURSE PRESENT IN ICU BED 1 BEDSIDE. REPORT GIVEN .
[2016-04-06] MEDS: levETIRAcetam 100 MG/ML ORASYR GT SCH ×2 (08:58→21:00)
[2016-04-06] MEDS: FOLIC ACID 1 MG TAB PO SCH (08:59)
[2016-04-06] MEDS: VIT-B COMP/VIT-C/FOLIC ACID 1 TAB PO SCH (08:59)
[2016-04-06] MEDS: FAMOTIDINE 20 MG TAB PO SCH (08:59)
[2016-04-06] MEDS: METOCLOPRAMIDE 10 MG TAB PO SCH ×3 (08:59→16:33)
[2016-04-06] MEDS: SACCHAROMYCES 250 MG CAP PO SCH ×2 (08:59→21:00)
--- NOTE | 2016-04-06 09:50 | NUR ---
PT IS ON DIALYSIS. NO SOB AT THIS TIME. REPOSITIONED PT. WILL CONTINUE TO MONITOR.
--- NOTE | 2016-04-06 10:00 | NUR ---
WOUND CARE NOTES: PATIENT HAVING DIALYSIS AT THIS TIME. PER DIALYSIS NURSE HE WILL BE DONE AT 1120. WILL FOLLOW UP.
--- NOTE | 2016-04-06 10:44 | NUR ---
BREATHING TX GIVEN TO PT, PT IS RECEIVING DIALYSIS AT THIS TIME NO SOB OR DISTRESS NOTED AT THIS TIME, PT IS RESTING COMFORTABLY
--- NOTE | 2016-04-06 11:30 | NUR ---
PT'S SISTER CAIO PRESENT AT BEDSIDE. UPDATED PT CONDITION, QUESTIONS ANSWERED.
--- NOTE | 2016-04-06 11:45 | NUR ---
DIALYSIS DONE. TOTAL OUTPUT 2 LITERS. NO S/S OF RESPIRATORY DISTRESS NOTED. SUCTIONED PT WITH SMALL AMOUNT OF WHITE SECRETION. REPOSITIONED PT. Addendum: 04/06/16 at 1254 by Rosalba Avalos RN PT HAD SMALL AMOUNT OF SOFT BROWN STOOL, CLEANED PT.
[2016-04-06] MEDS: FOAM DRESSING TP SCH (12:00)
--- NOTE | 2016-04-06 12:04 | NUR ---
WOUND CARE NOTES: SEEN PATIENT FOR FOLLOW UP. PLEASE REFER TO WOUND ASSESSMENT FLOWSHEET FOR UPDATED ENTRY. WILL CONTINUE CURRENT PLAN OF CARE. WILL CONTINUE TO FOLLOW UP PATIENT.
[2016-04-06] MEDS: amLODIPine 5 MG TAB PO SCH (14:30)
--- NOTE | 2016-04-06 14:40 | NUR ---
PT HAD INCONTINENT OF SMALL AMOUNT OF URINE , PERINEAL CARE GIVEN, APPLIED Z-GUARD TO PERINEAL AREA.REPOSITIONED PT. OFF LOAD PRESSURE AREA.
--- NOTE | 2016-04-06 14:45 | NUR ---
PER LAKESHA FROM [facility]. IF PATIENT GOES TO [facility], THE AUTH FOR [facility]SPORT IS [id number].
--- NOTE | 2016-04-06 14:55 | NUR ---
BEFORE BREATHING TX WAS STARTED PT WAS TURNED BY CHLOE JAIME AND CHLOE PANDYA PT IS RESTING COMFORTABLY NOW.
--- NOTE | 2016-04-06 16:15 | NUR ---
ORAL CARE GIVEN. SUCTIONED PT WITH SMALL AMOUNT OF WHITE SECRETION. REPOSITIONED PT. NO SOB.
--- NOTE | 2016-04-06 18:15 | NUR ---
PT'S NEPHEW PRESENT AT BEDSIDE, UPDATED PT'S CONDITION. REPOSITIONED PT. NO S/S OF RESPIRATORY DISTRESS NOTED.
--- NOTE | 2016-04-06 19:03 | NUR ---
BEDSIDE REPORT GIVEN TO CHAR CORONA. PT IN STABLE CONDITION AT THIS TIME.
--- NOTE | 2016-04-06 19:05 | NUR ---
RECEIVED REPORT FROM CHLOE PANDYA. AT BEDSIDE, PATIENT IS LETHARGIC, APHASIC, LEGALLY BLIND ON BOTH EYES. NO SIGNS OF ACUTE DISTRESS NOTED, BRONCHI LUNG SOUNDS. PRODUCTIVE COUGHING, ON O2 AT 3L VIA NC, ST ON MAILS SUPERVISOR. NGT TO LEFT NARE IN PLACE. ON TUBE FEEDING WITH NOVASOURCE RENAL AT 40ML/HR WITH WATER FLUSH 50ML Q6H, RESIDUE 0 ML, TOLERATED WELL. FLACC 0. ACTIVE BOWEL SOUNDS. IV TO RIGHT FOREARM #24, SL. AFEBRILE, SKIN IS WARM AND DRY TO TOUCH. PRESSURE ULCER ON SACRAL AREA NOTED, (SEE WOUND ASSESSMENT), LEFT UPPER ARM AV SHUNT NOTED WITH BRUIT AND THRILL PRESENT. INCONTINENT WITH B&B'S, NOT ABLE TO MOVE ALL EXTREMITIES. SCD'S ON BLE FOR DVT PREVENTION. ON CONTACT ISOLATION, SAFETY PRECAUTIONS IN PLACE, CALL LIGHT WITHIN REACH, WILL CONTINUE TO MONITOR.
--- NOTE | 2016-04-06 20:00 | NUR ---
NO CHANGED OF CONDITION AT THIS TIME, POSITION CHANGED FOR OFF LOAD PRESSURE.
--- NOTE | 2016-04-06 20:45 | NUR ---
DR PONCE CAME IN TO SEE PATIENT, NEW ORDER OBTAINED AND CARRIED OUT.
[2016-04-06] MEDS: NACL 0.9% 250 ML IV SCH (21:00)
[2016-04-06] MEDS: SIMVASTATIN 20 MG TAB PO SCH (21:00)
[2016-04-06] MEDS: HYDROcodone/APAP 5/325 MG 1 TAB TAB PO PRN (21:00)
--- NOTE | 2016-04-06 21:00 | NUR ---
SCHEDULED MEDICATION GIVEN ORDERED, ACCU CHECK PREFORMED WITH 250MG/DL, INSULIN GIVEN ORDERED, NO ADVERSE EFFECT NOTED, PATIENT TOLERATED WELL.
--- NOTE | 2016-04-06 22:00 | NUR ---
NO CHANGE OF CONDITION AT THIS TIME, POSITION CHANGED FOR OFF LOAD PRESSURE.
[2016-04-07] VITALS (8 sets, daily range): BP systolic 100–150; BP diastolic 53–79
--- NOTE | 2016-04-07 | NUR ---
ORAL CARE PROVIDED, POSITION CHANGED FOR OFF LOAD PRESSURE, NO CHANGED OF CONDITION AT THIS TIME, WILL CONTINUE TO MONITOR.
--- NOTE | 2016-04-07 00:42 | NUR ---
CAIO SISTER OF PT IS HERE , PER DAY NURSE SHE DID NOT WANT PICC LINE INSERTION TO PT.WE [BHAVANA NURSE ] DISCUSSION WITH CAIO FOR SIGN REFUSAL TO PERMIT MEDICAL TREATMENT BUT SHE DO NOT WANT TO SIGN ANY PAPER .
[2016-04-07] MEDS: NYSTATIN OINT 100 MU/GM 15 GM TUBE TP SCH ×2 (01:00→13:00)
[2016-04-07] MEDS: Z-GUARD PASTE TP SCH ×2 (01:00→13:15)
--- NOTE | 2016-04-07 02:00 | NUR ---
NO CHANGE OF CONDITION AT THIS TIME, POSITION CHANGED FOR OFF LOAD PRESSURE.
[2016-04-07] MEDS: ALBUTEROL SULFATE/IPRATROPIU 3 ML SOL IH SCH ×6 (03:07→23:11)
--- NOTE | 2016-04-07 04:00 | NUR ---
AM CARE PROVIDED, ORAL CARE PROVIDED, NO CHANGE OF CONDITION AT THIS TIME, POSITION CHANGED FOR OFF LOAD PRESSURE, WILL CONTINUE TO MONITOR.
[2016-04-07] MEDS: PIPER/TAZO 2.25GM/D5W PREMIX 50 ML IV SCH ×3 (04:54→21:23)
--- NOTE | 2016-04-07 06:00 | NUR ---
NO CHANGED OF CONDITION AT THIS TIME, POSITION CHANGED FOR OFF LOAD PRESSURE.
[2016-04-07] MEDS: BLOOD GLUCOSE MONITORING 1 DEV DEV FS SCH ×4 (06:38→21:27)
[2016-04-07] MEDS: INSULIN ASPART SLIDING SCALE 100 UNITS/ML VIAL SUBQ PRN ×4 (06:42→21:29)
--- NOTE | 2016-04-07 07:24 | NUR ---
NOC AND DAY RN'S AT BEDSIDE FOR PATIENT CARE DISTRIBUTION DISTRICT SUPERVISOR TO ATTEMPT HHN THERAPY AT A LATER TIME NO SOB NOTED
--- NOTE | 2016-04-07 07:30 | NUR ---
RECEIVED REPORT FROM CHLOE PARDO. PT SEEN AT BEDSIDE. PT AROUSABLE TO DEEP PAIN AND SUCTIONING. ON 2L O2 VIA NC. PT HAVING FREQUENT NONPRODUCTIVE COUGH. PT ORALLY SUCTIONED WITH MODERATE AMOUNT OF CLEAR SPUTUM NOTED. PT HAS A RIGHT FA 22G IV RUNNING IVF AT O. AV SHUNT NOTED ON LEFT UPPER ARM. NO S/S COMPLICATIONS NOTED AT THIS TIME. PT ON SUPERVISING NURSE RUNNING SINUS TACHY AT THIS TIME. PT HAS NGT TO LEFT NARE RUNNING TUBE FEEDING. RESIDUAL 5ML AT THIS TIME. NGT PATENT AND INTACT. BOWEL SOUNDS ACTIVE IN X4 QUADRANTS. PT HAS A SACRAL WOUND COVERED WITH DRESSING. DRESSING IS PATENT AND INTACT. PT TURNED AND REPOSITIONED FOR COMFORT, ORAL CARE GIVEN, SAFETY MEASURES CHECKED; CALL LIGHT LEFT AT BEDSIDE. WILL CONTINUE TO MONITOR.
--- NOTE | 2016-04-07 07:45 | NUR ---
NGT TUBE CLOGGED. NEW NGT REINSERTED. NG PATENT AND INTACT. ASPIRATED TUBE FEEDING FORMULA; ABLE TO AUSCULTATE PLACEMENT. WILL CONTINUE TO MONITOR. Addendum: 04/07/16 at 1005 by Lissette Lopez RN WAS UNABLE TO FLUSH AND ASPIRATE, SO NEW NGT WAS REPLACED.
--- NOTE | 2016-04-07 07:53 | NUR ---
RECEIVED ON HUMIDIFIED SUPPLEMENTAL OXYGEN AT 2 LLPM VIA NC ON AND FUNCTIONING WELL SATURATION 100% LOC EYE CLOSED RESPONSIVE TO SUCTION STIMULUS BREATH SOUNDS INSP/EXP RHONCHI BILATERAL WITH GOOD CHEST RISE USING STERILE TECHNIQUE [place] LUBRICANT APPLIED TO DISTAL PORTION OF A 14FR SUCTION CATHETER INSERTED INTO RIGHT NARES NG TUBE AT LEFT NARES SUCTIONING APPLICATION X2 WITHOUT TRAUMA OBTAINED LARGE THICK YELLOW SECRETIONS TOLERATED PROCEDURE WELL WITH INCIDENT HHN THERAPY GIVEN ORDERED EQUIPMENT CHANGED: HHN, AEROSOL MASK AND NASAL CANNULA
[2016-04-07] MEDS: FAMOTIDINE 20 MG TAB PO SCH (08:28)
[2016-04-07] MEDS: SACCHAROMYCES 250 MG CAP PO SCH (08:28)
[2016-04-07] MEDS: levETIRAcetam 100 MG/ML ORASYR GT SCH ×2 (08:28→21:22)
[2016-04-07] MEDS: VIT-B COMP/VIT-C/FOLIC ACID 1 TAB PO SCH (08:28)
[2016-04-07] MEDS: FOLIC ACID 1 MG TAB PO SCH (08:29)
[2016-04-07] MEDS: METOCLOPRAMIDE 10 MG TAB PO SCH ×2 (08:29→13:15)
[2016-04-07] MEDS: HYDROcodone/APAP 5/325 MG 1 TAB TAB PO PRN (08:30)
[2016-04-07] MEDS: amLODIPine 5 MG TAB PO SCH (08:30)
--- NOTE | 2016-04-07 08:32 | NUR ---
ROUTINE MEDICATIONS ADMINISTERED WITH EDUCATION. PT UNABLE TO VERBALIZE UNDERSTANDING. FLACC 4-PT HAVING FACIAL GRIMACE AND MOANING; NORCO ADMINISTERED FOR PAIN. WILL REEVALUATE.
--- NOTE | 2016-04-07 08:33 | NUR ---
ENTRY FOR 04/06/16 1224 RECEIVED CALL FROM LAKESHA PARKS AT [facility]. LAKESHA STATED THAT PT'S SISTER CAIO HAD TOURED [facility] AND WAS IN AGREEMENT TO TRANSFER ONLY IF PT WOULD BE PLACED IN THE ICU. LAKESHA STATED THAT SHE INFORMED CAIO THAT PT DID NOT MEET ICU LEVEL OF CARE AND THAT [facility] WOULD AUTHORIZE TELE LEVEL OF CARE AND ALSO THAT [facility] WOULD ACCEPT AT A TELE LEVEL OF CARE AND NOT ICU. LAKESHA STATED THAT CAIO HAS FILED A GRIEVANCE AND THAT THE [facility] GRIEVANCE DEPARTMENT WAS GOING TO CONTACT CAIO ALSO TO INFORM HER THAT TELE LEVEL OF CARE WOULD BE AUTHORIZED AND NOT ICU. PER LAKESHA SHE SPOKE WITH DR KAMINSKI AND THAT PT CAN TRANSFER TO TELE LEVEL OF CARE.
--- NOTE | 2016-04-07 08:54 | NUR ---
[id number] RECEIVED CALL FROM LAKESHA PARKS AT [facility] REGARDING PT STATUS AND LEVEL OF CARE. INFORMED HER PT STILL IN ICU AND NO ORDER FOR TELE TRANSFER. SHE REQUESTED THAT I CONTACT DR KAMINSKI. [id number] KAMINSKI AND ORDER TO TRANSFER PT TO TELE LEVEL OF CARE RECEIVED.
--- NOTE | 2016-04-07 09:45 | NUR ---
PT'S STEP DAUGHTER AND BOYFRIEND AT BEDSIDE VISITING PATIENT.
--- NOTE | 2016-04-07 10:00 | NUR ---
PT TURNED AND REPOSITIONED FOR COMFORT. PT HAD SMALL AMOUNT OF URINE AND BM X1. CLEANED, APPLIED Z-GUARD.
--- NOTE | 2016-04-07 10:15 | NUR ---
PT SEEN BY OFFICE MACHINE SERVICER APPRENTICEEUGENE. DRESSING CHANGED BY OFFICE MACHINE SERVICER APPRENTICE AND PRIMARY RN AT BEDSIDE ASSISTING.
--- NOTE | 2016-04-07 10:30 | NUR ---
DR. KAMINSKI AT NURSING STATION. UPDATED MD ON PATIENT CONDITION. WILL CONTINUE TO MONITOR.
--- NOTE | 2016-04-07 11:48 | NUR ---
CM NOTE CONCURRENT REVIEW FAXED TO [facility] / FAX# [phone], ATTN: LAKESHA #[phone]
--- NOTE | 2016-04-07 11:53 | NUR ---
RESTING COMFORTABLY HHN THERAPY GIVEN ORDERED LIYAH IN ROOM
--- NOTE | 2016-04-07 13:41 | NUR ---
04/07/16 RD FOLLOW UP COMPLETED PLEASE REFER TO NUTRITION PROGRESS NOTE UNDER CARE ACTIVITY FOR ESTIMATED NUTRITION NEEDS. RD RECOMMENDATIONS: 1. NOVASOURCE RENAL AT 40 ML/HR WITH 50 ML FREE WATER FLUSH Q6H VIA NGTUBE. --CURRENT TUBE FEEDING MEETING 100% OF PT ESTIMATED KCAL AND PROTEIN NEEDS --NOTE PT WITH NG TUBE L NARE SINCE 03/04/16 --NOTE RD WILL MONITOR GLUCOSE LEVELS AND RENAL FUNCTION FOR TUBE FEEDING ADJUSTMENTS 2. CONSIDER GTUBE FOR FITNESS TEACHER NUTRITION SUPPORT NEEDS 3. RD WILL F/U 2-3 DAYS; HIGH RISK. KAREN CHIANG, RD
--- NOTE | 2016-04-07 13:55 | NUR ---
DR. GROSSMAN AT NURSING STATION. UPDATED MD ON PATIENT CONDITION AND HGB 7.5. MD STATED THAT PT WILL HAVE HD TOMORROW.
--- NOTE | 2016-04-07 14:03 | NUR ---
CALLED [facility], TO SCHEDULE HD FOR TOMORROW. [place].
--- NOTE | 2016-04-07 14:15 | NUR ---
PT TURNED AND REPOSITIONED FOR COMFORT. NO BM OR INCONTINENCE NOTED.
--- NOTE | 2016-04-07 14:42 | NUR ---
1403 CALL PLACED TO SISTER CAIO [phone] AND LEFT HER A VM MESSAGE INFORMING HER THAT PT HAS AN ORDER TO TRANSFER TO TELEMETRY LEVEL OF CARE AND WILL TRANSFER TODAY. 1415 MET WITH DAUGHTER RAKEL IN ICU WITH RONEL BRUNER PRESENT AND INFORMED ERIN THAT PT WILL TRANSFER TO TELEMETRY UNIT TODAY MD HAS DETERMINED THAT SHE IS STABLE TO TRANSFER TO TELEMETRY LEVEL OF CARE. 1431 HAD VM MESSAGE FROM CAIO REQUESTING A CALL BACK. CALLED HER AND INFORMED HER SHE WAS ON SPEAKER PHONE AND THAT CHARLY QUIROS WAS PRESENT. CAIO ASKED WHY PT WAS BEING TRANSFERRED TO TELE LOC AND I EXPLAINED TO HER THAT SHE DID NOT MEET AN ICU LEVEL OF CARE. 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 I EXPLAINED THAT SOME OF PT'S CONDITIONS ARE CHRONIC BUT SHE IS NOT CRITICALLY ILL ENOUGH PER THE PHYSICIANS DETERMINATION TO REQUIRED CONTINUED ICU LEVEL OF CARE. ALSO INFORMED HER THAT [facility] HAS ALSO REVIEWED PT'S CLINICAL STATUS AND AGREES WITH DR KAMINSKI THAT PT NO LONGER NEEDS TO BE IN THE ICU. I INFORMED CAIO THAT PT WILL TRANSFER TODAY AND CAIO DISCONNECTED THE PHONE.
--- NOTE | 2016-04-07 14:55 | NUR ---
SISTER, CAIO, AT NURSING STATION TALKING TO RN'S; APPEARS UPSET BECAUSE PT WILL BE TRANSFERRED TO TELE. STATES THAT, "MY SISTER IS NOT STABLE. SHE'S BRAIN DAMAGED AND FOR ME, STABLE IS BEING ABLE TO SPEAK AND WALK LIKE SHE USED TO". CAIO ALSO STATED THAT SHE WAS NOT ABLE TO RECEIVE THE PHONE CALL, "BECAUSE MY PHONE WAS AND THE SIGNAL WAS NOT WORKING FOR MY PHONE." THOMAS FROM [facility] NOTIFIED THAT CAIO WOULD LIKE TO TALK TO THEM; THOMAS STATED SHE WILL TALK TO [facility].
--- NOTE | 2016-04-07 15:08 | NUR ---
[facility] AND THOMAS, [facility] AT BEDSIDE WITH OVIDIO. [facility] TALKING TO FAMILY ABOUT TRANSFER.
--- NOTE | 2016-04-07 15:27 | NUR ---
1509 MET WITH SISTER CAIO, DAUGHTER RAKEL AT BEDSIDE WITH THOMAS RODNEY AND LIANNE JESSICA ICU DIRECTOR PRESENT. CAIO VOICED HER OBJECTION TO HAVING PT MOVED TO TELEMETRY AND I EXPLAINED TO HER THAT THE PHYSICIANS HAVE DETERMINED THAT HER CURRENT MEDICAL CONDITION AND NEEDS DO NOT WARRANT AN ICU LEVEL OF CARE. MARY EXPRESSED CONCERN THAT "SHE'S BRAIN DAMAGED" AND NEEDED TO REMAIN IN ICU AND DISCUSSED WITH HER THAT THERE WAS NO CRITICAL NEED AND THAT HER CARE PER THE PHYSICIAN CAN BE DELIVERED AT A TELE LEVEL OF CARE. CAIO STATED THAT SHE WAS CURRENTLY ON HOLD WITH [facility]. INFORMED CAIO THAT PT WILL TRANSFER TO THE TELEMETRY UNIT SOON. CAIO HAD NO FURTHER QUESTIONS.
--- NOTE | 2016-04-07 15:50 | NUR ---
PATIENT TRANSFERRED TO [facility] 124-A RN'S AT BEDSIDE FOR PATIENT BED TRANSFER, PHYSICAL HYGIENE AND REPOSITION CHARGING MANIPULATOR TO ATTEMPT HHN THERAPY AT A LATER TIME NO DISTRESS NOTED
--- NOTE | 2016-04-07 15:50 | NUR ---
RECEIVED FROM ICU VIA GURNEY (WOUND CARE BED), ACCOMPANIED BY PT. SISTERS. NO SIGNS AND SYMPTOMS OF ACUTE DISTRESS NOTED. KEEP COMFORTABLE ON BED. HOB ELEVATED FOR ASPIRATION PRECAUTION. KEEP COMFORTABLE ON BED. EXPLAINED TO PT. SISTER DONTE ABOUT DIAGNOSIS, PLAN OF CARE, PAIN MANAGEMENT TEACHING, CONTACT ISOLATION PRECAUTION, USE OF CALL LIGHT/BED/TV/BATHROOM. PT. SISTER DONTE VERBALIZED UNDERSTANDING. ASKED PT. SISTER DONTE FOR ANY CONCERN, QUESTION, OR PT. TREATMENT PREFERENCE. NOTHING RECEIVED FROM PTTerri KENT.
--- NOTE | 2016-04-07 15:50 | NUR ---
REPORT GIVEN TO CHLOE LOVE. FAMILY PRESENT FOR TRANSFER. ATTACHED TO PORTABLE MONITOR. TRANSFERRED PATIENT TO [facility]. CHLOE LOVE AT BEDSIDE PRESENT. ATTACHED TO LABORER TANBARK; PT TOLERATED WELL.
--- NOTE | 2016-04-07 16:00 | NUR ---
Patient's Plan of Care was discussed and reviewed with [employer] MERCHANDISING MANAGER: KATE
--- NOTE | 2016-04-07 16:07 | NUR ---
NO DISTRESS NOTED BREATH SOUNDS DIMINISHED BILATERAL WITH GOOD CHEST RISE NO EVIDENCE OF RHNOCHI, RALES OR WHEEZE BILATERAL AIRWAY PATENT HHN THERAPY GIVEN ORDERED TOLERATED WELL WITHOUT INCIDENT FAMILY IN ROOM Addendum: 04/07/16 at 1639 by Alexandre Kenny RT HUMIDIFIED SUPPLEMENTAL OXYGEN AT 2 LPM VIA NASAL CANNULA ON AND FUNCTIONING WELL
--- NOTE | 2016-04-07 16:30 | NUR ---
RECEIVED CALL FROM DR. KAMINSKI TO PUT IN ORDER FOR DISCHARGE TO [facility] TOMORROW. WILL FOLLOW UP WITH ORDERS.
--- NOTE | 2016-04-07 16:31 | NUR ---
NOTIFIED [facility] DIAZ, OF DR KAMINSKI'S ORDER FOR DISCHARGE TO [place] TOMORROW. ELLIE TRAN.
[2016-04-07] MEDS: HYDROcodone/APAP 5/325 MG 1 TAB TAB GT PRN (16:33)
[2016-04-07] MEDS ORDERED: METOCLOPRAMIDE 10 MG/10 ML SYRP UDC PO SCH (16:44)
[2016-04-07] MEDS: METOCLOPRAMIDE 10 MG/10 ML SYRP UDC GT SCH (16:59)
--- NOTE | 2016-04-07 18:00 | NUR ---
REPOSITION TO RIGHT SIDE POSITION FROM LEFT SIDE POSITION WITH ASSISTANCE FROM YOUSIF TRAORE AND HOUSTON TRAORE. TOLERATED WELL. NO SOB, NOTED. ASPIRATION PRECAUTION APPLIED. CALL LIGHT WITHIN REACH.
[2016-04-07] MEDS: LEVOFLOXACIN 250 MG/D5 PREMIX 50 ML IV SCH (18:07)
--- NOTE | 2016-04-07 19:19 | NUR ---
BEDSIDE REPORT GIVEN TO ANTONIO AARON. RESTING ON BED COMFORTABLY. IN STABLE CONDITION.
--- NOTE | 2016-04-07 19:20 | NUR ---
RECEIVED PT IN STABLE CONDITION FROM KATE Padgett LVN. NO SOB, NO SIGNS OF DISTRESS. PT IS ALOC, APHASIC, LEGALLY BLIND, AND BEDBOUND. BUE AND BLE ARE FLACCID. PT ON 2L O2 NC. VS STABLE. NGT TO LT NARE PT TOLERATING TUBE FEEDING WELL. IRRIGATED, AUSCULTATED, ASPIRATED NO RESIDUAL WITH POSITIVE PLACEMENT. IV TO RT FA/UPPER ARM 22G PATENT, ASYMPTOMATIC, INTACT, IVF RUNNING TKO. PT IS ON CONTACT PRECAUTIONS FOR E. COLI IN URINE AND SPUTUM, AND ESBL OF SPUTUM. PT HAS A SACRAL PRESSURE ULCER, AND INCONTINENT DERMATITIS TO PERINEAL AREA. SKIN OTHERWISE INTACT. FLACC 4, WILL MEDICATE PT FOR PAIN PER MD ORDER. PT WITH LT UPPER ARM AV SHUNT FOR HD. SCDS IN PLACE. PT ON PRESSURE REDISTRIBUTION SURFACE MATTRESS. PLAN OF CARE DISCUSSED WITH PT. SAFETY MEASURES IN PLACE. CALL LIGHT WITHIN REACH. WILL CONTINUE TO MONITOR.
--- NOTE | 2016-04-07 20:00 | NUR ---
WHILE CLEANING AND TURNING PATIENT, PT VOMITED 100 ML EMESIS, SUCTIONED PATIENT, O2 SAT WNL. HELD NGT FEEDING. NO SOB, NO SIGNS OF DISTRESS, PT ON 2L O2 NC. WILL GIVE PT ZOFRAN FOR VOMITING PER MD ORDER. IV SITE ASYMPTOMATIC, INTACT, PATENT, IVF RUNNING. PLAN OF CARE DISCUSSED WITH PT. SAFETY MEASURES IN PLACE. CALL LIGHT WITHIN REACH. WILL CONTINUE TO MONITOR.
--- NOTE | 2016-04-07 20:08 | NUR ---
PAGED RT TO COME AND CHECK ON PT.
[2016-04-07] MEDS: SIMVASTATIN 20 MG TAB GT SCH (21:20)
[2016-04-07] MEDS: SACCHAROMYCES 250 MG CAP GT SCH (21:21)
[2016-04-07] MEDS: NACL 0.9% 250 ML IV SCH (21:27)
--- NOTE | 2016-04-07 21:27 | NUR ---
PT TOLERATED DUE MEDS WELL. RE-STARTED NGT FEEDING, PT TOLERATING WELL. GAVE PT ZOFRAN PER MD ORDER. NO SOB, NO SIGNS OF DISTRESS. PT ON 2L O2 NC. IV SITE ASYMPTOMATIC, INTACT, PATENT, IVF RUNNING. FLACC 7, PAIN MEDICATION NOT DUE YET, WILL ADMIN PAIN MEDS ONCE DUE. PLAN OF CARE DISCUSSED WITH PT. SAFETY MEASURES IN PLACE. CALL LIGHT WITHIN REACH. WILL CONTINUE TO MONITOR.
--- NOTE | 2016-04-07 22:15 | NUR ---
CLEANED AND TURNED PATIENT, PT TOLERATED WELL. PT WITH SMALL SOFT BM. SUCTIONED PT ORALLY, PT TOLERATED WELL. NO SOB, NO SIGNS OF DISTRESS, PT ON 2L O2 NC. IV SITE ASYMPTOMATIC, INTACT, PATENT, IVF RUNNING. PLAN OF CARE DISCUSSED WITH PT. SAFETY MEASURES IN PLACE. CALL LIGHT WITHIN REACH. WILL CONTINUE TO MONITOR.
--- NOTE | 2016-04-07 23:15 | NUR ---
RT AT BEDSIDE GIVING PT BREATHING TREATMENT AND SUCTIONED PATIENT, PT TOLERATED WELL.
[2016-04-08] VITALS: BP 107/61
--- NOTE | 2016-04-08 | NUR ---
HR 125, OTHER VS WNL ON 2L O2 NC. WILL ADMIN PAIN MEDS TO SEE IF PTS HR DECREASES.
[2016-04-08] MEDS: HYDROcodone/APAP 5/325 MG 1 TAB TAB GT PRN ×3 (00:06→18:19)
[2016-04-08] MEDS: FOAM DRESSING TP PRN (00:06)
[2016-04-08] MEDS: Z-GUARD PASTE TP SCH ×2 (00:07→12:05)
[2016-04-08] MEDS: NYSTATIN OINT 100 MU/GM 15 GM TUBE TP SCH ×2 (00:07→12:04)
--- NOTE | 2016-04-08 00:10 | NUR ---
TURNED PT, TOLERATED WELL. CHANGED DRESSING TO SACRUM DUE TO SOILING, PT TOLERATED WELL. FLACC 9, PT GROANING. MEDICATED PT FOR PAIN PER MD ORDER. NO SOB, PT ON 2L O2 NC. IV SITE ASYMPTOMATIC, INTACT, PATENT, IVF RUNNING. PT TOLERATING NGT FEEDING WELL. PLAN OF CARE DISCUSSED WITH PT. SAFETY MEASURES IN PLACE. CALL LIGHT WITHIN REACH. WILL CONTINUE TOP MONITOR.
--- NOTE | 2016-04-08 02:06 | NUR ---
PT RESTING COMFORTABLY IN BED. PT LOOKS MORE RELAXED, HR TRENDING DOWN. NO SOB, NO SIGNS OF DISTRESS. PT ON 2L O2 NC. IV SITE ASYMPTOMATIC, INTACT, PATENT, IVF RUNNING. FLACC 2. PLAN OF CARE DISCUSSED WITH PT. SAFETY MEASURES IN PLACE. CALL LIGHT WITHIN REACH. WILL CONTINUE TO MONITOR. Addendum: 04/08/16 at 0521 by Ritu Dickey RN TURNED PT, TOLERATED WELL.
[2016-04-08] MEDS: ALBUTEROL SULFATE/IPRATROPIU 3 ML SOL IH SCH ×6 (02:58→23:30)
[2016-04-08 04:00] VITALS: BP 97/52
--- NOTE | 2016-04-08 04:15 | NUR ---
HR 117, OTHER VS WNL. TURNED PT, TOLERATED WELL. PROVIDED ORAL CARE, PT TOLERATED WELL. NO NGT FEEDING RESIDUAL NOTED, PT TOLERATING WELL. NO SOB, NO SIGNS OF DISTRESS. PT ON 2L O2 NC. IV SITE ASYMPTOMATIC, INTACT, PATENT, IVF RUNNING. FLACC 2. PLAN OF CARE DISCUSSED WITH PT. SAFETY MEASURES IN PLACE. CALL LIGHT WITHIN REACH. WILL CONTINUE TO MONITOR.
[2016-04-08] MEDS: PIPER/TAZO 2.25GM/D5W PREMIX 50 ML IV SCH ×3 (04:23→20:17)
[2016-04-08] MEDS: BLOOD GLUCOSE MONITORING 1 DEV DEV FS SCH ×4 (06:33→20:13)
[2016-04-08] MEDS: INSULIN ASPART SLIDING SCALE 100 UNITS/ML VIAL SUBQ PRN ×4 (06:34→20:14)
--- NOTE | 2016-04-08 06:38 | NUR ---
TURNED PT, TOLERATED WELL. NO NGT FEEDING RESIDUAL NOTED. FLACC 0. IV SITE ASYMPTOMATIC, INTACT, IVF RUNNING. PT ON 2L O2 NC. NO SOB, NO SIGNS OF DISTRESS. BLOOD SUGAR 283, GAVE PT INSULIN PER MD ORDER. PLAN OF CARE DISCUSSED WITH PT. SAFETY MEASURES IN PLACE. CALL LIGHT WITHIN REACH. WILL CONTINUE TO MONITOR.
--- NOTE | 2016-04-08 07:24 | NUR ---
ENDORSED PT IN STABLE CONDITION TO JERONIMO PIZANO RN. ALL NEEDS HAVE BEEN MET AT THIS TIME.
--- NOTE | 2016-04-08 07:26 | NUR ---
RECEIVED REPORT FROM CLASSIFICATION ANALYST NURSE. PT IS ALOC, APHASIC, LEGALLY BLIND, AND BEDBOUND. SACRAL ULCER AND INCONTINENT DERMATITIS TO PERINEAL AREA NOTED. PT IS ON A [facility] BED. NGTUBE TO LEFT NARE PATENT AND FLOWING - AUSCULTATED AND ASPIRATED WITH NO RESIDUAL, CONFIRMED PLACEMENT. IV IS PATENT AND FLOWING PT IS ON 2L OF O2 VIA NASAL CANNULA. SCD'S IN PLACE, VITALS STABLE. WILL CONTINUE TO MONITOR.
[2016-04-08 08:00] VITALS: BP 126/68
--- NOTE | 2016-04-08 08:03 | NUR ---
DIALYSIS NURSE AT BEDSIDE. DIALYSIS IN PROCESS.
[2016-04-08] MEDS: amLODIPine 5 MG TAB GT SCH (09:00)
[2016-04-08] MEDS: VIT-B COMP/VIT-C/FOLIC ACID 1 TAB PO SCH (09:04)
[2016-04-08] MEDS: SACCHAROMYCES 250 MG CAP GT SCH ×2 (09:04→20:16)
[2016-04-08] MEDS: FAMOTIDINE 20 MG TAB GT SCH (09:04)
[2016-04-08] MEDS: levETIRAcetam 100 MG/ML ORASYR GT SCH ×2 (09:04→20:16)
[2016-04-08] MEDS: METOCLOPRAMIDE 10 MG/10 ML SYRP UDC GT SCH ×3 (09:04→16:38)
[2016-04-08] MEDS: FOLIC ACID 1 MG TAB GT SCH (09:05)
--- NOTE | 2016-04-08 09:07 | NUR ---
PT LISE MEDS WELL. BP MEDS HELD DUE TO DIALYSIS.
--- NOTE | 2016-04-08 10:50 | NUR ---
INFORMED PT'S SISTER AND DAUGHTER IN REGARDS TO TRANSFER TO [facility].
--- NOTE | 2016-04-08 11:24 | NUR ---
FAXED CONCURRENT REVIEW TO [facility] [phone] PHONE [phone]
--- NOTE | 2016-04-08 11:30 | NUR ---
CALL PLACED TO CAIO ROSE'S SISTER TO INFORM HER THAT MD HAS ENTERED ORDER FOR TRANSFER TO [facility]. VM MESSAGE LEFT. TOÑITO EVANS RN/CM PRESENT WHEN CALL MADE.
[2016-04-08 12:00] VITALS: BP 101/72
[2016-04-08] MEDS: FOAM DRESSING TP SCH (12:04)
--- NOTE | 2016-04-08 12:21 | NUR ---
FLACC 4, ADMINISTERED MEDS PRESCRIBED.
--- NOTE | 2016-04-08 12:43 | NUR ---
1235 WENT TO PT'S ROOM AND DAUGHTER RAKEL PRESENT. ASKED IF CAIO WAS HERE AND SHE STATED THAT SHE JUST LEFT. ASKED RAKEL IF FAMILY HAD MADE A DECISION REGARDING TRANSFER TO [facility] AND SHE STATED "YOU NEED TO ASK CAIO". KALPANA CORONAORTHODONTIST VICE PRESIDENT WAS PRESENT.
--- NOTE | 2016-04-08 12:44 | NUR ---
6452 CALL PLACED TO CAIO AND SHE STATED THAT SHE IS CURRENTLY IN THE FACILITY. STATED THAT SHE WOULD MEET THIS CLINICAL HAEMATOLOGIST IN THE PT'S ROOM. CALL ON SPEAKER PHONE WILL TOÑITO EVANS RN/CM PRESENT AND CAIO INFORMED ON SPEAKER PHONE.
--- NOTE | 2016-04-08 13:00 | NUR ---
DRESSING CHANGED, PT TURNED AND REPOSITIONED.
--- NOTE | 2016-04-08 13:40 | NUR ---
RECEIVED A CALL FROM ELLIE OROPEZA FROM [facility]. THEY HAVE A BED AT [facility] . SHE CAN GO TO [facility] [address]OM [address] TORRES. CALL REPORT TO [phone]. TELEMETRY UNIT. I CALLED ELLIE OROPEZA AND INFORMED HER THAT THE SISTER CAIO SAID SHE WANTED TO SPEAK WITH HER.
--- NOTE | 2016-04-08 13:41 | NUR ---
1250 MET WITH SISTER CAIO [facility] TEND[facility] PRESENT. INFORMED HER THAT [facility] IS CHECKING ON BED AVAILABILITY AND ASKED HER IF SHE IS IN AGREEMENT TO THE TRANSFER IF BED BECOMES AVAILABLE. SHE INDICATED THAT SHE HAD WANTED PT TO BE IN THE ICU AND WAS DISCUSSED WITH HER THAT PT WOULD BE ON A TELEMETRY LEVEL OF CARE AND THAT IF PT DID HAVE A CHANGE IN CONDITION THAT REQUIRED ICU LEVEL PT COULD BE TRANSFERRED. CAIO STATED THAT SHE WOULD SPEAK TO HER FAMILY. 1310 RECEIVED CALL FROM [facility]LLIE SANTANARED LIAISON THAT THEY DO HAVE A TELEMETRY BED. INFORMED CAIO THAT BED IS AVAILABLE AND SHE STATED SHE WOULD GIVE ELLIE OROPEZA A CALL BUT DID NOT SAY WHETHER SHE WAS IN AGREEMENT TO TRANSFER OR NOT. INFORMED HER THAT BED AVAILABILITY IS LIMITED AND [facility] WOULD NEED AN ANSWER SOON.
--- NOTE | 2016-04-08 14:54 | NUR ---
SPOKE WITH ZACK FROM [facility] AND INFORMED HER THAT [facility] HAS ACCEPTED THE PATIENT. THE AUTH FOR [facility] IS [id number]. THE AUTH FOR [facility] IS [id number]. I INFORMED ZACK FROM [facility] THAT THE FAMILY STILL HASN'T AGREED TO [facility]. ZACK SAID TO LET HER KNOW IF THEY DON'T AGREE TO [facility] SO SHE CAN ISSUE A DENIAL LETTER. [facility] CORONASPECIAL FORCES MEDICAL SERGEANT DIRECTOR AWARE.
--- NOTE | 2016-04-08 14:58 | NUR ---
2472 MET WITH SISTER CAIO, DAUGHTER RAKEL, PT'S LORIMonika AND WITH THOMAS BRUNER SENIOR ELECTRONICS TECHNICIAN PRESENT. ASKED IF THEY HAD MADE A DECISION REGARDING [facility] TRANSFER. PER CAIO SHE SPOKE WITH ELLIE OROPEZA AT [facility] AND SHE WAS TOLD THAT SHE HAD TILL MONDAY TO MAKE A DECISION. I INFORMED HER THAT THE ORDER FOR DISCHARGE WAS WRITTEN, [facility] HAS A BED AND PER ELLIE THEY HAVE A WAITING LIST AND NEED TO HAVE AN ANSWER. ALSO INFORMED HER THAT SINCE THERE IS A BED AT THE LT[facility] AND THE PHYSICIAN HAS DEEMED THAT PT'S NEEDS CAN BE DELIVERED AT LTAC LEVEL AND [facility] HAS AUTHORIZED THE TRANSFER IF SHE DECLINES TO TRANSFER PT THEN [facility] WILL ISSUE A DENIAL LETTER FOR CONTINUED STAY AT THE [facility] LEVEL OF CARE. CAIO STATED THAT SHE WAS TOLD BY [facility]PART[facility] THAT PT COULD STAY AT [place] TO GIVE THE FAMILY A CHANCE TO FIND ANOTHER FACILITY THAT WOULD PLACE PT IN ICU. TRIED TO DISCUSS WITH HER THAT PT'S CARE NEEDS DO NOT WARRANT AN ICU LEVEL OF CARE BUT CAIO INSISTS THAT SHE WANTS PT IN ICU "SHE CAN'T EVEN PRESS A CALL LIGHT [place]TON" CAIO STATED THAT SHE WAS GOING TO SPEAK WITH [facility] AND WOULD PROVIDE AN ANSWER IN 10 MINUTES.
--- NOTE | 2016-04-08 15:22 | NUR ---
ELLIE OROPZEA FROM [facility] CALLED AND SAID THEY CANNOT ACCEPT THE PATIENT. [facility] CORONAFORGING PRESS OPERATOR DIRECTOR INFORMED. ZACK FROM [facility] AWARE.
--- NOTE | 2016-04-08 15:34 | NUR ---
PT RESTING COMFORTABLY. ALL NEEDS MET AT THIS TIME. WILL CONTINUE TO MONITOR.
--- NOTE | 2016-04-08 15:38 | NUR ---
1530 RECEIVED CALL FROM [facility] LIARUBIO ARGUETA AND SHE STATED THAT PT IS NOW DECLINED DUE TO THEIR GROUP THERAPY COUNSELOR PRAFUL WAS INFORMED THAT THE FAMILY WILL BE FILING LAWSUIT AGAINST [facility] AND [facility] AND [facility] DOES NOT WANT THE RISK OF LITIGATION. INFORMED ZACK CHARLY AT [facility] THAT PT DECLINED FOR ADMISSION DUE TO DECISION BY THEIR GROUP THERAPY COUNSELOR. [phone]. CALL RECEIVED FROM ZACK AT [facility] AND SHE STATED THAT THEY WILL AUTHORIZE [facility] IN [place] AND PROVIDED #[phone]
[2016-04-08 16:00] VITALS: BP 129/73
--- NOTE | 2016-04-08 16:05 | NUR ---
SS NOTE: I SPOKE WITH [facility] FROM [facility] (DIRECT ADMISSIONS NUMBER:[phone]) AND OBTAINED THEIR FAX INFORMATION. SENT PT INFORMATION TO [facility] (F: [phone])
--- NOTE | 2016-04-08 17:57 | NUR ---
FAMILY AT BEDSIDE. ALL NEEDS MET AT THIS TIME.
[2016-04-08] MEDS: NACL 0.9% 250 ML IV SCH (19:20)
--- NOTE | 2016-04-08 19:22 | NUR ---
ENDORSED TO BERRY PLANTER NURSE IN STABLE CONDITION.
--- NOTE | 2016-04-08 19:23 | NUR ---
RECEIVED PT IN STABLE CONDITION FROM JERONIMO PZIANO RN. NO SOB, NO SIGNS OF DISTRESS. PT ON 2L O2 NC. HR 101, OTHER VS WNL. FLACC 0, PT ASLEEP IN BED. IV TO RT FOREARM/ELBOW 22G PATENT, ASYMPTOMATIC, INTACT, IVF RUNNING. PT WITH SCDS IN PLACE. NGT TO LT NARE PATENT, FLUSHED, AUSCULTATED FOR POSITIVE PLACEMENT. 70 ML RESIDUAL NOTED, PT TOLERATING NGT FEEDING FAIRLY. PT WITH LT UPPER ARM AV SHUNT FOR HD, PT RECEIVED DIALYSIS TODAY. PT IS ALOC, LEGALLY BLIND, AND BEDBOUND WITH SEVERE BUE AND BLE WEAKNESS AND FLACCIDITY. PT IS APHASIC AND GROANS OCCASIONALLY, PT UNABLE TO FOLLOW COMMANDS. PT WITH SACRAL PRESSURE ULCER, DRESSING DRY AND INTACT. PT WITH INCONTINENT DERMATITIS TO BEVERLY AREA. PT ON CONTACT PRECAUTIONS. PT ON PRESSURE RE-DISTRIBUTION SURFACE MATTRESS. PLAN OF CARE DISCUSSED WITH PT. SAFETY MEASURES IN PLACE, FALL AND ASPIRATION PRECAUTIONS MAINTAINED. CALL LIGHT WITHIN REACH. WILL CONTINUE TO MONITOR.
--- NOTE | 2016-04-08 19:56 | NUR ---
TURNED PT, TOLERATED WELL. CHANGED CHUCKS, NO VOID OR BM NOTED. SACRAL WOUND DRESSING DRY AND INTACT. APPLIED Z-GUARD TO PATIENT. NO SOB, NO SIGNS OF DISTRESS. FLACC 0. PT ON 2L O2 NC. NGT IN PLACE. PLAN OF CARE DISCUSSED WITH PT. SAFETY MEASURES IN PLACE. CALL LIGHT WITHIN REACH. WILL CONTINUE TO MONITOR.
[2016-04-08 20:00] VITALS: BP 120/57
[2016-04-08] MEDS: SIMVASTATIN 20 MG TAB GT SCH (20:15)
--- NOTE | 2016-04-08 20:17 | NUR ---
PT TOLERATED DUE MEDS WELL. NO SOB, NO SIGNS OF DISTRESS. IV SITE ASYMPTOMATIC, INTACT, PATENT, IVF RUNNING. FLACC 0. PT ON 2L O2 NC. NGT IN PLACE. PLAN OF CARE DISCUSSED WITH PT. SAFETY MEASURES IN PLACE. CALL LIGHT WITHIN REACH. WILL CONTINUE TO MONITOR.
--- NOTE | 2016-04-08 21:32 | NUR ---
PT ASLEEP IN BED. NO SOB, NO SIGNS OF DISTRESS. FLACC 0. PT ON O2 2L NC. NGT IN PLACE. IV SITE ASYMPTOMATIC, INTACT, PATENT, IVF RUNNING. SAFETY MEASURES IN PLACE. CALL LIGHT WITHIN REACH. WILL CONTINUE TO MONITOR.
--- NOTE | 2016-04-08 22:12 | NUR ---
TURNED PT, NO BM OR VOID NOTED. PT TOLERATED WELL. NO SOB, NO SIGNS OF DISTRESS. FLACC 0. IV SITE ASYMPTOMATIC, INTACT, PATENT, IVF RUNNING. NGT IN PLACE. PT ON 2L O2 NC, 02 SAT WNL. SAFETY MEASURES IN PLACE. CALL LIGHT WITHIN REACH. WILL CONTINUE TO MONITOR.
[2016-04-09] VITALS (7 sets, daily range): BP systolic 113–145; BP diastolic 52–83
--- NOTE | 2016-04-09 00:07 | NUR ---
VS STABLE. TURNED PT, TOLERATED WELL. NO BM OR VOID NOTED. PT ON 2L O2 NC. NO SOB, NO SIGNS OF DISTRESS. FLACC 0. IV SITE ASYMPTOMATIC, INTACT, PATENT, IVF RUNNING. NGT IN PLACE, FEEDING RESIDUAL 30ML, PT TOLERATING FEEDING WELL. PT GURGLING, SUCTIONED PTS MOUTH, PT TOLERATED WELL, GURGLING STILL NOTED. WILL PAGE RT TO SUCTION PT. PLAN OF CARE DISCUSSED WITH PT. SAFETY MEASURES IN PLACE. CALL LIGHT WITHIN REACH. WILL CONTINUE TO MONITOR.
--- NOTE | 2016-04-09 00:26 | NUR ---
PAGED RT LAM TO ASSIST WITH SUCTIONING PT, LAM STATED SHE WILL BE BY SHORTLY.
--- NOTE | 2016-04-09 00:56 | NUR ---
ASSISTED RT TO DEEP SUCTION PATIENT, O2 SAT WNL, PT TOLERATED WELL. PROVIDED ORAL CARE AND CLEANED FACE, PT TOLERATED WELL. APPLIED MYOSTATIN CREAM TO BEVERLY AREA. NO SOB, NO SIGNS OF DISTRESS. PT ON 2L O2 NC. IV SITE ASYMPTOMATIC, INTACT, IVF RUNNING. SAFETY MEASURES IN PLACE. CALL LIGHT WITHIN REACH. WILL CONTINUE TO MONITOR.
[2016-04-09] MEDS: NYSTATIN OINT 100 MU/GM 15 GM TUBE TP SCH ×2 (01:02→12:05)
[2016-04-09] MEDS: Z-GUARD PASTE TP SCH ×2 (01:02→12:05)
--- NOTE | 2016-04-09 02:25 | NUR ---
TURNED PT, TOLERATED WELL. PT WITH SMALL BM AND VOID, CLEANED PT, SACRAL DRESSING SOILED, APPLIED NEW DRESSING TO SACRUM. APPLIED Z-GUARD TO PATIENTS PERINEAL AREA AND AREA SURROUNDING SACRAL DRESSING. PT ON 2L O2 NC. NO SOB, NO SIGNS OF DISTRESS. NGT IN PLACE WITH FEEDING RUNNING. IV SITE ASYMPTOMATIC, INTACT, IVF RUNNING. SAFETY MEASURES IN PLACE. CALL LIGHT WITHIN REACH. WILL CONTINUE TO MONITOR.
[2016-04-09] MEDS: NACL 0.9% 250 ML IV SCH (02:30)
[2016-04-09] MEDS: ALBUTEROL SULFATE/IPRATROPIU 3 ML SOL IH SCH ×6 (03:10→23:45)
--- NOTE | 2016-04-09 03:20 | NUR ---
PT ORALLY SUCTIONED OF MOD AMT THICK CREAMY SECRETIONS. O2 SAT 99-100% ON 2 L/M NC. TOLERATED SUCTIONING WELL, NO ADVERSE EFFECTS NOTED.
--- NOTE | 2016-04-09 04:10 | NUR ---
HR 103, OTHER VS WNL. TURNED PT, TOLERATED WELL. NO BM OR VOID NOTED. DRESSING TO SACRUM DRY AND INTACT. PT ON 2L O2 NC. PT GROANING, FLACC 8. WILL MEDICATE PER MD ORDER. NO SOB. IV SITE ASYMPTOMATIC, INTACT, IVF RUNNING. NGT FEEDING RESIDUAL 70, PT TOLERATING FEEDING FAIRLY. PLAN OF CARE DISCUSSED WITH PT. SAFETY MEASURES IN PLACE. CALL LIGHT WITHIN REACH. WILL CONTINUE TO MONITOR.
[2016-04-09] MEDS: PIPER/TAZO 2.25GM/D5W PREMIX 50 ML IV SCH (04:15)
[2016-04-09] MEDS: HYDROcodone/APAP 5/325 MG 1 TAB TAB GT PRN (04:15)
[2016-04-09] MEDS: FOAM DRESSING TP PRN (04:42)
[2016-04-09] MEDS: Z-GUARD PASTE TP PRN (04:42)
--- NOTE | 2016-04-09 06:05 | NUR ---
TURNED PT, PT WITH SMALL VOID, CLEANED PT. TOLERATED WELL. NO SOB, NO SIGNS OF DISTRESS. ON 2L O2 NC, O2 SAT WNL. FLACC 4. NGT IN PLACE WITH FEEDING RUNNING. IV SITE ASYMPTOMATIC, INTACT, PATENT. IVF RUNNING. SAFETY MEASURES IN PLACE. CALL LIGHT WITHIN REACH. WILL CONTINUE TO MONITOR.
[2016-04-09] MEDS: BLOOD GLUCOSE MONITORING 1 DEV DEV FS SCH ×4 (06:17→21:16)
[2016-04-09] MEDS: INSULIN ASPART SLIDING SCALE 100 UNITS/ML VIAL SUBQ PRN ×4 (06:20→21:17)
--- NOTE | 2016-04-09 07:14 | NUR ---
ENDORSED PT IN STABLE CONDITION TO CHLOE CORONA. ALL NEEDS HAVE BEEN MET AT THIS TIME.
--- NOTE | 2016-04-09 07:15 | NUR ---
RECEIVED REPORT FROM CHLOE ALVAREZ. PT IS SLEEPING, WITHDRAWS TO PAINFUL STIMULI, APHASIC, ON O2 2L NC, IV ON RIGHT UPPER ARM PATENT AND INTACT INFUSING FLUID WELL, AV SHUNT ON LEFT UPPER ARM WITH GOOD THRILL AND BRUIT, SACRAL AREA PRESSURE ULCER WITH DRESSING DRY AND INTACT NOTED, NG TUBE TO LEFT NARE INFUSING FEEDING WELL WITH RESIDUAL OF 60ML, SCD IN PLACE, INITIAL ASSESSMENT DONE, NO S/S OF RESPIRATORY DISTRESS OR DISCOMFORT NOTED, DISCUSSED PLAN OF CARE, SAFETY/FALL/ASPIRATION/PRESSURE ULCER PRECAUTION ENFORCED, CALL LIGHT WITHIN REACH, WILL CONTINUE TO MONITOR.
[2016-04-09] MEDS: levETIRAcetam 100 MG/ML ORASYR GT SCH ×2 (08:08→20:21)
[2016-04-09] MEDS: METOCLOPRAMIDE 10 MG/10 ML SYRP UDC GT SCH ×3 (08:09→17:26)
[2016-04-09] MEDS: SACCHAROMYCES 250 MG CAP GT SCH ×2 (08:09→20:22)
[2016-04-09] MEDS: amLODIPine 5 MG TAB GT SCH (08:10)
[2016-04-09] MEDS: FAMOTIDINE 20 MG TAB GT SCH (08:10)
[2016-04-09] MEDS: VIT-B COMP/VIT-C/FOLIC ACID 1 TAB PO SCH (08:10)
[2016-04-09] MEDS: FOLIC ACID 1 MG TAB GT SCH (08:12)
--- NOTE | 2016-04-09 08:15 | NUR ---
TURNED PT, AM CARE RENDERED, DUE MEDS GIVEN, PT TOLERATED WELL, FAMILY MEMBERS AT BEDSIDE, UPDATED PT'S CONDITION, QUESTIONS ANSWERED. CALL LIGHT WITHIN REACH, WILL CONTINUE TO MONITOR.
--- NOTE | 2016-04-09 08:50 | NUR ---
CALLED TO BEDSIDE FOR PT DESAT TO 87% DAUGHTER AND SISTER AT BEDSIDE, CHANGED FINGER PROBE TO DIFFERENT FINGER AND O2 SAT INCREASED TO 96% AND I INCREASED FIOW2 TO 3LNC INFORMED RN CHLOE
--- NOTE | 2016-04-09 08:54 | NUR ---
RECEIVED A CALL FROM LAB WITH A CRITICAL LAB VALUES.
--- NOTE | 2016-04-09 09:02 | NUR ---
SPOKE TO DR. LEW AND NOTIFIED REGARDING CRITICAL VALUES, NEW ORDERS RECEIVED, 1 UNIT OF PRBC TO BE TRANSFUSE, WILL CARRY OUT NEW ORDER.
--- NOTE | 2016-04-09 09:53 | NUR ---
CALLED PT'S SISTER, CAIO, FOR TELEPHONE CONSENT, SHE AGREED TO GIVE PT 1 UNIT OF BLOOD. CONSENT SIGNED AND COSIGNED BY CHARGE NURSE, CHLOE MEZA.
--- NOTE | 2016-04-09 10:00 | NUR ---
TURNED PT, PT TOLERATED WELL, KEPT CLEAN AND DRY, NO S/S OF RESPIRATORY DISTRESS OR DISCOMFORT NOTED, ALL NEEDS MET AT THIS TIME, CALL LIGHT WITHIN REACH, WILL CONTINUE TO MONITOR.
--- NOTE | 2016-04-09 10:12 | NUR ---
SPOKE TO DR. GROSSMAN, ASKED IF ITS OKAY TO TRANSFUSE 1 UNIT OF PRBC, DR. GROSSMAN AGREED AND SAID IT IS OKAY TO TRANSFUSE 1 UNIT OF PRBC.
--- NOTE | 2016-04-09 12:20 | NUR ---
MEREDITH BANSAL, AT BEDSIDE. UPDATED PT'S CONDITION, QUESTIONS ANSWERED.
--- NOTE | 2016-04-09 13:00 | NUR ---
BLOOD TRANSFUSION STARTED.
--- NOTE | 2016-04-09 15:05 | NUR ---
X-RAY TECH AT BEDSIDE DOING CHEST X-RAY.
--- NOTE | 2016-04-09 15:30 | NUR ---
DONE WITH BLOOD TRANSFUSION. VITALS STABLE. NO S/S OF RESPIRATORY DISTRESS OR DISCOMFORT NOTED, CALL LIGHT WITHIN REACH, WILL CONTINUE TO MONITOR.
--- NOTE | 2016-04-09 15:33 | NUR ---
04/09/16 RD FOLLOW UP COMPLETED PLEASE REFER TO NUTRITION PROGRESS NOTE UNDER CARE ACTIVITY FOR ESTIMATED NUTRITION NEEDS. RD RECOMMENDATIONS: 1. NOVASOURCE RENAL AT 40 ML/HR WITH 50 ML FREE WATER FLUSH Q6H VIA NGTUBE. --CURRENT TUBE FEEDING MEETING 100% OF PT ESTIMATED KCAL AND PROTEIN NEEDS --NOTE PT WITH NG TUBE L NARE SINCE 03/04/16 --NOTE RD WILL CONTINUE TO MONITOR GLUCOSE LEVELS AND RENAL FUNCTION FOR TUBE FEEDING ADJUSTMENTS 2. CONSIDER GTUBE FOR DETENTION NUTRITION SUPPORT NEEDS 3. RD WILL F/U 2-3 DAYS; HIGH RISK. EDY WHATLEY; [place], RD
--- NOTE | 2016-04-09 17:15 | NUR ---
SPOKE TO DR. LEW AND INFORMED REGARDING LOW POTASSIUM, NEW ORDERS RECEIVED, WILL CARRY OUT NEW ORDER.
[2016-04-09] MEDS ORDERED: KCL 20 MEQ/WATER INJ PREMIX 200 ML IV ONE (17:25)
--- NOTE | 2016-04-09 17:36 | NUR ---
DUE MEDS GIVEN, PT TOLERATED WELL, KEPT CLEAN AND DRY, PT RESTING COMFORTABLY, NO S/S OF RESPIRATORY DISTRESS OR DISCOMFORT NOTED, CALL LIGHT WITHIN REACH, WILL CONTINUE TO MONITOR.
--- NOTE | 2016-04-09 18:30 | NUR ---
SUCTIONED PT, PT TOLERATED WELL, NO S/S OF RESPIRATORY DISTRESS OR DISCOMFORT NOTED, CALL LIGHT WITHIN REACH, WILL CONTINUE TO MONITOR.
--- NOTE | 2016-04-09 19:04 | NUR ---
PT BREATH SOUNDS IMPROVED POST HHN TX AND ORAL SUCTIONING FOR SMALL AMOUNT THICK CREAMY SECRETIONS. PT ON 3 L/M NC, CONTINUOS PULSE OX SHOWING 99-100%. NO ADVERSE EFFECTS NOTED.
--- NOTE | 2016-04-09 19:05 | NUR ---
ENDORSED PT TO CHLOE ADKINS FOR CONTINUITY OF CARE. PT IS STABLE AT THIS TIME.
--- NOTE | 2016-04-09 19:30 | NUR ---
RECEIVED PT IN STABLE CONDITION FROM AM NURSE. ON TELE MONITOR. ASLEEP. APHASIC, ON O22L/NC. RT JUST GAVE BREATHING TREATMENTS. O2 SAT 99%. NO ACUTE RESPIRATORY DISTRESS NOTED. WITH IVF INFUSING WELL ON THE RT UPPER ARM #22. CLEAR AND PATENT. GETTING NGT FEEDING . TOLERATING WELL WITH NO RESIDUAL NOTED. BEDREST. HAS INCONTINENT DERMATITIS ON BEVERLY AREA , AND SACRAL PRESSURE AREA. CLEAN AND DRY AT THIS TIME. NEED TO BE TURNED Q2H. SIDE RAILS UP X2. CALL LIGHT PLACED WITHIN EASY REACH. WILL CONTINUE TO MONITOR.
[2016-04-09] MEDS: LEVOFLOXACIN 250 MG/D5 PREMIX 50 ML IV SCH (19:45)
--- NOTE | 2016-04-09 20:00 | NUR ---
WITH OCCASIONAL PRODUCTIVE COUGH. SUCTIONED AND OBTAINED SCANTY SECRETIONS. TURNED PT TO SIDE. REPOSITIONED FOR COMFORT. NO DISTRESS NOTED. WILL CONTINUE TO MONITOR.
[2016-04-09] MEDS: SIMVASTATIN 20 MG TAB GT SCH (20:21)
--- NOTE | 2016-04-09 21:17 | NUR ---
BLOOD SUGAR WAS CHECKED RESULT 186. INSULIN COVERAGE GIVEN ORDERED.
--- NOTE | 2016-04-09 22:00 | NUR ---
REPOSITIONED PT FOR COMFORT BY TURNING TO SIDE. NO DISTRESS NOTED. WILL CONTINUE TO MONITOR.
--- NOTE | 2016-04-09 23:40 | NUR ---
SUCTIONED PT NEEDED. OBTAINED SMALL AMOUNT CREAMY SECRETIONS. NO DISTRESS NOTED. O2 SAT 99%-100% NOTED .
--- NOTE | 2016-04-10 | NUR ---
JUST GOT A BREATHING TREATMENT FROM RT. WAS SUCTIONED AFTER TREATMENT. NEED TO BE TURNED TO SIDE.
--- NOTE | 2016-04-10 01:00 | NUR ---
SLEEPING WELL AT THIS TIME. NO ACUTE DISTRESS NOTED ON CONTINUOUS O22L/NC. WILL CONTINUE TO MONITOR.
[2016-04-10] MEDS: Z-GUARD PASTE TP SCH ×2 (01:04→13:08)
[2016-04-10] MEDS: NYSTATIN OINT 100 MU/GM 15 GM TUBE TP SCH ×2 (01:04→13:07)
--- NOTE | 2016-04-10 03:05 | NUR ---
SLEEPING WITH NO ACUTE DISTRESS NOR DISCOMFORT NOTED. O2 SAT 98% ON 022L/MC. WILL CONTINUE TO MONITOR.
[2016-04-10] MEDS: ALBUTEROL SULFATE/IPRATROPIU 3 ML SOL IH SCH ×6 (03:22→23:09)
--- NOTE | 2016-04-10 04:00 | NUR ---
REPOSITIONED FOR COMFORT. TURNED TO SIDE . SKIN CLEAN AND DRY. NO BM NOTED.
[2016-04-10 04:15] VITALS: BP 145/79
--- NOTE | 2016-04-10 05:50 | NUR ---
NGT FEEDING CHECKED FOR RESIDUAL ,THIS AM @70 ML. FEEDING HOLD WILL RECHECKED LATER.
[2016-04-10] MEDS: HYDROcodone/APAP 5/325 MG 1 TAB TAB GT PRN (05:55)
--- NOTE | 2016-04-10 05:55 | NUR ---
PT IN PAIN ,MOANS AND WITH OCCASIONAL FROWNING. MEDICATED ORDERED.
[2016-04-10] MEDS: BLOOD GLUCOSE MONITORING 1 DEV DEV FS SCH ×4 (06:25→21:06)
[2016-04-10] MEDS: INSULIN ASPART SLIDING SCALE 100 UNITS/ML VIAL SUBQ PRN ×4 (06:26→21:03)
--- NOTE | 2016-04-10 06:26 | NUR ---
BLOOD SUGAR WAS CHECKED RESULT 309. INSULIN COVERAGE GIVEN ORDERED.
--- NOTE | 2016-04-10 07:15 | NUR ---
ENDORSED PT IN STABLE CONDITION TO AM NURSE.
--- NOTE | 2016-04-10 07:16 | NUR ---
RECEIVED PT FROM CHLOE ADKINS ASLEEP ON BED, BUT WITHDRAWS TO PAIN, APHASIC, WITH NO S/S OF RESPIRATORY DISCOMFORT. WITH O2 2LPM NC AND IV ACCESS ON RIGHT UPPER ARM INFUSING FLUIDS WELL. WITH AV SHUNT ON LEFT UPPER ARM PATENT, WITH BRUIT AND THRILL. WITH NGT ON LEFT NARE INFUSING FEEDING WELL WITH RESIDUAL OF 70ML. WITH SACRAL AREA PRESSURE ULCER WITH DRESSING DRY AND INTACT. FALL/SAFETY/ASPIRATION/PRESSURE ULCER PRECAUTION ENFORCED. CALL LIGHT WITHIN REACH, WILL CONTINUE TO MONITOR.
--- NOTE | 2016-04-10 07:45 | NUR ---
PT COUGHING INTERMITTENTLY, SUCTIONED PRN, WITH SMALL AMOUNT OF WHITISH PHLEGM. O2 SAT AT 99%
[2016-04-10 08:00] VITALS: BP 151/76
--- NOTE | 2016-04-10 08:00 | NUR ---
PT REPOSITIONED TO RIGHT SIDE, WITH SMALL AMOUNT OF BROWNISH STOOL. CHANGED PADDINGS, KEPT CLEAN AND DRY. SACRAL DRESSING CLEANED AND CHANGED PER ORDERS, COVERED WITH FOAM DRESSING.
[2016-04-10] MEDS: METOCLOPRAMIDE 10 MG/10 ML SYRP UDC GT SCH ×3 (08:40→16:56)
[2016-04-10] MEDS: levETIRAcetam 100 MG/ML ORASYR GT SCH ×2 (08:40→21:50)
[2016-04-10] MEDS: FAMOTIDINE 20 MG TAB GT SCH (08:41)
[2016-04-10] MEDS: amLODIPine 5 MG TAB GT SCH (08:41)
[2016-04-10] MEDS: FOLIC ACID 1 MG TAB GT SCH (08:41)
[2016-04-10] MEDS: VIT-B COMP/VIT-C/FOLIC ACID 1 TAB PO SCH (08:41)
[2016-04-10] MEDS: SACCHAROMYCES 250 MG CAP GT SCH ×2 (08:42→21:49)
--- NOTE | 2016-04-10 08:45 | NUR ---
NGT TUBE ASPIRATED, WITH 60ML RESIDUAL. AUSCULTATED FOR PATENCY. DUE MEDS GIVEN VIA NGT, PT TOLERATED WELL. SISTER IS AT BEDSIDE, REQUESTED MOUTHGUARD FOR PT. ORAL CARE DONE. NO S/S OF DISTRESS AT THIS TIME.
--- NOTE | 2016-04-10 10:00 | NUR ---
REPOSITIONED PT TO LEFT SIDE, PT TOLERATED WELL. SISTER AT BEDSIDE. NO S/S OF DISTRESS AT THIS TIME, WILL CONTINUE TO MONITOR.
--- NOTE | 2016-04-10 11:00 | NUR ---
ORAL CARE WITH HCG STARTED, PT TOLERATED WELL. NO S/S OF DISTRESS, WILL CONTINUE TO MONITOR
--- NOTE | 2016-04-10 11:35 | NUR ---
DR LEW AT NURSES STATION
[2016-04-10 12:00] VITALS: BP 147/69
--- NOTE | 2016-04-10 12:00 | NUR ---
PT REPOSITIONED TO SIDE. KEPT CLEAN AND DRY. NO S/S OF DISTRESS AT THIS TIME, WILL CONTINUE TO MONITOR.
--- NOTE | 2016-04-10 12:37 | NUR ---
NGT RESIDUAL AT 20 ML. DUE MED GIVEN VIA NGT, TOLERATED WELL. KEPT CLEAN AND DRY. CALL LIGHT WITHIN REACH, WILL CONTINUE TO MONITOR.
[2016-04-10] MEDS: PIPER/TAZO 2.25GM/D5W PREMIX 50 ML IV SCH ×2 (13:03→21:49)
[2016-04-10] MEDS: FOAM DRESSING TP SCH (13:07)
--- NOTE | 2016-04-10 13:07 | NUR ---
SACRAL WOUND DRESSING CHANGED PER ORDERS. KEPT CLEAN AND DRY. CALL LIGHT WITHIN REACH, WILL CONTINUE TO MONITOR.
--- NOTE | 2016-04-10 14:00 | NUR ---
REPOSITIONED PT TO SIDE. KEPT CLEAN AND DRY. DAUGHTER AT BEDSIDE. NO S/S OF DISTRESS, WILL CONTINUE TO MONITOR.
--- NOTE | 2016-04-10 15:00 | NUR ---
ORAL CARE DONE, SUCTIONED PT WITH SCANT, CREAMY PHLEGM. O2 SAT AT 98%. NO SIGN OF DISTRESS, WILL CONTINUE TO MONITOR.
[2016-04-10 16:00] VITALS: BP 131/69
--- NOTE | 2016-04-10 16:00 | NUR ---
PT REPOSITIONED TO SIDE, ALL NEEDS MET AT THIS TIME. SUCTIONED PRN, WITH SCANT AMOUNT OF CREAMY PHLEGM. KEPT CLEAN AND DRY, WILL CONTINUE TO MONITOR.
--- NOTE | 2016-04-10 16:58 | NUR ---
NGT RESIDUAL AT 30ML, DUE MED GIVEN, PT TOLERATED WELL. NO S/S OF DISTRESS, CALL LIGHT WITHIN REACH, WILL CONTINUE TO MONITOR.
--- NOTE | 2016-04-10 18:00 | NUR ---
REPOSITIONED PT TO SIDE, SACRAL DRESSING DRY AND INTACT. KEPT CLEAN AND DRY. NO S/S OF DISTRESS AT THIS TIME. WILL CONTINUE TO MONITOR.
--- NOTE | 2016-04-10 18:32 | NUR ---
SUCTIONED PT PRN, WITH SCANT AMOUNT OF CREAMY PHLEGM. O2 SAT AT 99%. NO S/S OF DISTRESS. ALL NEEDS MET AT THIS TIME. WILL CONTINUE TO MONITOR.
--- NOTE | 2016-04-10 19:00 | NUR ---
ORAL CARE DONE, PT TOLERATED WELL. NO S/S OF DISTRESS, WILL CONTINUE TO MONITOR.
--- NOTE | 2016-04-10 19:15 | NUR ---
ENDORSED PT TO CHLOE KNOWLES FOR CONTINUITY OF CARE IN STABLE CONDITION
--- NOTE | 2016-04-10 19:16 | NUR ---
RECEIVED PT FROM RANDEE RN PT DROWSY HOB 35 DEGREE ON TELEMETRY SR, LEGALLY BLIND, NGT AT 40 ML/H RESIDUAL 60 ML ON 02 2 LTS VIA NC NOT SOB NOTED , DIALYSIS ACCESS ON LEFT ARM AND IV ON RT ARM LEFT HAND EDEMA 2+ DRESSING DRY AND INTACT ON SACRAL AREA, REPOSITIONED INITIAL ASSESSMENT DONE
[2016-04-10] MEDS: NACL 0.9% 250 ML IV SCH (19:20)
[2016-04-10 20:00] VITALS: BP 117/72
--- NOTE | 2016-04-10 20:15 | NUR ---
HOB 35 DEGREE ORAL CARE GIVEN WITH VAP KIT SUCTIONED NECESSARY PT ON TELEMETRY SR
--- NOTE | 2016-04-10 21:30 | NUR ---
BLOOD SUGAR TEST 210 COVERAGE WITH 4 UNITS REG INSULIN,
[2016-04-10] MEDS: SIMVASTATIN 20 MG TAB GT SCH (21:50)
--- NOTE | 2016-04-10 22:00 | NUR ---
PT HAS BEEN REPOS, AND SUCTIONES NECESSARY REPOSITIONED Q2H NOT DISTRESS NOTED ON TELEMETRY SR
[2016-04-11] VITALS: BP 132/74
--- NOTE | 2016-04-11 | NUR ---
HOB 35 DEGREE ORAL CARE GIVEN WITH VAP KIT REPOSITIONED MAKING PT TO BE MORE COMFORTABLE SUCTION NECESSARY
[2016-04-11] MEDS: NYSTATIN OINT 100 MU/GM 15 GM TUBE TP SCH ×2 (01:00→12:55)
[2016-04-11] MEDS: Z-GUARD PASTE TP SCH ×2 (01:00→12:56)
--- NOTE | 2016-04-11 02:00 | NUR ---
REPOSITIONED Q2H SUCTIONED NECESSARY ON TELEMETRY SR NOT SOB NOTED
[2016-04-11] MEDS: ALBUTEROL SULFATE/IPRATROPIU 3 ML SOL IH SCH ×6 (03:13→23:22)
[2016-04-11 04:00] VITALS: BP 141/84
--- NOTE | 2016-04-11 04:00 | NUR ---
SPONGE BATH GIVEN , LINEN CHANGED , NOT SOB NOTED ON TELEMETRY SR NGT IN PLACE HEALING ON PROGRESS ON SACRUM PRESSURE
[2016-04-11] MEDS: PIPER/TAZO 2.25GM/D5W PREMIX 50 ML IV SCH ×2 (04:39→12:55)
[2016-04-11] MEDS: NACL 0.9% 250 ML IV SCH (04:39)
--- NOTE | 2016-04-11 06:00 | NUR ---
BLOOD SUGAR TEST 246 COVERAGE WITH 4 UNITS REG INSULIN KPT HAS BEEN SUCTIONED NECESSARY
[2016-04-11] MEDS: INSULIN ASPART SLIDING SCALE 100 UNITS/ML VIAL SUBQ PRN ×3 (06:22→17:41)
[2016-04-11] MEDS: BLOOD GLUCOSE MONITORING 1 DEV DEV FS SCH ×4 (06:23→21:48)
--- NOTE | 2016-04-11 06:26 | NUR ---
ORALLY SXN PT MODERATE AMT OF THICK YELLOW SECRETIONS
--- NOTE | 2016-04-11 07:45 | NUR ---
RECEIVED PT FROM PM NURSE. PT SEEN AT BEDSIDE. UNABLE TO FOLLOW COMMANDS, AROUSABLE TO LIGHT PAIN. ON 2L O2 VIA NC. PT IS ON TELE MONITORING. PT HAS RIGHT FA 22G IV RUNNING TKO AT THIS TIME. IV IS PATENT AND INTACT WITH NO S/S COMPLICATIONS AT THIS TIME. NGT IN PLACE ON LEFT NARE. RESIDUAL 55ML. PT UNABLE TO MOVE X4 EXTREMITIES AND IS BEDBOUND. SACRAL WOUND COVERED WITH DRESSING AT THIS TIME. DRESSING IS DRY AND INTACT. LEFT UPPER ARM AV SHUNT NOTED. SCD'S IN PLACE. PT DEEP SUCTIONED WITH MODERATE AMOUNT OF CLEAR, YELLOW SPUTUM NOTED. PATIENT TURNED AND REPOSITIONED FOR COMFORT. SAFETY MEASURES CHECKED, CALL LIGHT LEFT AT BEDSIDE. WILL CONTINUE TO MONITOR.
[2016-04-11 08:00] VITALS: BP 147/83
--- NOTE | 2016-04-11 08:30 | NUR ---
PT'S AND STEP DAUGHTER AT BEDSIDE. FAMILY ASKING IF PATIENT CAN BE SUCTIONED. ORALLY SUCTIONED PATIENT AND NOTED MOD AMOUNT OF CLEAR SECRETIONS. NO FURTHER QUESTIONS FOR RN AT THIS TIME. WILL CONTINUE TO MONITOR.
--- NOTE | 2016-04-11 09:15 | NUR ---
DR LEW AT BEDSIDE TALKING TO PATIENT'S AND STEP SISTER ABOUT PT'S PLAN OF CARE AND PROGNOSIS. NOTIFIED DR LEW THAT PT'S SISTER, CAIO, IS POA. MD ASKED THAT WE NOTIFY MD IF CAIO IS HERE SO THAT HE CAN TALK TO HER ABOUT PT'S PLAN OF CARE AND POSSIBLE SNF. WILL FOLLOW UP.
[2016-04-11] MEDS: levETIRAcetam 100 MG/ML ORASYR GT SCH ×2 (09:35→22:39)
[2016-04-11] MEDS: FOLIC ACID 1 MG TAB GT SCH (09:36)
[2016-04-11] MEDS: amLODIPine 5 MG TAB GT SCH (09:36)
[2016-04-11] MEDS: METOCLOPRAMIDE 10 MG/10 ML SYRP UDC GT SCH ×3 (09:36→17:56)
[2016-04-11] MEDS: VIT-B COMP/VIT-C/FOLIC ACID 1 TAB PO SCH (09:36)
[2016-04-11] MEDS: SACCHAROMYCES 250 MG CAP GT SCH ×2 (09:36→22:40)
[2016-04-11] MEDS: FAMOTIDINE 20 MG TAB GT SCH (09:36)
--- NOTE | 2016-04-11 09:36 | NUR ---
ROUTINE MEDICATIONS GIVEN WITH EDUCATION. PT UNABLE TO VERBALIZE UNDERSTANDING. PT TOLERATED WELL. WILL CONTINUE TO MONITOR.
--- NOTE | 2016-04-11 10:00 | NUR ---
PT TURNED AND REPOSITIONED FOR COMFORT. AND STEP DAUGHTER AT BEDSIDE.
--- NOTE | 2016-04-11 10:20 | NUR ---
WOUND CARE NOTES: SEEN PATIENT TODAY FOR FOLLOW UP. PLEASE REFER TO WOUND ASSESSMENT FLOWSHEET FOR UPDATED ENTRY. CARE PLAN AND ORDERS UPDATED. WILL CONTINUE TO MONITOR PATIENT.
--- NOTE | 2016-04-11 10:32 | NUR ---
BREATHING TX GIVEN AND PT WAS ORALLY SXN SMALL AMT OF YELLOW SECRETIONS, PLACED E-Z WRAP ON NASAL CANNULA FOR EAR PROTECTION RN ALMA NOTIFIED
--- NOTE | 2016-04-11 11:00 | NUR ---
PT TURNED AND REPOSITIONED PER FAMILY REQUEST.
[2016-04-11 12:00] VITALS: BP 150/85
--- NOTE | 2016-04-11 12:00 | NUR ---
WOUND RN, EUGENE, AT BEDSIDE. ASSISTED WOUND RN WITH DRESSING CHANGE. PICTURES TAKEN. PT TURNED AND REPOSITIONED.
--- NOTE | 2016-04-11 12:22 | NUR ---
SS NOTE: I RECEIVED A VOICE MESSAGE FROM SAMIR FROM [facility] IN [place] ([phone]). SHE STATED THAT PT WOULD BE A GOOD CANDIDATE FOR THEIR FACILITY BUT THEY HAVE A WAIT LIST FOR PATIENTS REQUIRING HEMODIALYSIS SO THEY ARE UNABLE TO ACCEPT PT AT THIS TIME.
--- NOTE | 2016-04-11 12:55 | NUR ---
ROUTINE ANTIBIOTIC ADMINISTERED WITH EDUCATION. PT UNABLE TO VERBALIZE UNDERSTANDING. WILL CONTINUE TO MONITOR.
--- NOTE | 2016-04-11 13:00 | NUR ---
PT TURNED AND REPOSITIONED FOR COMFORT.
--- NOTE | 2016-04-11 13:30 | NUR ---
DR. GROSSMAN AT NURSING STATION. UPDATED MD ON PATIENT CONDITION. WILL FOLLOW UP ON ORDERS.
--- NOTE | 2016-04-11 14:28 | NUR ---
FAXED CONCURRENT REVIEW TO [facility] [phone] LAKESHA [phone] JULY [phone]
[2016-04-11] MEDS ORDERED: EPOETIN ALFA SUBQ SCH (15:00)
--- NOTE | 2016-04-11 15:00 | NUR ---
PT TURNED AND REPOSITIONED FOR COMFORT.
--- NOTE | 2016-04-11 15:58 | NUR ---
PROCRIT ADMINISTERED PER MD ORDER. PT TOLERATED WELL. WILL CONTINUE TO MONITOR.
[2016-04-11 16:00] VITALS: BP 139/76
--- NOTE | 2016-04-11 17:00 | NUR ---
PT TURNED AND REPOSITIONED FOR COMFORT.
--- NOTE | 2016-04-11 18:00 | NUR ---
HOUSEHOLD WORKER AT BEDSIDE. PER HOUSEHOLD WORKER, SHE NEEDS PT POSITIONED TURNING TO THE RIGHT BECAUSE IT IS HARD TO GET TO HER AV SHUNT. PT TURNED AND REPOSITIONED FOR COMFORT.
--- NOTE | 2016-04-11 18:15 | NUR ---
ICEPACK APPLIED TO PT'S LEFT UPPER ARM AV SHUNT. BLOCK CUBER WILL TRY AGAIN TO ACCESS SHUNT.
--- NOTE | 2016-04-11 18:30 | NUR ---
PER CROSS TIE TURNERCHAR, PLEASE HOLD LEVAQUIN UNTIL AFTER DIALYSIS IS DONE.
--- NOTE | 2016-04-11 19:11 | NUR ---
PT HAVING DIALYSIS AT THIS TIME, DIALYSIS NURSE CHAR REQUEST TO HOLD HHNTX AT THIS TIME. NO NOTED SOB OR RESP DISTRESS AT THIS TIME. SP02 100% ON 2LPM NC, HR 92, RR 18. EMELY CORONA AWARE. WILL CONT TO MONITOR.
--- NOTE | 2016-04-11 19:19 | NUR ---
PT SEEN AT BEDSIDE. REPORT GIVEN TO CHLOE HAN.
--- NOTE | 2016-04-11 19:40 | NUR ---
INITIAL ASSESSMENT AND BODY CHECK DONE. PATIENT O2 SATURATION ON O2 2L NC; 100%. PATIENT IS APHASIC, DOES NOT OPEN EYES SPONTANEOUSLY, WITHDRAWS TO LIGHT PAIN. PATIENT HAS REDNESS TO PERINEAL AREA, PRESSURE ULCER NOTED TO SACRAL AREA, DRESSING DRY AND INTACT. IV ACCESS TO RIGHT FOREARM 22G, PATENT. PATIENT HAS NGT TO LEFT NARE, PATENT, RESIDUAL: 10ML, NOVASOURCE RENAL AT 40ML/HR WITH H20 FLUSH; 50ML Q6H. DISCUSSED PLAN OF CARE, MEDICATION REGIMENT, AND PAIN MANAGEMENT WITH PATIENT. PLACED PATIENT ON SAFETY/FALL/PRESSURE ULCER/ASPIRATION PRECAUTIONS. CALL LIGHT LEFT WITHIN REACH, WILL CONTINUE TO MONITOR.
--- NOTE | 2016-04-11 19:40 | NUR ---
RECEIVED REPORT FROM DAY NURSECRISTIANO. PATIENT RESTING IN BED, RECEIVING DIALYSIS.DIALYSIS NURSE, CHAR, AT BEDSIDE. NO RESPIRATORY DISTRESS, SOB, OR DISCOMFORT.
[2016-04-11 20:00] VITALS: BP 138/93
--- NOTE | 2016-04-11 22:10 | NUR ---
PATIENT DIALYSIS COMPLETED, PATIENT TOLERATED WELL. BP 130/82, 100% O2 SATURATION, HR 100. 2700ML REMOVED. NO RESPIRATORY DISTRESS, SOB, OR DISCOMFORT. CALL LIGHT LEFT WITHIN REACH, WILL CONTINUE TO MONITOR.
[2016-04-11] MEDS: LEVOFLOXACIN 250 MG/D5 PREMIX 50 ML IV SCH (22:39)
--- NOTE | 2016-04-11 22:39 | NUR ---
PATIENT MEDICATION GIVEN AT THIS TIME. PATIENT TOLERATED WELL. NO RESPIRATORY DISTRESS, SOB, OR DISCOMFORT. DELAYED DUE TO PATIENT WAS RECEIVING DIALYSIS. CALL LIGHT LEFT WITHIN REACH, WILL CONTINUE TO MONITOR.
[2016-04-11] MEDS: SIMVASTATIN 20 MG TAB GT SCH (22:40)
--- NOTE | 2016-04-11 22:56 | NUR ---
PATIENT ORALLY SUCTIONED, SMALL AMOUNT OF CREAMY WHITE SECRETIONS NOTED. PATIENT TOLERATED WELL. O2 SATURATION: 100%, NO SIGNS OF DISCOMFORT. CALL LIGHT LEFT WITHIN REACH, WILL CONTINUE TO MONITOR.
--- NOTE | 2016-04-11 23:22 | NUR ---
PT JUST FINISHED DIALYSIS. ADMINISTERED HHNTX, ORALLY SUCTIONED MOD AMT OF THICK CREAM SECRETIONS, TOLERATED WELL.
[2016-04-12] VITALS: BP 109/65
--- NOTE | 2016-04-12 00:54 | NUR ---
PATIENT IN BED, SLEEPING, NO INDICATION FOR SUCTIONING AT THIS TIME. FLACC 0. NO RESPIRATORY DISTRESS, SOB, OR DISCOMFORT NOTED. CALL LIGHT LEFT WITHIN REACH, WILL CONTINUE TO MONITOR.
[2016-04-12] MEDS: Z-GUARD PASTE TP SCH ×2 (01:23→12:18)
--- NOTE | 2016-04-12 03:13 | NUR ---
ORAL SUCTIONING PERFORMED. MODERATED AMOUNT OF CREAMY WHITE SECRETIONS NOTED. PATIENT TOLERATED WELL, O2 SATURATION: 100%. NO DISCOMFORT NOTED, FLACC 0. WILL CONTINUE TO MONITOR.
[2016-04-12] MEDS: ALBUTEROL SULFATE/IPRATROPIU 3 ML SOL IH SCH ×6 (03:24→23:31)
--- NOTE | 2016-04-12 03:38 | NUR ---
ADMINISTERED HHNTX, ORALLY SUCTIONED SML AMT OF THICK CREAM SECRETIONS, TOLERATED WELL. NO SOB OR RESP DISTRESS NOTED. SP02 100% ON 2LPM NC.
[2016-04-12 04:00] VITALS: BP 119/58
[2016-04-12] MEDS: PIPER/TAZO 2.25GM/D5W PREMIX 50 ML IV SCH ×4 (05:14→21:01)
--- NOTE | 2016-04-12 06:11 | NUR ---
PATIENT RESTING IN BED, COMFORTABLY. NO INDICATIONS FOR SUCTIONING. NO RESPIRATORY DISTRESS, SOB, OR DISCOMFORT. CALL LIGHT LEFT WITHIN REACH, WILL CONTINUE TO MONITOR.
[2016-04-12] MEDS: BLOOD GLUCOSE MONITORING 1 DEV DEV FS SCH ×4 (06:35→21:07)
[2016-04-12] MEDS: INSULIN ASPART SLIDING SCALE 100 UNITS/ML VIAL SUBQ PRN ×4 (06:36→21:07)
--- NOTE | 2016-04-12 07:25 | NUR ---
REPORT GIVEN TO DAY NURSEELLA. PATIENT RESTING IN BED. NO RESPIRATORY DISTRESS, SOB, OR DISCOMFORT. ALL NEEDS ATTENDED TO DURING SHIFT, CALL LIGHT LEFT WITHIN REACH.
--- NOTE | 2016-04-12 07:30 | NUR ---
RECEIVED REPORT FROM EMELY Sandoval RN. PT IS ON O2 3L/MIN NC. PT IS APHASIC, LETHARGIC, AND LEGALLY BLIND. IV TO RIGHT FA #22, PATENT AND INTACT. WOUND NOTED TO SACRUM. DRESSING DRY AND INTACT. NGT TO LEFT NARE IN PLACE TO TUBE FEEDING. SAFETY PRECAUTIONS IN PLACE WITH BED IN LOWEST POSITION AND SIDE RAILS UP X2. CALL LIGHT WITHIN REACH. PT IS ON CONTACT ISOLATION WITH SIGNS POSTED. WILL CONTINUE TO MONITOR. Addendum: 04/12/16 at 0830 by Sharon Melchor RN LEFT UPPER ARM AV SHUNT. THRILL AND BRUIT PRESENT
[2016-04-12 08:00] VITALS: BP 115/60
[2016-04-12] MEDS: VIT-B COMP/VIT-C/FOLIC ACID 1 TAB PO SCH (09:17)
[2016-04-12] MEDS: SACCHAROMYCES 250 MG CAP GT SCH ×2 (09:17→21:04)
[2016-04-12] MEDS: amLODIPine 5 MG TAB GT SCH (09:17)
[2016-04-12] MEDS: FOLIC ACID 1 MG TAB GT SCH (09:17)
[2016-04-12] MEDS: METOCLOPRAMIDE 10 MG/10 ML SYRP UDC GT SCH ×3 (09:17→16:17)
[2016-04-12] MEDS: levETIRAcetam 100 MG/ML ORASYR GT SCH ×2 (09:17→21:04)
[2016-04-12] MEDS: FAMOTIDINE 20 MG TAB GT SCH (09:17)
--- NOTE | 2016-04-12 09:25 | NUR ---
CHECKED TUBE FEEDING RESIDUAL: NONE NOTED. CHECKED BP: 115/60. ADMINISTERED MEDICATION ORDERED. PT TOLERATED WELL.
--- NOTE | 2016-04-12 10:44 | NUR ---
DR. LEW IN TO SEE PT, SPEAKING WITH SISTER, CAIO, AND SIGNIFICANT OTHER. NOTIFIED OF LOW POTASSIUM: 3.4. NEW ORDERS RECEIVED.
--- NOTE | 2016-04-12 11:22 | NUR ---
ORALLY SX LG YELLOW WITH 14 FR FAMILY AT BEDSIDE
--- NOTE | 2016-04-12 11:43 | NUR ---
CONCURRENT REVIEW FAXED TO [facility] [phone] PHONE LAKESHA [phone]
[2016-04-12 12:00] VITALS: BP 130/78
[2016-04-12] MEDS ORDERED: POTASSIUM CHLORIDE 40 MEQ, LIDOCAINE 1% 25 MG in NACL 0.9% 250 ML IV SCH (12:00)
[2016-04-12] MEDS: FOAM DRESSING TP SCH (12:18)
--- NOTE | 2016-04-12 12:31 | NUR ---
PT TOLERATED MEDS WELL.
--- NOTE | 2016-04-12 12:36 | NUR ---
04/12/16 RD FOLLOW UP COMPLETED PLEASE REFER TO NUTRITION PROGRESS NOTE UNDER CARE ACTIVITY FOR ESTIMATED NUTRITION NEEDS. RD RECOMMENDATIONS: 1. NOVASOURCE RENAL AT 40 ML/HR WITH 50 ML FREE WATER FLUSH Q6H VIA NGTUBE. --CURRENT TUBE FEEDING MEETING 100% OF PT ESTIMATED KCAL AND PROTEIN NEEDS --NOTE PT WITH NG TUBE L NARE SINCE 03/04/16 --NOTE RD WILL MONITOR GLUCOSE LEVELS AND RENAL FUNCTION FOR TUBE FEEDING ADJUSTMENTS 2. CONSIDER GTUBE FOR DRAWER IN NUTRITION SUPPORT NEEDS 3. RD WILL F/U 2-3 DAYS; HIGH RISK REYES D[address]AZ RD
--- NOTE | 2016-04-12 12:37 | NUR ---
CAIO, PT'S SISTER, INFORMED OF NEURO RE-EVAL AND SPEECH THERAPY EVAL.
--- NOTE | 2016-04-12 13:44 | NUR ---
DR. AVALOS IN TO SEE PT. WILL FOLLOW UP ON ORDERS.
--- NOTE | 2016-04-12 15:28 | NUR ---
SPEECH THERAPIST, BAKARI, PRESENT AT BEDSIDE FOR EVAL.
--- NOTE | 2016-04-12 15:32 | NUR ---
SPEECH THERAPIST AT BEDSIDE
[2016-04-12 16:00] VITALS: BP 128/79
--- NOTE | 2016-04-12 16:43 | NUR ---
CHECKED TUBE FEEDING RESIDUAL: NONE NOTED. ADMINISTERED MEDICATION ORDERED. PT TOLERATED WELL.
--- NOTE | 2016-04-12 19:03 | NUR ---
RECEIVED PT REPORT FORM BHANU Jackson RN FOR CONTINUITY OF CARE AT PT BEDSIDE. NO ACUTE DISTRESS NOTED AT THIS TIME, NASAL CANNULA IN PLACE.
--- NOTE | 2016-04-12 19:11 | NUR ---
ENDORSED CARE TO CHLOE STRONG. PT IN STABLE CONDITION.
--- NOTE | 2016-04-12 19:15 | NUR ---
RT AT PT BEDSIDE GIVING TREATMENT AND SUCTIONING PT.
[2016-04-12] MEDS: NACL 0.9% 250 ML IV SCH (19:20)
--- NOTE | 2016-04-12 19:26 | NUR ---
ADMINISTERED HHNTX, SUCTIONED MOD AMT OF THICK/ THIN CREAM SECRETIONS, TOLERATED WELL. NO SOB OR RESP DISTRESS NOTED. SP02 100% ON 3LPM NC.
[2016-04-12 20:00] VITALS: BP 144/59
--- NOTE | 2016-04-12 20:16 | NUR ---
SHIFT ASSESSMENT DONE AT THIS TIME. PT NOTED APHASIC BEDBOUND, NO ACUTE RESPIRATORY DISTRESS. VITAL SIGNS ARE STABLE, PT IS ON 3L OXYGEN WITH SATURATION AT 100% THROUGH NASAL CANNULA. PT IS AFEBRILE AT THIS TIME. LUNG SOUNDS ARE RHONCHI, NOTED PT TO HAVE SECRETIONS, APPLIED SUCTIONING AT THIS TIME, TOLERATED WELL. BOWEL SOUNDS ARE ACTIVE. PT HAS SACRAL WOUND WITH DRESSING, DRESSING CHANGED, SEE WOUND ASSESSMENT, ALL OTHER SKIN INTACT. PT ON WOUND BED AND SCD'S ARE IN PLACE. NOTED IV ACCESS TO RT ARM #22G, PATENT AND INTACT TKO. PT HAS NG TUBE TO LEFT NARES TO FEEDING PUMP. NO RESIDUALS NOTED AT THIS TIME, 0ML. SAFETY PRECAUTIONS IMPLEMENTED. CALL LIGHT WITHIN REACH. PROVIDED TURNING TO OFFLOAD PRESSURE AREAS. PT ON CONTACT PRECAUTIONS. WILL CONTINUE TO MONITOR PT.
--- NOTE | 2016-04-12 20:30 | NUR ---
ORAL SUCTION APPLIED AT THIS TIME, OXYGEN SATURATION IS 99%.
[2016-04-12] MEDS: SIMVASTATIN 20 MG TAB GT SCH (21:04)
--- NOTE | 2016-04-12 21:07 | NUR ---
PROVIDED PT WITH INSULIN COVERAGE PER MD SLIDING SCALE FOR PT BLOOD GLUCOSE OF 157. PT TOLERATED SCHEDULED MEDICATIONS. NO DISTRESS NOTED AT THIS TIME.
--- NOTE | 2016-04-12 22:00 | NUR ---
ORAL CARE GIVEN. PT REMAINS STABLE. NO DISTRESS.
--- NOTE | 2016-04-12 22:29 | NUR ---
ORAL SUCTION AND TURN PT AT THIS TIME. PT HAS SMALL BOWEL BROWN SOFT STOOL. PROVIDED BEVERLY CARE.
--- NOTE | 2016-04-12 23:20 | NUR ---
CHECKED RESIDUALS, NOTED 40ML. NG-TUBE REMAINS PATENT.
--- NOTE | 2016-04-12 23:40 | NUR ---
ADMINISTERED HHNTX, ORALLY SUCTIONED SML AMT OF THICK/THIN CREAM SECRETIONS, TOLERATED WELL.
--- NOTE | 2016-04-12 23:42 | NUR ---
RT AT BEDSIDE FOR BREATHING TREATMENT.
[2016-04-13] VITALS: BP 113/58
--- NOTE | 2016-04-13 00:43 | NUR ---
VSS, PT NASAL CANNULA STILL IN PLACE. NO ACUTE DISTRESS NOTED. WILL CONTINUE TO MONITOR PT.
[2016-04-13] MEDS: Z-GUARD PASTE TP SCH ×2 (01:30→12:36)
--- NOTE | 2016-04-13 02:50 | NUR ---
PROVIDED PT TURNING AT THIS TIME. PT NASAL CANNULA STILL IN PLACE, OXYGEN SATURATION AT 95%.
[2016-04-13] MEDS: ALBUTEROL SULFATE/IPRATROPIU 3 ML SOL IH SCH ×6 (03:24→23:05)
--- NOTE | 2016-04-13 03:53 | NUR ---
VITAL SIGNS REMAIN STABLE, PT NASAL CANNULA STILL IN PLACE AND NG TUBE STILL IN PLACE. NO DISTRESS NOTED.
[2016-04-13 04:00] VITALS: BP 131/69
[2016-04-13] MEDS: PIPER/TAZO 2.25GM/D5W PREMIX 50 ML IV SCH ×3 (04:36→21:23)
--- NOTE | 2016-04-13 04:47 | NUR ---
PROVIDED PT WITH ORAL CARE AND ORAL SUCTIONING. PT REMAINS STABLE, OXYGEN SATURATION NOTED AT 100% ON 3L NASAL CANNULA. WILL CONTINUE TO MONITOR.
--- NOTE | 2016-04-13 05:58 | NUR ---
TURNED PT, PROVIDED BEVERLY CARE. NO RESPIRATORY DISTRESS NOTED, PT NASAL CANNULA STILL ON, OXYGEN SATURATION IS 99%. NG-TUBE STILL IN PLACE. WILL CONTINUE TO MONITOR PT.
--- NOTE | 2016-04-13 06:31 | NUR ---
SPOKE TO [place] FROM [facility], SHE WILL BE IN TODAY TO GIVE PT DIALYSIS AROUND [phone] THIS MORNING.
[2016-04-13] MEDS: BLOOD GLUCOSE MONITORING 1 DEV DEV FS SCH ×4 (06:33→21:09)
[2016-04-13] MEDS: INSULIN ASPART SLIDING SCALE 100 UNITS/ML VIAL SUBQ PRN ×4 (06:34→21:24)
--- NOTE | 2016-04-13 07:20 | NUR ---
HD NURSE AT PT BEDSIDE, PT HAVING DIALYSIS. ENDORSED PT TO ROBERTO RN AT BEDSIDE FOR PT CONTINUITY OF CARE. PT STABLE, OXYGEN SATURATION AT 100% ALSO HAVING BREATHING TREATMENT WITH RT AT THIS TIME.
--- NOTE | 2016-04-13 07:20 | NUR ---
RECEIVED ON HUMIDIFIED SUPPLEMENTAL OXYGEN ON AND FUNCTIONING WELL AT 3 LPM VIA NC HEMODIALYSIS IN PROGRESS
--- NOTE | 2016-04-13 07:21 | NUR ---
RECEIVED REPORT FROM THE NIGHTSHIFT NURSE AT BEDSIDE. HD NURSE IN ROOM PREPPING FOR DIALYSIS. PT IS APHASIC. PT HAS HER EYES CLOSED BUT EXTREMITIES MOVING. INTRODUCED MYSELF AND UPDATED THE BOARD. NOTED THAT FEEDING TUBE IS OFF. PER CROCHETER NURSE, KEPT BEEPING. WILL CHECK ON LINES. NOTED THE IV ON R FA 22G NS GOING AT 5 ML. NOTED THE NG TUBE ON L NARES. AND NC 3L O2. PT HAS GTUBE. EUGENE WAS HERE TO CHANGE DRESSING BUT WILL WAIT D/T THE DIALYSIS. WILL BE BACK TO REASSESS PT. Addendum: 04/13/16 at 1115 by Dionne Villa RN PT DOES NOT HAVE A GTUBE. JUST THE NG TUBE. WILL BE GETTING CONSENT FOR ONE SOON.
[2016-04-13 08:00] VITALS: BP 123/75
--- NOTE | 2016-04-13 08:00 | NUR ---
V/S WITHIN NORMAL RANGE. O2 AT 100%. WILL CONTINUE TO MONITOR PT.
[2016-04-13] MEDS: amLODIPine 5 MG TAB GT SCH (09:00)
[2016-04-13] MEDS ORDERED: EPOETIN ALFA 10,000 UNITS/ML VIAL SUBQ SCH (09:00)
--- NOTE | 2016-04-13 09:05 | NUR ---
LOW H/H. SPOKE TO DR. LEW. AWARE. NO NEW ORDERS. HE WANTED ME TO GET A CONSENT FOR GTUBE AND DR. Watts CONSULT W/ DR. EMERSON AND FNS CONSULT AND PLACEMENT FOR LTC.
[2016-04-13] MEDS: METOCLOPRAMIDE 10 MG/10 ML SYRP UDC GT SCH ×3 (09:24→17:16)
[2016-04-13] MEDS: levETIRAcetam 100 MG/ML ORASYR GT SCH ×2 (09:24→21:13)
[2016-04-13] MEDS: FAMOTIDINE 20 MG TAB GT SCH (09:25)
[2016-04-13] MEDS: VIT-B COMP/VIT-C/FOLIC ACID 1 TAB PO SCH (09:25)
[2016-04-13] MEDS: SACCHAROMYCES 250 MG CAP GT SCH ×2 (09:25→21:13)
[2016-04-13] MEDS: FOLIC ACID 1 MG TAB GT SCH (09:25)
[2016-04-13] MEDS: EPOETIN ALFA SUBQ SCH (09:27)
--- NOTE | 2016-04-13 09:30 | NUR ---
PT'S NG TUBE LINE IS NOT FUNCTIONING. PLUGGED UP. FLUSHED AND USED DIET MELITON. NOT WORKING. ADMINISTERED MEDS. PT TOLERATED WELL. RESTARTED TUBE FEEDING. WILL SEE IF THAT RESOLVED THE ISSUE. HD NURSE STILL AT BEDSIDE. WILL CONTINUE TO MONITOR PT. Addendum: 04/13/16 at 1358 by Dionne Villa RN ONCE IT WAS FLUSHED WITH SODA, THE PLUG WAS BROKEN UP. IT'S WORKING FINE. CHECKED FOR PLACEMENT. CHECKED FOR RESIDUAL. FLUSHING WELL. ONCE VERIFIED PATENCY, ADMINISTERED MEDS. YESTERDAY, ALL THE TUBING WAS CHANGED, POSSIBLY THE PUMP IS THE PROBLEM. WILL REQUEST A NEW FEEDING PUMP. -DEISY CORONA
--- NOTE | 2016-04-13 11:15 | NUR ---
HD NURSE JUST FINISHING UP DIALYSIS. ORDER PICKER/ASSEMBLER IN THE ROOM TO CLEAN AND REPOSITION PT. THE FEEDING PUMP HAS BEEN BEEPING OFF AND ON. WILL NEED TO SEE IF REPOSITIONING WILL HELP. WILL CONTINUE TO MONITOR PT.
--- NOTE | 2016-04-13 11:45 | NUR ---
HEMODIALYSIS COMPLETED NEGATIVE CUTTER AT BEDSIDE HHN THERAPY GIVEN WITHOUT INCIDENT STRONG MOIST PRODUCTIVE COUGH ORAL PHARYNGEAL SUCTION FOR LARGE THIN PALE YELLOW SECRETIONS
[2016-04-13 12:00] VITALS: BP 123/80
--- NOTE | 2016-04-13 12:01 | NUR ---
REPLACED THE MEPLEX DRESSING ON HER BOTTOM. PT TOLERATED WELL. FEEDING PUMP BEEPING. PER HD NURSE, PT HAD 2.1 L TAKEN OUT.
--- NOTE | 2016-04-13 13:15 | NUR ---
BREATH SOUNDS COARSE RHONCHI BILATERAL GOOD CHEST RISE NASOTRACHEAL SUCTIONING USING STERILE TECHNIQUE APPLIED STERILE LUBRICANT TO DISTAL END OF A 14FR SUCTION CATHETER INSERTED INTO RIGHT NARES X1 OBTAINING LARGE THIN PALE YELLOW SECRETIONS ORAL PHARYNGEAL SUCTION FOR SMALL THIN PALE YELLOW SECRETIONS TOLERATED PROCEDURE WELL WITHOUT INCIDENT SUPPLEMENTAL OXYGEN THROUGHOUT PROCEDURE
--- NOTE | 2016-04-13 13:23 | NUR ---
MEMBERSHIP ASSISTANT (Ruby) provided Bedside Swallow Evaluation on 04/11/2016 (downtime forms completed on paper and placed in back section of pt's paper chart). Please refer to paper chart for details of bedside swallow evaluation. That MEMBERSHIP ASSISTANT also attempted to provide speech/language evaluation; however, it was not able to be completed due to pt's clinical presentation (per conversation between evaluating MEMBERSHIP ASSISTANT and EMANUEL Licea.) Pt's clinical presentation was reported to include that pt had difficulty managing own secretions and had increased congestion and required respiratory therapy intervention for suctioning. This MEMBERSHIP ASSISTANT reattempted to provide speech/language evaluation; however, pt's clinical presentation continues to be inadequate for speech/language evaluation participation at this time. Pt with x2 respiratory therapy staff for suctioning at the time of reattempt with pt unable to follow commands or actively participate with suctioning process. Due to pt's prolonged hospitalization and pending PEG placement and pending discharge to long-term care facility (per physician reports), MEMBERSHIP ASSISTANT to defer further MEMBERSHIP ASSISTANT intervention to long-term care facility MEMBERSHIP ASSISTANT once pt's status improves/warrants, as appropriate. PVE x2 for d/w covering RN (Irina) and RN education.
--- NOTE | 2016-04-13 15:54 | NUR ---
PT'S DAUGHTER IS SITTING AT BEDSIDE WITH PT. PT IS RESTING COMFORTABLY. NO SIGNS OF DISTRESS OR PAIN. WE WILL CONTINUE TO MONITOR PT.
[2016-04-13 16:00] VITALS: BP 130/65
--- NOTE | 2016-04-13 17:10 | NUR ---
ADMINISTERED ANTIBIOTIC IVPB. PT NEEDED SUCTIONING. CALLED RT TO COME AND SUCTION PT.
[2016-04-13] MEDS: NACL 0.9% 250 ML IV SCH (18:59)
[2016-04-13] MEDS: LEVOFLOXACIN 250 MG/D5 PREMIX 50 ML IV SCH (18:59)
--- NOTE | 2016-04-13 19:15 | NUR ---
RECEIVED REPORT FROM DAY SHIFT NURSE, CHLOE MEJIA. PT IS RESTING IN BED, NON-VERBAL, FLACC-0. ON NASAL CANNULA AT 2LPM, NO S/S OF RESPIRATORY DISTRESS/DISCOMFORT NOTED. HAS NG TUBE INSERTED TO HER LEFT NARE, ON CONTINUOUS FEEDING WITH NOVASOURCE. IV SITE TO THE RIGHT FA, PATENT AND INTACT. NOTED A DRESSING TO HER LEFT AC FOR HD, DRY AND CLEAN. HAS SCD IN PLACED. PLAN OF CARE DISCUSSED, PATIENT IS NON VERBAL, UNRESPONSIVE. SAFETY MEASURES CHECKED, CALL LIGHT WITHIN REACH. WILL CONTINUE TO MONITOR AND REPOSITIO THE PATIENT Q 2HRS.
--- NOTE | 2016-04-13 19:20 | NUR ---
ENDORSED PT TO THE NIGHTSHIFT NURSE. PT IS IN STABLE CONDITION. RT IS HERE FOR BREATHING TX.
[2016-04-13 20:00] VITALS: BP 129/74
--- NOTE | 2016-04-13 20:00 | NUR ---
REPOSITIONED PATIENT. PRESENCE OF COUGH NOTED, UNABLE TO CLEAR THE THE THROAT, ORALLY SUCTIONED, SMALL AMOUNT OF CREAMY WHITE SECRETIONS NOTED. PATIENT TOLERATED WELL. NO S/S OF RESPIRATORY DISTRESS/DISCOMFORT NOTED.
[2016-04-13] MEDS: SIMVASTATIN 20 MG TAB GT SCH (21:13)
[2016-04-14] VITALS: BP 134/78
--- NOTE | 2016-04-14 | NUR ---
V/S CHECKED, FLACC-5. WILL ADMINISTER PAIN MEDICATION PER MD ORDERED.
[2016-04-14] MEDS: HYDROcodone/APAP 5/325 MG 1 TAB TAB GT PRN ×2 (00:24→17:23)
--- NOTE | 2016-04-14 00:24 | NUR ---
FACIAL GRIMACING NOTED, FLACC-5. ADMINISTERED PAIN MEDICATION PER MD ORDERED. PT TOLERATED WELL.
[2016-04-14] MEDS: Z-GUARD PASTE TP SCH ×2 (01:05→12:56)
--- NOTE | 2016-04-14 02:30 | NUR ---
PT IS SLEEPING, NO S/S OF RESPIRATORY DISTRESS/DISCOMFORT NOTED. NO PRESENCE OF COUGH NOTED. SAFETY MEASURES CHECKED, CALL LIGHT WITHIN REACH.
[2016-04-14] MEDS: ALBUTEROL SULFATE/IPRATROPIU 3 ML SOL IH SCH ×6 (03:36→22:56)
[2016-04-14 04:00] VITALS: BP 150/84
--- NOTE | 2016-04-14 04:00 | NUR ---
V/S CHECKED. NO S/S OF RESPIRATORY DISTRESS/DISCOMFORT NOTED. REPOSITIONED PATIENT Q 2HRS.
[2016-04-14] MEDS: PIPER/TAZO 2.25GM/D5W PREMIX 50 ML IV SCH ×3 (04:54→20:21)
[2016-04-14] MEDS: BLOOD GLUCOSE MONITORING 1 DEV DEV FS SCH ×4 (05:27→20:33)
[2016-04-14] MEDS: INSULIN ASPART SLIDING SCALE 100 UNITS/ML VIAL SUBQ PRN ×2 (05:45→21:19)
--- NOTE | 2016-04-14 06:06 | NUR ---
AM CARE DONE, BEVERLY CARE DONE, GOWN AND BED LINEN CHANGED. REPOSITIONED PATIENT. PATIENT TOLERATED WELL. NO S/S OF RESPIRATORY DISTRESS/DISCOMFORT NOTED.
--- NOTE | 2016-04-14 07:25 | NUR ---
ENDORSED REPORT TO AM NURSE FOR CONTINUITY OF CARE. PT IS IN STABLE CONDITION.
--- NOTE | 2016-04-14 07:30 | NUR ---
RECEIVED PT RESTING COMFORTABLY IN BED. AAOX1, UNABLE TO VERBALIZE NEEDS. NO S/S OF PAIN, SOB, OR S/S ACUTE DISTRESS; ROUTINE/PLAN OF CARE DISCUSSED AND REVIEWED. RESPIRATIONS EVEN AND UNLABORED ON O2@2L/MIN VIA NC, SaO2 100%; RHONCHI HEARD BILATERALLY TO UPPER LOBES, ORAL SUCTIONING AT THIS TIME WITH NO SECRETIONS NOTED. SACRAL WOUND WITH DRESSING CLEAN AND INTACT; WOUND CARE MATTRESS IN PLACE. IVF TKO TO RIGHT AC, SITE ASYMPTOMATIC. NG TO LEFT NARE; FEEDING HELD AT THIS TIME PER DR LEW'S VERBAL ORDER, POSSIBLE GTUBE PLACEMENT BY DR EMERSON PENDING CONSULTATION. REPOSITIONING PER PROTOCOL, SCHEDULE DISCUSSED WITH CNAs. CONTACT AND SAFETY PRECAUTIONS OBSERVED AND MAINTAINED. WILL CONTINUE TO MONITOR.
[2016-04-14 08:00] VITALS: BP 118/74
--- NOTE | 2016-04-14 08:00 | NUR ---
VSS. REPOSITIONED PER PROTOCOL. PT TOLERATED WELL.
--- NOTE | 2016-04-14 08:02 | NUR ---
FNS CONSULT RECEIVED ON 04/13/16 FOR TUBE FEEDING. PLEASE NOTE RD IS ALREADY FOLLOWING PATIENT FOR TUBE FEEDING NEEDS. RD TUBE FEEDING RECOMMENDATIONS ARE FOLLOWS: RD RECOMMENDATIONS: CONTINUE NOVASOURCE RENAL AT 40 ML/HR WITH 50 ML FREE WATER FLUSH Q6H VIA NGTUBE --CURRENT TUBE FEEDING MEETING 100% OF PT ESTIMATED KCAL AND PROTEIN NEEDS IF/WHEN GTUBE SUCCESSFULLY PLACED, BEGIN NOVASOURCE RENAL AT 10 ML/HR AND ADVANCE TOLERATED 10 ML Q4H TO GOAL OF 40 ML/HR. PLEASE REFER TO NUTRITION PROGRESS NOTE UNDER CARE ACTIVITY FOR ESTIMATED NUTRITION NEEDS. PT IS HIGH NUTRITIONAL RISK. RD TO FOLLOW UP 04/15/[address]
[2016-04-14] MEDS: FAMOTIDINE 20 MG TAB GT SCH (09:00)
[2016-04-14] MEDS: SACCHAROMYCES 250 MG CAP GT SCH ×2 (09:00→20:21)
[2016-04-14] MEDS: levETIRAcetam 100 MG/ML ORASYR GT SCH ×2 (09:00→20:21)
[2016-04-14] MEDS: FOLIC ACID 1 MG TAB GT SCH (09:00)
[2016-04-14] MEDS: amLODIPine 5 MG TAB GT SCH (09:00)
[2016-04-14] MEDS: VIT-B COMP/VIT-C/FOLIC ACID 1 TAB PO SCH (09:00)
[2016-04-14] MEDS: METOCLOPRAMIDE 10 MG/10 ML SYRP UDC GT SCH ×3 (09:00→17:23)
[2016-04-14] MEDS ORDERED: HYDROmorphone 1 MG/ML AMP IVP SCH (09:23)
--- NOTE | 2016-04-14 09:40 | NUR ---
PT CONTINUOUSLY MOANING, APPEARS TO BE IN PAIN, VS STABLE. NOTIFIED DR LEW BY TELEPHONE AND RECEIVED T.O.; DILAUDID IVP GIVEN ORDERED. WILL CONTINUE TO CLOSELY MONITOR.
--- NOTE | 2016-04-14 10:00 | NUR ---
REPOSITIONED PT PER PROTOCOL, PT TOLERATED WELL. VS REMAIN STABLE, NO S/S DISTRESS.
[2016-04-14 12:00] VITALS: BP 123/78
--- NOTE | 2016-04-14 12:00 | NUR ---
REPOSITIONED PT, VSS. WOUND CARE PERFORMED ORDERED, SEE WOUND INTERVENTION; RHONCHI HEARD BILATERALLY TO UPPER LOBES UNRELIEVED BY ORAL SUCTIONING, RESPIRATIONS UNLABORED, SaO2 100%. PAGED RT FOR ASSISTANCE WITH SUCTIONING. FAMILY MEMBER AT BEDSIDE.
[2016-04-14] MEDS: FOAM DRESSING TP SCH (12:56)
[2016-04-14] MEDS ORDERED: NACL 0.9% 1,000 ML IV SCH (13:05)
--- NOTE | 2016-04-14 13:34 | NUR ---
PATIENT SUCTIONED WITH 10FR CATHETER ORALLY AND DEEP IN OROPHARAX, SUCTION THICK AMOUNT OF SECREATIONS. SAO2 100% HR 97BPM
--- NOTE | 2016-04-14 13:45 | NUR ---
SPOKE WITH DR EMERSON IN REGARDS TO GI CONSULTATION AND GTUBE PLACEMENT PER DR LEW, DR EMERSON STATES HE MAY BE ABLE TO PERFORM THE PROCEDURE TODAY OR TOMORROW. SPOKE WITH PATIENT'S SISTER CAIO BY TELEPHONE, STATES SHE WISHES SPEAK WITH HER FAMILY BEFORE MAKING A DECISION. PAGED DR EMERSON.
--- NOTE | 2016-04-14 14:00 | NUR ---
CONDITION REMAINS STABLE, VSS. REPOSITIONED PER PROTOCOL.
--- NOTE | 2016-04-14 14:11 | NUR ---
CM NOTE CONCURRENT REVIEW SENT TO [facility] FAX# [phone] ATTN: LAKESHA # [phone]
--- NOTE | 2016-04-14 15:00 | NUR ---
TELEPHONE MESSAGE LEFT FOR PT'S SISTER CAIO, NO CALL BACK FOR CONSENT AT THIS TIME. NOTIFIED DR EMERSON.
[2016-04-14] MEDS: DEXT 5% / NACL 0.45% 1,000 ML IV SCH (15:35)
[2016-04-14 16:00] VITALS: BP 127/64
--- NOTE | 2016-04-14 16:00 | NUR ---
VSS. REPOSITIONED PER PROTOCOL. ORAL CARE AND SUCTIONING GIVEN. RESUMED TUBE FEEDING, PT TOLERATING WELL, ASPIRATION PRECAUTIONS MAINTAINED. DR EMERSON AT BEDSIDE, DISCUSSED PT CONDITION AND PLAN OF CARE.
--- NOTE | 2016-04-14 18:00 | NUR ---
CONDITION REMAINS STABLE; REPOSITIONED PER PROTOCOL. ORAL CARE AND SUCTIONING GIVEN.
--- NOTE | 2016-04-14 18:45 | NUR ---
PT'S SISTER CAIO AT BEDSIDE, STATES SHE AND HER FAMILY HAVE NOT MADE THE DECISION TO SIGN CONSENT FOR GTUBE PLACEMENT AT THIS TIME.
--- NOTE | 2016-04-14 19:18 | NUR ---
CONDITION STABLE; ENDORSED PLAN OF CARE TO ROUTE DELIVERY SUPERVISOR RN.
--- NOTE | 2016-04-14 19:35 | NUR ---
RECEIVED REPORT FROM DAYSHIFT RN FOR CONTINUITY OF CARE. SHIFT ASSESSMENT DONE, VS TAKEN, IN STABLE CONDITION. PATIENT IS LAYING IN BED WITH EYES CLOSED, NO S/S OF PAIN. PATIENT IS LEGALLY BLIND. PT APHASIC AND UNABLE TO RESPOND. PT MAKES GRUNT SOUNDS. NO S/S OF RESPIRATORY DISTRESS NOTED ON ON 2L O2 NC. IV TO RT OUTER FOREARM 22G PATENT AND INFUSING IV FLUIDS TKO. NG TUBE TO LT NARE PATENT, PLACEMENT CHECKED. NG TUBE HAS 10 ML RESIDUAL, TOLERATING FEEDING WELL NOVASOURCE AT 40ML/HR. PT HAS LT UPPER ARM AV SHUNT. PRESSURE ULCER TO SACRAL AREA, DRESSING CLEAN DRY AND INTACT. SCDS IN PLACE. SAFETY/FALL/ ASPIRATION/ SEIZURE AND CONTACT PRECAUTIONS ENFORCED. PT IS ALSO ON WOUND CARE BED. PLAN OF CARE DISCUSSED WITH FAMILY AT BEDSIDE. CALL LIGHT WITHIN REACH. WILL CONTINUE TO MONITOR.
[2016-04-14 20:00] VITALS: BP 104/55
[2016-04-14] MEDS: NACL 0.9% 250 ML IV SCH (20:21)
[2016-04-14] MEDS: SIMVASTATIN 20 MG TAB GT SCH (20:21)
--- NOTE | 2016-04-14 20:21 | NUR ---
DUE MEDICATIONS ADMINISTERED VIA NGT, TOLERATED WELL. HELP HEPARIN PER POSSIBLE G TUBE PLACEMENT TOMORROW. REPOSITIONED PATIENT PER PROTOCOL. PROVIDED MOUTH CARE AND SUCTIONED PATIENT. WILL CONTINUE TO MONITOR.
--- NOTE | 2016-04-14 21:19 | NUR ---
BLOOD SUGAR TAKEN, 257, ADMINISTERED INSULIN PER MD ORDER. WILL CONTINUE TO MONITOR.
--- NOTE | 2016-04-14 21:44 | NUR ---
SPOKE WITH DIALYSIS NURSE REGARDING ORDER FOR DIALYSIS IN AM.
--- NOTE | 2016-04-14 22:56 | NUR ---
PT HAS COUGH WITH SECRETIONS, SUCTIONED WITH YANKAUER AND PAGED RT FOR BREATHING TX.
[2016-04-15] VITALS (7 sets, daily range): BP systolic 106–147; BP diastolic 71–89
--- NOTE | 2016-04-15 00:02 | NUR ---
VS TAKEN, STABLE. SUCTIONED PATIENT. REPOSITIONED PATIENT PER PROTOCOL, TOLERATED WELL. WILL CONTINUE TO MONITOR.
[2016-04-15] MEDS: Z-GUARD PASTE TP SCH ×2 (01:13→13:27)
--- NOTE | 2016-04-15 02:00 | NUR ---
REPOSITIONED PATIENT PER PROTOCOL. PROVIDED ORAL CARE. NPO ENFORCED. WILL CONTINUE TO MONITOR.
[2016-04-15] MEDS: ALBUTEROL SULFATE/IPRATROPIU 3 ML SOL IH SCH ×6 (03:05→23:16)
--- NOTE | 2016-04-15 03:52 | NUR ---
VS TAKEN, STABLE. PROVIDED MOUTH CARE AND ORAL MOISTURIZER. REPOSITIONED PATIENT, PROVIDED AM CARE AND CHANGE OF LINENS AND GOWN. CHANGED OUT IV TUBINGS AND REINFORCED IV DRESSING. WILL CONTINUE TO MONITOR.
--- NOTE | 2016-04-15 05:58 | NUR ---
REPOSITIONED PATIENT AND APPLIED HYDRAGUARD PER MD ORDER. BLOOD SUGAR TAKEN, 146, NO INSULIN COVERAGE NEEDED. PT HAS FACIAL GRIMACING, PAGED DR. ASHER REGARDING PAIN MEDICATION. AWAITING CALL BACK.
[2016-04-15] MEDS: BLOOD GLUCOSE MONITORING 1 DEV DEV FS SCH ×4 (05:59→20:44)
[2016-04-15] MEDS: HYDROcodone/APAP 5/325 MG 1 TAB TAB GT PRN ×2 (06:32→15:11)
--- NOTE | 2016-04-15 06:32 | NUR ---
RECEIVED CALL BACK FROM DR. ASHER, INFORMED HER OF NO PAIN MEDICATION ON EMAR. RECEIVED ORDERS AND FOLLOWED OUT. WILL CONTINUE TO MONITOR.
--- NOTE | 2016-04-15 07:03 | NUR ---
RECEIVED PT ON 2L NASAL CANNULA, SPO2 98%. B.S COARSE BILATERALLY. PT IS NOT SOB AND NOT IN RESPIRATORY DISTRESS AT THIS TIME. WILL CONTINUE TO MONITOR.
--- NOTE | 2016-04-15 07:22 | NUR ---
ENDORSED PATIENT TO EMELY RN FOR CONTINUITY OF CARE, PATIENT IS IN STABLE CONDITION.
--- NOTE | 2016-04-15 07:22 | NUR ---
RECEIVED PATIENT REPORT AT BEDSIDE. PATIENT LAYING IN BED WITH NO S/S OF DISTRESS NOTED. PATIENT APHASIC AND UNABLE TO RESPOND. TUBE FEEDING ON HOLD FOR POSSIBLE G-TUBE PLACEMENT. PATIENT ON 2L O2 VIA NC. OT SATURATION AT 100%. NGT TO THE LEFT NARES. PATIENT SCHEDULED TO HAVE HEMODIALYSIS TODAY. AV SHUNT NOTED TO THE LEFT ARM. IV LINE NOTED TO THE RIGHT FA INTACT AND ASYMPTOMATIC. SCDS IN PLACE. PATIENT ON TELE MONITORING. BED LOWERED WITH CALL LIGHT WITHIN REACH. WILL CONTINUE TO MONITOR
--- NOTE | 2016-04-15 08:00 | NUR ---
PATIENT TURNED AND REPOSITIONED
--- NOTE | 2016-04-15 08:43 | NUR ---
MADE DR LEW AWARE THAT PATIENT'S FAMILY DOES NOT WANT ANY G-TUBE PLACEMENT AND REQUESTS TO HAVE THE TUBE FEEDING RESUMED. ALSO MADE AWARE OF PATIENT'S HEMOGLOBIN OF 7.6. ORDERS RECEIVED. TUBE FEEDING RESUMED
[2016-04-15] MEDS: amLODIPine 5 MG TAB GT SCH (09:00)
--- NOTE | 2016-04-15 09:09 | NUR ---
SPOKE WITH DR EMERSON AND INFORMED HIM THAT THE FAMILY DOES NOT WANT TO HAVE A G-TUBE PLACEMENT DONE ON THE PATIENT AND THAT THE TUBE FEEDING HAS BEEN RESUMED
[2016-04-15] MEDS: VIT-B COMP/VIT-C/FOLIC ACID 1 TAB PO SCH (09:33)
[2016-04-15] MEDS: FAMOTIDINE 20 MG TAB GT SCH (09:33)
[2016-04-15] MEDS: SACCHAROMYCES 250 MG CAP GT SCH ×2 (09:38→20:43)
[2016-04-15] MEDS: levETIRAcetam 100 MG/ML ORASYR GT SCH ×2 (09:39→20:43)
[2016-04-15] MEDS: METOCLOPRAMIDE 10 MG/10 ML SYRP UDC GT SCH ×3 (09:39→17:19)
[2016-04-15] MEDS: FOLIC ACID 1 MG TAB GT SCH (09:39)
--- NOTE | 2016-04-15 09:52 | NUR ---
RECEIVED A CALL FROM SAMIR FROM [facility] IN [place]. STILL NO HD BEDS.
--- NOTE | 2016-04-15 10:00 | NUR ---
PATIENT TURNED AND REPOSITIONED
--- NOTE | 2016-04-15 10:23 | NUR ---
BLOOD TRANSFUSION INITIATED WITH DIALYSIS
--- NOTE | 2016-04-15 10:27 | NUR ---
FAXED CONCURRENT REVIEW TO [facility] [phone] PHONE LAKESHA [phone]
--- NOTE | 2016-04-15 11:11 | NUR ---
HEMODIALYSIS STILL IN PROGRESS. NO S/S OF DISTRESS NOTED
--- NOTE | 2016-04-15 11:24 | NUR ---
OROPHARYNX SUCTIONED OBTAINED SMALL AMOUNT OF THICK WHITE SECRETIONS, AIRWAY IS PATENT. PT NOT SOB AND NOT IN ANY RESPIRATORY DISTRESS AT THIS TIME. WILL CONTINUE TO MONITOR.
[2016-04-15] MEDS: INSULIN ASPART SLIDING SCALE 100 UNITS/ML VIAL SUBQ PRN ×3 (12:13→20:45)
--- NOTE | 2016-04-15 13:00 | NUR ---
HEMODIALYSIS DONE. BP 113/69. 2L OUT. NO S/S OF DISTRESS NOTED
[2016-04-15] MEDS: EPOETIN ALFA SUBQ SCH (13:27)
--- NOTE | 2016-04-15 13:46 | NUR ---
04/15/16 RD FOLLOW UP COMPLETED PLEASE REFER TO NUTRITION PROGRESS NOTE UNDER CARE ACTIVITY FOR ESTIMATED NUTRITION NEEDS. RD RECOMMENDATIONS: 1. CONTINUE TUBE FEEDING NOVASOURCE RENAL AT 40 ML/HR WITH 50 ML FREE WATER FLUSH Q6H VIA NGTUBE. --CURRENT TUBE FEEDING ADEQUATE TO MEET 100% OF PT ESTIMATED KCAL AND PROTEIN NEEDS 2. CONSIDER GTUBE FOR CHIEF YEOMAN NUTRITION SUPPORT NEEDS --NOTE PT WITH NG TUBE L LOUANNE SINCE 03/04/16; PT FAMILY REFUSING GTUBE PLACEMENT AT THIS TIME 3. RD WILL F/U 2-3 DAYS; HIGH RISK REYES D[address]AZ RD
--- NOTE | 2016-04-15 14:02 | NUR ---
IEHP ASSISTING TO FIND PLACEMENT FOR PATIENT.
[2016-04-15] MEDS: DEXT 5% / NACL 0.45% 1,000 ML IV SCH (15:35)
--- NOTE | 2016-04-15 19:14 | NUR ---
SPOKE WITH DR ASHER AND MADE HER AWARE THAT THE ANTIBIOTICS THE PATIENT IS RECEIVING REACHED STOP DATE. STATES NO NEED TO RENEW FOR NOW
--- NOTE | 2016-04-15 19:20 | NUR ---
PATIENT REPORT GIVEN AT BEDSIDE. PATIENT CURRENTLY RECEIVING BREATHING TX. ENDORSED PATIENT IN STABLE CONDITION
--- NOTE | 2016-04-15 19:30 | NUR ---
RECEIVED REPORT FROM EMELY OLYD RN AT BEDSIDE. PT RESPOND ONLY TO SLIGHT PAIN STIMULI. INITIAL ASSESSMENT DONE. NO S/S OF RESPIRATORY DISTRESS OR SOB NOTED. ON O2 @ 2L/MIN VIA NC. ON NG TUBE FEEDING DIABETA SOURCE @ 40ML/HR CONTINUOUS. PLACEMENT AND PATENCY ARE CONFIRMED. PLAN OF CARE REVIEWED TO PATIENT BUT UNABLE TO COMPREHEND. CALL LIGHT WITHIN REACH. WILL CONTINUE TO MONITOR.
[2016-04-15] MEDS: NACL 0.9% 250 ML IV SCH (19:40)
[2016-04-15] MEDS: SIMVASTATIN 20 MG TAB GT SCH (20:43)
[2016-04-16] VITALS (7 sets, daily range): BP systolic 122–150; BP diastolic 52–83
--- NOTE | 2016-04-16 | NUR ---
PT IS SLEEPING RIGHT NOW. [place] TO SLIGHT PAIN STIMULI. NO S/S OF ANY DISCOMFORT AT THIS TIME. REPOSITIONED PT ON HER LEFT SIDE AND TOLERATED WELL. ALL NEEDS ARE ATTENDED. CALL LIGHT WITHIN REACH. WILL CONTINUE TO MONITOR.
[2016-04-16] MEDS: Z-GUARD PASTE TP SCH ×2 (02:00→10:48)
[2016-04-16] MEDS: ALBUTEROL SULFATE/IPRATROPIU 3 ML SOL IH SCH ×6 (03:46→23:48)
--- NOTE | 2016-04-16 06:00 | NUR ---
AM CARE RENDERED. BED LINEN CHANGED. REPOSITIONED PT ON HER RIGHT SIDE AND TOLERATED WELL. KEPT CLEAN AND DRY. CALL LIGHT WITHIN REACH. WILL CONTINUE TO MONITOR.
[2016-04-16] MEDS: BLOOD GLUCOSE MONITORING 1 DEV DEV FS SCH ×4 (06:34→21:09)
[2016-04-16] MEDS: INSULIN ASPART SLIDING SCALE 100 UNITS/ML VIAL SUBQ PRN ×4 (06:36→21:12)
--- NOTE | 2016-04-16 07:00 | NUR ---
PT ASLEEP IN BED, RESPONDS TO SLIGHT PAINFUL STIMULI. NO SIGNS OF ACUTE DISTRESS AT THIS TIME. WITH O2 AT 2L/MIN VIA NC. SKIN IS WARM AND DRY. OFFLOAD TO PRESSURE AREAS. LEFT UPPER ARM AV SHUNT WITH POSITIVE BRUIT AND THRILL. NOTED NG TUBE ON LEFT NARE. INTACT AND PATENT, NO RESIDUAL. TOLERATING TUBE FEEDING WELL. HOB ELEVATED AT LEAST 30 DEGREES. FLACC 0. KEPT CLEAN AND DRY. ALL NEEDS ANTICIPATED. CONTACT AND SAFETY PRECAUTIONS MAINTAINED. CALL LIGHT WITHIN REACH.
--- NOTE | 2016-04-16 07:28 | NUR ---
PT HAS NO S/S OF ANY DISCOMFORT. PLAN OF CARE ENDORSED TO KEE RN AT BEDSIDE FOR CONTINUITY OF CARE.
--- NOTE | 2016-04-16 08:00 | NUR ---
PT TURNED AND REPOSITIONED, OFFLOAD PRESSURE AREAS. ORAL CARE GIVEN. CONTINUE TO MONITOR.
--- NOTE | 2016-04-16 08:58 | NUR ---
WOUND CARE NOTES: SEEN PATIENT TODAY FOR FOLLOW UP. PLEASE REFER TO WOUND ASSESSMENT FLOWSHEET FOR UPDATED ENTRY. WILL CONTINUE CURRENT PLAN OF CARE. WILL CONTINUE TO MONITOR PATIENT.
[2016-04-16] MEDS: SACCHAROMYCES 250 MG CAP GT SCH ×2 (09:12→21:10)
[2016-04-16] MEDS: amLODIPine 5 MG TAB GT SCH (09:13)
[2016-04-16] MEDS: FAMOTIDINE 20 MG TAB GT SCH (09:13)
[2016-04-16] MEDS: METOCLOPRAMIDE 10 MG/10 ML SYRP UDC GT SCH ×3 (09:13→16:09)
[2016-04-16] MEDS: FOLIC ACID 1 MG TAB GT SCH (09:13)
[2016-04-16] MEDS: VIT-B COMP/VIT-C/FOLIC ACID 1 TAB PO SCH (09:13)
[2016-04-16] MEDS: levETIRAcetam 100 MG/ML ORASYR GT SCH ×2 (09:13→21:10)
--- NOTE | 2016-04-16 10:00 | NUR ---
PT RESTING WELL IN BED, NO SIGNS OF ACUTE DISTRESS. POSITIONED TO SIDE. CONTINUE TO MONITOR.
[2016-04-16] MEDS: FOAM DRESSING TP SCH (10:48)
--- NOTE | 2016-04-16 12:00 | NUR ---
OFFLOAD TO PRESSURE AREAS. KEPT HOB ELEVATED AT LEAST 30 DEGREES. PT RESTING WELL. CONTINUE TO MONITOR.
--- NOTE | 2016-04-16 14:00 | NUR ---
FLACC 0. NO SIGNS OF ACUTE DISTRESS. TURNED AND REPOSITIONED. PLACE ON A COMFORTABLE POSITION. KEPT CLEAN AND DRY. CONTINUE TO MONITOR.
--- NOTE | 2016-04-16 14:18 | NUR ---
WAS SEEN BY Hector DICKEY. REPORT GIVEN. NEW LAB ORDERS RECEIVED. NOTED AND CARRIED OUT.
[2016-04-16] MEDS: DEXT 5% / NACL 0.45% 1,000 ML IV SCH (15:35)
--- NOTE | 2016-04-16 15:36 | NUR ---
PT OROPHARYNX SUCTIONED OBTAINED LARGE AMOUNT OF THICK YELLOW SECRETIONS. AIRWAY PATENT. PT EXPERIENCED NO ADVERSE REACTIONS. PT NOT SOB AND NOT IN RESPIRATORY DISTRESS AT THIS TIME.
--- NOTE | 2016-04-16 16:00 | NUR ---
TURNED AND REPOSITIONED, NO SIGNS OF ACUTE DISTRESS, FLACC 0. KEPT CLEAN AND DRY. CONTINUE TO MONITOR.
--- NOTE | 2016-04-16 18:00 | NUR ---
PT ASLEEP, RESTING WELL. OFFLOADED TO PRESSURE AREAS. CONTINUE TO MONITOR.
--- NOTE | 2016-04-16 18:53 | NUR ---
PT ASLEEP, NO SIGNS OF ACUTE DISTRESS. FLACC 0. ENDORSED TO ONCOMING INFORMATION SERVICES VICE PRESIDENT NURSE FOR CONTINUITY OF CARE.
[2016-04-16] MEDS: NACL 0.9% 250 ML IV SCH (19:20)
--- NOTE | 2016-04-16 19:30 | NUR ---
RECEIVED FROM AM RN IN BED. TOTAL CARE. IMMOBILE. NEEDS WILL BE ANTICIPATED AND WILL BE MET. NGT FEEDING OF NOVASOURCE AT 50 ML/H. NGT PLACEMENT CHECKED IN PLACE. NO COUGHING , NO VOMITING NOTED AT THIS TIME. HOB UP 30 DEGREES FOR ASPIRATION PRECAUTIONS. WITH LVA AV SHUNT FOR HEMODIALYSIS IN PLACE AND NO BLEEDING NOTED. LEFT HAND #[address] WITH 5 ML NS H.L.
--- NOTE | 2016-04-16 20:20 | NUR ---
PT. TURNED TO LEFT SIDE. SUCTIONED PER MOUTH AND WITH SCANT WHITISH PHLEGM NOTED. PT. NOTED ABLE TO OPEN MOUTH WHEN SUCTIONED. KEPT HOB UP 30 DEGREES FOR ASPIRATION PRECAUTION. PILLOW SUPPORT PLACED TO PRESSURE AREAS. NO VOMITING NOTED. NEEDS WILL BE ANTICIPATED AND MET. PT. INFORMED FOR EVERY PROCEDURE DONE.
[2016-04-16] MEDS: SIMVASTATIN 20 MG TAB GT SCH (21:10)
--- NOTE | 2016-04-16 22:00 | NUR ---
TURNED PT. AT THIS TIME. PILLOW SUPPORT TO PRESSURE AREAS. KEPT CLEAN,DRY AND COMFORTABLE. NO SOB. SUCTIONED PRN. HOB UP 30 DEGREES FOR ASPIRATION PRECAUTIONS . NO RESIDUAL NOTED TO NGT FEEDING.
[2016-04-17] VITALS: BP 123/76
--- NOTE | 2016-04-17 | NUR ---
PT. TURNED TO LEFT SIDE AT THIS TIME FROM RIGHT SIDE POSITION. PILLOW SUPPORT TO PRESSURE AREAS. SUCTIONED TO A WHITISH PHLEGM IN SCANT AMOUNT. NEEDS ANTICIPATED AND WILL BE MET. TOTAL CARE. TELEMETRY MONITORING.
[2016-04-17] MEDS: Z-GUARD PASTE TP SCH ×2 (01:00→10:35)
--- NOTE | 2016-04-17 02:00 | NUR ---
TURNED TO SIDES Q 2H. TOTAL CARE. NO SOB. FLACC 0-. TELEMETRY MONITORING. HOB UP 30 DEGREES FOR ASPIRATION PRECAUTION. NEEDS ANTICIPATED AND WILL BE MET. SUCTIONED PRN.
[2016-04-17] MEDS: ALBUTEROL SULFATE/IPRATROPIU 3 ML SOL IH SCH ×6 (03:13→23:15)
[2016-04-17 04:00] VITALS: BP 124/72
--- NOTE | 2016-04-17 04:00 | NUR ---
PT. TURNED TO SIDES BY CNAS. KEPT CLEAN , DRY AND COMFORTABLE. NO SOB. ON 02 AT 2LPM/NC. SUCTIONED TO A VERY SCAN EXCRETION. HOB UP 30 DEGREES FOR ASPIRATION PRECAUTION. NO VOMITING THIS SHIFT . NO RESIDUAL FROM FEEDING.
[2016-04-17] MEDS: BLOOD GLUCOSE MONITORING 1 DEV DEV FS SCH ×4 (05:47→21:14)
[2016-04-17] MEDS: INSULIN ASPART SLIDING SCALE 100 UNITS/ML VIAL SUBQ PRN ×4 (05:49→21:24)
--- NOTE | 2016-04-17 06:00 | NUR ---
TURNED TO SIDES. HOB UP 30 DEGREES WITH PILLOW SUPPORT FOR PRESSURE AREAS. TELEMETRY MONITORING. NO RESTLESSNESS THIS SHIFT. AFEBRILE. NEEDS WERE ANTICIPATED AND MET. IVF SITE TO RIGHT HAND INTACT AND NO INFILTRATION NOTED.
--- NOTE | 2016-04-17 07:07 | NUR ---
RECEIVED PT ON 2L NASAL CANNULA. SPO2 99%. B.S RHONCHI HEARD ON AUSCULTATION. PT NOT SOB AND NOT IN RESPIRATORY DISTRESS AT THIS TIME. WILL CONTINUE TO MONITOR.
--- NOTE | 2016-04-17 07:20 | NUR ---
RECEIVED REPORT FROM CHLOE EMERSON. PT IS AAOX0, PT IS NON VERBAL AND BLIND. PT ON 2.5 L NC, O2 SAT AT 100%. PT ON CONTACT PRECAUTIONS, SIGNS POSTED ON WALL, PRECAUTIONS IN PLACE. IV TO RIGHT HAND #24, PATENT AND INTACT. LEFT UPPER ARM AV SHUNT, THRILL AND BRUIT NOTED. HELD FEEDING. NG TUBE TO LEFT NARE, 5ML RESIDUAL NOTED. POSITIVE PLACEMENT VERIFIED. NOVASOURCE FEEDING AT 40 ML/HR. PT TOLERATING WELL. WOUND TO SACRAL AREA, DRESSING IN PLACE. NO N/V OR PAIN NOTED. ALL SAFETY PRECAUTIONS IN PLACE, BED AT 30 DEGREES, BED IN LOW POSITION, CALL LIGHT WITHIN REACH. WILL PERFORM FREQUENT ROUNDS. Addendum: 04/17/16 at 1120 by Irina Weeks RN ACCORDING TO NOTES AND BULLDOZER MECHANIC NURSE REPORT, PT TO RESUME TUBE FEEDINGS DUE TO NO FEEDING TUBE TO BE PLACED. WILL FOLLOW UP WITH DR QUINTERO.
[2016-04-17 08:00] VITALS: BP 124/88
--- NOTE | 2016-04-17 08:25 | NUR ---
PT TURNED, PROVIDED ORAL CARE. PT TOLERATED WELL. WILL CONTINUE TO MONITOR.
[2016-04-17] MEDS: VIT-B COMP/VIT-C/FOLIC ACID 1 TAB PO SCH (09:07)
[2016-04-17] MEDS: FAMOTIDINE 20 MG TAB GT SCH (09:07)
[2016-04-17] MEDS: METOCLOPRAMIDE 10 MG/10 ML SYRP UDC GT SCH ×3 (09:08→16:17)
[2016-04-17] MEDS: SACCHAROMYCES 250 MG CAP GT SCH ×2 (09:08→21:10)
[2016-04-17] MEDS: amLODIPine 5 MG TAB GT SCH (09:08)
[2016-04-17] MEDS: levETIRAcetam 100 MG/ML ORASYR GT SCH ×2 (09:08→21:10)
[2016-04-17] MEDS: FOLIC ACID 1 MG TAB GT SCH (09:08)
--- NOTE | 2016-04-17 09:49 | NUR ---
PAGED DR QUINTERO AWAITING CALLBACK. PER CODE MACHINE OPERATOR NURSE, PT IS TO RESUME NG TUBE FEEDING.
--- NOTE | 2016-04-17 10:02 | NUR ---
RECEIVED CALLBACK FROM YASMIN FAJARDO TO RESUME LATEST TUBE FEEDING SETTING. WILL FOLLOW UP.
--- NOTE | 2016-04-17 10:35 | NUR ---
PT TURNED, ORAL CARE PROVIDED, PROVIDED PT WITH WOUND CARE. WILL CONTINUE TO MONITOR. Addendum: 04/17/16 at 1259 by Irina Weeks RN DRESSING CHANGED DUE TO SOILING.
--- NOTE | 2016-04-17 10:42 | NUR ---
TUBE FEEDING BAG CHANGED FOR LUNCH WITH PARAMETERS IN PLACE. WILL CONTINUE TO MONITOR.
[2016-04-17 12:00] VITALS: BP 132/83
--- NOTE | 2016-04-17 12:36 | NUR ---
BLOOD GLUCOSE 227, ADMINISTERED 4 UNITS OF INSULIN ORDERED. ADMINISTERED MEDS ORDERED. WILL CONTINUE TO MONITOR. Addendum: 04/17/16 at 1240 by Irina Weeks RN PT REPOSITIONED, FAMILY PRESENT AT BEDSIDE.
[2016-04-17] MEDS: FOAM DRESSING TP SCH (12:58)
--- NOTE | 2016-04-17 14:00 | NUR ---
DR QUINTERO TO SEE PT. TALKED TO DR QUINTERO REGARDING TWO IV FLUID ORDERS. PER MD D/C BOTH IV FLUIDS.
--- NOTE | 2016-04-17 14:17 | NUR ---
PT REPOSITIONED, ORAL CARE PROVIDED. NO RESIDUAL NOTED AT THIS TIME, PT TOLERATING FEEDING WELL. FAMILY PRESENT AT BESIDE.
--- NOTE | 2016-04-17 15:14 | NUR ---
PT ORALLY SUCTIONED OBTAINED SMALL AMOUNT OF THICK WHITE SECRETIONS. PT NOT SOB AND NOT IN RESPIRATORY DISTRESS AT THIS TIME.
[2016-04-17 16:00] VITALS: BP 148/87
--- NOTE | 2016-04-17 16:22 | NUR ---
BLOOD GLUCOSE 226, ADMINISTERED 4 UNITS OF INSULIN ORDERED. PT TOLERATED MEDS WELL. WILL CONTINUE TO MONITOR. PT REPOSITIONED.
--- NOTE | 2016-04-17 18:10 | NUR ---
PT TURNED, PT TOLERATED WELL. WILL CONTINUE TO MONITOR.
--- NOTE | 2016-04-17 19:25 | NUR ---
RECEIVED REPORT FORM VALERIA CORONA AT BEDSIDE, PATIENT IS AAOX0, NON VERBAL, AND LEGALLY BLIND. PATIENT IS SLEEPING IN BED WITH OXYGEN VIA NASAL CANNULA AT 2.5L. AND WITH NG TUBE TO THE LEFT NARE WITH TUBE FEEDING NOVASOURCE RENAL AT 40ML/HR, PATIENT HAS SHUNT TO LEFT UPPER ARM BRUIT AND THRILL PRESENT, PATIENT ON CONTACT PRECAUTIONS WITH SIGNS POSTED, PATIENT HAS IV TO THE RIGHT HAND PATENT, SALINE LOCKED. PATIENT IS ON A WOUND BED WITH A SACRAL ULCER COVERED WITH A DRESSING THAT IS DRY AND INTACT. PATIENT IS TO BE TURNED Q2HR. SAFETY MEASURES CHECKED, BED IN LOW POSITION, CALL LIGHT WITHIN REACH. WILL PERFORM FREQUENT ROUNDING.
--- NOTE | 2016-04-17 19:31 | NUR ---
ENDORSED CARE TO CHLOE GUZMAN. PT IN STABLE CONDITION.
--- NOTE | 2016-04-17 19:44 | NUR ---
RT IN THE ROOM GIVING PATIENT BREATHING TX.
--- NOTE | 2016-04-17 19:52 | NUR ---
DIALYSIS NURSE CALLED, CONFIRMED PATIENT IS TO RECEIVE DIALYSIS TOMORROW 04/18/16.
[2016-04-17 20:00] VITALS: BP 144/77
--- NOTE | 2016-04-17 20:00 | NUR ---
PATIENT TURNED AND REPOSITIONED, NO SOB OR SIGN OF DISTRESS AT THIS TIME, CALL LIGHT WITHIN REACH. WILL CONTINUE TO MONITOR.
[2016-04-17] MEDS: SIMVASTATIN 20 MG TAB GT SCH (21:09)
--- NOTE | 2016-04-17 21:29 | NUR ---
PM MEDS ADMINISTERED, BS CHECK 338, ADMINISTERED 4 UNITS INSULIN PER MD ORDER, WILL CONTINUE TO MONITOR. Addendum: 04/17/16 at 2241 by Mamta Luna RN NO RESIDUAL NOTED FROM NG TUBE FEEDING. BS 228 NOT 338. ADMINISTERED 4 UNITS INSULIN
--- NOTE | 2016-04-17 22:01 | NUR ---
PATIENT TURNED AND REPOSITIONED, PATIENT TOLERATED WELL, NO SOB OR SIGN OF DISTRESS, WILL CONTINUE TO MONITOR
[2016-04-18] VITALS: BP 132/67
--- NOTE | 2016-04-18 | NUR ---
TURNED AND REPOSITIONED PATIENT, PATIENT TOLERATED WELL, PATIENT VOIDED, CHANGED PATIENT AND CLEANED, WILL CONTINUE TO MONITOR.
[2016-04-18] MEDS: Z-GUARD PASTE TP SCH ×2 (01:28→12:33)
--- NOTE | 2016-04-18 01:30 | NUR ---
CHECKED ON PATIENT, NO SOB OR SIGN OF DISTRESS, WILL CONTINUE TO MONITOR.
--- NOTE | 2016-04-18 02:00 | NUR ---
TURNED AND REPOSITIONED PATIENT, PATIENT TOLERATED WELL, WILL CONTINUE TO MONITOR.
[2016-04-18] MEDS: ALBUTEROL SULFATE/IPRATROPIU 3 ML SOL IH SCH ×6 (03:38→23:30)
[2016-04-18 04:00] VITALS: BP 150/77
--- NOTE | 2016-04-18 04:02 | NUR ---
TURNED AND REPOSITIONED PATIENT, PATIENT TOLERATED WELL, NO SOB OR SIGN OF DISTRESS, CALL LIGHT WITHIN REACH. WILL CONTINUE TO MONITOR.
--- NOTE | 2016-04-18 05:45 | NUR ---
BS CHECK 266, WILL ADMINISTER INSULIN PER MD ORDER.
--- NOTE | 2016-04-18 06:00 | NUR ---
TURNED AND REPOSITIONED PATIENT, PATIENT TOLERATED WELL. NO SOB OR SIGN OF DISTRESS, CALL LIGHT WITHIN REACH, WILL CONTINUE TO MONITOR.
[2016-04-18] MEDS: BLOOD GLUCOSE MONITORING 1 DEV DEV FS SCH ×4 (06:26→21:33)
[2016-04-18] MEDS: INSULIN ASPART SLIDING SCALE 100 UNITS/ML VIAL SUBQ PRN (06:30)
--- NOTE | 2016-04-18 06:30 | NUR ---
ADMINISTERED INULIN PER MD ORDER, PATIENT TOLERATED WELL, NO SIGN OF DISTRESS NOTED, WILL CONTINUE TO MONITOR.
--- NOTE | 2016-04-18 06:58 | NUR ---
HEMODIALYSIS PROCEDURE IN PROGRESS
--- NOTE | 2016-04-18 07:10 | NUR ---
ENDORSED PATIENT TO DAY RN AT BEDSIDE, PATIENT IN STABLE CONDITION. DIALYSIS NURSE IN THE ROOM TO START DIALYSIS, RT AT BEDSIDE.
--- NOTE | 2016-04-18 07:11 | NUR ---
RECEIVED REPORT FORM NIGHT NURSE THOMAS CORONA AT BEDSIDE, APPEARED TO BE LETHARGIC AND DROWSY. EYES CLOSE AND NON VERBAL. PATIENT IS AAOX0, AND LEGALLY BLIND. NO SIGN OF DISTRESS NOTED. PATIENT HAS OXYGEN VIA NASAL CANNULA AT 2.5L. AND WITH NG TUBE TO THE LEFT NARES WITH TUBE FEEDING NOVASOURCE RENAL AT 40ML/HR, PATIENT HAS SHUNT TO LEFT UPPER ARM BRUIT AND THRILL PRESENT, PATIENT ON CONTACT PRECAUTIONS WITH SIGNS POSTED, PATIENT HAS IV TO THE RIGHT HAND PATENT, SL. PATIENT IS ON A WOUND BED WITH A SACRAL ULCER COVERED WITH A DRESSING THAT IS DRY AND INTACT. PATIENT IS TO BE TURNED Q2HR. SAFETY MEASURES CHECKED, BED IN LOW POSITION, CALL LIGHT WITHIN REACH. WILL PERFORM FREQUENT ROUNDING. Addendum: 04/18/16 at 0750 by Manohar Gannon RN ALSO NOTED 900ML OF MILKY OUTPUT IN CANISTER FROM NG TUBE. Addendum: 04/18/16 at 1209 by Manohar Gannon RN 900ML OF MILKY OUTPUT IN CANISTER FROM PREVIOUS ORAL SUCTIONING INSTEAD OF NGTUBE..
[2016-04-18] MEDS ORDERED: ALBUTEROL 0.083% 2.5 MG/3 ML NEBU INH PRN (07:39)
--- NOTE | 2016-04-18 07:51 | NUR ---
DIALYSIS NURSE AT BEDSIDE GIVING HD TO PATIENT. NO SIGN OF DISTRESS NOTED.
[2016-04-18 08:00] VITALS: BP 149/80
[2016-04-18] MEDS: levETIRAcetam 100 MG/ML ORASYR GT SCH ×2 (09:12→21:17)
[2016-04-18] MEDS: METOCLOPRAMIDE 10 MG/10 ML SYRP UDC GT SCH ×3 (09:13→16:51)
[2016-04-18] MEDS: EPOETIN ALFA SUBQ SCH (09:13)
[2016-04-18] MEDS: SACCHAROMYCES 250 MG CAP GT SCH ×2 (09:13→21:18)
[2016-04-18] MEDS: FAMOTIDINE 20 MG TAB GT SCH (09:13)
[2016-04-18] MEDS: FOLIC ACID 1 MG TAB GT SCH (09:14)
[2016-04-18] MEDS: VIT-B COMP/VIT-C/FOLIC ACID 1 TAB PO SCH (09:14)
--- NOTE | 2016-04-18 09:26 | NUR ---
MORNING DUE MEDICATION CRUSHED IN PUDDING GIVEN THROUGH NGTUBE. PATIENT TOLERATED WELL NO RESIDUAL NOTED. NO SIGN OF DISTRESS NOTED. HEAD OF BED ELEVATED. ALL NEEDS ARE MET. TURNED PATIENT TO LEFT LATERAL. CALL LIGHT WITHIN REACH. WILL CONTINUE TO MONITOR. HD STILL IN PROGRESS. Addendum: 04/18/16 at 1207 by Manohar Gannon RN MEDICATIONS CRUSHED GIVEN THROUGH NGTUBE WITH NS INSTEAD OF PUDDING.
--- NOTE | 2016-04-18 11:35 | NUR ---
PATIENT FINISHED WITH HEMODIALYSIS 2.035ML OUTPUT. BP 134/75. P100, O2 SAT 100%.
--- NOTE | 2016-04-18 11:54 | NUR ---
WOUND NURSE EUGENE CORONA IS HERE PROVIDING DRESSING CHANGE FOR PATIENT. PATIENT TOLERATED WELL. NO SIGN OF DISTRESS NOTED. TURNED PATIENT TO RIGHT LATERAL. ALL COMFORT MEASURES GIVEN. VSS WITH NO FEVER NOTED. FAMILY MEMBERS AT BEDSIDE. CALL LIGHT WITHIN REACH. WILL CONTINUE TO MONITOR.
[2016-04-18 11:57] VITALS: BP 140/89
[2016-04-18] MEDS: amLODIPine 5 MG TAB GT SCH (12:25)
--- NOTE | 2016-04-18 12:25 | NUR ---
FAXED CONCURRENT REVIEW TO [facility] [phone] PHONE LAKESHA [phone] RECEIVED A CALL FROM LAKESHA FROM [facility] STATING THAT [facility] IN [place] HAS A HD BED. I CALL SAMIR AT [facility], . SHE SAID THEY ARE HOLDING A BED FOR THIS PATIENT, UNDER DR. SHARON DEL VALLE. THEY ARE WAITING FOR AN AUTH FROM [facility]. SHE ASKED ME TO SEND SOME CURRENT INFORMATION, LABS, MEDS, PROGRESS NOTES TO HER AT [phone], WHICH I DID. THE ADDRESS FOR [facility] IS [address] [place] [id number]. I INFORMED LAKESHA AT [facility].
--- NOTE | 2016-04-18 12:29 | NUR ---
MEDICATION CRUSHED AND GIVEN THROUGH NGTUBE. PATIENT TOLERATED WELL. NO RESIDUAL NOTED AT THIS TIME. HEAD OF BED ELEVATED WELL. NO SIGN OF DISTRESS NOTED. ALL NEEDS ARE MET. FAMILY MEMBERS AT BEDSIDE. CALL LIGHT WITHIN REACH. WILL CONTINUE TO MONITOR.
[2016-04-18] MEDS: FOAM DRESSING TP SCH (12:33)
--- NOTE | 2016-04-18 12:54 | NUR ---
LAKESHA GAVE ME THE AUTH FOR [facility]. AUTH [id number]. I CALLED SAMIR AT [facility] AND GAVE HER THE NUMBER. THE AUTH FOR [facility] IS [id number]
--- NOTE | 2016-04-18 13:37 | NUR ---
RECEIVED A CALL FROM SAMIR FROM [facility]. THEY HAVE A BED FOR THIS PATIENT . SHE CAN GO TO ROOM 402 BED 2. ANYTIME. UNDER DR. SHARON DEL VALLE. PHONE REPORT TO [phone]. [facility] PHONE [phone]. Addendum: 04/18/16 at 1342 by Cierra Dueñas ADDRESS [address] [place] [id number]
--- NOTE | 2016-04-18 13:38 | NUR ---
2843 CALL PLACED TO CAIO PT'S SISTER WITH TOÑITO EVANS RN/CM PRESENT. LEFT VM MESSAGE THAT [facility] CALLED AND INFORMED CM THAT THEY HAVE LOCATED AN LTAC BED FOR PT AT [facility] LOCATED AT [address] [place] [id number] IN [place] AND PHONE # [phone].
--- NOTE | 2016-04-18 14:01 | NUR ---
CALLED [facility] AIDE NURSE AND GAVE HER THE INFORMATION THAT [facility] HAS ACCEPTED THE PATIENT AND GAVE HER THE ROOM NUMBER AND THE NUMBER TO CALL FOR REPORT.
--- NOTE | 2016-04-18 14:01 | NUR ---
CHECKED IN ON PATIENT. NO SIGN OF DISTRESS NOTED. TURN PATIENT TO RIGHT SIDED. PICTURE OF SACRAL WOUND TAKEN AND PUT IN CHART. NO SIGN OF DISTRESS NOTED. NO HINTON IN CONDITION NOTED. HEAD OF BED ELEVATED. CALL LIGHT WITHIN REACH. WILL CONTINUE TO MONITOR.
--- NOTE | 2016-04-18 15:00 | NUR ---
SPOKE TO THE SISTER CAIO AT BEDSIDE AND INFORMED HER THAT PATIENT IS ACCEPTED AT [facility] [place] IN [place], SISTER CAIO SAID THAT THEIR MOM AND PATIENT DAUGHTER DISAGREE ON TRANSFERRING PATIENT OVER THERE BECAUSE ITS TOO FAR FOR THEM. I EXPLAINED TO HER THAT PER [facility] INSURANCE THAT'S THE ONLY PLACE THAT WILL ACCEPT NGT AT THIS TIME. SHE VERBALIZED UNDERSTANDING. CHARLY SIBLEY AND DR. QUINTERO MADE AWARE.
--- NOTE | 2016-04-18 15:16 | NUR ---
WAS TOLD BY [facility] NURSE, SISTER REFUSING [facility], WOULD LIKE [facility]. I CALLED LAKESHA FROM [facility] AND SHE SAID NO FOR [facility]. SHE SAID TO TRY [facility]. CALLED [facility] KELL[facility] AND SPOKE WITH ROB. NO FEMALE BEDS TODAY, TRY TOMORROW. I CALLED LAKESHA AT [facility] AND INFORMED HER. JASIEL KELLER, [phone].
--- NOTE | 2016-04-18 15:28 | NUR ---
WOUND CARE FOLLOW UP NOTES: SEEN PATIENT TODAY FOR FOLLOW UP. PLEASE REFER TO WOUND ASSESSMENT FLOWSHEET FOR UPDATED ENTRY. WILL CONTINUE CURRENT PLAN OF CARE. WILL CONTINUE TO FOLLOW UP PATIENT.
[2016-04-18] MEDS ORDERED: ANTIFUNGAL CLEAR OINTMENT TP PRN (15:30)
--- NOTE | 2016-04-18 15:41 | NUR ---
04/18/16 RD FOLLOW UP COMPLETED PLEASE REFER TO NUTRITION PROGRESS NOTE UNDER CARE ACTIVITY FOR ESTIMATED NUTRITION NEEDS. RD RECOMMENDATIONS: 1. CONTINUE TUBE FEEDING NOVASOURCE RENAL AT 40 ML/HR WITH 50 ML FREE WATER FLUSH Q6H VIA NGTUBE. --CURRENT TUBE FEEDING ADEQUATE TO MEET 100% OF PT ESTIMATED KCAL AND PROTEIN NEEDS --NOTE PT WITH NG TUBE L NARE SINCE 03/04/16; PT FAMILY REFUSING GTUBE PLACEMENT 2. CONSIDER GTUBE FOR ELECTRONICS TEST ENGINEER NUTRITION SUPPORT NEEDS 3. RD WILL F/U 2-3 DAYS; HIGH RISK REYES [address] RD
--- NOTE | 2016-04-18 15:50 | NUR ---
FEEDING BAG CHANGED. RESIDUAL NOTED PATIENT TOLERATED FEEDING WELL. TURNED PATIENT TO LEFT SIDE. PATIENT TOLERATED WELL. NO SIGN OF DISTRESS NOTED. ALL COMFORT MEASURES GIVEN. CALL LIGHT WITHIN REACH. WILL CONTINUE TO MONITOR.
[2016-04-18 16:00] VITALS: BP 135/75
--- NOTE | 2016-04-18 17:09 | NUR ---
PER REQUEST OF LAKESHA FROM [facility], [facility].
--- NOTE | 2016-04-18 18:01 | NUR ---
TURNED PATIENT TO RIGHT SIDE. PATIENT TOLERATED WELL. NO SIGN OF DISTRESS NOTED. HEAD OF BED ELEVATED. COMFORT AND SAFETY MEASURE APPLIED. ALL NEEDS ARE MET. CALL LIGHT WITHIN REACH. WILL CONTINUE TO MONITOR.
--- NOTE | 2016-04-18 19:16 | NUR ---
ENDORSED CURRENT PLAN OF CARE TO NIGHT NURSE LEANNE CORONA, PATIENT RESTING WELL IN BED WITH NO SIGN OF DISTRESS NOTED.
--- NOTE | 2016-04-18 19:25 | NUR ---
RECEIVED REPORT FROM CHLOE CALIX AT BEDSIDE. PT AOX0; NON VERBAL. NO SIGNS OF DISTRESS NOTED. PT HAS IV TO RIGHT HAND G 24; ASYMPTOMATIC, PATENT AND INTACT INFUSING FLUIDS WELL. PT HAS NG TUBE TO LEFT NOSTRIL WITH TUBE FEEDING NOVASOURCE AT 40 ML/HR. PT IS LEGALLY BLIND. PT HAS AV SHUNT TO LEFT UPPER ARM; WITH BRUIT AND THRILL PRESENT. PT HAS A SACRAL PRESSURE ULCER COVERED WITH DRESSING CLEAN AND INTACT. PT RECEIVES HEMODIALYSIS M,W,F. PT ON NC. SCDS ON. SAFETY MEASURES IN PLACE, WILL CONTINUE TO MONITOR PT. Addendum: 04/18/16 at 2030 by Ramona Kessler RN PT'S IV TO RIGHT HAND G 24 IS SL.
--- NOTE | 2016-04-18 20:05 | NUR ---
PT TURNED REPOSITIONED WITH HELP OF SARAH COUGHLIN. PT TOLERATED IT WELL. WILL CONTINUE TO MONITOR PT.
[2016-04-18] MEDS: SIMVASTATIN 20 MG TAB GT SCH (21:18)
--- NOTE | 2016-04-18 21:43 | NUR ---
PT TOLERATED 2100 MEDS WELL, NG TUBE PATENT, 10 ML RESIDUAL. PT TURNED/REPOSITIONED. SAFETY MEASURES IN PLACE, WILL CONTINUE TO MONITOR PT.
--- NOTE | 2016-04-18 23:30 | NUR ---
RT AT BEDSIDE GIVING BREATHING TREATMENT AND SUCTIONING PT. WILL CONTINUE TO MONITOR PT.
--- NOTE | 2016-04-18 23:56 | NUR ---
PT'S SISTER AT BEDSIDE. WILL CONTINUE TO MONITOR PT.
--- NOTE | 2016-04-19 00:54 | NUR ---
PT TURNED/REPOSITIONED, LINEN CHANGED. PT HAD A SMALL BM. PT TOLERATED IT WELL, NO SIGNS OF DISTRESS/DISCOMFORT NOTED. VS STABLE. WILL CONTINUE TO MONITOR PT.
--- NOTE | 2016-04-19 01:10 | NUR ---
SKIN CARE GIVEN. PT'S DRESSING ON SACRAL ULCER CHANGED. PT RESTING, NO SIGNS OF DISTRESS NOTED. SISTER CAIO AT BEDSIDE. WILL CONTINUE TO MONITOR PT.
[2016-04-19 01:29] VITALS: BP 127/68
[2016-04-19] MEDS: ANTIFUNGAL CLEAR OINTMENT TP SCH ×2 (01:44→12:10)
[2016-04-19] MEDS: Z-GUARD PASTE TP SCH ×2 (01:45→12:10)
--- NOTE | 2016-04-19 03:05 | NUR ---
PT TURNED/REPOSITIONED. VITAL SIGNS STABLE. TOLERATING NG TUBE FEEDING WELL. ORAL CARE GIVEN, PT SUCTIONED. WILL CONTINUE TO MONITOR PT.
--- NOTE | 2016-04-19 03:22 | NUR ---
RT AT BEDSIDE. WILL CONTINUE TO MONITOR PT.
[2016-04-19] MEDS: ALBUTEROL SULFATE/IPRATROPIU 3 ML SOL IH SCH ×6 (03:23→22:46)
[2016-04-19 04:00] VITALS: BP 143/79
--- NOTE | 2016-04-19 05:05 | NUR ---
PT HAS BEEN TURNED/REPOSITIONED Q2H WITH HELP OF SARAH COUGHLIN. PT HAS BEEN SUCTIONED NEEDED. VS HAVE BEEN STABLE THOUGHT THE SHIFT. WILL CONTINUE TO MONITOR PT.
[2016-04-19] MEDS: BLOOD GLUCOSE MONITORING 1 DEV DEV FS SCH ×4 (06:34→22:04)
[2016-04-19] MEDS: INSULIN ASPART SLIDING SCALE 100 UNITS/ML VIAL SUBQ PRN ×4 (06:34→22:25)
--- NOTE | 2016-04-19 06:50 | NUR ---
PT SUCTIONED, PT TOLERATED IT WELL. WILL CONTINUE TO MONITOR PT.
--- NOTE | 2016-04-19 07:25 | NUR ---
ENDORSED PT IN STABLE CONDITION TO CHLOE MENDES FOR CONTINUITY OF CARE.
--- NOTE | 2016-04-19 07:27 | NUR ---
RECEIVED REPORT FROM NIGHT CHLOE PERDOMO. PT RESTING IN BED. RT AT BEDSIDE. PT IS NON-VERBAL. NO S/S OF ACUTE DISTRESS. PT RESPONDS TO LIGHT PAIN. IV SITE PATENT AND INTACT. FLACC-0. PT IS ON O2 2.5L NASAL CANNULA. DRESSING TO SACRAL AREA DRY AND INTACT. NG-TUBE FEEDING INFUSING WELL. RESIDUAL OF 5ML. PT TOLERATING FEEDING WELL. LEFT UPPER ARM AV SHUNT. PT REPOSITIONED WITH STOCK GRADER. PT TOLERATED WELL. HEAD OF BEAD ELEVATED. CALL LIGHT WITHIN REACH. SAFETY MEASURES ENSURED. WILL CONTINUE TO MONITOR.
[2016-04-19 08:00] VITALS: BP 138/85
[2016-04-19] MEDS: SACCHAROMYCES 250 MG CAP GT SCH ×2 (09:01→22:00)
[2016-04-19] MEDS: VIT-B COMP/VIT-C/FOLIC ACID 1 TAB PO SCH (09:01)
[2016-04-19] MEDS: FOLIC ACID 1 MG TAB GT SCH (09:01)
[2016-04-19] MEDS: FAMOTIDINE 20 MG TAB GT SCH (09:02)
[2016-04-19] MEDS: levETIRAcetam 100 MG/ML ORASYR GT SCH ×2 (09:02→22:00)
[2016-04-19] MEDS: amLODIPine 5 MG TAB GT SCH (09:02)
[2016-04-19] MEDS: METOCLOPRAMIDE 10 MG/10 ML SYRP UDC GT SCH ×3 (09:02→16:45)
--- NOTE | 2016-04-19 09:36 | NUR ---
PT RESTING IN BED. NO S/S OF ACUTE DISTRESS. PT ON O2 2.5L NC. NG-TUBE FEEDING INFUSING WELL. PT TOLERATED AM MEDS WELL. FLACC-0. PT REPOSITIONED AT THIS TIME. CALL LIGHT WITHIN REACH. FREQUENT VISUAL CHECKS. WILL CONTINUE TO MONITOR.
--- NOTE | 2016-04-19 11:42 | NUR ---
DR. QUINTERO IN TO SEE PT. DR. QUINTERO MADE AWARE OF POTASSIUM 3.3. WILL FOLLOW UP WITH PLAN OF CARE.
--- NOTE | 2016-04-19 11:53 | NUR ---
RECEIVED A CALL [facility] AM ASKING ABOUT THE TRANSFER OF THIS PATIENT. I WILL CALL HER BACK WHEN I GET A DEFINITE ANSWER IF FAMILY WOULD AGREE TO TRANSFER. I RECEIVED A CALL FROM ELLIE OROPEZA WHO SAID SHE SPOKE WITH THE SISTER ,CAIO. ELLIE SAID THAT [facility] CANNOT TAKE THIS PATIENT. AND TH SISTER CAIO AWARE. ELLIE TOLD THE SISTER TO CHECK WITH [facility] ABOUT ALTERNATIVE PLACEMENT. I CALLED [facility] TREVINO AND SPOKE WITH ROB. AT PRESENT NO FEMALE HD BEDS. SPOKE WITH LAKESHA FROM [facility], SHE WILL CHECK WITH [facility]. I SPOKE WITH LAKESHA FROM [facility], SHE SAID [facility] NO BEDS.
--- NOTE | 2016-04-19 12:00 | NUR ---
PT REPOSITIONED. PT TOLERATED WELL. ORAL CARE GIVEN. BOYFRIEND KEVIN AT BEDSIDE. NO S/S OF ACUTE DISTRESS. FLACC-0. PT TOLERATING FEEDING WELL. ON O2 2.5L NC. CALL LIGHT WITHIN REACH. SAFETY MEASURES ENSURED. WILL CONTINUE TO MONITOR.
--- NOTE | 2016-04-19 13:19 | NUR ---
CALLED LAKESHA FROM [facility] AND INFORMED HER SISTER, CAIO IS STILL REFUSING [facility] TRANSFER. I CALLED [facility] AND SPOKE WITH SAMIR AND INFORMED HER THAT FAMILY REFUSING TRANSFER.
--- NOTE | 2016-04-19 13:42 | NUR ---
FAXED CONCURRENT REVIEW TO [facility] [phone] PHONE LAKESHA [phone]
--- NOTE | 2016-04-19 13:45 | NUR ---
6754 MET WITH PT'S SISTER CAIO, DAUGHTER FRANK, JOLANTA BROWN WITH TÑOITO EVANS RN/CM PRESENT. ASKED CAIO IF SHE RECEIVED THE VM REGARDING [facility] AND SHE STATED THAT SHE IS NOT IN AGREEMENT WITH TRANSFER TO [facility] DUE TO THE DISTANCE. EXPLAINED TO HER THAT LTAC IS A SPECIALTY LEVEL AND WILL ACCEPT PT WITH AN NGT VS MOST SUBACUTE OR SNF LEVEL OF CARE WILL NOT ACCEPT WITH NGT. ALSO INFORMED HER THAT [facility] WILL NOT ACCEPT FOR ADMISSION, THEREFORE, ONLY OTHER LTAC LOC IEHP IS CONTRACTED WITH IS [facility]. CAIO STATED THAT KEVIN LIVES IN [place] AND THEY WOULD PREFER SOMETHING CLOSER. ASKED IF THE FAMILY HAD RECONSIDERED PLACEMENT OF A G-TUBE. CAIO SPOKE TO KEVIN IN [place] THEN STATED "NO HE DOESN'T WANT A TUBE FEEDING". EXPLAINED THAT PT IS CURRENTLY RECEIVING A TUBE FEEDING THROUGH THE NGT. EXPLAINED THE RISK OF ASPIRATION AND THAT NGT IS UNCOMFORTABLE AND THAT G-TUBE WOULD ALLOW PT TO HAVE FEEDING AND WOULD BE MORE COMFORTABLE. INFORMED CAIO THAT IS STILL SENDING OUT QUERIES FOR PLACEMENT.
--- NOTE | 2016-04-19 14:00 | NUR ---
PT RESTING IN BED. KEVIN AT BEDSIDE. NO S/S OF ACUTE DISTRESS. PT IS TOLERATING FEEDING WELL. ON O2 2.5L NC. PT REPOSITIONED TO LEFT LATERAL. CALL LIGHT WITHIN REACH. SAFETY MEASURES ENSURED. WILL CONTINUE TO MONITOR.
[2016-04-19 16:00] VITALS: BP 133/76
--- NOTE | 2016-04-19 16:00 | NUR ---
PT RESTING IN BED. SISTER CAIO AT BEDSIDE. PT REPOSITIONED. PT TOLERATING FEEDING WELL. ON O2 2.5L NC. CALL LIGHT WITHIN REACH. HOB ELEVATED. WILL CONTINUE TO MONITOR.
--- NOTE | 2016-04-19 16:09 | NUR ---
DR. GROSSMAN IN TO SEE PT. WILL FOLLOW UP WITH PLAN OF CARE.
[2016-04-19] MEDS ORDERED: POTASSIUM CHLORIDE 10 MEQ TABER PO SCH (16:11)
[2016-04-19] MEDS ORDERED: POTASSIUM CHLORIDE 20% 40 MEQ/15 ML UDC GT SCH (16:30)
--- NOTE | 2016-04-19 18:00 | NUR ---
PT REPOSITIONED. PT TOLERATING FEEDING WELL. ON O2 2.5L NC. CALL LIGHT WITHIN REACH. HEAD OF BED ELEVATED. WILL CONTINUE TO MONITOR.
--- NOTE | 2016-04-19 19:24 | NUR ---
CALLED [facility] REGARDING HD ORDER FOR TOMORROW.
--- NOTE | 2016-04-19 19:25 | NUR ---
ENDORSED PLAN OF CARE TO NIGHT RN. PT REMAINS IN STABLE CONDITION.
--- NOTE | 2016-04-19 19:45 | NUR ---
RECEIVED PT IN STABLE CONDITION FROM AM NURSE. PT IS SLEEPING. BUT AROUSE TO NAME AND TOUCH. MED SURG PT. ON O2 2.5L/NC. NO ACUTE DISTRESS NOTED. BEDREST. ON WOUND BED. NEED TURNING Q2HRS. HL ON THE RT HAND #24. CLEAR AND PATENT. HAS SACRAL WOUND WITH DRESSING CLEAN AND INTACT. GETTING NGT FEEDING . TOLERATING WELL. NO RESIDUAL NOTED. HAS LEFT UPPER ARM AV SHUNT ,WITH GOOD BRUIT. BED ON LOW POSITION WITH HOB ELEVATED . NEED FREQUENT ROUNDS. WILL CONTINUE TO MONITOR.
--- NOTE | 2016-04-19 20:00 | NUR ---
REPOSITIONED PT FOR COMFORT AFTER PT WAS TURNED TO SIDE. NO DISTRESS NOTED.
[2016-04-19] MEDS: SIMVASTATIN 20 MG TAB GT SCH (22:00)
--- NOTE | 2016-04-19 22:00 | NUR ---
HAS BEEN TURNED TO SIDES,REPOSITIONED FOR COMFORT. NO RESPIRATORY DISTRESS NOTED.
[2016-04-20 00:10] VITALS: BP 120/64
--- NOTE | 2016-04-20 00:10 | NUR ---
VITAL SIGNS STABLE. REPOSITIONED FOR COMFORT BY TURNING TO SIDE. NO DISTRESS NOTED. WILL CONTINUE TO MONITOR.
[2016-04-20] MEDS: ANTIFUNGAL CLEAR OINTMENT TP SCH ×2 (01:12→15:30)
[2016-04-20] MEDS: Z-GUARD PASTE TP SCH ×2 (01:13→15:30)
--- NOTE | 2016-04-20 02:00 | NUR ---
TURNED TO SIDE. REPOSITIONED FOR COMFORT. NO DISTRESS NOTED. ON CONTINUOUS O2 @2.5L/NC. O2 SAT 100%. WILL CONTINUE TO MONITOR.
[2016-04-20] MEDS: ALBUTEROL SULFATE/IPRATROPIU 3 ML SOL IH SCH ×6 (03:12→23:57)
--- NOTE | 2016-04-20 04:00 | NUR ---
PT STABLE DURING THE NIGHT. NO DISTRESS NOTED. TURNED TO SIDE .
[2016-04-20] MEDS: BLOOD GLUCOSE MONITORING 1 DEV DEV FS SCH ×4 (06:07→21:12)
[2016-04-20] MEDS: INSULIN ASPART SLIDING SCALE 100 UNITS/ML VIAL SUBQ PRN ×4 (06:08→21:22)
--- NOTE | 2016-04-20 06:08 | NUR ---
BLOOD SUGAR WAS CHECKED RESULT 291. INSULIN COVERAGE GIVEN ORDERED.
--- NOTE | 2016-04-20 07:14 | NUR ---
LATEST BUN 82 AND CREATININE 4.1 CRITICAL VALUE THIS AM. PT IS SCHEDULED FOR HD TODAY.
--- NOTE | 2016-04-20 07:30 | NUR ---
ENDORSED PT IN STABLE CONDITION TO AM NURSE.
--- NOTE | 2016-04-20 07:31 | NUR ---
RECEIVED PT ON BED, WITH EYES CLOSED, AROUSABLE TO TACTILE STIMULI. APHASIC. IV TO RT HAND PATENT AND INTACT. WITH LEFT UPPER ARM AV SHUNT, THRILL FELT. WITH NG TUBE TO LEFT NARES PATENT WITH RESIDUAL OF 5 MLS NOTED. CHEST, DIMINISHED AIR ENTRY TO THE BASES, CRACKLES HEARD, ON ON AT 2.5 LITERS VIA NASAL CANNULA. ABDOMEN SOFT, BOWEL SOUNDS PRESENT. DRESSING TO SACRAL AREA DRY AND INTACT. SCD'S IN PACE. WILL REPOSITION PT EVERY 2 HRS. PT IS FOR DIALYSIS TODAY.
[2016-04-20 08:00] VITALS: BP 136/78
[2016-04-20] MEDS: amLODIPine 5 MG TAB GT SCH (09:00)
[2016-04-20] MEDS: SACCHAROMYCES 250 MG CAP GT SCH ×2 (09:44→20:32)
[2016-04-20] MEDS: VIT-B COMP/VIT-C/FOLIC ACID 1 TAB PO SCH (09:44)
[2016-04-20] MEDS: FAMOTIDINE 20 MG TAB GT SCH (09:44)
[2016-04-20] MEDS: FOLIC ACID 1 MG TAB GT SCH (09:44)
[2016-04-20] MEDS: METOCLOPRAMIDE 10 MG/10 ML SYRP UDC GT SCH ×3 (09:44→17:37)
[2016-04-20] MEDS: levETIRAcetam 100 MG/ML ORASYR GT SCH ×2 (09:44→20:33)
[2016-04-20] MEDS: EPOETIN ALFA SUBQ SCH (09:46)
--- NOTE | 2016-04-20 10:00 | NUR ---
PT REPOSITIONED EVERY 2 HRS. MOUTH CARE DONE. SECRETIONS SUCTIONED NEEDED. PT TOLERATED SUCTIONING WELL.
--- NOTE | 2016-04-20 12:00 | NUR ---
HEMODIALYSIS STARTED AT THE BEDSIDE.
--- NOTE | 2016-04-20 14:07 | NUR ---
CM NOTE CONCURRENT REVIEW SENT TO [facility] FAX# [phone] ATTN: LAKESHA # [phone]
[2016-04-20 15:30] VITALS: BP 111/84
[2016-04-20] MEDS: FOAM DRESSING TP SCH (15:30)
--- NOTE | 2016-04-20 15:30 | NUR ---
DIALYSIS COMPLETED. PT TOLERATED HD WELL, VITAL SIGNS STABLE. 2 LITERS HD OUTPUT.
--- NOTE | 2016-04-20 16:05 | NUR ---
WOUND CARE NOTES: SEEN PATIENT FOR FOLLOW UP. PLEASE REFER TO WOUND ASSESSMENT FLOWSHEET FOR UPDATED ENTRY. WILL CONTINUE CURRENT PLAN OF CARE. WILL CONTINUE TO FOLLOW UP WHILE IN HOUSE.
--- NOTE | 2016-04-20 18:50 | NUR ---
PT RESTING COMFORTABLY. NO SOB NOTED. NO SIGNS OF PAIN. WILL ENDORSE TO NEXT SHIFT NURSE FOR CONTINUITY OF CARE.
--- NOTE | 2016-04-20 19:28 | NUR ---
RECEIVED PT IN STABLE CONDITION FROM VALERIA Singleton RN. NO SOB, NO SIGNS OF DISTRESS. PT ON 2.5 L O2 NC. HR 109, OTHER VS WNL. FLACC 0, PT ASLEEP IN BED. IV TO RT HAND 24G PATENT, ASYMPTOMATIC, INTACT, HEP LOCKED. PT WITH SCDS IN PLACE. NGT TO LT NARE PATENT, FLUSHED, IRRIGATED, AUSCULTATED FOR POSITIVE PLACEMENT. 0 ML RESIDUAL NOTED, PT TOLERATING NGT FEEDING WELL. PT WITH LT UPPER ARM AV SHUNT FOR HD, PT RECEIVED DIALYSIS TODAY. PT IS ALOC, LEGALLY BLIND, AND BEDBOUND WITH SEVERE BUE AND BLE WEAKNESS AND FLACCIDITY. PT IS APHASIC AND GROANS OCCASIONALLY, PT UNABLE TO FOLLOW COMMANDS. PT WITH SACRAL PRESSURE ULCER, DRESSING DRY AND INTACT. PT WITH INCONTINENT DERMATITIS TO BEVERLY AREA. PLAN OF CARE DISCUSSED WITH PT. SAFETY MEASURES IN PLACE. CALL LIGHT WITHIN REACH. WILL CONTINUE TO MONITOR.
--- NOTE | 2016-04-20 20:28 | NUR ---
CLEANED AND TURNED PT, PT WITH VOID. PT TOLERATED WELL. NO SOB, NO SIGNS OF DISTRESS. FLACC 0. PT ON 2.5 L O2 NC. NGT IN PLACE WITH FEEDING RUNNING. IV SITE ASYMPTOMATIC, INTACT, SALINE LOCKED. SAFETY MEASURES IN PLACE. CALL LIGHT WITHIN REACH. WILL CONTINUE TO MONITOR.
[2016-04-20] MEDS: SIMVASTATIN 20 MG TAB GT SCH (20:32)
--- NOTE | 2016-04-20 21:22 | NUR ---
PT TOLERATED DUE MEDS WELL. NO SOB, NO SIGNS OF DISTRESS. FLACC 0. PT ON 2.5 L O2 NC. IV SITE ASYMPTOMATIC, INTACT, SALINE LOCKED. SAFETY MEASURES IN PLACE. CALL LIGHT WITHIN REACH. WILL CONTINUE TO MONITOR.
--- NOTE | 2016-04-20 22:32 | NUR ---
TURNED PT, TOLERATED WELL. NO SOB, NO SIGNS OF DISTRESS. FLACC 0. PT ON 2.5 L O2 NC. NGT IN PLACE WITH FEEDING RUNNING. IV SITE ASYMPTOMATIC, INTACT, SALINE LOCKED. SAFETY MEASURES IN PLACE. CALL LIGHT WITHIN REACH. WILL CONTINUE TO MONITOR.
[2016-04-21] VITALS: BP 129/57
[2016-04-21] MEDS: ANTIFUNGAL CLEAR OINTMENT TP SCH ×2 (00:16→13:18)
[2016-04-21] MEDS: Z-GUARD PASTE TP SCH ×2 (00:16→13:18)
--- NOTE | 2016-04-21 00:30 | NUR ---
CLEANED AND TURNED PT, PT TOLERATED WELL. PT WITH VOID. APPLIED Z-GUARD AND ANTI FUNGAL CREAMS. NO SOB, NO SIGNS OF DISTRESS. IV SITE ASYMPTOMATIC, INTACT, SALINE LOCKED. FLACC 0. NGT IN PLACE WITH FEEDING RUNNING. NO RESIDUAL NOTED, PT TOLERATING FEEDING WELL. PT ON 2.5L O2 NC. SCDS IN PLACE. PLAN OF CARE DISCUSSED WITH PT. SAFETY MEASURES IN PLACE. CALL LIGHT WITHIN REACH. WILL CONTINUE TO MONITOR.
--- NOTE | 2016-04-21 02:34 | NUR ---
TURNED PT, PROVIDED ORAL CARE, AND SUCTIONED PT. PT TOLERATED WELL. NO SOB, NO SIGNS OF DISTRESS. FLACC 0. PT ON 2.5 L O2 NC. NGT IN PLACE WITH FEEDING RUNNING. IV SITE ASYMPTOMATIC, INTACT, SALINE LOCKED. SAFETY MEASURES IN PLACE. CALL LIGHT WITHIN REACH. WILL CONTINUE TO MONITOR.
[2016-04-21] MEDS: ALBUTEROL SULFATE/IPRATROPIU 3 ML SOL IH SCH ×7 (03:29→23:29)
--- NOTE | 2016-04-21 03:42 | NUR ---
SPUTUM COLLECTED , AND GAVE IT TO RN
--- NOTE | 2016-04-21 04:30 | NUR ---
TURNED PT, TOLERATED WELL. NO VOID OR BM NOTED. SACRAL DRESSING DRY AND INTACT. NO SOB, NO SIGNS OF DISTRESS. FLACC 0. PT ON 2.5 L O2 NC. NGT IN PLACE WITH FEEDING RUNNING. IV SITE ASYMPTOMATIC, INTACT, SALINE LOCKED. SAFETY MEASURES IN PLACE. CALL LIGHT WITHIN REACH. WILL CONTINUE TO MONITOR.
[2016-04-21] MEDS: BLOOD GLUCOSE MONITORING 1 DEV DEV FS SCH ×4 (06:16→21:02)
[2016-04-21] MEDS: INSULIN ASPART SLIDING SCALE 100 UNITS/ML VIAL SUBQ PRN ×2 (06:17→13:20)
--- NOTE | 2016-04-21 06:25 | NUR ---
BLOOD SUGAR 279, GAVE INSULIN PER MD ORDER. PT TOLERATED WELL. TURNED PT, TOLERATED WELL. PT WITH VOID, APPLIED [id number] AND ANTI FUNGAL CREAMS. SACRAL DRESSING DRY AND INTACT. NO SOB, NO SIGNS OF DISTRESS. FLACC 0. PT ON 2.5 L O2 NC. NGT IN PLACE WITH FEEDING RUNNING. IV SITE ASYMPTOMATIC, INTACT, SALINE LOCKED. SAFETY MEASURES IN PLACE. CALL LIGHT WITHIN REACH. WILL CONTINUE TO MONITOR.
--- NOTE | 2016-04-21 07:20 | NUR ---
ENDORSED PT IN STABLE CONDITION TO CHLOE RAMOS. ALL NEEDS HAVE BEEN MET AT THIS TIME.
--- NOTE | 2016-04-21 07:21 | NUR ---
RECEIVED REPORT FROM CHLOE ALVAREZ AT PT BEDSIDE. PT RESTING IN BED. HAS GRIMACE. ON NGT FEEDING. ON O2 NC, NO S/S OF RESPIRATORY DISTRESS. PT IS APHASIC. HAS IV TO RH PATENT AND INTACT. SAFETY MEASURES IN PLACE. WILL CONTINUE TO MONITOR.
[2016-04-21 08:00] VITALS: BP 123/61
--- NOTE | 2016-04-21 08:00 | NUR ---
ASSISTED PT IN CHANGING OF POSITIONS. LINENS CLEAN AND DRY. DRESSING INTACT. NO S/S OF ACUTE DISTRESS.
[2016-04-21] MEDS: SACCHAROMYCES 250 MG CAP GT SCH ×2 (08:45→21:01)
[2016-04-21] MEDS: VIT-B COMP/VIT-C/FOLIC ACID 1 TAB PO SCH (08:45)
[2016-04-21] MEDS: FAMOTIDINE 20 MG TAB GT SCH (08:45)
[2016-04-21] MEDS: amLODIPine 5 MG TAB GT SCH (08:45)
[2016-04-21] MEDS: FOLIC ACID 1 MG TAB GT SCH (08:45)
[2016-04-21] MEDS: levETIRAcetam 100 MG/ML ORASYR GT SCH ×2 (08:46→21:01)
[2016-04-21] MEDS: METOCLOPRAMIDE 10 MG/10 ML SYRP UDC GT SCH ×3 (08:46→17:13)
[2016-04-21] MEDS: HYDROcodone/APAP 5/325 MG 1 TAB TAB GT PRN ×2 (08:46→21:01)
--- NOTE | 2016-04-21 10:00 | NUR ---
SPOKE WITH PATIENT'S SISTER CAIO REGARDING NOTE FROM DR. QUINTERO. SPOKE WITH DR. QUINTERO, NOTE WAS WRITTEN. AT BEDSIDE MADE AWARE. PATIENT IS TOLERATING TUBE FEEDING. NO S/S OF RESPIRATORY DISTRESS. LINENS CLEAN AND DRY. WILL CONTINUE TO MONITOR. Addendum: 04/21/16 at 1753 by Devin Aguayo RN ASSISTED PT IN CHANGING OF POSITIONS.
[2016-04-21] MEDS: KCL 20 MEQ/WATER INJ PREMIX 100 ML IV SCH ×2 (11:50→13:00)
--- NOTE | 2016-04-21 12:00 | NUR ---
PT RESTING IN BED. LINENS CLEAN AND DRY. NO S/S OF ACUTE DISTRESS. TOLERATING FEEDING WELL. Addendum: 04/21/16 at 1753 by Devin Aguayo RN ASSISTED PT IN CHANGING OF POSITIONS.
--- NOTE | 2016-04-21 13:32 | NUR ---
CM NOTE CONCURRENT REVIEW SENT TO [facility] FAX# [phone] ATTN: LAKESHA # [phone]
[2016-04-21] MEDS ORDERED: POTASSIUM CHLORIDE 10 MEQ TABER PO SCH (13:49)
--- NOTE | 2016-04-21 14:00 | NUR ---
ASSISTED PT IN CHANGING OF POSITIONS. LINENS CLEAN AND DRY. DRESSING INTACT. NO S/S OF ACUTE DISTRESS.
--- NOTE | 2016-04-21 14:16 | NUR ---
SPOKE WITH DR. CABELLO REGARDING POTASSIUM ALREADY REPLACED, DC CURRENT PO ORDER.
--- NOTE | 2016-04-21 15:20 | NUR ---
PATIENT'S SISTER REQUESTED FORM STATING PATIENT IS UNABLE TO MAKE DECISIONS FOR SELF. ORIGINAL FROM DR. QUINTERO ENDORSED TO HER.
[2016-04-21 16:00] VITALS: BP 128/69
--- NOTE | 2016-04-21 16:00 | NUR ---
ASSISTED PT IN CHANGING OF POSITIONS. LINENS CLEAN AND DRY. DRESSING INTACT. NO S/S OF ACUTE DISTRESS. TOLERATING FEEDING WELL.
[2016-04-21] MEDS: INSULIN LISPRO SLIDING SCALE 100 UNITS/ML VIAL SUBQ PRN ×2 (17:13→21:07)
--- NOTE | 2016-04-21 19:20 | NUR ---
ENDORSED PLAN OF CARE TO CHLOE WALLS AT PT BEDSIDE. NO S/S OF ACUTE DISTRESS.
--- NOTE | 2016-04-21 19:28 | NUR ---
RECEIVED REPORT FROM CHLOE RAMOS, AT BEDSIDE. INITIAL ASSESSMENT AND BODY CHECK DONE. PATIENT AAO X 0, RESPONSIVE ONLY TO LIGHT PAIN, APHASIC, UNABLE TO FOLLOW COMMAND NOR MAKE NEEDS KNOWN AND ON BEDBOUND. PATIENT CURRENTLY LYING DOWN ON THE BED. NO S/S OF DISTRESS OR SOB NOTED. SKIN WARM/DRY TO TOUCH WITH NORMAL COLOR. DRESSING ON SACRAL AREA REMAINS CLEAN/DRY/ INTACT AND NOTED EXCORIATION WITH REDNESS TO PERINEAL/GROIN AREAS. DISCUSSED PLAN OF CARE, PAIN MANAGEMENT AND MEDICATION REGIMEN WITH PATIENT, BUT PATIENT UNABLE COMPREHEND. PLACED PATIENT ON SAFETY/FALL/PRESSURE ULCER/ASPIRATION PRECAUTIONS AND WILL CONTINUE TO MONITOR WITH REPOSITION Q 2 HOURS.
[2016-04-21 20:00] VITALS: BP 121/80
--- NOTE | 2016-04-21 20:00 | NUR ---
REPOSITION FOR COMFORT/PRESSURE RELIEF AND OFFLOADED PRESSURE AREAS. PATIENT TOLERATED WELL.
[2016-04-21] MEDS: SIMVASTATIN 20 MG TAB GT SCH (21:02)
--- NOTE | 2016-04-21 21:30 | NUR ---
VERIFIED NG-TUBE PLACEMENT AND IT IS IN THE RIGHT PLACE. NO S/S OF COMPLICATION NOTED TO LEFT NARE AREA. OBTAINED ABOUT 5 ML RESIDUAL. THEN, ADMINISTER DUE AND PRN MEDICATIONS FOR PAIN MD'S ORDERED WITH EDUCATION GIVEN. PATIENT TOLERATED WELL. KEPT PATIENT IN COMFORTABLE POSITION/WARM AND WILL CONTINUE TO MONITOR.
--- NOTE | 2016-04-21 22:00 | NUR ---
REPOSITION FOR COMFORT/PRESSURE RELIEF AND OFFLOADED PRESSURE AREAS. PATIENT TOLERATED WELL.
[2016-04-22] VITALS: BP 99/55
--- NOTE | 2016-04-22 | NUR ---
PATIENT RESTED COMFORTABLY IN BED, V/S REMAINED WNL AND NO S/S OF DISTRESS NOTED. REPOSITION FOR COMFORT/PRESSURE RELIEF AND OFFLOADED PRESSURE AREAS. PATIENT TOLERATED WELL. WILL CONTINUE TO MONITOR.
[2016-04-22] MEDS: ANTIFUNGAL CLEAR OINTMENT TP SCH ×2 (01:17→12:12)
[2016-04-22] MEDS: Z-GUARD PASTE TP SCH ×2 (01:17→12:12)
--- NOTE | 2016-04-22 02:00 | NUR ---
ORAL CARE GIVEN AND REPOSITION FOR COMFORT/PRESSURE RELIEF AND OFFLOADED PRESSURE AREAS. PATIENT TOLERATED WELL.
[2016-04-22] MEDS: ALBUTEROL SULFATE/IPRATROPIU 3 ML SOL IH SCH ×6 (03:42→23:29)
--- NOTE | 2016-04-22 04:10 | NUR ---
AM CARE/[facility]-CARE GIVEN AND REPOSITION FOR COMFORT/PRESSURE RELIEF AND OFFLOADED PRESSURE AREAS. PATIENT TOLERATED WELL. V/S REMAINED WNL, FLACC 0 AND NO S/S OF DISTRESS NOTED. WILL CONTINUE TO MONITOR.
[2016-04-22] MEDS: BLOOD GLUCOSE MONITORING 1 DEV DEV FS SCH ×4 (05:41→21:21)
[2016-04-22] MEDS: INSULIN LISPRO SLIDING SCALE 100 UNITS/ML VIAL SUBQ PRN ×4 (05:44→22:22)
--- NOTE | 2016-04-22 06:26 | NUR ---
D/C IV LINE ON RT HAND DUE TO INFILTRATE AND INSERTED THE NEW IV LINE ON RT FA G # 24. THEN, REPOSITION FOR COMFORT/PRESSURE RELIEF AND PATIENT TOLERATED WELL. DRESSING ON SACRAL REMAINED CLEAN/INTACT AND NO ADDITIONAL SKIN PROBLEM NOTED AT THIS TIME. WILL CONTINUE TO MONITOR.
--- NOTE | 2016-04-22 07:05 | NUR ---
HD NURSE AT THE BEDSIDE AND PREPARING PATIENT FOR DIALYSIS.
--- NOTE | 2016-04-22 07:23 | NUR ---
ENDORSED PLAN OF CARE TO CHLOE MENDES, AT BEDSIDE. PATIENT REMAINED IN STABLE CONDITION AND NO APPARENT DISTRESS NOTED.
--- NOTE | 2016-04-22 07:25 | NUR ---
RECEIVED REPORT FROM NIGHT RN TITI. PT IS APHASIC. NO S/S OF ACUTE DISTRESS. FLACC-0. ON O2 2.5L NC. NG-TUBE NOTED TO LEFT NARE, PATENT. RESIDUAL 5ML. PT TOLERATING FEEDING WELL. IV SITE PATENT AND INTACT. DRESSING TO SACRAL AREA DRY AND INTACT. HEMODIALYSIS SITE NOTED ON LEFT UPPER ARM. AD OPERATIONS INTERN AT BEDSIDE SETTING UP. CALL LIGHT WITHIN REACH. SAFETY MEASURES ENSURED. WILL CONTINUE TO MONITOR.
[2016-04-22 08:00] VITALS: BP 136/74
--- NOTE | 2016-04-22 08:08 | NUR ---
ORALLY SXN PT WITH MIN AMT OFF WHITE THICK SECS NO ILL EFFECTS NOTED
[2016-04-22] MEDS: amLODIPine 5 MG TAB GT SCH (09:00)
--- NOTE | 2016-04-22 09:00 | NUR ---
UNABLE TO TURN PT AT THIS TIME DUE TO DIALYSIS.
[2016-04-22] MEDS: SACCHAROMYCES 250 MG CAP GT SCH ×2 (09:20→21:12)
[2016-04-22] MEDS: METOCLOPRAMIDE 10 MG/10 ML SYRP UDC GT SCH ×3 (09:21→16:12)
[2016-04-22] MEDS: levETIRAcetam 100 MG/ML ORASYR GT SCH ×2 (09:21→21:13)
[2016-04-22] MEDS: FOLIC ACID 1 MG TAB GT SCH (09:21)
[2016-04-22] MEDS: FAMOTIDINE 20 MG TAB GT SCH (09:21)
[2016-04-22] MEDS: VIT-B COMP/VIT-C/FOLIC ACID 1 TAB PO SCH (09:21)
[2016-04-22] MEDS: EPOETIN ALFA SUBQ SCH (09:22)
[2016-04-22] MEDS: HYDROcodone/APAP 5/325 MG 1 TAB TAB GT PRN (09:42)
--- NOTE | 2016-04-22 09:52 | NUR ---
PT IN BED. NO S/S OF ACUTE DISTRESS. PT TOLERATED AM MEDS WELL. FLACC-6, MEDICATED ORDERED. ON O2 2.5L NC. HD RN AT BEDSIDE. CALL LIGHT WITHIN REACH. SAFETY MEASURES ENSURED. WILL CONTINUE TO MONITOR.
[2016-04-22] MEDS ORDERED: Z-GUARD PASTE TP PRN (11:25)
--- NOTE | 2016-04-22 11:30 | NUR ---
WOUND CARE NOTES: SEEN PATIENT FOR FOLLOW UP. PLEASE REFER TO WOUND ASSESSMENT FLOWSHEET FOR UPDATED ENTRY. WILL CONTINUE CURRENT PLAN OF CARE. WILL CONTINUE TO MONITOR PATIENT WHILE IN HOUSE.
--- NOTE | 2016-04-22 12:08 | NUR ---
PT RESTING IN BED. NO S/S OF ACUTE DISTRESS. FLACC-0. ON O2 2.5L NC. PT REPOSITIONED TO RIGHT LATERAL. PT TOLERATING FEEDING WELL. DRESSING CHANGED. CALL LIGHT WITHIN REACH. SAFETY MEASURES ENSURED. WILL CONTINUE TO MONITOR.
[2016-04-22] MEDS: FOAM DRESSING TP SCH (12:12)
--- NOTE | 2016-04-22 14:00 | NUR ---
PT REPOSITIONED. ORAL CARE PROVIDED. PT TOLERATED WELL. ON O2 2.5L NC. PT TOLERATED NG-TUBE FEEDING WELL. NO S/S OF ACUTE DISTRESS. FLACC-0. CALL LIGHT WITHIN REACH. SAFETY MEASURE ENSURED. WILL CONTINUE TO MONITOR.
--- NOTE | 2016-04-22 15:07 | NUR ---
FAXED CONCURRENT REVIEW TO [facility] [phone] PHONE LAKESHA [phone]
[2016-04-22 15:52] VITALS: BP 136/60
--- NOTE | 2016-04-22 16:02 | NUR ---
PT REPOSITIONED. PT TOLERATING FEEDING WELL. NO S/S OF ACUTE DISTRESS. FLACC-0. ON O2 2.5L NC. CALL LIGHT WITHIN REACH. SAFETY MEASURES ENSURED. WILL CONTINUE TO MONITOR.
--- NOTE | 2016-04-22 16:46 | NUR ---
RECEIVED A CALL FROM LAKESHA FROM [facility]. [facility] CANNOT TAKE THIS PATIENT . PATIENT HAS NG. NO BEDS AT [facility].
--- NOTE | 2016-04-22 19:24 | NUR ---
ENDORSED PLAN OF CARE TO NIGHT RN. PT REMAINS IN STABLE CONDITION.
--- NOTE | 2016-04-22 19:25 | NUR ---
RECEIVED REPORT FROM VAUGHN CORONA FOR CONTINUITY OF CARE. SHIFT ASSESSMENT DONE, VS TAKEN, IN STABLE CONDITION. NO S/S OF PAIN NOTED, FLACC-0. PATIENT IS LEGALLY BLIND, SIGN POSTED AT BEDSIDE. PT APHASIC AND UNABLE TO RESPOND, ONLY MAKES SOUNDS AND WITHDRAWALS TO PAIN. NO S/S OF RESPIRATORY DISTRESS NOTED ON ON 2.5 L O2 VIA NC. IV TO RT FOREARM 24G PATENT AND FLUSHED. NG TUBE TO LT NARE PATENT, PLACEMENT CHECKED, NO RESIDUAL NOTED. PT HAS LT UPPER ARM AV SHUNT. PRESSURE ULCER TO SACRAL AREA, DRESSING CLEAN DRY AND INTACT. SCDS IN PLACE. SAFETY/FALL/ ASPIRATION PRECAUTIONS ENFORCED. PT IS ON WOUND CARE BED. WILL CONTINUE TO MONITOR.
[2016-04-22 20:00] VITALS: BP 130/80
--- NOTE | 2016-04-22 20:03 | NUR ---
TURNED AND REPOSITIONED PATIENT, NO S/S OF DISTRESS NOTED. SUCTIONED PATIENT WITH YANKAUER SUCTION AND PROVIDED ORAL CARE. WILL CONTINUE TO MONITOR.
[2016-04-22] MEDS: SIMVASTATIN 20 MG TAB GT SCH (21:12)
--- NOTE | 2016-04-22 21:13 | NUR ---
PLACEMENT CHECKED TO NGT, NO RESIDUAL NOTED. DUE MEDICATIONS ADMINISTERED. BLOOD SUGAR 217, WILL ADMINISTER INSULIN PER MD ORDER. WILL CONTINUE TO MONITOR.
--- NOTE | 2016-04-22 22:04 | NUR ---
REPOSITIONED PATIENT AND PROVIDED ORAL CARE, TOLERATED WELL. NO S/S OF DISTRESS NOTED ON 2.5 L NC. WILL CONTINUE TO MONITOR.
[2016-04-23] VITALS: BP 133/86
--- NOTE | 2016-04-23 00:02 | NUR ---
VS TAKEN, STABLE. REPOSITIONED PATIENT. PT HAS NO S/S OF PAIN, FLACC-0. WILL CONTINUE TO MONITOR.
[2016-04-23] MEDS: ANTIFUNGAL CLEAR OINTMENT TP SCH ×2 (01:04→12:33)
[2016-04-23] MEDS: Z-GUARD PASTE TP SCH ×2 (01:05→12:33)
--- NOTE | 2016-04-23 02:00 | NUR ---
REPOSITIONED PATIENT PER PROTOCOL, TOLERATED WELL, DRESSING TO SACRAL AREA INTACT. APPLIED OINTMENTS TO BILATERAL GROIN AREA PER WOUND CARE NURSE.
[2016-04-23] MEDS: ALBUTEROL SULFATE/IPRATROPIU 3 ML SOL IH SCH ×6 (03:04→22:55)
--- NOTE | 2016-04-23 04:03 | NUR ---
TURNED AND REPOSITIONED PATIENT, PROVIDED CHANGE OF LINENS AND GOWN. PROVIDED AM CARE. WILL CONTINUE TO MONITOR.
[2016-04-23] MEDS: BLOOD GLUCOSE MONITORING 1 DEV DEV FS SCH ×4 (05:52→21:30)
[2016-04-23] MEDS: INSULIN LISPRO SLIDING SCALE 100 UNITS/ML VIAL SUBQ PRN ×4 (06:03→21:29)
--- NOTE | 2016-04-23 06:03 | NUR ---
BLOOD SUGAR TAKEN, 188, ADMINISTERED INSULIN PER MD ORDER. REPOSITIONED AND TURNED PATIENT. WILL CONTINUE TO MONITOR.
--- NOTE | 2016-04-23 07:18 | NUR ---
ENDORSED PATIENT TO DAYSHIFT RN FOR CONTINUITY OF CARE, PATIENT IS IN STABLE CONDITION.
--- NOTE | 2016-04-23 07:40 | NUR ---
RECEIVED BEDSIDE REPORT FROM ELLA CORONA. PT IS UNRESPONSIVE TO NAME STIMULI, MAKES SOUNDS AND WITHDRAWALS TO PAIN. VITALS CHECKED IN STABLE CONDITION. PT ON O2 NC 2.5 L/MIN. NO S/S OF RESPIRATORY DISTRESS NOTED. NG TUBE TO LEFT NARES , PLACEMENT CHECKED, NO RESIDUAL AT THIS TIME. ABDOMEN SOFT, WITH HYPOACTIVE BOWEL SOUND. IV TO RIGHT FOREARM 24 G INTACT AND PATENT. FREELY FLUSHED. PT HAS LEFT UPPER ARM AV SHUNT. SKIN NON INTACT( SEE WOUND ASSESSMENT). SCDS IN PLACE, SAFETY/ FALL/ ASPIRATION PRECAUTIONS ENFORCED .PT IS ON WOUND CARE BED, ORAL CARE GIVEN. WILL CONTINUE TO MONITOR PT.
[2016-04-23 08:00] VITALS: BP 112/65
[2016-04-23] MEDS: HYDROcodone/APAP 5/325 MG 1 TAB TAB PO PRN (08:39)
[2016-04-23] MEDS: SACCHAROMYCES 250 MG CAP GT SCH ×2 (08:47→21:50)
[2016-04-23] MEDS: FOLIC ACID 1 MG TAB GT SCH (08:47)
[2016-04-23] MEDS: levETIRAcetam 100 MG/ML ORASYR GT SCH ×2 (08:47→21:51)
[2016-04-23] MEDS: FAMOTIDINE 20 MG TAB GT SCH (08:48)
[2016-04-23] MEDS: VIT-B COMP/VIT-C/FOLIC ACID 1 TAB PO SCH (08:48)
[2016-04-23] MEDS: METOCLOPRAMIDE 10 MG/10 ML SYRP UDC GT SCH ×3 (08:48→17:15)
[2016-04-23] MEDS: amLODIPine 5 MG TAB GT SCH (08:49)
--- NOTE | 2016-04-23 09:10 | NUR ---
DUE MEDS GIVEN. TOLERATED WELL. SUCTIONED PT WITH SMALL AMOUNT OF WHITE CREAMY SECRETION , NO SOB AT THIS TIME. WILL CONTINUE TO MONITOR.
--- NOTE | 2016-04-23 10:05 | NUR ---
PT DOES NOT FOLLOW COMMANDS. REPOSITIONED PT TO MAKE PT FEEL COMFORTABLE, OFF LOAD PRESSURE AREA.
--- NOTE | 2016-04-23 11:26 | NUR ---
PT'S DAUGHTER PRESENT AT BEDSIDE, UPDATED PT'S CONDITION, QUESTIONS ANSWERED.
--- NOTE | 2016-04-23 12:05 | NUR ---
REPOSITIONED PT AND ORAL CARE GIVEN. SUCTIONED PT WITH SMALL AMOUNT OF WHITE CREAMY SECRETION, NO S/S OF RESPIRATORY DISTRESS NOTED. WILL CONTINUE TO MONITOR.
--- NOTE | 2016-04-23 13:13 | NUR ---
04/23/16 RD INITIAL ASSESSMENT COMPLETED PLEASE REFER TO NUTRITION ASSESSMENT UNDER CARE ACTIVITY FOR ESTIMATED NEEDS. RD RECOMMENDATIONS: 1. CONTINUE CURRENT TF TOLERATED; ADEQUATE TO MEET PT ESTIMATED NUTRITION NEEDS. 2. CONTINUE TO DISCUSS WITH THE FAMILY THE NEED FOR G-TUBE FOR LONG-TERM USE; PT FAMILY REFUSING G-TUBE PLACEMENT. 3. RD WILL F/U 2-3 DAYS; HIGH RISK. TIFFANIE ALEX RD
--- NOTE | 2016-04-23 14:10 | NUR ---
REPOSITIONED PT, PT HAD SMALL AMOUNT OF BROWNISH SOFT STOOL, CLEANED PT. WILL CONTINUE TO MONITOR.
--- NOTE | 2016-04-23 15:19 | NUR ---
SISTER AT BEDSIDE AND O2 FINGER PROBE WAS CHANGED TO LEFT HAND PT HAVING BREATHING TX
[2016-04-23 16:00] VITALS: BP 119/69
--- NOTE | 2016-04-23 16:10 | NUR ---
PT HAD SMALL AMOUNT OF URINE ON THE PAD, CLEANED PT, REPOSITIONED PT , OFF LOAD PRESSURE AREA. ORAL CARE GIVEN, SUCTIONED PT WITH SMALL AMOUNT OF WHITE CREAMY SECRETION. WILL CONTINUE TO MONITOR.
--- NOTE | 2016-04-23 18:05 | NUR ---
REPOSITIONED PT. NO S/S OF RESPIRATORY DISTRESS NOTED.
--- NOTE | 2016-04-23 19:10 | NUR ---
BEDSIDE REPORT GIVEN TO TERMINAL SUPERVISOR NURSE. PT IN STABLE CONDITION AT THIS TIME. NO SOB, NO FEVER.
--- NOTE | 2016-04-23 19:15 | NUR ---
RECEIVED PT FROM CRISTEL RN PT APHASIC LETHARGIC UPPER AND LOWER EXTREMITIES FLACCID NG TUBE WELL TOLERATED 50 ML RESIDUAL, HL ON RT FA PATENT PT SUCTIONED NECESSARY REPOSITIONED INITIAL ASSESSMENT DONE
[2016-04-23 20:00] VITALS: BP 123/74
--- NOTE | 2016-04-23 20:00 | NUR ---
HOB 35 DEGREE ORAL CARE GIVEN WITH VAP KIT
--- NOTE | 2016-04-23 21:45 | NUR ---
BLOOD SUGAR TEST 221 COVERAGE WITH HUMALOG 4 UNITS SUBQ PT REPOSITIONED Q2HAND SUCTION NECESSARY
[2016-04-23] MEDS: SIMVASTATIN 20 MG TAB GT SCH (21:52)
--- NOTE | 2016-04-23 23:54 | NUR ---
PT ON CLOSE MONITORING REPOSITIONED Q2H, SPONGE BATH GIVEN LINEN CHANGED, NOT DISTRESS NOTED AT THIS TIME HOB 35 DEGREE ORAL CARE GIVEN WITH VAP KIT
[2016-04-24] VITALS: BP 117/84
--- NOTE | 2016-04-24 | NUR ---
HOB 35 DEGREE ORAL CARE GIVEN WITH VAP KIT SUCTIONED NECESSARY REPOSITIONED Q2H G TUBE FEEDING WELL TOLERATED,
[2016-04-24] MEDS: Z-GUARD PASTE TP SCH ×2 (01:00→12:48)
--- NOTE | 2016-04-24 02:00 | NUR ---
LINEN CHANGED, REPOSITIONED Q2H, NOT SOB NOTED, NOT FEVER NOT SIGNS OF PAIN SUCTIONED NECESSARY PT HAS AB
[2016-04-24] MEDS: ALBUTEROL SULFATE/IPRATROPIU 3 ML SOL IH SCH ×6 (02:06→23:32)
[2016-04-24 04:00] VITALS: BP 140/76
--- NOTE | 2016-04-24 04:00 | NUR ---
HOB 35 DEGREE ORAL CARE GIVEN WITH VAP KIT, SUCTIONED NECESSARY, REPOSITIONED ANDG TUBE FEEDING WELL TOLERATED, , PT HAS BEEN REPOSITIONED Q2H
[2016-04-24] MEDS: INSULIN LISPRO SLIDING SCALE 100 UNITS/ML VIAL SUBQ PRN ×4 (06:14→22:10)
[2016-04-24] MEDS: BLOOD GLUCOSE MONITORING 1 DEV DEV FS SCH ×4 (06:29→21:50)
--- NOTE | 2016-04-24 06:30 | NUR ---
REPOSITIONED Q2H, BLOOD SUGAR TEST 281 COVERAGE WITH 6 UNITS REG INSULIN, NG TUBE IN PLACE SUCTIONED NECESSARY NOT SOB NOTED VSS
--- NOTE | 2016-04-24 07:14 | NUR ---
PT IS ENDORSED TO BRENDA RN FOR CONTINUITY OF CARE
--- NOTE | 2016-04-24 07:15 | NUR ---
RECEIVED REPORT FROM BOND MANAGER NURSE. PT IS AWAKE, AND ALERT. UNABLE TO OPEN EYES, FLACC 0. DRESSING TO SACRUM IS DRY AND INTACT. PT IS ON 2L OF O2 VIA NC. IV IS PATENT AND FLOWING. SHUNT TO LEFT UPPER ARM NOTED. G-TUBE IS PATENT AND INTACT, AUSCULTATED FOR PLACEMENT - 0 RESIDUAL NOTED. PT LISE FEEDING WELL. SCD'S IN PLACE. VITALS STABLE. CALL LIGHT WITHIN REACH. WILL CONTINUE TO MONITOR.
[2016-04-24] MEDS: amLODIPine 5 MG TAB GT SCH ×2 (08:23→10:14)
[2016-04-24] MEDS: VIT-B COMP/VIT-C/FOLIC ACID 1 TAB PO SCH (08:27)
[2016-04-24] MEDS: levETIRAcetam 100 MG/ML ORASYR GT SCH ×2 (08:27→21:51)
[2016-04-24] MEDS: FAMOTIDINE 20 MG TAB GT SCH (08:27)
[2016-04-24] MEDS: METOCLOPRAMIDE 10 MG/10 ML SYRP UDC GT SCH ×3 (08:27→16:05)
[2016-04-24] MEDS: SACCHAROMYCES 250 MG CAP GT SCH ×2 (08:27→21:50)
[2016-04-24] MEDS: FOLIC ACID 1 MG TAB GT SCH (08:27)
--- NOTE | 2016-04-24 08:45 | NUR ---
MEDS GIVEN VIA N-GTUBE. PT LISE WELL. PT TURNED AND REPOSITION. DRESSING CHANGED.
--- NOTE | 2016-04-24 11:05 | NUR ---
ORAL CARE DONE. PT TURNED AND REPOSITIONED.
[2016-04-24] MEDS: FOAM DRESSING TP SCH (12:47)
[2016-04-24] MEDS: ANTIFUNGAL CLEAR OINTMENT TP SCH (12:47)
--- NOTE | 2016-04-24 13:05 | NUR ---
LINEN CHANGED, REPOSITIONED PT.
--- NOTE | 2016-04-24 13:30 | NUR ---
VITALS REMAIN STABLE, WILL CONTINUE TO MONITOR.
--- NOTE | 2016-04-24 15:05 | NUR ---
REPOSITIONED PT TO PREVENT SKIN BREAKDOWN. PT LISE WELL. WILL CONTINUE TO MONITOR.
--- NOTE | 2016-04-24 15:33 | NUR ---
ALL NEEDS MET AT THIS TIME.
[2016-04-24 16:00] VITALS: BP 139/74
--- NOTE | 2016-04-24 18:00 | NUR ---
PT TURNED AND REPOSITION, PT LISE WELL.
--- NOTE | 2016-04-24 19:01 | NUR ---
RECEIVED PT FROM GEORGES CORONA AT BEDSIDE FOR PT CONTINUITY OF CARE, NO DISTRESS NOTED. PT STABLE. NASAL CANNULA IN PLACE.
--- NOTE | 2016-04-24 19:13 | NUR ---
ENDORSED TO CIVIL ENGINEERING PROFESSOR FOR CONTINUITY OF CARE IN STABLE CONDITION.
--- NOTE | 2016-04-24 19:43 | NUR ---
SHIFT ASSESSMENT DONE AT THIS TIME. NO APPARENT DISTRESS NOTED. PT IS APHASIC, RESPONDS TO TACTILE STIMULI. DISCUSSED PLAN OF CARE WITH PT. REINFORCEMENT OF TEACHING NEEDED. VITAL SIGNS ARE STABLE, PT NOTED ON 2L NASAL CANNULA WITH OXYGEN SATURATION NOTED AT 100%. RESPIRATORY RATE AT 20 RPM. NO ACUTE RESPIRATORY DISTRESS AT THIS TIME. PT IS RELAXED, NO SIGNS OF PAIN. REMAINS AFEBRILE. NG-TUBE AUSCULTATED FOR PLACEMENT CHECKED, NOTED IN PLACE OF ABDOMEN, IS IN LEFT NARES, NO RESIDUALS NOTED (0ML). PT HOB ELEVATED 30 DEGREES. IV ACCESS TO RIGHT FOREARM, #24G, PATENT AND INTACT, SALINE LOCKED. PROVIDED TURNING FOR PT, NOTED SACRAL FOAM DRESSING DRY AND INTACT, PT IS DRY. SCD'S ARE IN PLACE. PT ON WOUND BED. SIGN POSTED FOR RESTRICTED EXTREMITY TO LEFT ARM. SAFETY PRECAUTIONS IN PLACE AND FALL RISK. PT CLOSE TO NURSE STATION. PROVIDED ORAL CARE AND ORAL SUCTION. PT ON CONTINUOUS PULSE OX. WILL CONTINUE TO MONITOR PT.
[2016-04-24 20:00] VITALS: BP 129/82
--- NOTE | 2016-04-24 20:21 | NUR ---
SPOKE TO GEORGIANA CORONA FROM [facility] REGARDING PT TO HAVE HD [place] ON Monday04/25/16. CONFIRMED APPT FOR THE MONDAY MORNING FROM 8-9AM.
--- NOTE | 2016-04-24 20:48 | NUR ---
DR CABALLERO AT PT BEDSIDE, UPDATE GIVEN. NEW ORDERS RECEIVED.
[2016-04-24] MEDS ORDERED: CLINDAMYCIN 600 MG/4 ML VIAL ONE (21:36)
[2016-04-24] MEDS: CLINDAMYCIN 600 MG in DEXTROSE 5% 50 ML IV SCH (21:49)
[2016-04-24] MEDS: SIMVASTATIN 20 MG TAB GT SCH (21:51)
[2016-04-24] MEDS: LEVOFLOXACIN 500 MG/D5W PREMIX 100 ML IV SCH (22:37)
--- NOTE | 2016-04-24 23:36 | NUR ---
RT AT BEDSIDE, GIVING PT BREATHING TREATMENT. NO DISTRESS NOTED.
[2016-04-25] VITALS: BP 125/78
--- NOTE | 2016-04-25 00:12 | NUR ---
VITAL SIGNS REMAIN STABLE. PT NASAL CANNULA STILL IN PLACE. OXYGEN SATURATION STILL AT 100%. PROVIDED TURNING. WOUND CARE DONE AND ASSESSMENT, SEE WOUND ASSESSMENT.
[2016-04-25] MEDS: ANTIFUNGAL CLEAR OINTMENT TP SCH ×2 (00:42→12:25)
[2016-04-25] MEDS: Z-GUARD PASTE TP SCH ×2 (00:42→12:25)
[2016-04-25] MEDS: FOAM DRESSING TP SCH (00:43)
--- NOTE | 2016-04-25 01:00 | NUR ---
PT SISTER AT BEDSIDE, UPDATE GIVEN AND EDUCATION ON PT. ALL QUESTIONS ANSWERED. WILL CONTINUE TO MONITOR PT, OXYGEN SATURATION NOTED AT 100%.
--- NOTE | 2016-04-25 03:16 | NUR ---
RT AT PT BEDSIDE TO GIVE BREATHING TREATMENT.
[2016-04-25] MEDS: ALBUTEROL SULFATE/IPRATROPIU 3 ML SOL IH SCH ×6 (03:17→22:52)
[2016-04-25] MEDS: HYDROcodone/APAP 5/325 MG 1 TAB TAB PO PRN ×4 (03:25→22:30)
--- NOTE | 2016-04-25 03:25 | NUR ---
PROVIDED PT PAIN MEDICATION PER MD ORDERS, SEE eMAR.
--- NOTE | 2016-04-25 03:25 | NUR ---
SPUTUM SAMPLE COLLECTED
--- NOTE | 2016-04-25 04:12 | NUR ---
REPOSITIONED PT AT THIS TIME. ALSO PROVIDED ORAL CARE. NO ACUTE DISTRESS AT THIS TIME, OXYGEN SATURATION IS 100% WITH NASAL CANNULA AT 2L.
[2016-04-25] MEDS ORDERED: CLINDAMYCIN 600 MG/4 ML VIAL ONE (05:25)
[2016-04-25] MEDS: CLINDAMYCIN 600 MG in DEXTROSE 5% 50 ML IV SCH ×3 (05:45→20:56)
[2016-04-25] MEDS: BLOOD GLUCOSE MONITORING 1 DEV DEV FS SCH ×4 (05:49→20:50)
[2016-04-25] MEDS: INSULIN LISPRO SLIDING SCALE 100 UNITS/ML VIAL SUBQ PRN ×3 (05:52→21:00)
--- NOTE | 2016-04-25 05:52 | NUR ---
PROVIDED PT WITH INSULIN COVERAGE PER MD ORDERS, SEE eMAR.
--- NOTE | 2016-04-25 05:57 | NUR ---
REPOSITIONED PT AT THIS TIME. NO ACUTE RESPIRATORY DISTRESS NOTED, OXYGEN SATURATION AT 100%. NASAL CANNULA STILL ON. ALSO PROVIDED ORAL CARE FOR MOISTURE AND APPLIED LIP MOISTURIZER. WILL CONTINUE TO MONITOR PT.
--- NOTE | 2016-04-25 06:25 | NUR ---
RT AT BEDSIDE AT THIS TIME, PT RECEIVING BREATHING TREATMENT.
--- NOTE | 2016-04-25 07:16 | NUR ---
HD NURSE AT BEDSIDE.
--- NOTE | 2016-04-25 07:45 | NUR ---
ENDORSED PT TO LAYO RN FOR PT CONTINUITY OF CARE. PT NOTED STABLE, NO S/S OF ACUTE DISTRESS.
--- NOTE | 2016-04-25 07:52 | NUR ---
RECEIVED REPORT FROM LEARNING OFFICER RN. PT IS SLEEPING. NO S/S OF ACUTE CARDIAC/RESPIRATORY DISTRESS. SAFETY MEASURES IN PLACE, CALL LIGHT WITHIN REACH. MMA FIGHTER PRESENT. WILL CONTINUE PLAN OF CARE AND CONTINUE TO MONITOR.
[2016-04-25 08:00] VITALS: BP 143/82
--- NOTE | 2016-04-25 08:00 | NUR ---
PT IS ON HEMODIALYSIS, UNABLE TO TURN AT THIS TIME. PT HAS NO S/S OF ACUTE DISTRESS OR DISCOMFORT. CALL LIGHT WITHIN REACH, WILL CONTINUE TO MONITOR.
[2016-04-25] MEDS: amLODIPine 5 MG TAB GT SCH (09:00)
[2016-04-25] MEDS: FOLIC ACID 1 MG TAB GT SCH (09:43)
[2016-04-25] MEDS: SACCHAROMYCES 250 MG CAP GT SCH ×2 (09:43→20:57)
[2016-04-25] MEDS: FAMOTIDINE 20 MG TAB GT SCH (09:43)
[2016-04-25] MEDS: VIT-B COMP/VIT-C/FOLIC ACID 1 TAB PO SCH (09:43)
[2016-04-25] MEDS: levETIRAcetam 100 MG/ML ORASYR GT SCH ×2 (09:44→20:57)
[2016-04-25] MEDS: METOCLOPRAMIDE 10 MG/10 ML SYRP UDC GT SCH ×3 (09:44→16:10)
[2016-04-25] MEDS: EPOETIN ALFA SUBQ SCH (09:44)
--- NOTE | 2016-04-25 10:33 | NUR ---
PT IS RECEIVING DIALYSIS, UNABLE TO TURN AT THIS TIME. PT TOLERATED HER AM MEDS WELL, HELD AMPLODIPINE DUE TO HEMODIALYSIS, WILL ADMINISTER AFTER HEMODIALYSIS IS DONE. SISTER AT BEDSIDE.
--- NOTE | 2016-04-25 10:57 | NUR ---
BREATHING TX GIVEN PT IS HAVING DIALYSIS DONE AND PT'S SISTER IS AT BEDSIDE
--- NOTE | 2016-04-25 12:00 | NUR ---
HEMODIALYSIS FINISHED. PT IS BEING CLEANED, WOUND DRESSING CHANGED, AND TURNED ON LEFT LATERAL. PT HAS NO S/S OF ACUTE DISTRESS OR DISCOMFORT. CALL LIGHT WITHIN REACH, WILL CONTINUE TO MONITOR.
--- NOTE | 2016-04-25 12:33 | NUR ---
WOUND CARE NOTES: SEEN PATIENT TODAY FOR FOLLOW UP. PLEASE REFER TO WOUND ASSESSMENT FLOWSHEET FOR UPDATED ENTRY. WILL CONTINUE CURRENT PLAN OF CARE. WILL CONTINUE TO FOLLOW UP WHILE IN HOUSE.
--- NOTE | 2016-04-25 14:00 | NUR ---
PT IS SLEEPING. NO S/S OF ACUTE DISTRESS OR DISCOMFORT. PT TURNED TO RIGHT LATERAL. CALL LIGHT WITHIN REACH, WILL CONTINUE TO MONITOR.
--- NOTE | 2016-04-25 14:33 | NUR ---
PT WAS NT SXN FOR C&S MODERATE AMT OF THICK CREAM COLOR SECRETIONS GAVE TO CHLOE VASQUES
[2016-04-25 16:00] VITALS: BP 132/74
--- NOTE | 2016-04-25 16:00 | NUR ---
PT REPOSITIONED TO LEFT LATERAL. NO S/S OF ACUTE DISTRESS OR DISCOMFORT. PT TOLERATING NGTUBE FEEDING WELL. CALL LIGHT WITHIN REACH, WILL CONTINUE TO MONITOR.
--- NOTE | 2016-04-25 17:05 | NUR ---
RECEIVED A CALL FROM LAKESHA FROM [facility]. JASIEL KELLER CANNOT TAKE THIS PATIENT.
--- NOTE | 2016-04-25 18:00 | NUR ---
PT REPOSITIONED. NO S/S OF ACUTE DISTRESS OR DISCOMFORT. CALL LIGHT WITHIN REACH, WILL CONTINUE TO MONITOR.
--- NOTE | 2016-04-25 19:26 | NUR ---
PT ORALLY SUCTIONED SMALL AMT THICK CREAMY SECRETIONS. SLIGHT IMPROVEMENT IN AIR ENTRY POST HHN TX AND SUCTIONING. NO ADVERSE EFFECTS NOTED.
--- NOTE | 2016-04-25 19:28 | NUR ---
ENDORSED REPORT TO TUBE FILLER RN. PT HAS NO S/S OF ACUTE DISTRESS OR DISCOMFORT. PT IN STABLE CONDITION.
--- NOTE | 2016-04-25 19:30 | NUR ---
ASSUMED CARE OF PATIENT, RT AT BEDSIDE FOR BREATHING TREATMENT. NGT FEEDING WELL TOLERATED. CALL LIGHT WITHIN REACH. SCD ON BOTH LEGS ON, O2 2LNC.
--- NOTE | 2016-04-25 20:00 | NUR ---
REPOSITIONED PATIENT TO LEFT SIDE LYING WITH SEMAPHORE OPERATOR ALOK.
[2016-04-25] MEDS: SIMVASTATIN 20 MG TAB GT SCH (20:56)
--- NOTE | 2016-04-25 21:00 | NUR ---
DUE MEDS GIVEN, NO RESIDUAL ON NGT FEEDING. [id number], INSULIN COVERAGE ORDERED. CALL LIGHT WITHIN REACH.
--- NOTE | 2016-04-25 22:00 | NUR ---
REPOSITIONED WITH HEADER DOCK-ALOK- RIGHT SIDE LYING. VOIDED PERICARE DONE. CALL LIGHT WITHIN REACH.
[2016-04-25 23:44] VITALS: BP 135/78
--- NOTE | 2016-04-26 | NUR ---
REPOSITIONED TO LEFT SIDE LYING, WITH CRAYON SORTING MACHINE FEEDER ALOK. PERICARE DONE, VOIDED.
[2016-04-26] MEDS: Z-GUARD PASTE TP SCH ×2 (00:20→12:19)
[2016-04-26] MEDS: ANTIFUNGAL CLEAR OINTMENT TP SCH ×2 (00:20→12:18)
--- NOTE | 2016-04-26 02:12 | NUR ---
REPOSITIONED TO RIGHT SIDE LYING WITH RECOIL SPRING WINDER ALOK.
[2016-04-26] MEDS: ALBUTEROL SULFATE/IPRATROPIU 3 ML SOL IH SCH ×6 (03:14→23:07)
--- NOTE | 2016-04-26 04:00 | NUR ---
TURN TO LEFT SIDE LYING, WITH MACHINE ADJUSTER LEADER CASE TRIM GINO.
[2016-04-26] MEDS: HYDROcodone/APAP 5/325 MG 1 TAB TAB PO PRN ×3 (04:30→21:36)
[2016-04-26] MEDS: CLINDAMYCIN 600 MG in DEXTROSE 5% 50 ML IV SCH ×3 (04:30→20:41)
--- NOTE | 2016-04-26 05:42 | NUR ---
COMPLETE BEDBATH AND ORAL CARE DONE. REPOSITIONED TO RIGHT SIDE LYING WITH PROOF MACHINE OPERATOR. CALL LIGHT WITHIN REACH.
[2016-04-26] MEDS: BLOOD GLUCOSE MONITORING 1 DEV DEV FS SCH ×4 (05:59→20:37)
[2016-04-26] MEDS: INSULIN LISPRO SLIDING SCALE 100 UNITS/ML VIAL SUBQ PRN ×4 (06:00→20:37)
--- NOTE | 2016-04-26 06:48 | NUR ---
RT AT BEDSIDE FOR BREATHING TREATMENT. GT FEEDING SET UP AND BAG CHANGE. SUCTION SECRETIONS BY RT AT BEDSIDE.
--- NOTE | 2016-04-26 07:27 | NUR ---
ENDORSED CARE AT BEDSIDE WITH GRAHAM CORONA, PATIENT STABLE CONDITION.
[2016-04-26 08:00] VITALS: BP 122/61
--- NOTE | 2016-04-26 08:00 | NUR ---
RECEIVED PATIENT FROM CHLOE ARCHULETA. PT SEEN AT BEDSIDE. PT IS UNABLE TO FOLLOW COMMANDS, APHASIC. ON 2L O2 VIA NC. NO S/S SOB OR DISTRESS AT THIS TIME. PT HAS A 24G IV ON RIGHT FA RUNNING TKO. PT IS HD PATIENT WITH A LEFT UPPER ARM AV SHUNT NOTED. LEFT UPPER EXTREMITY HAS +2 NONPITTING EDEMA. NGT ON LEFT NARE RUNNING TUBE FEEDING. ABD IS SOFT AND NOT DISTENDED. POSITIVE PLACEMENT AUSCULTATE FROM NGT. NGT RESIDUAL IS 5ML. WOUND ON SACRUM COVERED WITH DRESSING. PT UNABLE TO MOVE EXTREMITIES, BEDBOUND. PT TURNED AND REPOSITIONED FOR COMFORT, SAFETY MEASURES CHECKED, CALL LIGHT LEFT AT BEDSIDE. WILL CONTINUE TO MONITOR.
--- NOTE | 2016-04-26 08:15 | NUR ---
PT'S SISTER, CAIO, AT BEDSIDE PERFORMING MOUTH CARE FOR PATIENT. CAIO REQUESTED MOUTH MOISTURIZER FOR PATIENT. MOUTH MOISTURIZER PROVIDED.
[2016-04-26] MEDS: METOCLOPRAMIDE 10 MG/10 ML SYRP UDC GT SCH ×3 (09:02→16:22)
[2016-04-26] MEDS: FOLIC ACID 1 MG TAB GT SCH (09:02)
[2016-04-26] MEDS: SACCHAROMYCES 250 MG CAP GT SCH ×2 (09:02→20:32)
[2016-04-26] MEDS: levETIRAcetam 100 MG/ML ORASYR GT SCH ×2 (09:02→20:31)
[2016-04-26] MEDS: amLODIPine 5 MG TAB GT SCH (09:03)
[2016-04-26] MEDS: FAMOTIDINE 20 MG TAB GT SCH (09:03)
[2016-04-26] MEDS: VIT-B COMP/VIT-C/FOLIC ACID 1 TAB PO SCH (09:03)
--- NOTE | 2016-04-26 09:38 | NUR ---
RECEIVED CALL FROM LAKESHA FROM [facility]. SHE SAID TO TRY [facility] IN [place] AGAIN. I CALLED [facility] AND SPOKE WITH SAMIR, PHONE [phone], AND TOLD HER I WAS SENDING THE PACKET TO HER AT [phone]. SHE SAID AT PRESENT THEY DO NOT HAVE A DIALYSIS BED.
--- NOTE | 2016-04-26 10:00 | NUR ---
PT TURNED AND REPOSITIONED FOR COMFORT. PT'S STEP DAUGHTER AND AT BEDSIDE, REQUESTING PATIENT TO BE SUCTIONED. PT DEEP SUCTIONED, WITH MOD AMOUNTS OF THICK, CREAMY, YELLOW SPUTUM NOTED. WILL CONTINUE TO MONITOR.
--- NOTE | 2016-04-26 10:39 | NUR ---
FAXED CONCURRENT REVIEW TO [facility] [phone] PHONE LAKESHA [phone]
--- NOTE | 2016-04-26 12:00 | NUR ---
PT TURNED AND REPOSITIONED FOR COMFORT. WILL CONTINUE TO MONITOR. ORAL CARE GIVEN.
[2016-04-26] MEDS: FOAM DRESSING TP SCH (12:18)
--- NOTE | 2016-04-26 14:00 | NUR ---
PT TURNED AND REPOSITIONED FOR COMFORT. NO S/S DISTRESS OR SOB AT THIS TIME. WILL CONTINUE TO MONITOR.
--- NOTE | 2016-04-26 15:19 | NUR ---
04/26/16 RD FOLLOW UP COMPLETED PLEASE REFER TO NUTRITION PROGRESS NOTE UNDER CARE ACTIVITY FOR ESTIMATED NUTRITION NEEDS. RD RECOMMENDATIONS: 1. CONTINUE TUBE FEEDING NOVASOURCE RENAL AT 40 ML/HR WITH 50 ML FREE WATER FLUSH Q6H VIA NGTUBE. --CURRENT TUBE FEEDING ADEQUATE TO MEET 100% OF PT ESTIMATED KCAL AND PROTEIN NEEDS 2. CONSIDER GTUBE FOR PRISON NUTRITION SUPPORT NEEDS --NOTE PT WITH NG TUBE Suleiman DOBSON SINCE 03/04/16; PT FAMILY REFUSING GTUBE PLACEMENT 3. RD WILL F/U 2-3 DAYS; HIGH RISK REYES D[address] RD
[2016-04-26 16:00] VITALS: BP 115/62
--- NOTE | 2016-04-26 16:00 | NUR ---
PT TURNED AND REPOSITIONED FOR COMFORT. NO S/S DISTRESS AT THIS TIME. WILL CONTINUE TO MONITOR.
--- NOTE | 2016-04-26 18:00 | NUR ---
PT TURNED AND REPOSITIONED FOR COMFORT. WILL CONTINUE TO MONITOR.
--- NOTE | 2016-04-26 19:16 | NUR ---
CALLED DIALYSIS CENTER TO SCHEDULE HD APPT. MESSAGE LEFT.
--- NOTE | 2016-04-26 19:18 | NUR ---
REPORT GIVEN TO CHLOE AGUDELO.
--- NOTE | 2016-04-26 19:20 | NUR ---
RECEIVED PT ON BED WITH EYES CLOSED, MOANS TO TOUCH, NON-VERBAL, O2 VIA NC AT 2L, NO SIGNS OF SOB, VITAL SIGNS STABLE, AFEBRILE, NGT TO LEFT NARES WITH FEEDING AT 40ML/H, POSITIVE PLACEMENT VERIFIED, HOB ELEVATED AT ALL TIMES, ABDOMEN SOFT AND NONDISTENDED, PT BEDBOUND, ON WOUND BED, PT WILL BE REPOSITIONED FROM SIDE TO SIDE Q2H AND OFFLOAD PRESSURE AREAS, SAFETY MEASURES IN PLACE, CALL LIGHT WITHIN REACH.
--- NOTE | 2016-04-26 20:15 | NUR ---
BLOOD SUGAR CHECKED WITH 268 RESULT, WILL GIVE INSULIN COVERAGE, REPOSITION TO RT SIDE, OFFLOAD PRESSURE AREAS, ALL NEEDS ANTICIPATED.
[2016-04-26] MEDS: LEVOFLOXACIN 500 MG/D5W PREMIX 100 ML IV SCH (20:29)
[2016-04-26] MEDS: SIMVASTATIN 20 MG TAB GT SCH (20:32)
--- NOTE | 2016-04-26 20:45 | NUR ---
5 ML FEEDING RESIDUAL NOTED, DUE PO MEDS CRUSHED AND GIVEN THRU NGT AFTER PLACEMENT VERIFICATION, IV ANTIBIOTICS CONTINUED, ORAL CARE DONE.
--- NOTE | 2016-04-26 22:27 | NUR ---
REPOSITION TO LEFT SIDE, SACRAL WOUND DRESSING DRY AND INTACT, IV LINE INFILTRATED, NEW IV LINE INSERTED TO RT FOREARM GAUGE 24 WITH GOOD BLOOD RETURN, IVF RESUMED AT TKO 5ML/H.
--- NOTE | 2016-04-26 23:21 | NUR ---
ADMINISTERED HHNTX, ORALLY SUCTIONED MOD AMT OF THICK CREAM SECRETIONS, TOLERATED WELL. SP02 100% ON 2LPM NC.
[2016-04-27] VITALS: BP 111/63
--- NOTE | 2016-04-27 00:01 | NUR ---
PT SLEEPING, MOANS TO TOUCH, NO SIGNS OF DISTRESS, VITAL SIGNS STABLE, PT REPOSITIONED TO RT SIDE, NO BM NOTED, CONTINUE TO MONITOR CLOSELY.
--- NOTE | 2016-04-27 00:21 | NUR ---
CALLED [facility] AND SPOKE TO MARC STONER PT FOR HEMODIALYSIS TODAY Monday04/27/16.
[2016-04-27] MEDS: ANTIFUNGAL CLEAR OINTMENT TP SCH ×2 (00:49→12:34)
[2016-04-27] MEDS: Z-GUARD PASTE TP SCH ×3 (00:50→13:25)
--- NOTE | 2016-04-27 02:03 | NUR ---
REPOSITIONED TO THE LEFT SIDE AND OFFLOAD PRESSURE AREAS, ORALLY SUCTIONED PRN WITH MINIMAL SECRETION NOTED, ORAL CARE DONE, MONITORED CLOSELY.
[2016-04-27] MEDS: HYDROcodone/APAP 5/325 MG 1 TAB TAB PO PRN ×3 (03:26→17:10)
[2016-04-27] MEDS: ALBUTEROL SULFATE/IPRATROPIU 3 ML SOL IH SCH ×6 (03:37→23:49)
--- NOTE | 2016-04-27 04:10 | NUR ---
REPOSITIONED TO THE RT SIDE AND OFFLOAD PRESSURE AREAS, SACRAL DRESSING DRY AND INTACT, SUCTION PRN AND ORAL CARE, IV ANTIBIOTIC ADMINISTERED, CONTINUE TO MONITOR CLOSELY.
[2016-04-27] MEDS: CLINDAMYCIN 600 MG in DEXTROSE 5% 50 ML IV SCH ×3 (04:11→20:53)
--- NOTE | 2016-04-27 05:25 | NUR ---
AM LABS DRAWN, PT SUCTIONED PRN WITH MODERATE CREAMY SECRETION.
[2016-04-27] MEDS: INSULIN LISPRO SLIDING SCALE 100 UNITS/ML VIAL SUBQ PRN ×4 (05:57→20:55)
--- NOTE | 2016-04-27 06:00 | NUR ---
TIME TO REPOSITION PT BUT SISTER AT BEDSIDE REQUEST TO GIVE HER SEVERAL MINUTES TO FINISH DOING ORAL CARE TO THE PT, WILL CALL ME WHEN SHES DONE.
--- NOTE | 2016-04-27 06:35 | NUR ---
NO DISTRESS NOTED, REPOSITIONED TO LEFT SIDE AND OFFLOAD PRESSURE AREAS, INSULIN COVERAGE GIVEN, HEMODIALYSIS NURSE AT BEDSIDE.
[2016-04-27] MEDS: BLOOD GLUCOSE MONITORING 1 DEV DEV FS SCH ×4 (06:50→20:51)
--- NOTE | 2016-04-27 07:20 | NUR ---
HEMODIALYSIS ON-GOING, NO DISTRESS NOTED, REPORT GIVEN TO RANDEE CORONA FOR CONTINUITY OF CARE.
--- NOTE | 2016-04-27 07:21 | NUR ---
RECEIVED PT FROM CHLOE AGUDELO, WITH EYES CLOSED, MOANS, WITH IV ACCESS ON RIGHT FOREARM G24 PATENT AND INTACT. ON O2 2LPM VIA NC, NO S/S OF RESPIRATORY DISTRESS OR DISCOMFORT. WITH NG TUBE AT LEFT NARES CONNECTED TO [place] RENAL, AUSCULTATED AND ASPIRATED WITH 5ML RESIDUAL, FLUSHED WITH 30ML OF WATER. WITH AV SHUNT AT LEFT UPPER ARM. HEMODIALYSIS ONGOING AT THIS TIME. SAFETY PRECAUTIONS ENFORCED. CALL LIGHT WITHIN REACH, WILL CONTINUE TO MONITOR.
[2016-04-27 08:00] VITALS: BP 105/63
[2016-04-27] MEDS: SACCHAROMYCES 250 MG CAP GT SCH ×2 (08:24→20:50)
[2016-04-27] MEDS: VIT-B COMP/VIT-C/FOLIC ACID 1 TAB PO SCH (08:24)
[2016-04-27] MEDS: levETIRAcetam 100 MG/ML ORASYR GT SCH ×2 (08:24→20:50)
[2016-04-27] MEDS: FAMOTIDINE 20 MG TAB GT SCH (08:27)
[2016-04-27] MEDS: FOLIC ACID 1 MG TAB GT SCH (08:27)
[2016-04-27] MEDS: METOCLOPRAMIDE 10 MG/10 ML SYRP UDC GT SCH ×3 (08:28→16:24)
--- NOTE | 2016-04-27 08:30 | NUR ---
DUE MEDS GIVEN, PT TOLERATED WELL. HEMODIALYSIS STILL ONGOING. PT STABLE
[2016-04-27] MEDS: EPOETIN ALFA SUBQ SCH (08:38)
[2016-04-27] MEDS: amLODIPine 5 MG TAB GT SCH (08:46)
--- NOTE | 2016-04-27 10:21 | NUR ---
TUBE FEEDING BAG CHANGED, HEMODIALYSIS STILL ONGOING. CALLED RT TO BEDSIDE DUE TO PT COUGHING, SUCTIONED PRN. WILL CONTINUE TO MONITOR.
--- NOTE | 2016-04-27 10:56 | NUR ---
DR CABELLO AT NURSES' STATION
--- NOTE | 2016-04-27 11:09 | NUR ---
PT WITH PERSISTENT DRY COUGH SXN PT ORALLY RN AWARE
--- NOTE | 2016-04-27 11:10 | NUR ---
HEMODIALYSIS DONE, PT BP AT THIS TIME 115/68.
--- NOTE | 2016-04-27 11:30 | NUR ---
PT CHANGED TOGETHER WITH TRANSITIONS RN CARE COORDINATOR AND WOUND CARE NURSE, WOUND CARE DONE, APPLIED DRY FOAM DRESSING. TURNED AND REPOSITIONED, KEPT CLEAN AND DRY. ORAL CARE DONE. WILL CONTINUE TO MONITOR.
[2016-04-27] MEDS ORDERED: FOAM DRESSING TP PRN (12:50)
[2016-04-27] MEDS ORDERED: Z-GUARD PASTE TP PRN (12:50)
--- NOTE | 2016-04-27 13:30 | NUR ---
PT TURNED AND REPOSITIONED TO LEFT SIDE. SUCTIONED PRN AND ORAL CARE DONE. KEPT CLEAN AND DRY. CALL LIGHT WITHIN REACH, WILL CONTINUE TO MONITOR.
--- NOTE | 2016-04-27 14:24 | NUR ---
CM NOTE CONCURRENT REVIEW SENT TO [facility] FAX# [phone] ATTN: LAKESHA # [phone]
--- NOTE | 2016-04-27 14:39 | NUR ---
PT ASLEEP, NO S/S OF RESPIRATORY DISTRESS, CALL LIGHT WITHIN REACH, WILL CONTINUE TO MONITOR.
--- NOTE | 2016-04-27 15:25 | NUR ---
SS NOTE: APS REPORT FILED WITH [facility]
--- NOTE | 2016-04-27 15:45 | NUR ---
TURNED AND REPOSITIONED TO SIDE, KEPT CLEAN AND DRY. VIALS STABLE, WILL CONTINUE TO MONITOR. Addendum: 04/27/16 at 1547 by Becky Gold RN VITALS STABLE
[2016-04-27 16:00] VITALS: BP 119/75
--- NOTE | 2016-04-27 17:10 | NUR ---
SUCTIONED PT PRN, KEPT CLEAN AND DRY. NO S/S OF RESPIRATORY DISTRESS AT THIS TIME. CALL LIGHT WITHIN REACH, WILL CONTINUE TO MONITOR.
--- NOTE | 2016-04-27 18:00 | NUR ---
TURNED AND REPOSITIONED PT, KEPT CLEAN AND DRY. ALL NEEDS MET AT THIS TIME. NO S/S OF DISTRESS, WILL CONTINUE TO MONITOR.
--- NOTE | 2016-04-27 19:25 | NUR ---
ENDORSED PT TO CHLOE HAN IN STABLE CONDITION FOR CONTINUITY OF CARE
--- NOTE | 2016-04-27 19:35 | NUR ---
RECEIVED REPORT FROM DAY NURSERANDEE. PATIENT RESTING IN BED. NO RESPIRATORY DISTRESS, SOB, OR DISCOMFORT. INITIAL ASSESSMENT AND BODY CHECK DONE. PATIENT IS APHASIC, NON VERBAL, DOES NOT OPEN EYES, WITHDRAWS TO PAIN. PATIENT HAS WOUND TO SACRAL AREA COVERED WITH DRESSING; DRY AND INTACT. REDNESS NOTED TO GROIN AND ABDOMINAL FOLDS. IV ACCESS TO RIGHT FOREARM 24G, PATENT. PATIENT HAS NGT TO LEFT NARE, RESIDUAL: 0 ML. DIALYSIS NOTED TO LEFT UPPER ARM. DISCUSSED PLAN OF CARE, MEDICATION REGIMENT, AND PAIN MANAGEMENT WITH PATIENT. PLACED PATIENT ON SAFETY/FALL/PRESSURE ULCER/ASPIRATION PRECAUTIONS. CALL LIGHT LEFT WITHIN REACH, WILL CONTINUE TO MONITOR.
[2016-04-27] MEDS: SIMVASTATIN 20 MG TAB GT SCH (20:50)
--- NOTE | 2016-04-27 22:22 | NUR ---
PATIENT PRN SUCTIONING DONE. PATIENT TOLERATED WELL. NO RESPIRATORY DISTRESS, SOB, OR DISCOMFORT. CALL LIGHT LEFT WITHIN REACH, WILL CONTINUE TO MONITOR.
[2016-04-28] VITALS: BP 130/78
[2016-04-28] MEDS: HYDROcodone/APAP 5/325 MG 1 TAB TAB PO PRN (00:19)
--- NOTE | 2016-04-28 00:45 | NUR ---
ORAL CARE RENDERED ALONG WITH PRN SUCTIONING. SMALL AMOUNT OF WHITE SPUTUM. PATIENT TOLERATED WELL. NO RESPIRATORY DISTRESS, SOB, OR DISCOMFORT. CALL LIGHT LEFT WITHIN REACH, WILL CONTINUE TO MONITOR.
[2016-04-28] MEDS: Z-GUARD PASTE TP SCH ×2 (01:01→12:38)
[2016-04-28] MEDS: ANTIFUNGAL CLEAR OINTMENT TP SCH ×2 (01:01→12:38)
--- NOTE | 2016-04-28 03:13 | NUR ---
PATIENT RESTING COMFORTABLY IN BED, NO INDICATIONS FOR PRN SUCTIONING AT THIS TIME. CALL LIGHT LEFT WITHIN REACH, WILL CONTINUE TO MONITOR.
[2016-04-28] MEDS: ALBUTEROL SULFATE/IPRATROPIU 3 ML SOL IH SCH ×6 (03:38→23:04)
[2016-04-28] MEDS: CLINDAMYCIN 600 MG in DEXTROSE 5% 50 ML IV SCH ×3 (04:55→20:40)
--- NOTE | 2016-04-28 05:55 | NUR ---
PRN SUCTIONING PERFORMED AT THIS TIME. SMALL AMOUNT OF WHITE SECRETIONS. PATIENT TOLERATED WELL. NO RESPIRATORY DISTRESS, SOB, OR DISCOMFORT. CALL LIGHT LEFT WITHIN REACH, WILL CONTINUE TO MONITOR.
[2016-04-28] MEDS: BLOOD GLUCOSE MONITORING 1 DEV DEV FS SCH ×5 (06:19→20:39)
[2016-04-28] MEDS: INSULIN LISPRO SLIDING SCALE 100 UNITS/ML VIAL SUBQ PRN ×5 (06:20→20:42)
--- NOTE | 2016-04-28 07:17 | NUR ---
REPORT GIVEN TO DAY NURSEROBBIE. PATIENT RESTING IN BED, STABLE. NO RESPIRATORY DISTRESS, SOB, OR DISCOMFORT. ALL NEEDS ATTENDED TO DURING SHIFT, CALL LIGHT LEFT WITHIN REACH.
--- NOTE | 2016-04-28 07:20 | NUR ---
RECEIVED REPORT FROM CASE MANAGERS RN AT BEDSIDE. PT IS NON VERBAL, LEGALLY BLIND. WITHDRAW FROM PAIN STIMULI. PT IS ON 2LPM OXYGEN VIA NASAL CANNULA. FLACC 0.V/S STABLE. RIGHT FA #24G IV ACCESS INTACT AND PATENT TKO. LEFT UPPER ARM AV SHUNT INTACT AND NO BLEEDING NOTED. PT IS ON NGT FEEDING TO LEFT NARE AND TOLERATED WELL. NO RESIDUAL NOTED. ABDOMEN SOFT, NON DISTENDED, AND ACTIVE BOWEL SOUNDS IN ALL 4 QUADRANTS. SACRAL PRESSURE WOUND COVERED W/FOAM DRESSING, CLEAN, INTACT, AND NO DRAINAGE NOTED. HOB ELEVATED TO 30 DEGREES FOR ASPIRATION PRECAUTION. ALL SAFETY MEASURES MAINTAINED. CALL LIGHT WITHIN EASY REACH.
[2016-04-28 08:00] VITALS: BP 121/76
--- NOTE | 2016-04-28 08:10 | NUR ---
TOLERATING HUMIDIFIED SUPPLEMENTAL OXYGEN AT 2 LPM VIA NC ON AND FUNCTIONING WELL EQUIPMENT CHANGED: HHN, AEROSOL MASK, NASAL CANNULA, E-Z WRAP SOFT FOAM TUBES RIGHT AND LEFT
[2016-04-28] MEDS: VIT-B COMP/VIT-C/FOLIC ACID 1 TAB PO SCH (09:25)
[2016-04-28] MEDS: FAMOTIDINE 20 MG TAB GT SCH (09:25)
[2016-04-28] MEDS: SACCHAROMYCES 250 MG CAP GT SCH ×2 (09:25→20:39)
[2016-04-28] MEDS: METOCLOPRAMIDE 10 MG/10 ML SYRP UDC GT SCH ×3 (09:26→16:41)
[2016-04-28] MEDS: FOLIC ACID 1 MG TAB GT SCH (09:26)
[2016-04-28] MEDS: amLODIPine 5 MG TAB GT SCH (09:26)
--- NOTE | 2016-04-28 09:30 | NUR ---
SCHEDULED MEDS GIVEN VIA NGT AND TOLERATED WELL BY PT. NO GASTRIC RESIDUAL NOTED. ORAL CARE RENDERED. HOB ELEVATED TO 30 DEGREES FOR ASPIRATION PRECAUTION. SISTER PRESENT AT BEDSIDE.
--- NOTE | 2016-04-28 11:28 | NUR ---
AWAKE PRESENTING WITH INCREASED SOB RR 24 BREATH SOUNDS COARSE RHONCHI BILATERAL USING STERILE TECHNIQUE APPLIED [place] LUBRICANT TO DISTAL END OF A 14FR SUCTION CATHETER INSERTED INTO RIGHT NARES X3 OBTAINED LARGE THICK PALE YELLOW SECRETIONS ORAL PHARYNGEAL SUCTION FOR SMALL THIN PALE YELLOW SECRETIONS TOLERATED PROCEDURE WELL WITHOUT INCIDENT NO TRAUMA NOTED HHN THERAPY GIVEN ORDERED DAUGHTER IN ROOM AT BEDSIDE PRIOR TO PULMONARY PROCEDURE FIANCE NOTED IN ROOM
--- NOTE | 2016-04-28 11:48 | NUR ---
CM NOTE PER SAMIR, CONTACT FROM [employer] (C: [phone]). NO FEMALE DIALYSIS BEDS AVAILABLE BUT IS ON WAIT LIST. Addendum: 04/28/16 at 1209 by Omar Tinsley RN CHARLY CROWDER FOR [facility] MADE AWARE.
--- NOTE | 2016-04-28 11:56 | NUR ---
CM NOTE CONCURRENT REVIEW SENT TO [facility] FAX# [phone] ATTN: LAKESHA # [phone]
--- NOTE | 2016-04-28 12:00 | NUR ---
BLOOD SUGAR: 242 MG/DL. 4 UNITS INSULIN LISPRO SUBQ GIVEN PER SLIDING SCALE ORDERED. HOB ELEVATED TO 30 DEGREES FOR ASPIRATION PRECAUTION. CALL LIGHT WITHIN REACH.
[2016-04-28] MEDS: FOAM DRESSING TP SCH (12:38)
--- NOTE | 2016-04-28 14:04 | NUR ---
ROUNDED ON PT. PT ASLEEP. FLACC 0. FAMILY PRESENT AT BEDSIDE. REPOSITIONED PT WITH ARMED SECURITY OFFICER. MADE PT DRY, CLEAN, AND COMFORTABLE. HOB ELEVATED TO 30 DEGREES. CALL LIGHT WITHIN REACH.
--- NOTE | 2016-04-28 14:58 | NUR ---
DR. CABELLO IN TO SEE PT. WILL FOLLOW UP WITH ORDER.
--- NOTE | 2016-04-28 15:30 | NUR ---
CALLED [facility] IV[facility] ([phone]) TO SCHEDULE FOR HEMODIALYSIS ON 04/29/16. [facility] AWARE.
--- NOTE | 2016-04-28 15:30 | NUR ---
DAUGHTER IN ROOM PRIOR TO PROCEDURES AMBU BAG NOTED AT [facility] THROUGHOUT DAY SHIFT ASLEEP BREATH SOUNDS DIMINISHED BILATERAL USING STERILE TECHNIQUE APPLIED [place] LUBRICANT TO DISTAL END OF A 14FR SUCTION CATHETER INSERTED INTO RIGHT NARES X3 OBTAINED LARGE THICK YELLOW SECRETIONS TOLERATED PROCEDURE WELL WITHOUT INCIDENT NO TRAUMA NOTED HYPEROXYGENATION WITH SUPPLEMENTAL OXYGEN USED DURING NASOTRACHEAL PROCEDURES THROUGHOUT DAY SHIFT
[2016-04-28 16:00] VITALS: BP 123/66
--- NOTE | 2016-04-28 16:30 | NUR ---
PT'S BLOOD SUGAR: 258 MG/DL. ADMINISTERED 6 UNITS INSULIN LISPRO SUBQ PER SLIDING SCALE ORDERED. ORAL CARE RENDERED AND TOLERATED WELL BY PT. WILL CONTINUE TO MONITOR.
--- NOTE | 2016-04-28 19:15 | NUR ---
REPORT GIVEN TO PROPERTY INSPECTOR RN IN STABLE CONDITION AT BEDSIDE. RT PRESENT AT BEDSIDE FOR BREATHING TX. CALL LIGHT WITHIN REACH.
--- NOTE | 2016-04-28 19:50 | NUR ---
RECEIVED FROM AM RN IN BED. TOTAL CARE. NONE VERBAL WITH 02 2LPM/NC WITH HUMIDIFIER. NGT TO LEFT NARES INFUSING WITH NOVASOURCE RENAL AT 40 ML/H. TURNED Q 2H . PILLOW SUPPORT TO PRESSURE AREAS. RIGHT FA #24G IV ACCESS INTACT AND PATENT TKO. LEFT UPPER ARM AV SHUNT INTACT AND NO BLEEDING NOTED. PT IS ON NGT FEEDING TO LEFT NARE AND TOLERATED WELL. NO RESIDUAL NOTED. ABDOMEN SOFT, NON DISTENDED, AND ACTIVE BOWEL SOUNDS IN ALL 4 QUADRANTS. FOR HEMODIALYSIS TOMORROW. PER AM LYE BATH OPERATOR FACILITY AWARE. ISOLATION PRECAUTIONS FOR E COLI-URINE,ESBL URINE AND SPUTUM. SEQUENTIALS IN PLACE BILATERALLY. TELEMETRY MONITORING. IMMOBILE.
[2016-04-28] MEDS: SIMVASTATIN 20 MG TAB GT SCH (20:39)
[2016-04-28] MEDS: LEVOFLOXACIN 500 MG/D5W PREMIX 100 ML IV SCH (20:39)
--- NOTE | 2016-04-28 22:00 | NUR ---
SUCTIONED PT. PER MOUTH . SCANT MUCUS. HOB UP 30 DEGREES FOR ASPIRATION PRECAUTIONS. TURNED TO SIDES BY CUPOLA LINER HELPER AND NURSE. PILLOW SUPPORT TO PRESSURE AREAS. NEEDS ANTICIPATED AND WILL BE MET. KEPT DRY, WARM AND COMFORTABLE. DRESSING TO SACRUM INTACT.
--- NOTE | 2016-04-29 | NUR ---
FLACC 0-. PT.S NEEDS ANTICIPATED AND MET. HOB UP 30 DEGREES FOR ASPIRATTION PRECAUTIONS. TURNED TO SIDES Q 2H. PILLOW SUPPORT TO PRESSURE AREAS.
[2016-04-29 00:49] VITALS: BP 129/65
[2016-04-29] MEDS: Z-GUARD PASTE TP SCH ×2 (01:22→13:00)
--- NOTE | 2016-04-29 02:00 | NUR ---
PT. TURNED TO SIDES. KEPT CLEAN AND DRY. NO N/V AT THIS TIME. NGT PLACEMENT CHECKED FOR PLACEMENT. IN PLACE. NEEDS ANTICIPATED AND WILL BE MET.
[2016-04-29] MEDS: ALBUTEROL SULFATE/IPRATROPIU 3 ML SOL IH SCH ×6 (03:00→23:09)
--- NOTE | 2016-04-29 04:08 | NUR ---
TURNED Q 2H. BREATHING TREATMENTS GIVEN BY RESPIRATORY THERAPIST. HOB UP 30 DEGREES FOR ASPIRATION PRECAUTIONS. NO NAUSEA AND VOMITING THIS SHIFT. NO RESIDUAL FROM NGT FEEDING. PLACEMENT CHECKED. IN PLACE .
--- NOTE | 2016-04-29 04:22 | NUR ---
KENYA COLLECTED AND SENT TO LAB. Addendum: 04/29/16 at 0423 by Elsa Weiss RN ABOVE CHARTING WRONG . FOR HD TOMORROW.
[2016-04-29] MEDS: BLOOD GLUCOSE MONITORING 1 DEV DEV FS SCH ×4 (05:36→20:42)
[2016-04-29] MEDS: CLINDAMYCIN 600 MG in DEXTROSE 5% 50 ML IV SCH ×3 (05:36→20:46)
[2016-04-29] MEDS: INSULIN LISPRO SLIDING SCALE 100 UNITS/ML VIAL SUBQ PRN ×4 (05:44→20:37)
--- NOTE | 2016-04-29 05:46 | NUR ---
AM HYGIENE RENDERED BY MARKETING ANALYST. TURNED TO SIDES Q 2H. TOTAL CARE. KEPT DRY, CLEAN AND WARM. PILLOW SUPPORT TO PRESSURE AREAS. DRESSING TO SACRAL AREA INTACT AND DRY. HOB UP 28 DEGREES FOR ASPIRATION PRECAUTION. NO N/V NOTD. PT. SUCTIONED AND GOT SCANT AMOUNT OF MUCUS PER ORAL IN CREAMY COLOR. SUCTION CANISTER CHANGED TO NEW ONE. NEEDS ANTICIPATED AND MET.
--- NOTE | 2016-04-29 07:20 | NUR ---
RECEIVED PATIENT REPORT AT BEDSIDE. PATIENT ASLEEP WITH NO S/S OF DISTRESS NOTED. NG-TUBE IN PLACE WITH FEEDING RUNNING WELL. IV LINE NOTED TO THE RIGHT FOREARM. FOAM DRESSING TO THE SACRUM CLEAN, DRY, INTACT AND ASYMPTOMATIC. PATIENT ON 2L O2. PATIENT ON TELE MONITORING. BED LOWERED WITH CALL LIGHT WITHIN REACH. WILL CONTINUE TO MONITOR
--- NOTE | 2016-04-29 07:22 | NUR ---
ENDORSED TO THE NEXT RN FOR CONTINUITY OF CARE.
[2016-04-29 08:00] VITALS: BP 136/85
--- NOTE | 2016-04-29 08:00 | NUR ---
PATIENT RECEIVING BREATHING TX. PATIENT SUCTIONED. SCANT AMOUNT OF CREAMY PHLEGM NOTED.
--- NOTE | 2016-04-29 08:10 | NUR ---
PATIENT TURNED AND REPOSITIONED. NO S/S OF DISTRESS NOTED
[2016-04-29] MEDS: amLODIPine 5 MG TAB GT SCH (09:00)
[2016-04-29] MEDS: VIT-B COMP/VIT-C/FOLIC ACID 1 TAB PO SCH (09:41)
[2016-04-29] MEDS: FAMOTIDINE 20 MG TAB GT SCH (09:41)
[2016-04-29] MEDS: FOLIC ACID 1 MG TAB GT SCH (09:41)
[2016-04-29] MEDS: SACCHAROMYCES 250 MG CAP GT SCH ×2 (09:42→20:46)
[2016-04-29] MEDS: METOCLOPRAMIDE 10 MG/10 ML SYRP UDC GT SCH ×3 (09:42→16:10)
--- NOTE | 2016-04-29 10:00 | NUR ---
ADMINISTERED DUE MEDS VIA NGT. NO RESIDUALS NOTED. NGT PLACEMENT VERIFIED VIA AUSCULTATION. PATIENT TOLERATED WELL. HEMODIALYSIS IN PROGRESS
--- NOTE | 2016-04-29 12:10 | NUR ---
04/29/16 RD FOLLOW UP COMPLETED PLEASE REFER TO NUTRITION PROGRESS NOTE UNDER CARE ACTIVITY FOR ESTIMATED NUTRITION NEEDS. RD RECOMMENDATIONS: 1. CONTINUE TUBE FEEDING NOVASOURCE RENAL AT 40 ML/HR WITH 50 ML FREE WATER FLUSH Q6H VIA NGTUBE. --CURRENT TUBE FEEDING ADEQUATE TO MEET 100% OF PT ESTIMATED KCAL AND PROTEIN NEEDS --PT TOLERATING CURRENT TUBE FEEDING WELL PER RN 2. CONSIDER GTUBE FOR PROMOTIONS MANAGER NUTRITION SUPPORT NEEDS --NOTE PT WITH NG TUBE Suleiman DOBSON SINCE 03/04/16; PT FAMILY REFUSING GTUBE PLACEMENT 3. RD WILL F/U 2-3 DAYS; HIGH RISK REYES D[address]AZ RD
--- NOTE | 2016-04-29 12:45 | NUR ---
HEMODIALYSIS DONE. 1.5L OUT. BP 101/73 HR: 108. NO S/S OF DISTRESS NOTED
[2016-04-29] MEDS: EPOETIN ALFA 4,000 UNITS/ML VIAL IV SCH (12:49)
--- NOTE | 2016-04-29 13:00 | NUR ---
DRESSING ON THE SACRAL PRESSURE ULCER CHANGED. PATIENT TURNED AND REPOSITIONED. PATIENT SUCTIONED. SCANT AMOUNT OF CREAMY PHLEGM SUCTIONED. PATIENT TOLERATED WELL. NO S/S OF DISTRESS NOTED. WILL CONTINUE TO MONITOR
--- NOTE | 2016-04-29 13:56 | NUR ---
WOUND CARE FOLLOW UP NOTES: SEEN PATIENT FOR FOLLOW UP. PLEASE REFER TO WOUND ASSESSMENT FLOWSHEET FOR UPDATED ENTRY. BILATERAL GROIN TO PERIAREA IS HEALING WELL, RESURFACED, BUT WILL CONTINUE TO MONITOR FOR 1 MORE WEEK. WILL CONTINUE CURRENT PLAN OF CARE. WILL CONTINUE TO MONITOR PATIENT.
--- NOTE | 2016-04-29 15:59 | NUR ---
CONCUIRRENT REVIEW FAXED TO [facility] [phone] PHONE LAKESHA [phone]
[2016-04-29 16:00] VITALS: BP 121/69
--- NOTE | 2016-04-29 19:05 | NUR ---
RECEIVED REPORT FROM CHLOE HAN AT BEDSIDE. PT IS NON VERBAL, PT IS LEGALLY BLIND. PT HAS IV ACCES TO RIGHT FOREARM G 24; PATENT AND INTACT TKO. PT HAS LEFT UPPER ARM AV SHUNT FELT/HEARD. PT IS ON NG TUBE FEEDING TO LEFT NARE; PT TOLERATING IT WELL. 5 ML RESIDUAL NOTED. PT HAS A SACRAL PRESSURE COVERED WITH FOAM DRESSING CLEAN AND INTACT. PT ON O2 2L NC. SAFETY MEASURES IN PLACE. PT PLACED ON ASPIRATION PRECAUTIONS. WILL CONTINUE TO MONITOR PT.
--- NOTE | 2016-04-29 19:08 | NUR ---
PATIENT REPORT GIVEN AT BEDSIDE. PATIENT IN STABLE CONDITION
--- NOTE | 2016-04-29 19:35 | NUR ---
RT AT BEDSIDE. PT STABLE, WILL CONTINUE TO MONITOR PT.
--- NOTE | 2016-04-29 20:00 | NUR ---
PT TURNED/REPOSITIONED. PT TOLERATED IT WELL. WILL CONTINUE TO MONITOR PT.
--- NOTE | 2016-04-29 20:17 | NUR ---
FAMILY AT BEDSIDE, FAMILY ASKED TO BE LEFT ALONE SO THAT THEY CAN PRAY WITH/TO PT.
[2016-04-29] MEDS: SIMVASTATIN 20 MG TAB GT SCH (20:46)
[2016-04-29] MEDS: HYDROcodone/APAP 5/325 MG 1 TAB TAB PO PRN (20:51)
--- NOTE | 2016-04-29 20:55 | NUR ---
PT GRIMACING, UNEASY, WILL MEDICATE FOR PAIN. VS 139/82, HR 106, T 98.0, 02 SAT 98%, WILL CONTINUE TO MONITOR PT.
--- NOTE | 2016-04-29 21:06 | NUR ---
PT TOLERATED 2100 MEDS WELL, WILL CONTINUE TO MONITOR PT.
--- NOTE | 2016-04-29 22:00 | NUR ---
PT TURNED/REPOSITIONED. PT TOLERATED IT WELL. NOT SIGNS OF DISTRESS OR DISCOMFORT NOTED. WILL CONTINUE TO MONITOR PT.
[2016-04-30] VITALS: BP 123/79
--- NOTE | 2016-04-30 | NUR ---
PT TURNED/REPOSITIONED. PT TOLERATED IT WELL. NOT SIGNS OF DISTRESS OR DISCOMFORT NOTED. WILL CONTINUE TO MONITOR PT. VS STABLE, WILL CONTINUE TO MONITOR PT.
[2016-04-30] MEDS: Z-GUARD PASTE TP SCH ×2 (01:00→10:00)
--- NOTE | 2016-04-30 02:00 | NUR ---
PT TURNED/REPOSITIONED. PT TOLERATED IT WELL. NO SIGNS OF DISTRESS OR DISCOMFORT NOTED. VS STABLE, WILL CONTINUE TO MONITOR PT.
--- NOTE | 2016-04-30 02:04 | NUR ---
DRESSING DRY AND INTACT. DRESSING NOT CHANGED AT THIS TIME. PT STABLE, WILL CONTINUE TO MONITOR PT.
--- NOTE | 2016-04-30 03:03 | NUR ---
PT SUCTIONED, NO SIGNS OF DISTRESS OR DISCOMFORT NOTED. WILL CONTINUE TO MONITOR PT.
[2016-04-30] MEDS: ALBUTEROL SULFATE/IPRATROPIU 3 ML SOL IH SCH ×6 (03:25→23:43)
--- NOTE | 2016-04-30 04:00 | NUR ---
PT TURNED/REPOSITIONED. PT TOLERATED IT WELL. NO SIGNS OF DISTRESS OR DISCOMFORT NOTED. VS STABLE, WILL CONTINUE TO MONITOR PT.
[2016-04-30] MEDS: CLINDAMYCIN 600 MG in DEXTROSE 5% 50 ML IV SCH ×3 (04:41→20:25)
--- NOTE | 2016-04-30 04:44 | NUR ---
0500 ANTIBIOTIC INFUSING AT THIS TIME. PT STABLE. WILL CONTINUE TO MONITOR PT.
--- NOTE | 2016-04-30 06:01 | NUR ---
PT TURNED/REPOSITIONED. PT TOLERATED IT WELL. NO SIGNS OF DISTRESS OR DISCOMFORT NOTED. VS STABLE. PT WAS WET; LINEN CHANGED, ORAL CARE, BEVERLY CARE GIVEN. NEW BAG OF KVNG RUNNING AT THIS TIME, WILL CONTINUE TO MONITOR PT.
[2016-04-30] MEDS: INSULIN LISPRO SLIDING SCALE 100 UNITS/ML VIAL SUBQ PRN ×4 (06:16→20:41)
[2016-04-30] MEDS: BLOOD GLUCOSE MONITORING 1 DEV DEV FS SCH ×4 (06:34→20:25)
--- NOTE | 2016-04-30 06:43 | NUR ---
PT SLEEPING AT THIS TIME, NO SIGNS OF DISTRESS OR DISCOMFORT NOTED. PT HAS BEEN REPOSITIONED Q2H THROUGHOUT THE SHIFT WITH HELP OF SARAH HUI. WILL CONTINUE TO MONITOR PT.
--- NOTE | 2016-04-30 07:15 | NUR ---
ENDORSED PT IN STABLE CONDITION TO CHLOE MEJIA FOR CONTINUITY OF CARE.
--- NOTE | 2016-04-30 07:16 | NUR ---
RECEIVED PT REPORT AT BEDSIDE FROM THE PURCHASING DIRECTOR NURSE. PT IS APHASIC, DOES NOT OPEN HER EYES. PT IS NOT RESPONSIVE TO HER NAME OR TOUCH. SHE IS ON RT SIDE LINE. NOTED THE NC 2L, NG TUBE IN THE L NARES 40ML NOVASOURCE, NOTED HER SCD'S. HER BREATHING IS RAPID AT 28 AND I HEAR SOME RHONCHI IN HER LUNGS. NOTED THE R FA 24G TKO AT 5ML/HR. SHE ALSO HAS L UPPER ARM AV SHUNT. SHE HAS DIALYSIS M,W,F. SHE HAD A DIALYSIS LAST NIGHT. OUTPUT 1.5 PER PURCHASING DIRECTOR NURSE. WE WILL CONTINUE TO MONITOR HER. NO SIGNS OF DISTRESS OR PAIN. WILL BE MONITORING PT FREQUENTLY.
[2016-04-30 08:00] VITALS: BP 130/81
--- NOTE | 2016-04-30 08:00 | NUR ---
TURNED PT LT SIDE LINE. CUSTOMER RELATIONS SPECIALIST DID A BED BATH. PT'S CLEAN AND DRY. PT IS RESTING COMFORTABLY. NO SIGNS OF DISTRESS. WILL CONTINUE MONITORING PT.
[2016-04-30] MEDS: SACCHAROMYCES 250 MG CAP GT SCH ×2 (09:02→20:26)
[2016-04-30] MEDS: VIT-B COMP/VIT-C/FOLIC ACID 1 TAB PO SCH (09:02)
[2016-04-30] MEDS: amLODIPine 5 MG TAB GT SCH (09:02)
[2016-04-30] MEDS: FOLIC ACID 1 MG TAB GT SCH (09:02)
[2016-04-30] MEDS: FAMOTIDINE 20 MG TAB GT SCH (09:03)
[2016-04-30] MEDS: METOCLOPRAMIDE 10 MG/10 ML SYRP UDC GT SCH ×3 (09:03→17:09)
--- NOTE | 2016-04-30 09:05 | NUR ---
STOPPED FEEDING MACHINE. CHECKED FOR PLACEMENT, RESIDUAL. PT NG TUBE WAS CLOGGED. TRIED USING CRANBERRY JUICE TO FLUSH. FINALLY GOT IT TO FLUSH. FLUSHES WELL. ADMINISTERED MORNING MEDS. FLUSHED NG TUBE AGAIN WITH 120CC'S OF WATER. PT TOLERATED WELL. WILL CONTINUE TO MONITOR PT.
--- NOTE | 2016-04-30 10:00 | NUR ---
TURN PT ON RT SIDE LINE. PT LOOKS COMFORTABLE. NO SIGNS OF DISTRESS. APPLIED SOME Z GUARD ON HER BEVERLY AREA. ALL SAFETY MEASURES IN PLACE. WILL CONTINUE TO MONITOR PT.
--- NOTE | 2016-04-30 11:42 | NUR ---
PT SLEEPING COMFORTABLY. NO SIGN OF DISTRESS OR DISCOMFORT OR PAIN. WILL CONTINUE TO MONITOR PT.
--- NOTE | 2016-04-30 12:00 | NUR ---
REPOSITIONED PT TO L SIDELINE. PT TOLERATED WELL. NO SIGNS OF DISTRESS. WILL CONTINUE TO MONITOR.
[2016-04-30] MEDS: FOAM DRESSING TP SCH (12:40)
--- NOTE | 2016-04-30 12:52 | NUR ---
CHECKED SACRAL AREA. FOAM BANDAGE STILL INTACT, DATED 04/29. NO SIGNS OF DRAINAGE. WILL CONTINUE TO MONITOR.
--- NOTE | 2016-04-30 14:00 | NUR ---
REPOSITIONED PT. NO SIGNS OF DISTRESS. WILL CONTINUE TO MONITOR PT.
--- NOTE | 2016-04-30 15:36 | NUR ---
SCHEDULED BREATHING TX ADMINISTERED WITH NO ADVERSE REACTIONS. PT ORALLY SUCTIONED OBTAINED SMALL AMOUNT OF THICK WHITE SECRETIONS. PT ABLE TO COUGH. PT IS NOT SOB AND NOT IN RESPIRATORY DISTRESS AT THIS TIME.
[2016-04-30 16:00] VITALS: BP 139/79
--- NOTE | 2016-04-30 16:00 | NUR ---
REPOSITIONED PT. PT ON L SIDELINE. NOTED NO SIGNS OF DISTRESS. WILL CONTINUE TO MONITOR PT.
--- NOTE | 2016-04-30 16:47 | NUR ---
FAMILY IS HERE. PER FAMILY, " APPRECIATE ALL THAT YOU DO FOR HER." WILL SIT AND VISIT FOR A WHILE. WILL MONITOR PT FREQUENTLY.
[2016-04-30] MEDS: HYDROcodone/APAP 5/325 MG 1 TAB TAB PO PRN ×2 (17:12→23:40)
--- NOTE | 2016-04-30 19:19 | NUR ---
ENDORSED PT TO THE SLOT FLOOR ATTENDANT NURSE AT BEDSIDE FOR CONTINUITY OF CARE. PT IS IN STABLE CONDITION. SISTER AT BEDSIDE.
--- NOTE | 2016-04-30 19:28 | NUR ---
RECEIVED REPORT FROM CHLOE MEJIA, AT BEDSIDE. INITIAL ASSESSMENT AND BODY CHECK DONE. PATIENT AAO X 0, RESPONSIVE ONLY TO LIGHT PAIN, APHASIC, UNABLE TO FOLLOW COMMAND NOR MAKE NEEDS KNOWN AND ON BEDBOUND. PATIENT CURRENTLY LYING DOWN ON THE BED. NO S/S OF DISTRESS OR SOB NOTED. SKIN WARM/DRY TO TOUCH WITH NORMAL COLOR. STILL NOTED SOME NON-BLANCHABLE REDNESS TO PERINEAL/GROIN AND ABDOMINAL FOLD AREAS. DRESSING ON SACRAL AREA REMAINS CLEAN/DRY/ INTACT. DISCUSSED PLAN OF CARE, PAIN MANAGEMENT AND MEDICATION REGIMEN WITH PATIENT'S SISTER AND SHE VERBALIZED UNDERSTANDING. PLACED PATIENT ON SAFETY/FALL/PRESSURE ULCER/ASPIRATION PRECAUTIONS AND WILL CONTINUE TO MONITOR WITH REPOSITION Q 2 HOURS.
--- NOTE | 2016-04-30 19:30 | NUR ---
PLACE PT ON COOL AEROSOL MAS 24%, PT IS BREATHING TO HER MOUTH .
[2016-04-30 20:00] VITALS: BP 131/78
[2016-04-30] MEDS: LEVOFLOXACIN 500 MG/D5W PREMIX 100 ML IV SCH (20:15)
--- NOTE | 2016-04-30 20:15 | NUR ---
REPOSITION FOR COMFORT/PRESSURE RELIEF AND OFFLOADED PRESSURE AREAS. PATIENT TOLERATED WELL.
[2016-04-30] MEDS: SIMVASTATIN 20 MG TAB GT SCH (20:25)
--- NOTE | 2016-04-30 21:00 | NUR ---
VERIFIED LT NARE NG-TUBE PLACEMENT. IT IS IN THE RIGHT POSITION AND NO SKIN PROBLEM NOTED. THEN, ADMINISTERED DUE MEDICATIONS MD'S ORDERED WITH EDUCATION GIVEN. PATIENT TOLERATED WELL. KEPT PATIENT IN COMFORTABLE POSITION/WARM AND WILL CONTINUE TO MONITOR.
--- NOTE | 2016-04-30 22:15 | NUR ---
REPOSITION FOR COMFORT/PRESSURE RELIEF AND PATIENT TOLERATED WELL.
[2016-05-01] VITALS: BP 123/64
[2016-05-01] MEDS: Z-GUARD PASTE TP SCH ×2 (00:19→12:29)
--- NOTE | 2016-05-01 00:46 | NUR ---
PATIENT RESTED COMFORTABLY IN BED. V/S REMAINED WNL, FLACC 0 AND NO S/S OF DISTRESS NOTED. WILL CONTINUE TO MONITOR.
[2016-05-01] MEDS: ALBUTEROL SULFATE/IPRATROPIU 3 ML SOL IH SCH ×6 (03:00→23:57)
--- NOTE | 2016-05-01 03:00 | NUR ---
REPOSITION FOR COMFORT/PRESSURE RELIEF AND OFFLOADED PRESSURE AREAS. PATIENT TOLERATED WELL.
--- NOTE | 2016-05-01 03:10 | NUR ---
PT BS ARE CLEAR BILAT, AND PT IS SLEEPING COMFORTABLE, NO SOB
[2016-05-01] MEDS: HYDROcodone/APAP 5/325 MG 1 TAB TAB PO PRN ×2 (04:28→12:29)
[2016-05-01] MEDS: CLINDAMYCIN 600 MG in DEXTROSE 5% 50 ML IV SCH ×3 (04:28→20:45)
--- NOTE | 2016-05-01 04:58 | NUR ---
AM CARE/ORAL CARE GIVEN WITH LINENS CHANGED AND REPOSITION FOR COMFORT. PATIENT TOLERATED WELL. V/S REMAINED WNL AND NO APPARENT DISTRESS NOTED. WILL CONTINUE TO MONITOR.
[2016-05-01] MEDS: BLOOD GLUCOSE MONITORING 1 DEV DEV FS SCH ×4 (05:42→20:46)
[2016-05-01] MEDS: INSULIN LISPRO SLIDING SCALE 100 UNITS/ML VIAL SUBQ PRN ×4 (05:44→20:47)
--- NOTE | 2016-05-01 07:18 | NUR ---
RECEIVED PT ON 28% COOL AEROSOL. POST BREATHING TX PT PLACED ON 1L NASAL CANNULA WITH HUMIDIFIER SPO2 REMAINS 100%. PT IS NOT MOUTH BREATHING AND NO STRIDOR HEARD ON AUSCULTATION. B.S CLEAR. WILL CONTINUE TO MONITOR.
--- NOTE | 2016-05-01 07:20 | NUR ---
ENDORSED PLAN OF CARE TO CHLOE MENDES, AT BEDSIDE. PATIENT REMAINED IN STABLE CONDITION AND NO S/S OF DISTRESS NOTED.
--- NOTE | 2016-05-01 07:22 | NUR ---
RECEIVED REPORT FROM NIGHT NURSE. PT IS APHASIC. NO S/S OF DISTRESS. PT ON O2 1L NC. FLACC 0. NG TUBE TO THE LEFT NARE. FEEDING INFUSING. PT TOLERATING WELL. IV SITE PATENT AND INTACT. LEFT AV SHUNT NOTED. SACRAL DRESSING CLEAN DRY AND INTACT. CALL LIGHT WITHIN REACH. HOB ELEVATED. SAFETY MEASURES ENSURED. WILL CONTINUE TO MONITOR.
[2016-05-01 08:00] VITALS: BP 128/83
--- NOTE | 2016-05-01 08:30 | NUR ---
PT REPOSITIONED. PT TOLERATED WELL. NO S/S OF DISTRESS. CALL LIGHT WITHIN REACH. SAFETY PRECAUTIONS IN PLACE. WILL CONTINUE TO MONITOR.
[2016-05-01] MEDS: amLODIPine 5 MG TAB GT SCH (09:41)
[2016-05-01] MEDS: SACCHAROMYCES 250 MG CAP GT SCH ×2 (09:41→20:44)
[2016-05-01] MEDS: FAMOTIDINE 20 MG TAB GT SCH (09:42)
[2016-05-01] MEDS: FOLIC ACID 1 MG TAB GT SCH (09:42)
[2016-05-01] MEDS: METOCLOPRAMIDE 10 MG/10 ML SYRP UDC GT SCH ×3 (09:42→16:51)
[2016-05-01] MEDS: VIT-B COMP/VIT-C/FOLIC ACID 1 TAB PO SCH (09:43)
--- NOTE | 2016-05-01 10:30 | NUR ---
PT REPOSITIONED. PT TOLERATED WELL. CALL LIGHT WITHIN REACH. SAFETY PRECAUTIONS IN PLACE. WILL CONTINUE TO MONITOR.
--- NOTE | 2016-05-01 12:55 | NUR ---
MORNING CARE PERFORMED. ORAL CARE PERFORMED. PATIENT REPOSITIONED. PT DRESSING CHANGED. PT TOLERATED WELL. NO S/S OF DISTRESS. CALL LIGHT WITHIN REACH. SAFETY PRECAUTIONS IN PLACE. WILL CONTINUE TO MONITOR.
[2016-05-01] MEDS ORDERED: ONDANSETRON 4 MG/2 ML VIAL IVP PRN (13:05)
[2016-05-01] MEDS ORDERED: ALBUTEROL 0.083% 2.5 MG/3 ML NEBU INH PRN (13:11)
--- NOTE | 2016-05-01 14:30 | NUR ---
PT REPOSITIONED. PT TOLERATED WELL. NO S/S OF DISTRESS. FLACC 0. CALL LIGHT WITHIN REACH. SAFETY PRECAUTIONS IN PLACE. WILL CONTINUE TO MONITOR.
--- NOTE | 2016-05-01 15:50 | NUR ---
PT FEEDING TUBE REPLACED. PT TOLERATED WELL. NO S/S OF DISTRESS. CALL LIGHT WITHIN REACH. SAFETY PRECAUTIONS IN PLACE. WILL CONTINUE TO MONITOR.
--- NOTE | 2016-05-01 15:55 | NUR ---
PT BREATHING THROUGH MOUTH RETURNED TO COOL AEROSOL 28%. PT NOT SOB AND NOT IN RESPIRATORY DISTRESS. WILL CONTINUE TO MONITOR.
[2016-05-01 16:13] VITALS: BP 135/74
--- NOTE | 2016-05-01 16:30 | NUR ---
PT REPOSITIONED. PT TOLERATED WELL. NO S/S OF DISTRESS. CALL LIGHT WITHIN REACH. SAFETY PRECAUTIONS IN PLACE. WILL CONTINUE TO MONITOR.
--- NOTE | 2016-05-01 17:59 | NUR ---
PT REPOSITIONED. PT TOLERATED WELL. NO S/S OF DISTRESS. CALL LIGHT WITHIN REACH. SAFETY PRECAUTIONS IN PLACE. WILL CONTINUE TO MONITOR.
--- NOTE | 2016-05-01 19:11 | NUR ---
ENDORSED PLAN OF CARE TO NIGHT RN. PT REMAINS IN STABLE CONDITION.
--- NOTE | 2016-05-01 19:30 | NUR ---
RECEIVED REPORT FROM VAUGHN CORONA AT BEDSIDE. PT RESPOND ONLY TO SLIGHT PAIN STIMULI. INITIAL ASSESSMENT DONE. NO S/S OF RESPIRATORY DISTRESS OR SOB NOTED. ON O2 @ 6L/MIN VIA SIMPLE MASK. ON NG TUBE FEEDING NOVASOURCE @ 40ML/HR CONTINUOUS. PLACEMENT AND PATENCY ARE CONFIRMED. PLAN OF CARE REVIEWED TO PATIENT BUT UNABLE TO COMPREHEND. CALL LIGHT WITHIN REACH. WILL CONTINUE TO MONITOR.
--- NOTE | 2016-05-01 20:00 | NUR ---
REPOSITIONED PT ON HER LEFT SIDE AND TOLERATED WELL. WILL CONTINUE TO MONITOR.
[2016-05-01] MEDS: SIMVASTATIN 20 MG TAB GT SCH (20:45)
--- NOTE | 2016-05-01 22:00 | NUR ---
REPOSITIONED PT ON HER RIGHT SIDE AND TOLERATED WELL. WILL CONTINUE TO MONITOR.
--- NOTE | 2016-05-01 22:40 | NUR ---
DR. GROSSMAN CAME TO SEE PT AND NEW ORDERS WERE GIVEN (PLS. SEE CPOE). NEW ORDERS NOTED AND CARRIED OUT. WILL CONTINUE TO MONITOR.
--- NOTE | 2016-05-01 22:50 | NUR ---
CALLED GEOR[facility]NA IVAN AND NOTIFIED THAT PT HAS SCHEDULED DIALYSIS TOMORROW 05/02/16 @ 1000 AND SAID THAT SCHEDULE IS CONFIRMED. WILL CONTINUE TO MONITOR.
[2016-05-02] VITALS: BP 142/88
--- NOTE | 2016-05-02 | NUR ---
REPOSITIONED PT ON HER LEFT SIDE AND TOLERATED WELL. FAMILY AT BEDSIDE AND PLAN OF CARE EXPLAINED TO HER AND VERBALIZED UNDERSTANDING. CALL LIGHT WITHIN REACH. WILL CONTINUE TO MONITOR.
[2016-05-02] MEDS: Z-GUARD PASTE TP SCH ×2 (01:04→11:30)
[2016-05-02] MEDS: HYDROcodone/APAP 5/325 MG 1 TAB TAB PO PRN ×2 (01:05→21:56)
--- NOTE | 2016-05-02 02:00 | NUR ---
REPOSITIONED PT ON HER RIGHT SIDE AND TOLERATED WELL. EDUCATE FAMILY AT BEDSIDE AND VERBALIZED UNDERSTANDING. CALL LIGHT WITHIN REACH. WILL CONTINUE TO MONITOR.
[2016-05-02] MEDS: ALBUTEROL SULFATE/IPRATROPIU 3 ML SOL IH SCH ×5 (03:09→23:30)
--- NOTE | 2016-05-02 04:00 | NUR ---
REPOSITIONED PT ON HER LEFT SIDE AND TOLERATED WELL. EDUCATE FAMILY AT BEDSIDE AND VERBALIZED UNDERSTANDING. CALL LIGHT WITHIN REACH. WILL CONTINUE TO MONITOR.
[2016-05-02] MEDS: CLINDAMYCIN 600 MG in DEXTROSE 5% 50 ML IV SCH ×3 (04:18→21:50)
--- NOTE | 2016-05-02 06:00 | NUR ---
AM CARE RENDERED. BED LINEN CHANGED. REPOSITIONED PT ON HER RIGHT SIDE AND TOLERATED WELL. EDUCATE FAMILY AT BEDSIDE AND VERBALIZED UNDERSTANDING. KEPT CLEAN AND DRY. CALL LIGHT WITHIN REACH. WILL CONTINUE TO MONITOR.
[2016-05-02] MEDS: BLOOD GLUCOSE MONITORING 1 DEV DEV FS SCH ×4 (06:33→20:51)
[2016-05-02] MEDS: INSULIN LISPRO SLIDING SCALE 100 UNITS/ML VIAL SUBQ PRN ×4 (06:33→22:07)
--- NOTE | 2016-05-02 07:19 | NUR ---
PT HAS NO S/S OF ANY DISCOMFORT. PLAN OF CARE ENDORSED TO YA CORONA AT BEDSIDE FOR CONTINUITY OF CARE.
--- NOTE | 2016-05-02 07:40 | NUR ---
RECEIVED PT FROM SECURITY SUPPORT ANALYST CHLOE LOFTON. PT IS UNRESPONSIVE TO NAME STIMULI. PT ON 28% COOL AEROSOL, NO S/S OF RESPIRATORY DISTRESS NOTED. LUNG SOUNDS RHONCHI UPON AUSCULTATION. ABDOMEN SOFT, WITH ACTIVE BOWEL SOUND.SKIN NON INTACT ( SEE WOUND ASSESS) . IV TO RIGHT FOREARM #24, SITE INTACT AND PATENT. FREELY FLUSHED. HOB ELEVATED 30 DEGREES WITH LOW BED POSITION. SAFETY MEASURES IN PLACE. ORAL CARE GIVEN, NO FEVER ,VITALS IN NORMAL RANGE AT THIS TIME. WILL CONTINUE TO MONITOR PT CLOSELY.
--- NOTE | 2016-05-02 07:45 | NUR ---
PT HAS NG TUBE FEEDING NOVASOURCE RENAL AT 40 ML/HR, RESIDUAL CHECKED 50 ML. RETURNED IT BACK.
[2016-05-02 08:00] VITALS: BP 114/71
--- NOTE | 2016-05-02 08:05 | NUR ---
TURNED AND REPOSITIONED PT WITH [facility] CONSULTING APPLICATION ENGINEER. NO S/S OF RESPIRATORY DISTRESS NOTED. WILL CONTINUE TO MONITOR.
[2016-05-02] MEDS ORDERED: VIT-B COMP/VIT-C/FOLIC ACID 1 TAB PO SCH (09:00)
[2016-05-02] MEDS: amLODIPine 5 MG TAB GT SCH (09:00)
--- NOTE | 2016-05-02 09:00 | NUR ---
BP 114/71, HR 100, O2 SAT 100%.HOLD AMLODIPINE 5MG PER DR ORDER.
[2016-05-02] MEDS: METOCLOPRAMIDE 10 MG/10 ML SYRP UDC GT SCH ×3 (09:13→17:15)
[2016-05-02] MEDS: SACCHAROMYCES 250 MG CAP GT SCH ×2 (09:14→21:52)
[2016-05-02] MEDS: FAMOTIDINE 20 MG TAB GT SCH (09:14)
[2016-05-02] MEDS: FOLIC ACID 1 MG TAB GT SCH (09:14)
[2016-05-02] MEDS: EPOETIN ALFA 4,000 UNITS/ML VIAL IV SCH (09:54)
--- NOTE | 2016-05-02 10:05 | NUR ---
TURNED AND REPOSITIONED WITH [place] SMITH. GOWN AND LINEN CHANGED, CLEANED PT. NO SOB OR DISCOMFORT NOTED AT THIS TIME.
--- NOTE | 2016-05-02 10:14 | NUR ---
CM NOTE CONCURRENT REVIEW SENT TO [facility] FAX# [phone] ATTN: LAKESHA # [phone]
--- NOTE | 2016-05-02 11:10 | NUR ---
WOUND CARE NURSE PRESENT AT PT BEDSIDE TO ASSESS PT, DRESSING CHANGED.
[2016-05-02] MEDS: FOAM DRESSING TP SCH (11:30)
--- NOTE | 2016-05-02 11:30 | NUR ---
WOUND CARE FOLLOW UP NOTES: SEE PATIENT FOR FOLLOW UP. PLEASE REFER TO WOUND ASSESSMENT FLOWSHEET FOR UPDATED ENTRY. WILL CONTINUE CURRENT PLAN OF CARE. WILL CONTINUE TO FOLLOW UP PATIENT.
--- NOTE | 2016-05-02 12:15 | NUR ---
TURNED AND REPOSITIONED PT WITH SARAH CONRAD. ORAL CARE GIVEN. SUCTIONED PT WITH SMALL AMOUNT OF WHITE SECRETION. O2 SAT 99% AT THIS TIME. WILL CONTINUE TO MONITOR.
--- NOTE | 2016-05-02 14:00 | NUR ---
TURNED AND REPOSITIONED PT WITH SARAH CONRAD. NO S/S OF RESPIRATORY DISTRESS NOTED. PT STILL ON 28% COOL AEROSOL.
--- NOTE | 2016-05-02 14:07 | NUR ---
05/02/16 RD FOLLOW UP COMPLETED PLEASE REFER TO NUTRITION PROGRESS NOTE UNDER CARE ACTIVITY FOR ESTIMATED NUTRITION NEEDS. RD RECOMMENDATIONS: 1. CONTINUE TUBE FEEDING NOVASOURCE RENAL AT 40 ML/HR WITH 50 ML FREE WATER FLUSH Q6H VIA NGTUBE. --CURRENT TUBE FEEDING ADEQUATE TO MEET 100% OF PT ESTIMATED KCAL AND PROTEIN NEEDS --PT TOLERATING CURRENT TUBE FEEDING WELL PER RN 2. CONSIDER GTUBE FOR HOG RINGER NUTRITION SUPPORT NEEDS --NOTE PT WITH NG TUBE L NARE SINCE 03/04/16; PT FAMILY REFUSING GTUBE PLACEMENT 3. RD WILL F/U 2-3 DAYS; HIGH RISK KAREN CHIANG, RD
--- NOTE | 2016-05-02 15:05 | NUR ---
NO HHN GIVEN FOR THE 1500 BECAUSE PT IS CURRENTLY ON DIALYSIS. RN YA AWARE AND AT BEDSIDE. NO SOB/DISTRESS NOTED. HR 101 SAT 100% OF 28% FIO2 ON CA. WILL CONTINUE TO MONITOR.
--- NOTE | 2016-05-02 15:12 | NUR ---
DIALYSIS NURSE PRESENT AT PT BEDSIDE .
[2016-05-02 16:00] VITALS: BP 101/58
--- NOTE | 2016-05-02 16:45 | NUR ---
PT TOLERATED DIALYSIS WELL. O2 SAT 100%. VITALS IN NORMAL RANGE. NO FEVER. NO S/S OF RESPIRATORY DISTRESS NOTED. SUCTIONED PT WITH SMALL AMOUNT OF WHITE SECRETION. Addendum: 05/03/16 at 1342 by Rosalba Avalos RN NOTES FOR 1630 NOT FOR 1644.
--- NOTE | 2016-05-02 18:00 | NUR ---
FEEDING PUMP WAS BEEPING, CHECKED NG TUBE, UNABLE TO FLUSH.CHARGE NURSE AWARE.
--- NOTE | 2016-05-02 18:50 | NUR ---
DIALYSIS DONE. 1 LITER OUTPUT. NO S/S OF RESPIRATORY DISTRESS NOTED. REPOSITIONED PT TO MAKE PT COMFORTABLE. SUCTIONED PT WITH SMALL AMOUNT OF WHITE SECRETION. WILL CONTINUE TO MONITOR.
--- NOTE | 2016-05-02 19:27 | NUR ---
ENDORSED PT TO INTEGRATED CAMPAIGN MANAGER RN. PT VSS AT THIS TIME.
--- NOTE | 2016-05-02 19:30 | NUR ---
RECEIVED PATIENT FROM DAY RN FOR CONTINUITY OF CARE. PATIENT IS APHASIC, RESPONSIVE TO LIGHT PAIN, DOES NOT OPEN EYES. SHIFT ASSESSMENT DONE, VS TAKEN. PATIENT HAS LABORED RESPIRATORY EFFORT, RT PAGED FOR BREATHING TX. SKIN IS CLAMMY THROUGHOUT THE BODY, REMOVED PT HOME BLANKET, TEMP 98.4. PER DAYSHIFT NG TUBE WILL NOT IRRIGATE. TRIED TO CHECK FOR PLACEMENT, NOT WORKING. INFORMED CHARGE NURSE, WILL FOLLOW UP WITH DR. ALEMAN TO RT FA 24 GAUGE PATENT AND FLUSHED. LT ARM AV SHUNT. PT HAS SACRAL ARE PRESSURE ULCER WITH DRESSING DRY AND INTACT. NON-BLANCHABLE REDNESS TO BEVERLY AREA AND ABDOMINAL FOLD AREAS. SCD'S IN PLACE. SAFETY/FALL/PRESSURE ULCER/ASPIRATION PRECAUTIONS ENFORCED. PT ON WOUND BED, WILL TURN Q2H. WILL CONTINUE TO MONITOR.
[2016-05-02 20:00] VITALS: BP 121/90
--- NOTE | 2016-05-02 20:00 | NUR ---
TURNED AND REPOSITIONED PATIENT. PT MADE COMFORTABLE.
--- NOTE | 2016-05-02 20:05 | NUR ---
SPOKE WITH DR. ASHER REGARDING NEW NG TUBE PLACEMENT AND CXR FOR VERIFICATION.
--- NOTE | 2016-05-02 20:11 | NUR ---
PT O2 SAT BETWEEN 79-84% ON COOL AEROSOL, RT CALLED IN.
--- NOTE | 2016-05-02 20:12 | NUR ---
ATTENDANCE SECRETARY CALLED TO BEDSIDE PATIENT PRESENTING WITH INCREASED SOB AT 32 SATURATION 84% ON COOL AEROSOL TO MASK AT 28%/6 LPM BREATH SOUNDS COARSE RHONCHI BILATERAL USING STERILE TECHNIQUE APPLIED [place] LUBRICANT TO DISTAL END OF SUCTION CATHETER INSERTED INTO RIGHT NARES X 2 OBTAINED LARGE THIN PALE YELLOW SECRETIONS TOLERATED PROCEDURE WELL WITHOUT INCIDENT POST SATURATION 90% ON 28% INCREASED FIO2 TO 30%/8 LPM ELLA/RN NOTIFIED
--- NOTE | 2016-05-02 20:50 | NUR ---
CHEST X-RAY IN PROCESS FOR NG TUBE CONFIRMATION.
[2016-05-02] MEDS ORDERED: LEVOFLOXACIN 500 MG/D5W PREMIX 100 ML IV SCH (21:00)
--- NOTE | 2016-05-02 21:25 | NUR ---
CALLED TO PT ROOM DUE TO PT DESATURATING. PULSE OX SHOWING 79% ON 30% COOL AEROSOL MASK, HR 86, RR 16, B/P 67/25. PT CHANGED TO 100% NRB MASK AT 2129, SATURATION INCREASED TO 81%, BILATERAL COARSE BREATH SOUNDS AUSCULTATED. VITALS AT 2136: HR 106, RR 28, B/P 132/56, SAT 89%-90%, PT RNELLA AND ZANJEROKENDRA AWARE OF CHANGES TO PT'S O2 AND OF PT'S VITALS.
--- NOTE | 2016-05-02 21:29 | NUR ---
PER CXR RESULTS, NG TUBE PLACEMENT VERIFIED, TUBE FEEDING RESTARTED.
--- NOTE | 2016-05-02 21:30 | NUR ---
PER RT PATIENT MOVED TO NON-REBREATHER, O2 SAT 88-91%. LOW BP NOTED, PLACED PATIENT WITH FOOT OF BED ELEVATED. SPOKE WITH SISTER CAIO AT 2129, INFORMED HER OF LOW B/P AND LOW O2 SATURATION. STATES SHE WILL COME IN TO BE AT BEDSIDE. SPOKE WITH DAUGHTER ERIN AT 2129, INFORMED HER OF PT CONDITION WELL, VERBALIZED UNDERSTANDING.
--- NOTE | 2016-05-02 21:52 | NUR ---
DUE MEDS ADMINISTERED. ANTIBIOTICS ADMINISTERED, NO REACTION NOTED. PT DEMONSTRATES FLACC-5, MEDICATED FOR PAIN. SISTER AT BEDSIDE, DISCUSSED PLAN OF CARE, VERBALIZED UNDERSTANDING.
[2016-05-02] MEDS: SIMVASTATIN 20 MG TAB GT SCH (21:53)
--- NOTE | 2016-05-02 22:00 | NUR ---
TURNED AND REPOSITIONED PATIENT TO OFFLOAD PRESSURE, TOLERATED WELL. FAMILY MEMBER AT BEDSIDE, EDUCATED ON CARE PROVIDED, VERBALIZED UNDERSTANDING.
--- NOTE | 2016-05-02 23:30 | NUR ---
RT IN WITH PATIENT FOR BREATHING TX.
--- NOTE | 2016-05-03 00:03 | NUR ---
TURNED AND REPOSITIONED PATIENT. FLACC-0. O2 SAT 90%. SISTER AT BEDSIDE. WILL CONTINUE TO MONITOR.
[2016-05-03] MEDS: Z-GUARD PASTE TP SCH (01:38)
--- NOTE | 2016-05-03 02:13 | NUR ---
TURNED AND REPOSITIONED PATIENT, O2 SAT 91%, HR 91, B/P 94/38. SISTER AT BEDSIDE. WILL CONTINUE TO MONITOR.
[2016-05-03] MEDS: ALBUTEROL SULFATE/IPRATROPIU 3 ML SOL IH SCH (03:34)
--- NOTE | 2016-05-03 04:00 | NUR ---
TURNED AND REPOSITIONED PATIENT, AM CARE GIVEN. DRESSING TO SACRAL AREA DRY AND INTACT. PER PT SISTER "SHE NEEDS TO BE SUCTIONED." PAGED RT.
--- NOTE | 2016-05-03 04:10 | NUR ---
PT NT SUCTIONED PER SISTER REQUEST. PT SUCTIONED MOD AMOUNT THICK CREAMY ZAVALA SECRETIONS. PT'S B/P DROPPED TO 93/48, HR 104, RR 28, SATURATION ALSO DROPPED TO 84% (PT'S SATURATION PRIOR TO SUCTIONING 96-98%). PT IMMEDIATELY RETURNED TO 100% NRB MASK AND AFTER APPROXIMATELY 5 MINUTES PTS SATURATION RETURNED TO 92%, HR 107, RR 28 AND B/P 87/47. PT'S RNELLA AT BEDSIDE, AWARE OF PT'S B/P AND SATURATION.
[2016-05-03] MEDS: CLINDAMYCIN 600 MG in DEXTROSE 5% 50 ML IV SCH (04:42)
[2016-05-03] MEDS: BLOOD GLUCOSE MONITORING 1 DEV DEV FS SCH (05:43)
--- NOTE | 2016-05-03 06:05 | NUR ---
IN TO TURN PATIENT, PT DESATURATING AND BLOOD PRESSURE DECREASING. ATTEMPTED TO TAKE VS COULD NOT DETECT ON THE MACHINE. SISTER AT BEDSIDE AWARE OF PT CONDITION WORSENING, COMFORTING PT AND INSTRUCTED US TO CALL FAMILY MEMBERS.
--- NOTE | 2016-05-03 06:07 | NUR ---
ER MD AND STOPPING BUILDER MADE AWARE OF PTS DECLINE IN STATUS. BOTH STATED THEY WILL BE AT BEDSIDE SHORTLY.
--- NOTE | 2016-05-03 06:09 | NUR ---
CALLED PERSON TO NOTIFY ON FACESHEET ERIN DAUGHTER AT [phone], NO ANSWER. LEFT MESSAGE.
--- NOTE | 2016-05-03 06:10 | NUR ---
Yessi KONG USE DOPPLER AND PRONOUNCED PATIENT AT 0610, SISTER AT BEDSIDE.
--- NOTE | 2016-05-03 06:15 | NUR ---
SPOKE TO ALEJANDRA PT BROTHER IN LAW TO INFORM FAMILY TO COME TO HOSPITAL PER PT SISTER-CAIO'S REQUEST.
--- NOTE | 2016-05-03 06:42 | NUR ---
PAGED DR. QUINTERO, AWAITING CALL BACK.
--- NOTE | 2016-05-03 06:52 | NUR ---
SPOKE WITH DR. ASHER, INFORMED HER PATIENT HAS , SAID SHE WILL NOTIFY DR. QUINTERO.
--- NOTE | 2016-05-03 07:03 | NUR ---
PT SISTER REQUESTS TO KEEP DOOR SHUT FOR FAMILY MEMBERS TO VISIT, ACCOMMODATED TO NEEDS.
--- NOTE | 2016-05-03 07:15 | NUR ---
REMOVED ALL LINES AND TUBES FROM PATIENT. SISTER AND MOTHER AT BEDSIDE.
--- NOTE | 2016-05-03 07:18 | NUR ---
SPOKE WITH [facility] REGARDING ORGAN DONATION, PER [facility] REP THEY WILL CONTACT FAMILY.
--- NOTE | 2016-05-03 07:40 | NUR ---
CALLED [facility] AND TALKED WITH JULEE.THEY WILL COME TO [facility] BURN OUT TENDER BODY.
--- NOTE | 2016-05-03 07:59 | NUR ---
RECEIVED REPORT FROM NIGHT NURSE FOR POST-MORTEM CARE, AWAITING MORTUARY TRANSPORT. Addendum: 05/03/16 at 0840 by Masha Ozuna RN FAMILY AT BEDSIDE
--- NOTE | 2016-05-03 07:59 | NUR ---
ENDORSED PATIENT TO [facility] FOR POST-MORTEM CARE, AWAITING MORTUARY TRANSPORT.
--- NOTE | 2016-05-03 10:05 | NUR ---
CHECKED IN ON FAMILY, FAMILY STATES THAT THEY'RE OK AT THIS TIME.
--- NOTE | 2016-05-03 10:26 | NUR ---
SS NOTE: I SPOKE WITH PT'S DTR, RAKEL IN PT'S ROOM AND PROVIDED HER WITH BEREAVEMENT RESOURCES FOR HER AND PT'S FAMILY.
--- NOTE | 2016-05-03 11:50 | NUR ---
PROVIDED WATER FOR FAMILY. ALL NEEDS MET.
--- NOTE | 2016-05-03 12:40 | NUR ---
MORTUARY TRANSPORT HERE TO [place] [facility] PT.
--- NOTE | 2016-05-03 14:28 | NUR ---
FAXED CONCURRENT REVIEW TO [facility] [phone] PHONE LAKESHA [phone]
== END 2016-05-03 06:07 | disposition expired | DRG 130 ==
LOC: MED 13:55 → MIC 17:03 → MTU 18:58 → MIC 03-03 20:40 → MTU 04-07 15:50
PROVIDERS: ADMIT Hospitalist; ATTEND Hospitalist
PROC: 5A1D60Z (ICD-10-PCS; 2016-03-01)
PROC: 5A09457 Assistance with Respiratory Ventilation, 24-96 Consecutive Hours, Continuous Positive Airway Pressure (ICD-10-PCS; 2016-03-01)
PROC: 0BH17EZ Insertion of Endotracheal Airway into Trachea, Via Natural or Artificial Opening (ICD-10-PCS; 2016-03-03)
PROC: 5A1955Z Respiratory Ventilation, Greater than 96 Consecutive Hours (ICD-10-PCS; principal; 2016-03-04)
PROC: 5A12012 Performance of Cardiac Output, Single, Manual (ICD-10-PCS; 2016-03-04)
PROC: 0W9B3ZZ Drainage of Left Pleural Cavity, Percutaneous Approach (ICD-10-PCS; 2016-03-06)
PROC: 30233N1 Transfusion of Nonautologous Red Blood Cells into Peripheral Vein, Percutaneous Approach (ICD-10-PCS; 2016-04-09)
PROC: 30233N1 Transfusion of Nonautologous Red Blood Cells into Peripheral Vein, Percutaneous Approach (ICD-10-PCS; 2016-04-15)
DX: J96.01 Acute respiratory failure with hypoxia (principal); N17.0 Acute kidney failure with tubular necrosis; A41.9 Sepsis, unspecified organism; G93.1 Anoxic brain damage, not elsewhere classified; J15.5 Pneumonia due to Escherichia coli; J91.8 Pleural effusion in other conditions classified elsewhere; N18.6 End stage renal disease; Z66 Do not resuscitate; I13.11 Hypertensive heart and chronic kidney disease without heart failure, with stage 5 chronic kidney disease, or end stage renal disease; I46.9 Cardiac arrest, cause unspecified; E87.70 Fluid overload, unspecified; R13.10 Dysphagia, unspecified; I95.9 Hypotension, unspecified; G31.9 Degenerative disease of nervous system, unspecified; E83.39 Other disorders of phosphorus metabolism; E11.21 Type 2 diabetes mellitus with diabetic nephropathy; Z51.5 Encounter for palliative care; I50.9 Heart failure, unspecified; I25.10 Atherosclerotic heart disease of native coronary artery without angina pectoris; E11.22 Type 2 diabetes mellitus with diabetic chronic kidney disease; Z16.12 Extended spectrum beta lactamase (ESBL) resistance; G40.109 Localization-related (focal) (partial) symptomatic epilepsy and epileptic syndromes with simple partial seizures, not intractable, without status epilepticus; N39.0 Urinary tract infection, site not specified; B96.20 Unspecified Escherichia coli [E. coli] as the cause of diseases classified elsewhere; E11.319 Type 2 diabetes mellitus with unspecified diabetic retinopathy without macular edema; D63.1 Anemia in chronic kidney disease; E87.5 Hyperkalemia; H54.8 Legal blindness, as defined in USA; K21.9 Gastro-esophageal reflux disease without esophagitis; Z88.6 Allergy status to analgesic agent; Z88.1 Allergy status to other antibiotic agents; Z91.013 Allergy to seafood; Z99.2 Dependence on renal dialysis; Z90.49 Acquired absence of other specified parts of digestive tract; Z86.73 Personal history of transient ischemic attack (TIA), and cerebral infarction without residual deficits; Z97.8 Presence of other specified devices; Z79.4 Long term (current) use of insulin